=== PATIENT | male | born 1945 | race Caucasian/White ===

== ENCOUNTER 2016-03-03 09:55 | Inpatient (IN) | payer OTHER ==
[~2016-03-03] VITALS: Ht 162.6 cm; Wt 76.4 kg
[~2016-03-03 09:55] MED LIST: AMOX1TAB43 PO; ASPI81TA21 PO; BISA10SU3 PR; CLC100X PO; DONE10TA12 PO; GLIP5TAB11 PO; METF1000 PO; PANT1TAB48 PO; POLY335040 PO; PRAZ1CAP28 PO; RAME8TAB18 PO; SENN-63 PO; TRAZ50TA35 PO; VENL75CA PO
[2016-03-03] MEDS ORDERED: ASPIRIN 324 MG CHEW PO STA (10:02)
[2016-03-03] MEDS ORDERED: ONDANSETRON INJ 2 MG/ML 2 ML VIAL IV STA (10:02)
[2016-03-03] MEDS ORDERED: PANTOprazole INJ 40 MG in SYRINGE 0 ML IV ONE (10:15)
[2016-03-03] MEDS ORDERED: MoRPHine SULFATE 4 MG/ML 1 ML CARP\\VIAL IV PRN (10:15)
--- NOTE | 2016-03-03 10:19 | EMERGENCY ROOM VISIT NOTE ---
History Report prepared by Javon: Sweetie Hoffman Under the Supervision of: Dr. Natan Richmond D.O. First contact with patient: 09:57 Chief Complaint: CHEST PAIN Stated Complaint: CHEST PAINS W/NAUSEA History of Present Illness The patient is a 70 year old male who presents to the Emergency Room with complaints of persistent chest pain over the past 3 days. Currently, his pain is radiating to his neck as well as his back, and he rates his discomfort as a 5 /10, which worsens when laying flat. Since the time of onset, the patient has also been feeling nauseous, but he denies having abdominal pain and he has not yet vomited. He also states that he has been feeling short of breath, but he is unsure if this worsens with exertion as he has not attempted to do so. Patient denies recent fevers, chills, headache, cough, diarrhea, urinary symptoms or increased swelling to his extremities. Patient states that he has experienced similar symptoms in the past and he had a stress test done several years ago. He has a history of diabetes and hypertension. He denies use of tobacco or alcohol. Source of History: patient Onset: over the past 3 days Position: chest Symptom Intensity: 5/10 Timing: other (persistent) Modifying Factors (Worsening): other (laying flat) Associated Symptoms: + SOB, + nausea, + neck pain, No abdominal pain, No chills, No diarrhea, No fevers, No urinary symptoms, No vomiting Review of Systems See HPI for pertinent positives & negatives. A total of 10 systems reviewed and were otherwise negative. Past Medical & Surgical Medical Problems: (1) Chest pain (2) Cholecystectomy (3) Colostomy (4) Diabetes mellitus Social History Marital Status: Occupation Status: retired Current/Historical Medications Scheduled Aspirin Enteric Coated (Ecotrin Or Generic), 81 MG PO DAILY Bisacodyl (Dulcolax), 1 SUPP RI DAILY PRN Docusate Sodium (Colace), 200 MG PO BID Donepezil Hydrochloride (Aricept), 10 MG PO HS Glipizide (Glucotrol), 5 MG PO DAILY Metformin Hcl (Glucophage), 1,000 MG PO BID Pantoprazole (Protonix), 40 MG PO DAILY Polyethylene (Miralax Powder Packet), 17 GM PO PRN Prazosin Hcl (Prazosin), 1 MG PO BID Ramelteon (Rozerem), 8 MG PO HS PRN Sennosides (Senokot), 1 TAB PO BID Trazodone Hcl (Trazodone), 50 MG PO HS Venlafaxine Hcl (Effexor Xr), 75 MG PO BID Allergies Coded Allergies: No Known Allergies (Verified , 03/03/16) Physical Exam Vital Signs Date Time Temp Pulse Resp B/P Pulse Ox O2 Delivery O2 Flow Rate FiO2 03/03/16 14:22 85 18 137/94 95 Room Air 03/03/16 13:26 90 18 137/88 95 Room Air 03/03/16 13:15 84 03/03/16 12:50 95 Room Air 03/03/16 12:07 79 18 144/85 95 Room Air 03/03/16 11:11 82 18 150/93 95 Room Air 03/03/16 10:03 79 03/03/16 09:59 37.0 83 24 162/98 94 Room Air Physical Exam GENERAL: Patient is awake, alert, and somewhat anxious and uncomfortable appearing. EYES: The conjunctivae are clear. The pupils are round and reactive. EARS, NOSE, MOUTH AND THROAT: The nose is without any evidence of any deformity. Mucous membranes are moist tongue is midline NECK: The neck is nontender and supple. RESPIRATORY: Normal respiratory effort is noted there is no evidence of wheezing rhonchi or rales CARDIOVASCULAR: Regular rate and rhythm noted there no murmurs rubs or gallops normal S1 normal S2 GASTROINTESTINAL: The abdomen is soft. Bowel sounds are present in all quadrants. Abdomen is nontender MUSCULOSKELETAL/EXTREMITIES: There is no evidence of gross deformity full range of motion is noted in the hips and shoulders SKIN: There is no obvious evidence of any rash. There are no petechiae, pallor or cyanosis noted. NEUROLOGIC: Patient is awake alert and oriented x3. Medical Decision & Procedures ER Provider Diagnostic Interpretation: X-ray results as stated below per interpretation by me and the radiologist. KUB HISTORY: Nausea. Generalized abdominal pain. COMPARISON: Chest and abdominal series 03/03/2008. FINDINGS: The bowel gas pattern is unremarkable. There are no dilated loops of small bowel to suggest an obstruction. No renal calculi. No ureteral calculi. No pneumoperitoneum or pneumatosis. Prior cholecystectomy. There is suture material within the right deep pelvis. The lung bases appear clear. IMPRESSION: Unremarkable bowel gas pattern. No evidence for bowel obstruction. Electronically signed by: Jem Underwood M.D. 03/03/2016 10:46 AM CHEST ONE VIEW PORTABLE CLINICAL HISTORY: Chest pain and nausea. COMPARISON STUDY: Chest radiograph October 20, 2012 FINDINGS: Lung volumes are normal. No consolidation is identified and there is no evidence of pulmonary edema. Cardiomediastinal silhouette is stable. An anterior cervical spine fusion is partially imaged. No pneumothorax or pleural effusion is identified. IMPRESSION: No acute cardiopulmonary findings. Electronically signed by: Kevyn Headley M.D. 03/03/2016 10:35 AM Laboratory Results 03/03/16 10:04 Red Blood Count 5.51, Mean Corpuscular Volume 86.4, Mean Corpuscular Hemoglobin 31.8, Mean Corpuscular Hemoglobin Concent 36.8, Mean Platelet Volume 10.5, Neutrophils (%) (Auto) 65.2, Lymphocytes (%) (Auto) 25.3, Monocytes (%) (Auto) 5.9, Eosinophils (%) (Auto) 2.3, Basophils (%) (Auto) 0.4, Neutrophils # (Auto) 5.13, Lymphocytes # (Auto) 1.99, Monocytes # (Auto) 0.46, Eosinophils # (Auto) 0.18, Basophils # (Auto) 0.03 03/03/16 10:04 Test 03/03/16 10:04 White Blood Count 7.86 K/uL (4.8-10.8) Red Blood Count 5.51 M/uL (4.7-6.1) Hemoglobin 17.5 g/dL (14.0-18.0) Hematocrit 47.6 % (42-52) Mean Corpuscular Volume 86.4 fL (80-100) Mean Corpuscular Hemoglobin 31.8 pg (25-34) Mean Corpuscular Hemoglobin Concent 36.8 g/dl (32-36) Platelet Count 193 K/uL (130-400) Mean Platelet Volume 10.5 fL (7.4-10.4) Neutrophils (%) (Auto) 65.2 % Lymphocytes (%) (Auto) 25.3 % Monocytes (%) (Auto) 5.9 % Eosinophils (%) (Auto) 2.3 % Basophils (%) (Auto) 0.4 % Neutrophils # (Auto) 5.13 K/uL (1.4-6.5) Lymphocytes # (Auto) 1.99 K/uL (1.2-3.4) Monocytes # (Auto) 0.46 K/uL (0.11-0.59) Eosinophils # (Auto) 0.18 K/uL (0-0.5) Basophils # (Auto) 0.03 K/uL (0-0.2) RDW Standard Deviation 40.2 fL (36.4-46.3) RDW Coefficient of Variation 12.6 % (11.5-14.5) Immature Granulocyte % (Auto) 0.9 % Immature Granulocyte # (Auto) 0.07 K/uL (0.00-0.02) Prothrombin Time 11.1 SECONDS (9.0-12.0) Prothromb Time International Ratio 1.0 (0.9-1.1) Activated Partial Thromboplast Time 25.9 SECONDS (21.0-31.0) Partial Thromboplastin Ratio 1.0 Anion Gap 9.0 mmol/L (3-11) Est Creatinine Clear Calc Drug Dose 59.9 ml/min Estimated GFR () 79.5 Estimated GFR (Non- 68.6 BUN/Creatinine Ratio 14.9 (10-20) Calcium Level 8.7 mg/dl (8.5-10.1) Magnesium Level 2.0 mg/dl (1.8-2.4) Total Bilirubin 0.8 mg/dl (0.2-1) Direct Bilirubin 0.2 mg/dl (0-0.2) Aspartate Amino Transf (AST/SGOT) 25 U/L (15-37) Alanine Aminotransferase (ALT/SGPT) 33 U/L (12-78) Alkaline Phosphatase 74 U/L (45-117) Total Creatine Kinase 90 U/L (39-308) Creatine Kinase MB 1.2 ng/ml (0.5-3.6) Creatine Kinase MB Ratio 1.3 (0-3.0) Troponin I < 0.015 ng/ml (0-0.045) Total Protein 7.3 gm/dl (6.4-8.2) Albumin 4.1 gm/dl (3.4-5.0) Lipase 287 U/L (73-393) Laboratory results per my review. Medications Administered Medications (Trade) Dose Ordered Sig/Woo Route Start Time Stop Time Status Last Admin Dose Admin Morphine Sulfate (MoRPHine SULFATE INJ) 4 mg Q15M PRN IV 03/03/16 10:15 03/17/16 10:14 03/03/16 10:23 4 MG Ondansetron HCl 4 mg 4 mg NOW STAT IV 03/03/16 10:02 03/03/16 10:03 DC 03/03/16 10:22 4 MG Pantoprazole Sodium/Syringe (Protonix Inj/ Syringe) 10 ml @ 5 mls/min NOW ONCE IV 03/03/16 10:15 03/03/16 10:16 DC 03/03/16 10:22 5 MLS/MIN Aspirin (Aspirin Chew) 324 mg NOW STAT PO 03/03/16 10:02 03/03/16 10:03 DC 03/03/16 10:22 324 MG ECG Indication: chest pain Rate (beats per minute): 84 Rhythm: normal sinus Findings: no ectopy, other (Diffuse T wave flattening.) ED Course 0958: The patient was evaluated in room A11. A complete history and physical examination were performed. 1002: Aspirin 324 mg PO and Zofran 4 mg IV were ordered. 1015: Pantoprazole Sodium 40 mg/Syringe 10 ml @ 5 mls/min IV and Morphine Sulfate 4 mg IV were ordered. 1220: Upon reevaluation, the patient was doing well and appeared to be resting more comfortably. I updated him on the results of his radiology reports and lab tests. The hospitalist will be contacted. 1236: After discussion with Dr. Schilling, the patient will continue to be evaluated by the [facility] hospitalist for further management. The patient verbalized his understanding and agreement with this treatment plan. Medical Decision Differential diagnosis: Etiologies such as cardiac ischemia, aortic dissection, pulmonary embolism, pneumonia, pneumothorax, musculoskeletal, infections, pericarditis, myocarditis , esophageal rupture, gastrointestinal, as well as others were entertained. Nursing notes reviewed. The patient is a 70-year-old male who presented to the emergency department for an evaluation of chest pain. The patient describes anterior chest pain. The patient's EKG did not show any acute ischemic changes. His initial laboratory studies did not reveal an elevation in the troponin. I discussed the patient's laboratory and radiographic studies with him. I also discussed the limitations of the emergency department workup for chest pain with him. Given the patient's complaints and past medical history I discussed this case with the on-call [facility] hospitalist group. They have agreed to evaluate the patient in the emergency apartment for further management and disposition. Consults Time Called: 1220 Consulting Physician: Dr. Schilling - DA Returned Call: 1235 Discussed the patient's case. He will continue to be evaluated by the [facility] hospitalist for further management. Impression Primary Impression: Precordial chest pain Scribe Attestation The scribe's documentation has been prepared under my direction and personally reviewed by me in its entirety. I confirm that the note above accurately reflects all work, treatment, procedures, and medical decision making performed by me. Departure Information Dispostion Being Evaluated By Hospitalist (DA) Referrals No Doctor, Assigned (PCP)
[2016-03-03 10:28] LABS: BASO % 0.4 %; BASO ABS # 0.03 K/uL (0-0.2); COMPLETE YES; EOS % 2.3 %; HEMATOCRIT 47.6 % (42-52); IG% 0.9 %; LYMPH % 25.3 %; LYMPH ABS # 1.99 K/uL (1.2-3.4); MEAN CELL VOLUME 86.4 fL (80-100); MEAN CORPUSCULAR HEMOGLOBIN 31.8 pg (25-34); MEAN CORPUSCULAR HGB CONC 36.8 g/dl (32-36); MEAN PLATELET VOLUME 10.5 fL (7.4-10.4); MONO % 5.9 %; NEUT % 65.2 %; PLATELET COUNT 193 K/uL (130-400); RED BLOOD COUNT 5.51 M/uL (4.7-6.1); WHITE BLOOD COUNT 7.86 K/uL (4.8-10.8)
[2016-03-03 10:36] LABS: PROTHROMBIN TIME (PATIENT) 11.1 SECONDS (9.0-12.0)
--- NOTE | 2016-03-03 10:37 | DIAGNOSTIC IMAGING REPORT ---
CHEST ONE VIEW PORTABLE CLINICAL HISTORY: Chest pain and nausea. COMPARISON STUDY: Chest radiograph October 20, 2012 FINDINGS: Lung volumes are normal. No consolidation is identified and there is no evidence of pulmonary edema. Cardiomediastinal silhouette is stable. An anterior cervical spine fusion is partially imaged. No pneumothorax or pleural effusion is identified. IMPRESSION: No acute cardiopulmonary findings. Electronically signed by: Kevyn Headley M.D. 03/03/2016 10:35 AM
--- NOTE | 2016-03-03 10:48 | DIAGNOSTIC IMAGING REPORT ---
KUB HISTORY: Nausea. Generalized abdominal pain. COMPARISON: Chest and abdominal series 03/03/2008. FINDINGS: The bowel gas pattern is unremarkable. There are no dilated loops of small bowel to suggest an obstruction. No renal calculi. No ureteral calculi. No pneumoperitoneum or pneumatosis. Prior cholecystectomy. There is suture material within the right deep pelvis. The lung bases appear clear. IMPRESSION: Unremarkable bowel gas pattern. No evidence for bowel obstruction. Electronically signed by: Jem Underwood M.D. 03/03/2016 10:46 AM
[2016-03-03 10:49] LABS: BLOOD UREA NITROGEN 16 mg/dl (7-18); BUN/CREATININE RATIO 14.9 (10-20); CALCIUM 8.7 mg/dl (8.5-10.1); CARBON DIOXIDE 25 mmol/L (21-32); CHLORIDE 105 mmol/L (98-107); GLUCOSE 207 mg/dl (70-99); POTASSIUM 3.6 mmol/L (3.5-5.1); SODIUM 139 mmol/L (136-145)
[2016-03-03 10:55] LABS: ALKALINE PHOSPHATASE 74 U/L (45-117); ALT/SGPT 33 U/L (12-78); AST/SGOT 25 U/L (15-37); CKMB/CK RATIO 1.3 (0-3.0)
[2016-03-03 12:50] VITALS: BP 93/87; PULSE 76; TEMP 36.8; O2SAT 95; BMI 28.8
[2016-03-03] MEDS ORDERED: ACETAMINOPHEN 325 MG TAB PO PRN (13:15)
[2016-03-03] MEDS ORDERED: INFLUENZA VIRUS QUAD VACCINE 0.5 ML SYR IM. ONE ×2 (13:15→13:45)
[2016-03-03] MEDS ORDERED: PNEUMOCOCCAL POLYSACCHARIDES 25 MCG/0.5 ML VIAL/SYR IM. ONE (13:15)
[2016-03-03] MEDS ORDERED: MAGNESIUM HYDROXIDE SUSP 30 ML UDC PO PRN (13:15)
[2016-03-03] MEDS ORDERED: PNEUMOCOCCAL ADMINISTRATION CHARGE ONE (13:15)
[2016-03-03] MEDS ORDERED: ALUMINUM/MAGNESIUM/SIMETH (MAALOX MAX) 30 ML UDC PO PRN (13:15)
[2016-03-03] MEDS ORDERED: POLYETHYLENE (MIRALAX) 17 GM PACK PO PRN (13:15)
[2016-03-03] MEDS ORDERED: NITROGLYCERIN 0.4 MG SL PER TAB CHARGE SL PRN (13:15)
[2016-03-03] MEDS ORDERED: HydrALAZINE HCL 20 MG/ML VIAL IV. PRN (13:15)
[2016-03-03] MEDS ORDERED: INFLUENZA ADMINISTRATION CHARGE ONE (13:45)
--- NOTE | 2016-03-03 14:14 | History and Physical ---
History & Physical Date & Time of Service: Mar 03, 2016 at 13:26 Chief Complaint: Chest Pains W/Nausea Primary Care Physician: No Doctor, Assigned History of Present Illness Source: patient, family Patient is a pleasant 70 y/o male, with PMHx of DM, GERD, depression, insomnia, BPH, and mild cognitive impairment, who presented to the ED with complaints of chest pain, nausea and vomiting x4 days. On Tuesday (02/28), he started to experience nausea and vomiting. He also admits to diarrhea and decreased appetite. Symptoms have resolved with mild nausea and depressed appetite currently. His entire family has been sick with the "GI bug." Patient also admits to chest pressure located in the the center of his chest. Patient came to the ED today because of the chest discomfort. Discomfort has been ongoing for 4 days. Discomfort radiates to left shoulder and jaw. The pain is constant. He denies any alleviating or aggravating factors. He denies any SOB or dyspnea on exertion. He denies any easily fatiguing with activity. His denies any cardiac history; arrhythmias, CAD, or heart catheterizations. He did have a stress test years ago, which was unremarkable. He does have a history of DM. He denies any history of HTN or hyperlipidemia. He denies any alcohol or smoking use. He denies any TIA, CVA, DVT, or PE. Patient denies any fever, chills, sweats, lightheadedness, dizziness, vision changes, palpitations, edema, SOB, wheezing, cough, abdominal pain, urinary symptoms, melena, numbness/tingling, weakness, muscle/joint pain, anxiety/depression, active bleeding, or new skin discoloration/changes. Past Medical/Surgical History Medical history: 1. DM 2. GERD 3. Depression 4. Insomnia/night terrors 5. BPH 6. Mild cognitive impairment Surgical history 1. Cholecystectomy 2. Bowel obstruction s/p colectomy- reversed Family History Dad and Brother- DM Social History Smoking Status: Never Smoker Marital Status: Occupational Status: retired Immunizations History of Influenza Vaccine: Yes History of Tetanus Vaccine?: Unknown History of Pneumococcal: Yes History of Hepatitis B Vaccine: Unknown Multi-Drug Resistant Organisms History of MDRO: No Allergies Coded Allergies: No Known Allergies (Verified , 03/03/16) Home Medications Scheduled Aspirin Enteric Coated (Ecotrin Or Generic), 81 MG PO DAILY Bisacodyl (Dulcolax), 1 SUPP [place] DAILY PRN Docusate Sodium (Colace), 200 MG PO BID Donepezil Hydrochloride (Aricept), 10 MG PO HS Glipizide (Glucotrol), 5 MG PO DAILY Metformin Hcl (Glucophage), 1,000 MG PO BID Pantoprazole (Protonix), 40 MG PO DAILY Polyethylene (Miralax Powder Packet), 17 GM PO PRN Prazosin Hcl (Prazosin), 1 MG PO BID Ramelteon (Rozerem), 8 MG PO HS PRN Sennosides (Senokot), 1 TAB PO BID Trazodone Hcl (Trazodone), 50 MG PO HS Venlafaxine Hcl (Effexor Xr), 75 MG PO BID Physical Exam Vital Signs Date Time Temp Pulse Resp B/P Pulse Ox O2 Delivery O2 Flow Rate FiO2 03/03/16 13:15 84 03/03/16 12:50 95 Room Air 03/03/16 12:07 79 18 144/85 95 Room Air 03/03/16 11:11 82 18 150/93 95 Room Air 03/03/16 10:03 79 03/03/16 09:59 37.0 83 24 162/98 94 Room Air General Appearance: no apparent distress Head: normocephalic, atraumatic Eyes: normal inspection, PERRL ENT: hearing grossly normal Neck: supple Respiratory/Chest: lungs clear, normal breath sounds, no respiratory distress, no accessory muscle use Cardiovascular: regular rate, rhythm, no edema, normal peripheral pulses Abdomen/GI: normal bowel sounds, non tender, soft Back: normal inspection Extremities/Musculoskelatal: no calf tenderness, no pedal edema Neurologic/Psych: alert, normal mood/affect, oriented x 3 Skin: normal color, warm/dry, no rash Diagnostics Laboratory Results Results Past 24 Hours Test 03/03/16 10:04 Range/Units White Blood Count 7.86 4.8-10.8 K/uL Red Blood Count 5.51 4.7-6.1 M/uL Hemoglobin 17.5 14.0-18.0 g/dL Hematocrit 47.6 42-52 % Mean Corpuscular Volume 86.4 80-100 fL Mean Corpuscular Hemoglobin 31.8 25-34 pg Mean Corpuscular Hemoglobin Concent 36.8 32-36 g/dl Platelet Count 193 130-400 K/uL Mean Platelet Volume 10.5 7.4-10.4 fL Neutrophils (%) (Auto) 65.2 % Lymphocytes (%) (Auto) 25.3 % Monocytes (%) (Auto) 5.9 % Eosinophils (%) (Auto) 2.3 % Basophils (%) (Auto) 0.4 % Neutrophils # (Auto) 5.13 1.4-6.5 K/uL Lymphocytes # (Auto) 1.99 1.2-3.4 K/uL Monocytes # (Auto) 0.46 0.11-0.59 K/uL Eosinophils # (Auto) 0.18 0-0.5 K/uL Basophils # (Auto) 0.03 0-0.2 K/uL RDW Standard Deviation 40.2 36.4-46.3 fL RDW Coefficient of Variation 12.6 11.5-14.5 % Immature Granulocyte % (Auto) 0.9 % Immature Granulocyte # (Auto) 0.07 0.00-0.02 K/uL Prothrombin Time 11.1 9.0-12.0 SECONDS Prothromb Time International Ratio 1.0 0.9-1.1 Activated Partial Thromboplast Time 25.9 21.0-31.0 SECONDS Partial Thromboplastin Ratio 1.0 Sodium Level 139 136-145 mmol/L Potassium Level 3.6 3.5-5.1 mmol/L Chloride Level 105 98-107 mmol/L Carbon Dioxide Level 25 21-32 mmol/L Anion Gap 9.0 3-11 mmol/L Blood Urea Nitrogen 16 7-18 mg/dl Creatinine 1.10 0.60-1.40 mg/dl Est Creatinine Clear Calc Drug Dose 59.9 ml/min Estimated GFR () 79.5 Estimated GFR (Non- 68.6 BUN/Creatinine Ratio 14.9 10-20 Random Glucose 207 70-99 mg/dl Calcium Level 8.7 8.5-10.1 mg/dl Magnesium Level 2.0 1.8-2.4 mg/dl Total Bilirubin 0.8 0.2-1 mg/dl Direct Bilirubin 0.2 0-0.2 mg/dl Aspartate Amino Transf (AST/SGOT) 25 15-37 U/L Alanine Aminotransferase (ALT/SGPT) 33 12-78 U/L Alkaline Phosphatase 74 45-117 U/L Total Creatine Kinase 90 39-308 U/L Creatine Kinase MB 1.2 0.5-3.6 ng/ml Creatine Kinase MB Ratio 1.3 0-3.0 Troponin I < 0.015 0-0.045 ng/ml Total Protein 7.3 6.4-8.2 gm/dl Albumin 4.1 3.4-5.0 gm/dl Lipase 287 73-393 U/L Diagnostic Radiology KUB HISTORY: Nausea. Generalized abdominal pain. COMPARISON: Chest and abdominal series 03/03/2008. FINDINGS: The bowel gas pattern is unremarkable. There are no dilated loops of small bowel to suggest an obstruction. No renal calculi. No ureteral calculi. No pneumoperitoneum or pneumatosis. Prior cholecystectomy. There is suture material within the right deep pelvis. The lung bases appear clear. IMPRESSION: Unremarkable bowel gas pattern. No evidence for bowel obstruction. Electronically signed by: Jem Underwood M.D. 03/03/2016 10:46 AM The status of this report is Signed. Draft = Not yet reviewed or approved by Radiologist. Signed = Reviewed and approved by Radiologist. CHEST ONE VIEW PORTABLE CLINICAL HISTORY: Chest pain and nausea. COMPARISON STUDY: Chest radiograph October 20, 2012 FINDINGS: Lung volumes are normal. No consolidation is identified and there is no evidence of pulmonary edema. Cardiomediastinal silhouette is stable. An anterior cervical spine fusion is partially imaged. No pneumothorax or pleural effusion is identified. IMPRESSION: No acute cardiopulmonary findings. Electronically signed by: Kevyn Headley M.D. 03/03/2016 10:35 AM The status of this report is Signed. Draft = Not yet reviewed or approved by Radiologist. Signed = Reviewed and approved by Radiologist. EKG BAKER REJI ID:[id number] 03-MAR-2016 09:58:25 [facility] Normal sinus rhythm Nonspecific T wave abnormality Abnormal ECG When compared with ECG of 20-OCT-2012 06:37, No significant change was found 25mm/s 10mm/mV 150Hz 8.0 SP2 12SL 241 HD KIRK: 12 Referred by: Referred Self Unconfirmed Vent. rate 84 BPM TX interval 162 ms QRS duration 82 ms QT/QTc 376/444 ms P-R-T axes 49 23 34 1945 (70 yr) Male Room:A11 Loc:15 Mortarman:JONNATHAN MCLEAN Test ind: Impression Assessment and Plan 70 y/o male, with PMHx of DM, GERD, depression, insomnia, BPH, and mild cognitive impairment, who presented to the ED with complaints of chest pain, nausea and vomiting x4 days. Chest pain r/o: -Admit tele observation -Trend cardiac enzymes -Stress echo tomorrow AM if cardiac enzymes remain negative -Check ha1c and lipid panel -Hydralazine PRN for SBP >170 or DBP >100 -Follow PRP and CBC -Check rapid flu Mild cognitive impairment: -Continue Aricept 10 mg PO HS Insomnia: -Continue Rozerem 8 mg PO HS PRN -Continue Trazodone 50 mg PO HS DM: -Continue Metformin 1,000 mg PO BID and Glipizide 5 mg PO daily -BSG AC & HS -Sliding insulin scale -Check ha1c Anxiety: -Continue Effexor 75 mg PO BID BPH: -Continue Prazosin 1 mg PO BID GERD: -Hold daily Protonix PO -IV Protonix BID -Consult GI, appreciate recommendations GI Prophylaxis: -Maalox PRN -IV Zofran PRN -Colace and/or Milk of Mag PRN DVT prophylaxis: -Heparin 5000 units SQ q12 hrs -CANDIDA and SCDs Code Status: -LEVEL I, FULL- no prolonged measures Level of Care Telemetry Advanced Directives Existing Advance Directive: No Existing Living Will: No Existing Power of End Polisher: No Resuscitation Status FULL RESUSCITATION VTE Prophylaxis Risk Level: Low Given or contraindicated: Unfractionated heparin SQ, T.E.D. Stockings, SCD's Reviewed: Pt Seen/Exam by FELICIANO Mukherjee Notes, Labs, RAD, EKG History Agree with above PA H&P/ROS. Pt has been having chest pain substernally with radiation to the left neck and left arm constantly for 4 days now, at a 5/10 in severity, pressure-like. He said it started after he started vomiting. He has had N/V x 4 days and diarrhea for 1 day. No abd pain, nonbloody emesis and stool. He had some brief SOB yesterday morning that resolved on its own. He has had 2 other sick contacts in his family with similar symptoms. Currently his chest pain is a 2/10 in severity, same nature, constant, but feeling better. No more vomiting today but did eat regular food earlier and now feels nauseated again. ECG without signs of ischemia, troponin neg x 2 so far. General Appearance: WD/WN, no apparent distress Eye Exam: bilateral eye normal inspection Ears, Nose, Throat: hearing grossly normal, pharynx normal Neck: normal inspection, trachea midline Respiratory: chest non-tender, lungs clear, normal breath sounds, no respiratory distress, no accessory muscle use Cardiovascular: normal peripheral pulses, regular rate, rhythm, no edema, no gallop, no JVD, no murmur Gastrointestinal: normal bowel sounds, non tender, soft, no organomegaly, no pulsatile mass (and no bruits), other (scar in left lower abd from previous colostomy) Extremities: non-tender, normal inspection, no pedal edema, no calf tenderness Neurologic/Psychiatric: no motor/sensory deficits, alert, normal mood/affect, oriented x 3 Skin Characteristics: normal color, warm/dry Lymphatic: no adenopathy Assessment/Plan AGree with plan as above in PA's note: Likely chest pain related to GI causes from persistent vomiting and gastroenteritis as chest pain has been constant for 4 days and with negative cardiac markers and normal ECG. Switch back to clears now for return of nausea, IVFs, and continue serial troponin and r/o ACS given risk factor of age, gender, DMII. Appreciate GI eval- -> plan to EGD if cardiac w/u negative an dpain persists. Continue PPI and can switch to po bid when tolerating po again. Recommend po bid x 2 weeks as per GI Stress ECHO in AM, repeat ECG in AM
[2016-03-03] MEDS ORDERED: GLUCAGON FOR INJ 1 MG VIAL SQ PRN (14:30)
[2016-03-03] MEDS ORDERED: GLUCOSE 10 TABS/TUBE PO PRN (14:30)
[2016-03-03] MEDS ORDERED: GLUCOSE 40% GEL 15 GM TUBE PO PRN (14:30)
[2016-03-03] MEDS ORDERED: DEXTROSE 50% 50 ML SYR IV PRN (14:30)
[2016-03-03] MEDS ORDERED: IV FLUIDS COMPLETED PRN (15:30)
[2016-03-03 15:55] LABS: URINE APPEARANCE CLOUDY (CLEAR); URINE COLOR DK YELLOW; URINE EPITHELIAL CELL AUTO >30 /lpf (0-5); URINE NITRITE POS (NEG); URINE PH 5.5 (4.5-7.5); URINE SPECIFIC GRAVITY 1.041 (1.000-1.030); UROBILINOGEN POS (NEG)
[2016-03-03 16:00] LABS: MANUAL MICROSCOPIC REQUIRED? NO; REVIEW REQ? YES; URINE BILIRUBIN NEG (NEG)
[2016-03-03] MEDS: RAMELTEON: ORDER AWAITING ACTION SCH ×2 (16:00→23:55)
[2016-03-03 16:08] LABS: URINE MUCUS PRESENT (NONE PRSENT); URINE PATH CASTS 0-3 GRANULAR CASTS /lpf (0)
--- NOTE | 2016-03-03 16:24 | Gastrointestinal Consultation ---
Gastrointestinal Consultation Date of Consultation: Mar 03, 2016 Consulting Physician: Dr. Stewart Reason for Consultation: N/V/D History of Present Illness Patient is a 70 year old male with past medical history significant for reflux, DM, depression, insomnia and BPH who is being admitted for chest pain, pain was constant, described as extreme pressure. He reports that he pain did radiate up his neck and into the jaw. A thorough cardiac work-up is pending. GI was consulted for evaluation of N/V/D. He reports that on Tuesday night he started feeling very nauseated with decrease in appetite. He reports numerous episodes of GI upset consisting of vomiting and diarrhea. He reports that the emesis is yellowish in color and without bloody/coffee ground appearance, this is relieved today. He reports ongoing diarrhea, slightly relieved today. He reports his stools were frequent and urgent, without bloody/black appearance. He reports one episode of chills. He reports a sick contact, his son, who has been at home with similar symptoms for two days. He reports an episode of regurgitation when bending over in the ED today. He states he was feeling nausea and when he bent over he tasted regurgitation in the back of this throat. Denies SOB. KUB 03/03/16: "The bowel gas pattern is unremarkable. There are no dilated loops of small bowel to suggest an obstruction. No renal calculi. No ureteral calculi. No pneumoperitoneum or pneumatosis. Prior cholecystectomy. There is suture material within the right deep pelvis. The lung bases appear clear." No record of previous EGD/Colon Past Medical/Surgical History Medical Problems: (1) Precordial chest pain Status: Acute Past Surgical History: Cholecystectomy Social History Smoking Status: Never Smoker Marital Status: Occupation Status: retired Allergies Coded Allergies: No Known Allergies (Verified , 03/03/16) Current Medications Home Meds and Scripts Medications Dose Route/Sig Max Daily Dose Days Date Category Effexor Xr (Venlafaxine Hcl) 75 Mg Cap 75 Mg PO BID 10/17/12 Reported Glucophage (Metformin Hcl) 1,000 Mg Tab 1,000 Mg PO BID 02/17/12 Reported Miralax Powder Packet (Polyethylene) 17 Gm Pack 17 Gm PO PRN 02/17/12 Reported Rozerem (Ramelteon) 8 Mg Tab 8 Mg PO HS PRN 02/17/12 Reported Trazodone (Trazodone HCl) 50 Mg Tab 50 Mg PO HS 02/17/12 Reported Senokot (Sennosides) 8.6 Mg Tab 1 Tab PO BID 02/17/12 Reported Protonix (Pantoprazole) 40 Mg Tab 40 Mg PO DAILY 02/17/12 Reported Glucotrol (Glipizide) 5 Mg Tab 5 Mg PO DAILY 02/17/12 Reported Aricept (Donepezil Hydrochloride) 10 Mg Tab 10 Mg PO HS 02/17/12 Reported Colace (Docusate Sodium) 100 Mg Cap 200 Mg PO BID 02/17/12 Reported Dulcolax (Bisacodyl) 10 Mg Sup 1 Supp TN DAILY PRN 02/17/12 Reported Prazosin (Prazosin Hcl) 1 Mg Cap 1 Mg PO BID 01/07/12 Reported Ecotrin Or Generic (Aspirin) 81 Mg Tab 81 Mg PO DAILY 01/07/12 Reported Review of Systems Constitutional: + chills, No fever Respiratory: No cough, No shortness of breath Cardiac: + chest pain Abdomen: + diarrhea, + nausea, + vomiting, No GI bleeding, No constipation, No pain Physical Exam Date Time Temp Pulse Resp B/P Pulse Ox O2 Delivery O2 Flow Rate FiO2 03/03/16 14:22 85 18 137/94 95 Room Air 03/03/16 13:26 90 18 137/88 95 Room Air 03/03/16 13:15 84 03/03/16 12:50 95 Room Air 03/03/16 12:07 79 18 144/85 95 Room Air 03/03/16 11:11 82 18 150/93 95 Room Air 03/03/16 10:03 79 03/03/16 09:59 37.0 83 24 162/98 94 Room Air General Appearance: no apparent distress Eyes: PERRL ENT: hearing grossly normal Neck: supple, trachea midline Respiratory/Chest: lungs clear, normal breath sounds, no respiratory distress, no accessory muscle use Cardiovascular: regular rate, rhythm, no edema, no gallop, no JVD, no murmur Abdomen: normal bowel sounds, non tender, soft, no organomegaly, no pulsatile mass Neurologic/Psych: alert, normal mood/affect, oriented x 3 Skin: normal color Laboratory Results Last 24 Hours Test 03/03/16 00:00 1/4/17 10:04 03/03/16 15:31 Urine Color DK YELLOW Urine Appearance CLOUDY Urine pH 5.5 Urine Specific [place] 1.041 Urine Protein TRACE Urine Glucose (UA) TRACE Urine Ketones 1+ Urine Occult Blood NEG Urine Nitrite POS Urine Bilirubin NEG Urine Urobilinogen POS Urine Leukocyte Esterase NEG White Blood Count 7.86 K/uL Red Blood Count 5.51 M/uL Hemoglobin 17.5 g/dL Hematocrit 47.6 % Mean Corpuscular Volume 86.4 fL Mean Corpuscular Hemoglobin 31.8 pg Mean Corpuscular Hemoglobin Concent 36.8 g/dl Platelet Count 193 K/uL Mean Platelet Volume 10.5 fL Neutrophils (%) (Auto) 65.2 % Lymphocytes (%) (Auto) 25.3 % Monocytes (%) (Auto) 5.9 % Eosinophils (%) (Auto) 2.3 % Basophils (%) (Auto) 0.4 % Neutrophils # (Auto) 5.13 K/uL Lymphocytes # (Auto) 1.99 K/uL Monocytes # (Auto) 0.46 K/uL Eosinophils # (Auto) 0.18 K/uL Basophils # (Auto) 0.03 K/uL RDW Standard Deviation 40.2 fL RDW Coefficient of Variation 12.6 % Immature Granulocyte % (Auto) 0.9 % Immature Granulocyte # (Auto) 0.07 K/uL Prothrombin Time 11.1 SECONDS Prothromb Time International Ratio 1.0 Activated Partial Thromboplast Time 25.9 SECONDS Partial Thromboplastin Ratio 1.0 Sodium Level 139 mmol/L Potassium Level 3.6 mmol/L Chloride Level 105 mmol/L Carbon Dioxide Level 25 mmol/L Anion Gap 9.0 mmol/L Blood Urea Nitrogen 16 mg/dl Creatinine 1.10 mg/dl Est Creatinine Clear Calc Drug Dose 59.9 ml/min Estimated GFR () 79.5 Estimated GFR (Non- 68.6 BUN/Creatinine Ratio 14.9 Random Glucose 207 mg/dl Calcium Level 8.7 mg/dl Magnesium Level 2.0 mg/dl Total Bilirubin 0.8 mg/dl Direct Bilirubin 0.2 mg/dl Aspartate Amino Transf (AST/SGOT) 25 U/L Alanine Aminotransferase (ALT/SGPT) 33 U/L Alkaline Phosphatase 74 U/L Total Creatine Kinase 90 U/L Creatine Kinase MB 1.2 ng/ml Creatine Kinase MB Ratio 1.3 Troponin I < 0.015 ng/ml Total Protein 7.3 gm/dl Albumin 4.1 gm/dl Lipase 287 U/L Hepatitis C Antibody Screen NEG Impression Patient is a 70 year old male with chest pain, chills, nausea, vomiting, diarrhea. He has had a normal EKG, chest xray and KUB. He is without an elevated white count, hemodynamically stable with a normal lipase. Differentials include cardiac chest pain, PUD, viral gastroenteritis, Reflux etc Plan Diet as tolerated oral PPI BID Zofran PRN nausea supportive measures Attg addendum: I interviewed and examined pt, reviewed chart and labs. Pt describes h/o symptoms typical of gastroenteritis, and reports several ill contacts. He also reports chest pain, and was admitted for ACS rule out. His labs and exam are unremarkable. A/p: He likely has gastroenteritis, which presumably will be self limited. There is no benefit to IV over oral PPI - would increase dose to twice daily for 2 weeks, and then resume his normal outpt maintenance dose. Cont other supportive measures - diet and anti-emetics as tolerated. Stool studies likely of low yield. Consider holding aricept, which may aggravate diarrhea, until his symptoms are resolved. Would consider upper endoscopy only if cards w/u is negative and his symptoms are persistent. Will sign off. He can f/u with his PCP when discharged. Please call us with questions, or if his symptoms do not resolve as expected.
[2016-03-03 17:14] LABS: INFLUENZA A PCR Neg for Influ A (NEG); INFLUENZA B PCR Neg for Influ B (NEG)
[2016-03-03] MEDS: METFORMIN HCL 500 MG TAB PO SCH (17:18)
[2016-03-03] MEDS: INSULIN ASPART 100 UNITS/ML 3 ML PEN SC SCH ×2 (17:20→19:54)
[2016-03-03 19:08] VITALS: O2SAT 97
[2016-03-03] MEDS ORDERED: CEFTRIAXONE SOD INJ 1 GM in DEXTROSE 5% ADD-VANTAGE 50ML 50 ML IV SCH (20:00)
[2016-03-03 20:01] VITALS: PULSE 83
[2016-03-03] MEDS: ONDANSETRON INJ 2 MG/ML 2 ML VIAL IV PRN (20:33)
[2016-03-03] MEDS: TRAZODONE HCL 50 MG TAB PO SCH (20:42)
[2016-03-03] MEDS: VENLAFAXINE HCL XR 75 MG CAPXR PO SCH (20:42)
[2016-03-03] MEDS: PRAZOSIN HCL 1 MG CAP PO SCH (20:42)
[2016-03-03] MEDS: HEPARIN SOD 5000 UNIT/0.5 ML CARP SQ SCH (20:47)
[2016-03-03] MEDS: PANTOprazole INJ 40 MG in SYRINGE 0 ML IV SCH (20:48)
[2016-03-03] MEDS ORDERED: DONEPEZIL HCL 10 MG TAB PO SCH (21:00)
[2016-03-03] MEDS: NSS + 20MEQ KCL 1000ML 1,000 ML IV SCH (21:21)
[2016-03-03 23:45] VITALS: BP 113/74; PULSE 75; TEMP 36.7; O2SAT 94
[2016-03-04] MEDS: NSS + 20MEQ KCL 1000ML 1,000 ML IV SCH ×2 (03:30→12:24)
[2016-03-04 04:00] VITALS: BP 99/66; PULSE 81; TEMP 36.7; O2SAT 93
[2016-03-04 06:16] LABS: HEMATOCRIT 44.8 % (42-52); MEAN CORPUSCULAR HEMOGLOBIN 31.6 pg (25-34); MEAN CORPUSCULAR HGB CONC 35.9 g/dl (32-36); MEAN PLATELET VOLUME 10.5 fL (7.4-10.4); PLATELET COUNT 175 K/uL (130-400); RED BLOOD COUNT 5.09 M/uL (4.7-6.1); WHITE BLOOD COUNT 6.37 K/uL (4.8-10.8)
[2016-03-04 06:50] LABS: BUN/CREATININE RATIO 22.7 (10-20); CALCIUM 7.6 mg/dl (8.5-10.1); CREATININE 0.93 mg/dl (0.60-1.40); POTASSIUM 3.7 mmol/L (3.5-5.1)
[2016-03-04] MEDS: INSULIN ASPART 100 UNITS/ML 3 ML PEN SC SCH ×4 (07:00→21:00)
[2016-03-04 07:04] LABS: ESTIMATED AVERAGE GLUCOSE 160 mg/dl; HA1C FLAG Normal (Normal)
[2016-03-04] MEDS: RAMELTEON: ORDER AWAITING ACTION SCH ×2 (07:21→16:00)
[2016-03-04] MEDS: PANTOprazole INJ 40 MG in SYRINGE 0 ML IV SCH ×2 (08:07→21:38)
[2016-03-04] MEDS: ASPIRIN 81 MG ECTAB PO SCH (08:07)
[2016-03-04] MEDS: PRAZOSIN HCL 1 MG CAP PO SCH ×2 (08:08→21:39)
[2016-03-04] MEDS: VENLAFAXINE HCL XR 75 MG CAPXR PO SCH ×2 (08:08→21:40)
[2016-03-04] MEDS: HEPARIN SOD 5000 UNIT/0.5 ML CARP SQ SCH ×2 (08:13→21:45)
[2016-03-04 08:26] VITALS: BP 127/83; PULSE 73; TEMP 36.7; O2SAT 95
[2016-03-04 11:53] VITALS: BP 131/69; PULSE 74; TEMP 36.6; O2SAT 97
[2016-03-04 12:19] VITALS: Ht 162.6 cm; Wt 76.4 kg
[2016-03-04] MEDS: METFORMIN HCL 500 MG TAB PO SCH ×2 (12:25→16:49)
--- NOTE | 2016-03-04 14:42 | EXERCISE STRESS ECHO ---
*NOTICE TO RECEIVING [employer] This information is strictly Confidential and protected under [place] law. [place] law prohibits you from making any further disclosure of this information unless further disclosure is expressly permitted by the written consent of the person to whom it pertains or is authorized by law. A general authorization for the release of medical or other information is not sufficient for this purpose. Hospital accepts no responsibility if the information is made available to any other person, INCLUDING THE PATIENT. Interpretation Summary * Name: REJI BAKER Study Date: 03/04/2016 09:13 AM BP: 113/68 mmHg * Patient Location: C.2E\S\E201\S\1 HR: 81 * : 1945 (M/d/yyyy) Gender: Male Height: 64 in * Age: 70 yrs Ethnicity: [place] Weight: 167 lb * Ordering Physician: Janeth Cho * Referring Physician: Self, Referred * Performed By: Mariola Walker RCS * * Reason For Study: CHEST PAIN * BSA: 1.8 m2 * The stress echocardiogram is negative for inducible ischemia. * The stress ECG response was normal * -- Conclusions -- * Resting wall motion: Normal. Stress wall motion: Appropriate increase in Left ventricular systolic function and decrease in cavity size. No stress induced segmental wall motion abnormalities. * Ejection Fraction = 60-65%. * Left ventricular systolic function is normal. * Grade I diastolic dysfunction, (abnormal relaxation pattern). * The right ventricle is mildly dilated. * There is borderline right ventricular hypertrophy. * There is trace tricuspid regurgitation. * Right ventricular systolic pressure is elevated at 30-40mmHg. Procedure Details * ECHOEX, CPT #[id number] * ECHO COLOR FLOW, CPT #[id number] * ECHO DOPPLER, CPT #[id number] Left Ventricle * The left ventricle is normal in size. * There is normal left ventricular wall thickness. * Ejection Fraction = 60-65%. * Left ventricular systolic function is normal. * Resting wall motion: Normal. Stress wall motion: Appropriate increase in Left ventricular systolic function and decrease in cavity size. No stress induced segmental wall motion abnormalities. Right Ventricle * The right ventricle is mildly dilated. * There is borderline right ventricular hypertrophy. * The right ventricular systolic function is normal. Atria * The left atrial size is normal. * The right atrium is mildly dilated. * The interatrial septum is intact with no evidence for an atrial septal defect. Mitral Valve * The mitral valve is normal in structure and function. * There is no mitral regurgitation noted. Tricuspid Valve * The tricuspid valve is normal in structure and function. * There is trace tricuspid regurgitation. * Right ventricular systolic pressure is elevated at 30-40mmHg. Aortic Valve * The aortic valve is trileaflet. * The aortic valve is normal in structure and function. * No aortic regurgitation is present. Pulmonic Valve * The pulmonary valve is inadequately visualized, but the Doppler data is adequate for interpretation. * There is no pulmonic valvular regurgitation. Great Vessels * Ascending aorta of normal dimension * No obvious dissection could be visualized. * The pulmonary artery is not well visualized, but is probably normal size. Pericardium * There is no pericardial effusion. Stress Parameters * Normal baseline electrocardiogram. * No arrhythmia were noted with stress. * There was no new ST segment depression. * Rest heart rate was '81' BPM. * Rest blood pressure was '113/68' * Maximum heart rate achieved was 126 bpm. * Maximum heart rate was 82 % of maximum age-predicted heart rate. * Maximum blood pressure was '129/67' * Total exercise time was '3:48' * Maximum exercise MET level achieved was '5.5' METS * Maximum treadmill speed was '2.5' miles per hour. * Maximum treadmill elevation was '12'% grade. * Exercise was terminated due to 'Chest Pressure' * Normal blood pressure response to exercise. Right Ventricle * The right ventricular wall motion is normal. Left Ventricular Diastolic Function * Grade I diastolic dysfunction, (abnormal relaxation pattern). MMode 2D Measurements and Calculations IVSd 0.98 cm IVSs 1.3 cm LVIDd 4.4 cm LVIDs 2.9 cm LVPWd 0.96 cm LVPWs 1.3 cm IVS/LVPW 1.0 FS 34.9 % EDV(Teich) 90.0 ml ESV(Teich) 32.1 ml EF(Teich) 64.4 % EDV(cubed) 88.0 ml ESV(cubed) 24.3 ml EF(cubed) 72.5 % % IVS thick 33.4 % % LVPW thick 33.3 % LV mass(C)d 144.8 grams LV mass(C)dI 79.9 grams/m\S\2 LV mass(C)s 117.9 grams LV mass(C)sI 65.1 grams/m\S\2 CO(Teich) 4.2 l/min CI(Teich) 2.3 l/min/m\S\2 SV(Teich) 57.9 ml SI(Teich) 32.0 ml/m\S\2 CO(cubed) 4.7 l/min CI(cubed) 2.6 l/min/m\S\2 SV(cubed) 63.8 ml SI(cubed) 35.2 ml/m\S\2 Ao root diam 4.0 cm Ao root area 12.5 cm\S\2 ACS 1.9 cm LA dimension 3.3 cm LA/Ao 0.82 LVAd ap4 24.2 cm\S\2 LVLd ap4 7.4 cm EDV(MOD-sp4) 65.0 ml LVAs ap4 13.3 cm\S\2 LVLs ap4 6.3 cm ESV(MOD-sp4) 24.0 ml EF(MOD-sp4) 63.1 % LVAd ap2 24.4 cm\S\2 LVLd ap2 7.9 cm EDV(MOD-sp2) 63.0 ml LVAs ap2 11.6 cm\S\2 LVLs ap2 5.8 cm ESV(MOD-sp2) 20.0 ml EF(MOD-sp2) 68.3 % CO(MOD-sp4) 3.0 l/min CI(MOD-sp4) 1.7 l/min/m\S\2 SV(MOD-sp4) 41.0 ml SI(MOD-sp4) 22.6 ml/m\S\2 CO(MOD-sp2) 3.1 l/min CI(MOD-sp2) 1.7 l/min/m\S\2 SV(MOD-sp2) 43.0 ml SI(MOD-sp2) 23.7 ml/m\S\2 Doppler Measurements and Calculations MV A max murphy 79.0 cm/sec MV P1/2t max murphy 78.1 cm/sec MV P1/2t 70.5 msec MVA(P1/2t) 3.1 cm\S\2 MV dec slope 324.7 cm/sec\S\2 MV dec time 0.19 sec Ao V2 max 97.2 cm/sec Ao max PG 3.8 mmHg Ao max PG (full) 1.5 mmHg LV V1 max PG 2.2 mmHg LV V1 max 74.7 cm/sec PA V2 max 85.6 cm/sec PA max PG 2.9 mmHg TR max murphy 246.3 cm/sec
[2016-03-04 15:07] VITALS: BP 129/99; PULSE 83; TEMP 36.7; O2SAT 96
--- NOTE | 2016-03-04 15:37 | Hospitalist Progress Note ---
Hospitalist Progress Note Date of Service Mar 04, 2016. (Janeth Cho ., EDDIE) Subjective Pt evaluation today including: conversation w/ patient, physical exam, chart review, lab review, review of studies, review of inpatient medication list Voiding: no voiding problems, no incontinence Patient states he is feeling no better. Chest pressure is still persisting. He admits to nausea. He was able to keep some broth down today. Patient denies any fever, chills, sweats, lightheadedness, dizziness, vision changes, palpitations , edema, SOB, wheezing, cough, abdominal pain, vomiting, diarrhea, urinary symptoms, melena, numbness/tingling, weakness, muscle/joint pain, anxiety/ depression, active bleeding, or new skin discoloration/changes. (Janeth Cho ., MICHAELC) Medications Current Inpatient Medications Medications (Trade) Dose Ordered Sig/Woo Route Start Time Stop Time Status Last Admin Dose Admin Heparin Sodium (Porcine) (Heparin Sq 5000 Unit/0.5ml) 5,000 unit Q12 SQ 03/03/16 21:00 04/02/16 20:59 03/04/16 08:13 5,000 UNIT Acetaminophen (Tylenol Tab) 650 mg Q4H PRN PO 03/03/16 13:15 04/02/16 13:14 Al Hydrox/Mg Hydrox/Simethicone (Maalox Max Susp) 15 ml Q4H PRN PO 03/03/16 13:15 04/02/16 13:14 Magnesium Hydroxide (Milk Of Magnesia Susp) 30 ml Q12H PRN PO 03/03/16 13:15 04/02/16 13:14 Ondansetron HCl (Zofran Inj) 4 mg Q6H PRN IV 03/03/16 13:15 04/02/16 13:14 03/03/16 20:33 4 MG Nitroglycerin (Nitrostat Tab) 0.4 mg UD PRN SL 03/03/16 13:15 04/02/16 13:14 Polyethylene (Miralax Powder Packet) 17 gm DAILY PRN PO 03/03/16 13:15 04/02/16 13:14 Aspirin (Ecotrin Tab) 81 mg DAILY PO 03/04/16 09:00 04/03/16 08:59 03/04/16 08:07 81 MG Glipizide (Glucotrol Tab) 5 mg QDB PO 03/04/16 07:30 04/03/16 07:59 03/04/16 12:25 5 MG Metformin HCl (Glucophage Tab) 1,000 mg BIDM PO 03/03/16 18:00 04/02/16 17:59 03/04/16 12:25 1,000 MG Trazodone HCl (Desyrel Tab) 50 mg HS PO 03/03/16 21:00 04/02/16 20:59 03/03/16 20:42 50 MG Venlafaxine HCl (effeXOR EXTENDED REL CAP) 75 mg BID PO 03/03/16 21:00 04/02/16 20:59 03/04/16 08:08 75 MG Prazosin HCl (Prazosin) 1 mg BID PO 03/03/16 21:00 04/02/16 20:59 03/04/16 08:08 1 MG Miscellaneous Information (Order Awaiting Action) 1 ea QS N/A 03/03/16 16:00 04/02/16 15:59 Insulin Aspart (novoLOG ASPART) SLIDING SCALE G... ACHS SC 03/03/16 16:00 04/02/16 15:59 03/03/16 17:20 1 UNITS Hydralazine HCl 10 mg 10 mg Q6 PRN IV. 03/03/16 13:15 04/02/16 13:14 Pantoprazole Sodium/Syringe (Protonix Inj/ Syringe) 10 ml @ 5 mls/min DAILY@09,21 IV 03/03/16 21:00 04/02/16 20:59 03/04/16 08:07 5 MLS/MIN Glucose (Glucose 40% Gel) 15-30 GRAMS 15 GRAMS... UD PRN PO 03/03/16 14:30 04/02/16 14:29 Glucose (Glucose Chew Tab) 4-8 Tablets 4 Tabl... UD PRN PO 03/03/16 14:30 04/02/16 14:29 Dextrose (Dextrose 50% 50ML Syringe) 25-50ML OF 50% DW IV FOR... UD PRN IV 03/03/16 14:30 04/02/16 14:29 Glucagon (Glucagon Inj) 1 mg UD PRN SQ 03/03/16 14:30 04/02/16 14:29 Miscellaneous 1 ea 1 ea PRN PRN N/A 03/03/16 15:30 03/03/17 15:29 Ceftriaxone Sodium 1 gm/ Dextrose 50 ml @ 100 mls/hr DAILY@1999 IV 03/03/16 20:00 03/08/16 19:59 03/03/16 20:33 100 MLS/HR Potassium Chloride/Sodium Chloride (Nss + 20meq KCl 1000ml) 1,000 ml @ 75 mls/hr [id number] IV 03/03/16 21:00 04/02/16 20:59 03/04/16 12:24 75 MLS/HR (Janeth Cho, DALILA-C) Objective Vital Signs Date Time Temp Pulse Resp B/P Pulse Ox O2 Delivery O2 Flow Rate FiO2 03/04/16 15:07 36.7 83 18 129/99 96 Room Air 03/04/16 12:00 Room Air 03/04/16 11:53 36.6 74 18 131/69 97 03/04/16 08:26 36.7 73 18 127/83 95 03/04/16 08:00 Room Air 03/04/16 04:05 Room Air 03/04/16 04:00 36.7 81 16 99/66 93 Room Air 03/04/16 00:02 Room Air 03/03/16 23:45 36.7 75 18 113/74 94 Room Air 03/03/16 20:01 83 03/03/16 20:01 Room Air 03/03/16 19:08 70 16 138/88 97 (Janeth Cho, DALILA-C) Physical Exam General Appearance: WD/WN, no apparent distress Eyes: normal inspection, PERRL ENT: hearing grossly normal Neck: supple Respiratory/Chest: lungs clear, no respiratory distress, no accessory muscle use Cardiovascular: regular rate, rhythm, no gallop Abdomen: normal bowel sounds, non tender, soft Extremities: no pedal edema, no calf tenderness Neurologic/Psychiatric: alert, normal mood/affect, oriented x 3 Skin: normal color, warm/dry, no rash (Janeth Cho, DALILA-C) Laboratory Results Last 24 Hours Test 03/03/16 17:13 03/03/16 17:55 03/03/16 19:52 03/04/16 02:00 Bedside Glucose 195 mg/dl 122 mg/dl Creatine Kinase MB 1.1 ng/ml 1.1 ng/ml Creatine Kinase MB Ratio Troponin I < 0.015 ng/ml < 0.015 ng/ml Test 03/04/16 05:17 White Blood Count 6.37 K/uL Red Blood Count 5.09 M/uL Hemoglobin 16.1 g/dL Hematocrit 44.8 % Mean Corpuscular Volume 88.0 fL Mean Corpuscular Hemoglobin 31.6 pg Mean Corpuscular Hemoglobin Concent 35.9 g/dl RDW Standard Deviation 40.9 fL RDW Coefficient of Variation 12.7 % Platelet Count 175 K/uL Mean Platelet Volume 10.5 fL Sodium Level 142 mmol/L Potassium Level 3.7 mmol/L Chloride Level 108 mmol/L Carbon Dioxide Level 25 mmol/L Anion Gap 9.0 mmol/L Blood Urea Nitrogen 21 mg/dl Creatinine 0.93 mg/dl Est Creatinine Clear Calc Drug Dose 70.3 ml/min Estimated GFR () 97.4 Estimated GFR (Non- 84.1 BUN/Creatinine Ratio 22.7 Random Glucose 141 mg/dl Estimated Average Glucose 160 mg/dl Hemoglobin A1c 7.2 % Calcium Level 7.6 mg/dl Triglycerides Level 464 mg/dl Cholesterol Level 138 mg/dl HDL Cholesterol 23 mg/dl LDL Cholesterol, Calculated mg/dl VLDL Cholesterol, Calculated mg/dl Cholesterol/HDL Ratio 6.0 (Janeth Cho ., PA-C) Diagnostic Results Interpretation Summary * Name: REJI BAKER Study Date: 03/04/2016 09:13 AM BP: 113/68 mmHg * Patient Location: [facility] [place]\S\01\S\1 HR: 81 * : 1945 (M/d/yyyy) Gender: Male Height: 64 in * Age: 70 yrs Ethnicity: CA Weight: 167 lb * Ordering Physician: Janeth Cho * Referring Physician: Self, Referred * Performed By: Mariola Walker RCS * * Reason For Study: CHEST PAIN * BSA: 1.8 m2 * The stress echocardiogram is negative for inducible ischemia. * The stress ECG response was normal * -- Conclusions -- * Resting wall motion: Normal. Stress wall motion: Appropriate increase in Left ventricular systolic function and decrease in cavity size. No stress induced segmental wall motion abnormalities. * Ejection Fraction = 60-65%. * Left ventricular systolic function is normal. * Grade I diastolic dysfunction, (abnormal relaxation pattern). * The right ventricle is mildly dilated. * There is borderline right ventricular hypertrophy. * There is trace tricuspid regurgitation. * Right ventricular systolic pressure is elevated at 30-40mmHg. Procedure Details * ECHOEX, CPT #[id number] * ECHO COLOR FLOW, CPT #[id number] * ECHO DOPPLER, CPT #[id number] Left Ventricle * The left ventricle is normal in size. * There is normal left ventricular wall thickness. * Ejection Fraction = 60-65%. * Left ventricular systolic function is normal. * Resting wall motion: Normal. Stress wall motion: Appropriate increase in Left ventricular systolic function and decrease in cavity size. No stress induced segmental wall motion abnormalities. Right Ventricle * The right ventricle is mildly dilated. * There is borderline right ventricular hypertrophy. * The right ventricular systolic function is normal. Atria * The left atrial size is normal. * The right atrium is mildly dilated. * The interatrial septum is intact with no evidence for an atrial septal defect. Mitral Valve * The mitral valve is normal in structure and function. * There is no mitral regurgitation noted. Tricuspid Valve * The tricuspid valve is normal in structure and function. * There is trace tricuspid regurgitation. * Right ventricular systolic pressure is elevated at 30-40mmHg. Aortic Valve * The aortic valve is trileaflet. * The aortic valve is normal in structure and function. * No aortic regurgitation is present. Pulmonic Valve * The pulmonary valve is inadequately visualized, but the Doppler data is adequate for interpretation. * There is no pulmonic valvular regurgitation. Great Vessels * Ascending aorta of normal dimension * No obvious dissection could be visualized. * The pulmonary artery is not well visualized, but is probably normal size. Pericardium * There is no pericardial effusion. Stress Parameters * Normal baseline electrocardiogram. * No arrhythmia were noted with stress. * There was no new ST segment depression. * Rest heart rate was '81' BPM. * Rest blood pressure was '113/68' * Maximum heart rate achieved was 126 bpm. * Maximum heart rate was 82 % of maximum age-predicted heart rate. * Maximum blood pressure was '129/67' * Total exercise time was '3:48' * Maximum exercise MET level achieved was '5.5' METS * Maximum treadmill speed was '2.5' miles per hour. * Maximum treadmill elevation was '12'% grade. * Exercise was terminated due to 'Chest Pressure' * Normal blood pressure response to exercise. Right Ventricle * The right ventricular wall motion is normal. Left Ventricular Diastolic Function * Grade I diastolic dysfunction, (abnormal relaxation pattern). MMode 2D Measurements and Calculations IVSd 0.98 cm IVSs 1.3 cm LVIDd 4.4 cm LVIDs 2.9 cm LVPWd 0.96 cm LVPWs 1.3 cm IVS/LVPW 1.0 FS 34.9 % EDV(Teich) 90.0 ml ESV(Teich) 32.1 ml EF(Teich) 64.4 % EDV(cubed) 88.0 ml ESV(cubed) 24.3 ml EF(cubed) 72.5 % % IVS thick 33.4 % % LVPW thick 33.3 % LV mass(C)d 144.8 grams LV mass(C)dI 79.9 grams/m\S\2 LV mass(C)s 117.9 grams LV mass(C)sI 65.1 grams/m\S\2 CO(Teich) 4.2 l/min CI(Teich) 2.3 l/min/m\S\2 SV(Teich) 57.9 ml SI(Teich) 32.0 ml/m\S\2 CO(cubed) 4.7 l/min CI(cubed) 2.6 l/min/m\S\2 SV(cubed) 63.8 ml SI(cubed) 35.2 ml/m\S\2 Ao root diam 4.0 cm Ao root area 12.5 cm\S\2 ACS 1.9 cm LA dimension 3.3 cm LA/Ao 0.82 LVAd ap4 24.2 cm\S\2 LVLd ap4 7.4 cm EDV(MOD-sp4) 65.0 ml LVAs ap4 13.3 cm\S\2 LVLs ap4 6.3 cm ESV(MOD-sp4) 24.0 ml EF(MOD-sp4) 63.1 % LVAd ap2 24.4 cm\S\2 LVLd ap2 7.9 cm EDV(MOD-sp2) 63.0 ml LVAs ap2 11.6 cm\S\2 LVLs ap2 5.8 cm ESV(MOD-sp2) 20.0 ml EF(MOD-sp2) 68.3 % CO(MOD-sp4) 3.0 l/min CI(MOD-sp4) 1.7 l/min/m\S\2 SV(MOD-sp4) 41.0 ml SI(MOD-sp4) 22.6 ml/m\S\2 CO(MOD-sp2) 3.1 l/min CI(MOD-sp2) 1.7 l/min/m\S\2 SV(MOD-sp2) 43.0 ml SI(MOD-sp2) 23.7 ml/m\S\2 Doppler Measurements and Calculations MV A max murphy 79.0 cm/sec MV P1/2t max murphy 78.1 cm/sec MV P1/2t 70.5 msec MVA(P1/2t) 3.1 cm\S\2 MV dec slope 324.7 cm/sec\S\2 MV dec time 0.19 sec Ao V2 max 97.2 cm/sec Ao max PG 3.8 mmHg Ao max PG (full) 1.5 mmHg LV V1 max PG 2.2 mmHg LV V1 max 74.7 cm/sec PA V2 max 85.6 cm/sec PA max PG 2.9 mmHg TR max murphy 246.3 cm/sec (Janeth Cho, PA-C) Assessment and Plan 70 y/o male, with PMHx of DM, GERD, depression, insomnia, BPH, and mild cognitive impairment, who presented to the ED with complaints of chest pain, nausea and vomiting x4 days. Chest pain r/o: -Admit tele observation -Trend cardiac enzymes -Stress echocardiogram -Check ha1c and lipid panel -Hydralazine PRN for SBP >170 or DBP >100 -Follow PRP and CBC -Rapid flu negative Mild cognitive impairment: -Continue Aricept 10 mg PO HS Insomnia: -Continue Rozerem 8 mg PO HS PRN -Continue Trazodone 50 mg PO HS DM: -Continue Metformin 1,000 mg PO BID and Glipizide 5 mg PO daily -BSG AC & HS -Sliding insulin scale -Check ha1c Anxiety: -Continue Effexor 75 mg PO BID BPH: -Continue Prazosin 1 mg PO BID GERD: -Hold daily Protonix PO due to poor oral intake -IV Protonix BID -Consult GI, appreciate recommendations --Negative cardiac workup. Reconsult for persisting symptoms. ??EGD GI Prophylaxis: -Maalox PRN -IV Zofran PRN -Colace and/or Milk of Mag PRN DVT prophylaxis: -Heparin 5000 units SQ q12 hrs -CANDIDA and SCDs Code Status: -LEVEL I, FULL- no prolonged measures Dispo: -Reconsult GI, ?EGD -Discharge to home once medically stable. ?tomorrow (Janeth Cho, DALILA-C) Reviewed: Pt Seen/Exam by Me, HO Notes, Labs, RAD, EKG (Maggie Howard MD) History Agree with above PA HPI/ROS. Pt returned from stress ECHO which showed no wall motion abnormalities to suggest ischemia. He continues to have the same, constant 2-3/10 substernal CP which radiates to the left shoulder but no longer down the left arm. His nause seems to only be with movement and Dr. Stewart was able to ellicit a positive [place]-Hallpike while I was observing in the room. (Maggie Howard MD) All Other Systems: Reviewed and Negative (Maggie Howard MD) General Appearance: WD/WN, no apparent distress Eye Exam: bilateral eye normal inspection Ears, Nose, Throat: hearing grossly normal Respiratory: lungs clear, normal breath sounds, no respiratory distress, no accessory muscle use Cardiovascular: regular rate, rhythm, no edema, no gallop, no murmur Gastrointestinal: normal bowel sounds, soft, no organomegaly, no pulsatile mass , tenderness (mild, in LLQ without guarding or rebound) Extremities: non-tender, normal inspection, no pedal edema, no calf tenderness Neurologic/Psychiatric: alert, normal mood/affect, other (+[place]-Hallpike) Skin Characteristics: normal color, warm/dry (Maggie Howard MD) Assessment/Plan Agree with plan as above in PA's note with the following exceptions/additions: Likely chest pain related to GI causes from persistent vomiting and gastroenteritis as chest pain has been constant for 5 days now and with negative cardiac markers and normal ECG, normal Stress ECHO. Nausea is somewhat in part related to BPPV. Still nauseated and very minimal po intake, persistent CP although very slightly improved in that no longer radiating the whole way down his left arm. Continue PPI and can switch to po bid when tolerating po again. I have asked GI to come back around to see if needs EGD. (Maggie Howard MD)
--- NOTE | 2016-03-04 16:52 | Progress Note ---
Progress Note Asked to see pt due to complaint of persistent nausea. Pt reports mild nausea that markedly worsens with movement. He also describes symptoms that may suggest vertigo - he reports sensation of movement or "feeling off balance" while lying in bed. He reports poor appetite. On exam, CN exam is grossly normal. Turning his head rapidly causes nausea. Lying him down quickly and tuning his head also provokes nausea. I cannot elicit nystagmus at rest or with movement. Will proceed with EGD tomorrow to r/o acid peptic disease. Please consider vertigo as a potential cause for pt's symptoms.
[2016-03-04 19:21] VITALS: BP 148/91; PULSE 87; TEMP 36.7; O2SAT 98
[2016-03-04] MEDS: ONDANSETRON INJ 2 MG/ML 2 ML VIAL IV PRN (21:35)
[2016-03-04] MEDS: TRAZODONE HCL 50 MG TAB PO SCH (21:39)
[2016-03-04 22:50] VITALS: BP 117/69; PULSE 82; TEMP 36.6; O2SAT 98
[2016-03-05] VITALS (7 sets, daily range): BP systolic 123–155; BP diastolic 76–91; PULSE 73–95; TEMP 36.4–37; O2SAT 95–96
[2016-03-05 06:13] LABS: HEMATOCRIT 43.3 % (42-52); MEAN CELL VOLUME 88.2 fL (80-100); MEAN CORPUSCULAR HEMOGLOBIN 31.2 pg (25-34); MEAN CORPUSCULAR HGB CONC 35.3 g/dl (32-36); MEAN PLATELET VOLUME 10.5 fL (7.4-10.4); PLATELET COUNT 167 K/uL (130-400); RED BLOOD COUNT 4.91 M/uL (4.7-6.1); WHITE BLOOD COUNT 5.73 K/uL (4.8-10.8)
[2016-03-05 06:45] LABS: BUN/CREATININE RATIO 18.8 (10-20); CALCIUM 7.8 mg/dl (8.5-10.1); CREATININE 0.92 mg/dl (0.60-1.40); POTASSIUM 3.6 mmol/L (3.5-5.1)
[2016-03-05] MEDS: INSULIN ASPART 100 UNITS/ML 3 ML PEN SC SCH ×4 (07:00→20:46)
[2016-03-05] MEDS: RAMELTEON: ORDER AWAITING ACTION SCH ×2 (07:28→16:42)
[2016-03-05] MEDS: METFORMIN HCL 500 MG TAB PO SCH ×2 (07:30→16:42)
[2016-03-05] MEDS: VENLAFAXINE HCL XR 75 MG CAPXR PO SCH ×2 (08:33→20:48)
[2016-03-05] MEDS: PANTOprazole INJ 40 MG in SYRINGE 0 ML IV SCH (08:33)
[2016-03-05] MEDS: ASPIRIN 81 MG ECTAB PO SCH (08:34)
[2016-03-05] MEDS: PRAZOSIN HCL 1 MG CAP PO SCH ×2 (08:34→20:48)
[2016-03-05] MEDS ORDERED: SODIUM CHLORIDE 0.9% 500ML 500 ML IV ONE ×2 (10:49→11:30)
--- NOTE | 2016-03-05 11:36 | GI REPORT ---
Procedure Date: 03/05/2016 10:49 AM Procedure: Upper GI endoscopy Indications: Nausea Medicines: See the Anesthesia note for documentation of the administered medications Complications: No immediate complications. Estimated Blood Loss: Estimated blood loss: none. Procedure: Pre-Anesthesia Assessment: - ASA Grade Assessment: III - A patient with severe systemic disease. After obtaining informed consent, the endoscope was passed under direct vision. Throughout the procedure, the patient's blood pressure, pulse, and oxygen saturations were monitored continuously. The Scope was introduced through the mouth, and advanced to the second part of duodenum. The scope was introduced through the mouth, and advanced to the second part of duodenum. The upper GI endoscopy was accomplished without difficulty. The patient tolerated the procedure well. Findings: The examined esophagus was normal. There was patchy erythema in the fundus of the stomach. A few shallow erosions in the cardia were noted, presumably related to vomiting. There was mild antral erythema. The duodenum was normal. The papilla was normal and draining bile. Impression: Mild patchy erythema in the antrum and fundus. Otherwise normal exam. No ulcer. Recommendation: - Discharge patient to floor. Please consider ultrasound to rule out biliary disease as cause of nausea. - When interviewed, pt again reports that he has a sensation of movement when at rest, and nausea only with movement. His symptoms suggest vertigo; if ultrasound normal, please consider neuro w/u. - Will sign off. Consult with questions. Floyd Stewart M.D. Floyd Stewart MD 03/05/2016 11:35:30 AM This report has been signed electronically. Note Initiated On: 03/05/2016 10:49 AM
--- NOTE | 2016-03-05 12:18 | Anesthesiology Progress Note ---
Anesthesia Post Op Note Date & Time Mar 05, 2016 at 12:18 Vital Signs Pain Intensity: 0.0 Vital Signs Past 12 Hours Date Time Temp Pulse Resp B/P Pulse Ox O2 Delivery O2 Flow Rate FiO2 03/05/16 11:39 76 20 152/78 96 Room Air 03/05/16 11:24 76 20 135/78 96 Room Air 03/05/16 10:53 36.7 78 20 157/80 96 Room Air 03/05/16 10:21 79 144/85 90 137/88 95 137/87 03/05/16 08:17 36.8 81 16 131/81 95 Room Air 03/05/16 08:00 Room Air 03/05/16 03:34 36.4 76 18 123/76 95 03/05/16 03:30 Room Air Notes Mental Status: alert / awake / arousable, participated in evaluation Pt Amnestic to Procedure: Yes Nausea / Vomiting: adequately controlled Pain: adequately controlled Airway Patency, RR, SpO2: stable & adequate BP & HR: stable & adequate Hydration State: stable & adequate Anesthetic Complications: no major complications apparent
[2016-03-05] MEDS: HEPARIN SOD 5000 UNIT/0.5 ML CARP SQ SCH ×2 (12:26→20:50)
--- NOTE | 2016-03-05 14:18 | Hospitalist Progress Note ---
Hospitalist Progress Note Date of Service Mar 05, 2016. (Janeth Cho ., EDDIE) Subjective Pt evaluation today including: conversation w/ patient, physical exam, chart review, lab review, review of studies, review of inpatient medication list Voiding: no voiding problems, no incontinence Patient states he still feels nauseous. Chest discomfort is still present. He admits to dizziness with changing positions/quick movements. He has been NPO for the EGD today. Patient denies any fever, chills, sweats, lightheadedness, vision changes, CP, palpitations, edema, SOB, wheezing, cough, abdominal pain, vomiting, diarrhea, urinary symptoms, melena, numbness/tingling, weakness, muscle/joint pain, anxiety/depression, active bleeding, or new skin discoloration/changes. (Janeth Cho ., MICHAELC) Medications Current Inpatient Medications Medications (Trade) Dose Ordered Sig/Woo Route Start Time Stop Time Status Last Admin Dose Admin Heparin Sodium (Porcine) (Heparin Sq 5000 Unit/0.5ml) 5,000 unit Q12 SQ 03/03/16 21:00 04/02/16 20:59 03/05/16 12:26 5,000 UNIT Acetaminophen (Tylenol Tab) 650 mg Q4H PRN PO 03/03/16 13:15 04/02/16 13:14 Al Hydrox/Mg Hydrox/Simethicone (Maalox Max Susp) 15 ml Q4H PRN PO 03/03/16 13:15 04/02/16 13:14 Magnesium Hydroxide (Milk Of Magnesia Susp) 30 ml Q12H PRN PO 03/03/16 13:15 04/02/16 13:14 Ondansetron HCl (Zofran Inj) 4 mg Q6H PRN IV 03/03/16 13:15 04/02/16 13:14 03/04/16 21:35 4 MG Nitroglycerin (Nitrostat Tab) 0.4 mg UD PRN SL 03/03/16 13:15 04/02/16 13:14 Polyethylene (Miralax Powder Packet) 17 gm DAILY PRN PO 03/03/16 13:15 04/02/16 13:14 Aspirin (Ecotrin Tab) 81 mg DAILY PO 03/04/16 09:00 04/03/16 08:59 03/05/16 08:34 81 MG Metformin HCl (Glucophage Tab) 1,000 mg BIDM PO 03/03/16 18:00 04/02/16 17:59 03/04/16 16:49 1,000 MG Trazodone HCl (Desyrel Tab) 50 mg HS PO 03/03/16 21:00 04/02/16 20:59 03/04/16 21:39 50 MG Venlafaxine HCl (effeXOR EXTENDED REL CAP) 75 mg BID PO 03/03/16 21:00 04/02/16 20:59 03/05/16 08:33 75 MG Prazosin HCl (Prazosin) 1 mg BID PO 03/03/16 21:00 04/02/16 20:59 03/05/16 08:34 1 MG Miscellaneous Information (Order Awaiting Action) 1 ea QS N/A 03/03/16 16:00 04/02/16 15:59 Insulin Aspart (novoLOG ASPART) SLIDING SCALE G... ACHS SC 03/03/16 16:00 04/02/16 15:59 03/03/16 17:20 1 UNITS Hydralazine HCl 10 mg 10 mg Q6 PRN IV. 03/03/16 13:15 04/02/16 13:14 Pantoprazole Sodium/Syringe (Protonix Inj/ Syringe) 10 ml @ 5 mls/min DAILY@09,21 IV 03/03/16 21:00 04/02/16 20:59 03/05/16 08:33 5 MLS/MIN Glucose (Glucose 40% Gel) 15-30 GRAMS 15 GRAMS... UD PRN PO 03/03/16 14:30 04/02/16 14:29 Glucose (Glucose Chew Tab) 4-8 Tablets 4 Tabl... UD PRN PO 03/03/16 14:30 04/02/16 14:29 Dextrose (Dextrose 50% 50ML Syringe) 25-50ML OF 50% DW IV FOR... UD PRN IV 03/03/16 14:30 04/02/16 14:29 Glucagon (Glucagon Inj) 1 mg UD PRN SQ 03/03/16 14:30 04/02/16 14:29 Miscellaneous 1 ea 1 ea PRN PRN N/A 03/03/16 15:30 03/03/17 15:29 Potassium Chloride/Sodium Chloride 1,000 ml @ 75 mls/hr [id number] IV 03/03/16 21:00 04/02/16 20:59 03/04/16 03:30 75 MLS/HR Sodium Chloride (Nss 500ml) 500 ml @ 15 mls/hr Q24H ONCE IV 03/05/16 11:30 03/06/16 11:29 (Janeth Cho PA-C) Objective Vital Signs Date Time Temp Pulse Resp B/P Pulse Ox O2 Delivery O2 Flow Rate FiO2 03/05/16 12:00 36.8 78 17 134/84 96 Room Air 03/05/16 12:00 Room Air 03/05/16 11:39 76 20 152/78 96 Room Air 03/05/16 11:24 76 20 135/78 96 Room Air 03/05/16 10:53 36.7 78 20 157/80 96 Room Air 03/05/16 10:21 79 144/85 90 137/88 95 137/87 03/05/16 08:17 36.8 81 16 131/81 95 Room Air 03/05/16 08:00 Room Air 03/05/16 03:34 36.4 76 18 123/76 95 03/05/16 03:30 Room Air 03/04/16 23:30 Room Air 03/04/16 22:50 36.6 82 18 117/69 98 Room Air 03/04/16 19:30 Room Air 03/04/16 19:21 36.7 87 18 148/91 98 Room Air 03/04/16 16:00 Room Air 03/04/16 15:07 36.7 83 18 129/99 96 Room Air (Janeth Cho PA-C) Physical Exam General Appearance: no apparent distress Eyes: normal inspection, PERRL ENT: hearing grossly normal Neck: supple Respiratory/Chest: lungs clear, normal breath sounds, no respiratory distress, no accessory muscle use Cardiovascular: regular rate, rhythm, no edema Abdomen: normal bowel sounds, non tender, soft Extremities: no pedal edema, no calf tenderness Neurologic/Psychiatric: alert, normal mood/affect, oriented x 3 Skin: normal color, warm/dry, no rash (Janeth Cho PA-C) Laboratory Results Last 24 Hours Test 03/04/16 16:25 03/04/16 20:46 03/05/16 05:00 03/05/16 06:56 Bedside Glucose 82 mg/dl 103 mg/dl 135 mg/dl White Blood Count 5.73 K/uL Red Blood Count 4.91 M/uL Hemoglobin 15.3 g/dL Hematocrit 43.3 % Mean Corpuscular Volume 88.2 fL Mean Corpuscular Hemoglobin 31.2 pg Mean Corpuscular Hemoglobin Concent 35.3 g/dl RDW Standard Deviation 40.5 fL RDW Coefficient of Variation 12.7 % Platelet Count 167 K/uL Mean Platelet Volume 10.5 fL Sodium Level 142 mmol/L Potassium Level 3.6 mmol/L Chloride Level 108 mmol/L Carbon Dioxide Level 26 mmol/L Anion Gap 8.0 mmol/L Blood Urea Nitrogen 17 mg/dl Creatinine 0.92 mg/dl Est Creatinine Clear Calc Drug Dose 71.1 ml/min Estimated GFR () 98.7 Estimated GFR (Non- 85.2 BUN/Creatinine Ratio 18.8 Random Glucose 117 mg/dl Calcium Level 7.8 mg/dl Test 03/05/16 12:19 Bedside Glucose 121 mg/dl (Janeth Cho, PASrinathC) Assessment and Plan 70 y/o male, with PMHx of DM, GERD, depression, insomnia, BPH, and mild cognitive impairment, who presented to the ED with complaints of chest pain, nausea and vomiting x4 days. Chest pain r/o: -Admit tele -Trend cardiac enzymes -Stress echocardiogram negative for any ischemia, EF= 60-65%, grade 1 diastolic dysfunction -Check ha1c and lipid panel -Hydralazine PRN for SBP >170 or DBP >100 -Follow PRP and CBC -Rapid flu negative Mild cognitive impairment: -Hold Aricept 10 mg PO HS due to diarrhea Insomnia: -Continue Rozerem 8 mg PO HS PRN -Continue Trazodone 50 mg PO HS DM: -Continue Metformin 1,000 mg PO BID and Glipizide 5 mg PO daily -BSG AC & HS -Sliding insulin scale -Check ha1c Anxiety: -Continue Effexor 75 mg PO BID BPH: -Continue Prazosin 1 mg PO BID GERD: -Hold daily Protonix PO due to poor oral intake -IV Protonix BID -Consult GI, appreciate recommendations --Negative cardiac workup. Reconsulted for persisting symptoms on 03/04 --EGD unremarkable. Recommend biliary U/S. ??Vertigo ?Vertigo: -GI questioning whether symptoms could be due to vertigo. -MRI of brain -Patient complained of dizziness when changing positions rapidly. Check orthostatic BPs. GI Prophylaxis: -Maalox PRN -IV Zofran PRN -Colace and/or Milk of Mag PRN DVT prophylaxis: -Heparin 5000 units SQ q12 hrs -CANDIDA and SCDs Code Status: -LEVEL I, FULL- no prolonged measures Dispo: -Discharge to home once medically stable (Janeth Cho, PA-C) Reviewed: Pt Seen/Exam by Me, FELICIANO Notes, Labs, RAD, EKG (Maggie Howard MD) History Agree with above PA HPI/ROS: Pt has had fairly normal EGD, normal Abd US, normal brain MRI IACs, and still nauseated especially with sitting upright or any movement. He does admit to dizziness or a "woozy" feeling with movement. Still with residual 2/1- chest pressure in lower sternal/epigastric region. No back pain, no SOB, no headache. (Maggie Howard MD) Constitutional: denies: fever EENTM: acknowledges: ear pain (left ear) Respiratory: negative: short of breath Cardiovascular: reports chest pain Gastrointestinal/Abdominal: positive: nausea, negative: abdominal pain, diarrhea, vomiting All Other Systems: Reviewed and Negative (Maggie Howard MD) General Appearance: WD/WN, no apparent distress Eye Exam: bilateral eye EOMI, bilateral eye PERRL, bilateral eye normal inspection, bilateral eye other (no nystagmus) Ears, Nose, Throat: hearing grossly normal, TMs normal (except left TM only partially visualized due to moderate cerumen impaction), pharynx normal Neck: non-tender, trachea midline Respiratory: lungs clear, normal breath sounds, no respiratory distress, no accessory muscle use Cardiovascular: regular rate, rhythm, no edema, no gallop, no murmur Gastrointestinal: normal bowel sounds, non tender, soft, no organomegaly Extremities: non-tender, normal inspection, no pedal edema, no calf tenderness Neurologic/Psychiatric: jd edwards II-XII nml as tested, alert, normal mood/affect, oriented x 3 Skin Characteristics: normal color, warm/dry (Maggie Howard MD) Assessment/Plan Agree with plan as above in PA's note with the following exceptions/additions: Likely chest pain related to GI causes from persistent vomiting and gastroenteritis as chest pain has been constant for 5 days now and with negative cardiac markers and normal ECG, normal Stress ECHO. EGD only with very mild irritation from vomiting. Nausea is likely related to BPPV. Still nauseated and very minimal po intake. MRI brain and IACs is normal which is reassuring. -WIll have PT come by and perform Michael's and anti-vertigo measures. Trial of meclizine. Continue PPI and decrease to once daily now -possible d/c to home tomorrow if feeling better (Maggie Howard MD)
[2016-03-05] MEDS ORDERED: ONDA4TAB65 PO (14:34)
[2016-03-05] MEDS ORDERED: PANT1TAB48 PO (14:34)
[2016-03-05] MEDS ORDERED: MECL1TAB40 PO (14:34)
--- NOTE | 2016-03-05 14:41 | DIAGNOSTIC IMAGING REPORT ---
MRI OF THE BRAIN AND IACS WITHOUT AND WITH IV CONTRAST CLINICAL HISTORY: dizziness COMPARISON STUDY: Head CT dated 01/07/2012, MRI the brain dated 02/17/2007 TECHNIQUE: MRI of the brain was performed from the vertex to the skull base utilizing various T1 and T2 weighted sequences. Following the IV administration of 8 mL of Gadavist contrast, additional enhanced images were obtained. FINDINGS: Sagittal T1, axial diffusion, proton density and T2 weighted axial, coronal FLAIR, and pre and post axial T1-weighted images were acquired. These were supplemented with post gadolinium coronal T1 weighted images. No intra or extra-axial mass lesions are visualized. Axial diffusion-weighted images reveal no evidence of acute or subacute infarction. There is no evidence of ventricular dilatation. Proton density T2-weighted and FLAIR images reveal no significant parenchymal signal abnormalities. There are no abnormal flow voids. There is no evidence of pathologic enhancement. There are no cerebellopontine angle masses. The 7th and 8th nerve complexes appear normal bilaterally. IMPRESSION: Normal MRI of the brain for age. Electronically signed by: Garrison Madrid M.D. 03/05/2016 2:39 PM Dictated Date/Time: 03/05/2016 2:36 PM
--- NOTE | 2016-03-05 14:59 | Discharge Instructions ---
Discharge Instructions Admission Reason for Admission: Chest Pain (Janeth Cho PA-C) Discharge Discharge Diagnosis / Problem: Nausea (Janeth Cho PA-C) Discharge Diagnosis / Problem: Vertigo, intractable nausea/vomiting (Maggie Howard MD) Discharge Goals Goal(s): Decrease discomfort, Learn about illness, Diagnostic testing, Therapeutic intervention, Prevent Disease Progression (Janeth Cho PA-C) Activity Recommendations Activity Limitations: resume your previous activity . (Janeth Cho PA-C) Activity Limitations: as noted below Exercise/Sports Limitations: gradually increase as tolerated You should use your cane at all times with walking. The Physical Therapist recommended that you continue with outpatient PT and you were given a prescription for this. You can set this up at a Physical Therapy location of your choice or as allowed by your insurance plan. Perhaps the [place] has a PT program you could attend. You should NOT DRIVE until all of your vertigo symptoms completely resolve. (Maggie Howard MD) Instructions / Follow-Up Instructions / Follow-Up Nausea: -You may take Zofran 4 mg by mouth every four hours as needed for nausea GERD: -INCREASED Protonix 40 mg by mouth TWICE per day Dizziness: -You may take Meclizine 12.5 mg by every 8 hours as needed for dizziness. -Avoid changing positions rapidly. -Drink plenty of fluids to keep well hydrated. Drink enough fluids to keep your urine light yellow colored. You may resume all other regular home medications as prescribed to you. Please follow-up with your PCP within 5-7 days. Please follow-up/keep all of your subspecialty appointments. (Janeth Cho PA-C) Instructions / Follow-Up You should follow up with a ENT specialist within 1-[address] Godinez of [facility] was recommended but you can see whomever you wish. THE MECLIZINE DOSE IS ACTUALLY MECLIZINE 25MG (1 TAB) EVERY 8 HOURS NEEDED FOR VERTIGO (NOT 12.5MG STATED ABOVE). (Maggie Howard MD) Current Hospital Diet Patient's current hospital diet: Full Liquid Diet (Janeth Cho PA-C) Discharge Diet Recommended Diet: Regular Diet (Janeth Cho PA-C) Procedures Procedures Performed: 1. EGD 2. Stress echocardiogram 3. Biliary ultrasound 4. Brain MRI 5. Chest x-ray 6. Abdominal x-ray (Janeth Cho PA-C) Pending Studies Studies pending at discharge: no (Janeth Cho PA-C) Laboratory Results Last 24 Hours Test 03/04/16 16:25 03/04/16 20:46 03/05/16 05:00 03/05/16 06:56 Bedside Glucose 82 mg/dl 103 mg/dl 135 mg/dl White Blood Count 5.73 K/uL Red Blood Count 4.91 M/uL Hemoglobin 15.3 g/dL Hematocrit 43.3 % Mean Corpuscular Volume 88.2 fL Mean Corpuscular Hemoglobin 31.2 pg Mean Corpuscular Hemoglobin Concent 35.3 g/dl RDW Standard Deviation 40.5 fL RDW Coefficient of Variation 12.7 % Platelet Count 167 K/uL Mean Platelet Volume 10.5 fL Sodium Level 142 mmol/L Potassium Level 3.6 mmol/L Chloride Level 108 mmol/L Carbon Dioxide Level 26 mmol/L Anion Gap 8.0 mmol/L Blood Urea Nitrogen 17 mg/dl Creatinine 0.92 mg/dl Est Creatinine Clear Calc Drug Dose 71.1 ml/min Estimated GFR () 98.7 Estimated GFR (Non- 85.2 BUN/Creatinine Ratio 18.8 Random Glucose 117 mg/dl Calcium Level 7.8 mg/dl Test 03/05/16 12:19 Bedside Glucose 121 mg/dl Hemoglobin A1c Test 03/04/16 05:17 Range/Units Estimated Average Glucose 160 mg/dl Hemoglobin A1c 7.2 H 4.5-5.6 % Lipid Panel Test 03/04/16 05:17 Range/Units Triglycerides Level 464 H 0-150 mg/dl Cholesterol Level 138 0-200 mg/dl HDL Cholesterol 23 mg/dl Cholesterol/HDL Ratio 6.0 LDL Cholesterol, Calculated mg/dl (Janeth Cho PA-C) Medical Emergencies . Who to Call and When: Medical Emergencies: If at any time you feel your situation is an emergency, please call 911 immediately. . (Janeth Cho PA-C) Non-Emergent Contact Non-Emergency issues call your: Primary Care Provider Call Non-Emergent contact if: you have a fever, your pain is unusual for you, your pain is concerning you, you have any medication questions . (Janeth Cho ., DALILA-C) . "Provider Documentation" section prepared by Janeth Cho. (Janeth Cho, PASrinathC) VTE Core Measure Inpt VTE Proph given/why not?: Unfractionated heparin SQ, T.E.D. Stockings, SCD 's (Janeth Cho ., PA-C)
--- NOTE | 2016-03-05 15:00 | Discharge Summary ---
Discharge Summary Admission Date: Mar 05, 2016 at 11:16 Discharge Date: Mar 05, 2016 Discharge Disposition: Home Principal Diagnosis: Nausea Problems/Secondary Diagnoses: 1. Chest discomfort 2. Vomiting 3. Diarrhea 4. Dizziness 5. GERD Immunizations: Have You Had Influenza Vaccine: Yes History of Tetanus Vaccine?: Unknown History of Pneumococcal: Yes History of Hepatitis B Vaccine: Unknown Procedures: KUB HISTORY: Nausea. Generalized abdominal pain. COMPARISON: Chest and abdominal series 03/03/2008. FINDINGS: The bowel gas pattern is unremarkable. There are no dilated loops of small bowel to suggest an obstruction. No renal calculi. No ureteral calculi. No pneumoperitoneum or pneumatosis. Prior cholecystectomy. There is suture material within the right deep pelvis. The lung bases appear clear. IMPRESSION: Unremarkable bowel gas pattern. No evidence for bowel obstruction. Electronically signed by: Jem Underwood M.D. 03/03/2016 10:46 AM The status of this report is Signed. Draft = Not yet reviewed or approved by Radiologist. Signed = Reviewed and approved by Radiologist CHEST ONE VIEW PORTABLE CLINICAL HISTORY: Chest pain and nausea. COMPARISON STUDY: Chest radiograph October 20, 2012 FINDINGS: Lung volumes are normal. No consolidation is identified and there is no evidence of pulmonary edema. Cardiomediastinal silhouette is stable. An anterior cervical spine fusion is partially imaged. No pneumothorax or pleural effusion is identified. IMPRESSION: No acute cardiopulmonary findings. Electronically signed by: Kevyn Headley M.D. 03/03/2016 10:35 AM The status of this report is Signed. Draft = Not yet reviewed or approved by Radiologist. STRESS ECHOCARDIOGRAM Interpretation Summary * Name: REJI BAKER Study Date: 03/04/2016 09:13 AM BP: 113/68 mmHg * Patient Location: 2E\S\E201\S\1 HR: 81 * : 1945 (M/d/yyyy) Gender: Male Height: 64 in * Age: 70 yrs Ethnicity: CA Weight: 167 lb * Ordering Physician: Janeth Cho * Referring Physician: Self, Referred * Performed By: Mariola Walker RCS * * Reason For Study: CHEST PAIN * BSA: 1.8 m2 * The stress echocardiogram is negative for inducible ischemia. * The stress ECG response was normal * -- Conclusions -- * Resting wall motion: Normal. Stress wall motion: Appropriate increase in Left ventricular systolic function and decrease in cavity size. No stress induced segmental wall motion abnormalities. * Ejection Fraction = 60-65%. * Left ventricular systolic function is normal. * Grade I diastolic dysfunction, (abnormal relaxation pattern). * The right ventricle is mildly dilated. * There is borderline right ventricular hypertrophy. * There is trace tricuspid regurgitation. * Right ventricular systolic pressure is elevated at 30-40mmHg. Procedure Details * ECHOEX, CPT #[id number] * ECHO COLOR FLOW, CPT #[id number] * ECHO DOPPLER, CPT #[id number] Left Ventricle * The left ventricle is normal in size. * There is normal left ventricular wall thickness. * Ejection Fraction = 60-65%. * Left ventricular systolic function is normal. * Resting wall motion: Normal. Stress wall motion: Appropriate increase in Left ventricular systolic function and decrease in cavity size. No stress induced segmental wall motion abnormalities. Right Ventricle * The right ventricle is mildly dilated. * There is borderline right ventricular hypertrophy. * The right ventricular systolic function is normal. Atria * The left atrial size is normal. * The right atrium is mildly dilated. * The interatrial septum is intact with no evidence for an atrial septal defect. Mitral Valve * The mitral valve is normal in structure and function. * There is no mitral regurgitation noted. Tricuspid Valve * The tricuspid valve is normal in structure and function. * There is trace tricuspid regurgitation. * Right ventricular systolic pressure is elevated at 30-40mmHg. Aortic Valve * The aortic valve is trileaflet. * The aortic valve is normal in structure and function. * No aortic regurgitation is present. Pulmonic Valve * The pulmonary valve is inadequately visualized, but the Doppler data is adequate for interpretation. * There is no pulmonic valvular regurgitation. Great Vessels * Ascending aorta of normal dimension * No obvious dissection could be visualized. * The pulmonary artery is not well visualized, but is probably normal size. Pericardium * There is no pericardial effusion. Stress Parameters * Normal baseline electrocardiogram. * No arrhythmia were noted with stress. * There was no new ST segment depression. * Rest heart rate was '81' BPM. * Rest blood pressure was '113/68' * Maximum heart rate achieved was 126 bpm. * Maximum heart rate was 82 % of maximum age-predicted heart rate. * Maximum blood pressure was '129/67' * Total exercise time was '3:48' * Maximum exercise MET level achieved was '5.5' METS * Maximum treadmill speed was '2.5' miles per hour. * Maximum treadmill elevation was '12'% grade. * Exercise was terminated due to 'Chest Pressure' * Normal blood pressure response to exercise. Right Ventricle * The right ventricular wall motion is normal. Left Ventricular Diastolic Function * Grade I diastolic dysfunction, (abnormal relaxation pattern). MMode 2D Measurements and Calculations IVSd 0.98 cm IVSs 1.3 cm LVIDd 4.4 cm LVIDs 2.9 cm LVPWd 0.96 cm LVPWs 1.3 cm IVS/LVPW 1.0 FS 34.9 % EDV(Teich) 90.0 ml ESV(Teich) 32.1 ml EF(Teich) 64.4 % EDV(cubed) 88.0 ml ESV(cubed) 24.3 ml EF(cubed) 72.5 % % IVS thick 33.4 % % LVPW thick 33.3 % LV mass(C)d 144.8 grams LV mass(C)dI 79.9 grams/m\S\2 LV mass(C)s 117.9 grams LV mass(C)sI 65.1 grams/m\S\2 CO(Teich) 4.2 l/min CI(Teich) 2.3 l/min/m\S\2 SV(Teich) 57.9 ml SI(Teich) 32.0 ml/m\S\2 CO(cubed) 4.7 l/min CI(cubed) 2.6 l/min/m\S\2 SV(cubed) 63.8 ml SI(cubed) 35.2 ml/m\S\2 Ao root diam 4.0 cm Ao root area 12.5 cm\S\2 ACS 1.9 cm LA dimension 3.3 cm LA/Ao 0.82 LVAd ap4 24.2 cm\S\2 LVLd ap4 7.4 cm EDV(MOD-sp4) 65.0 ml LVAs ap4 13.3 cm\S\2 LVLs ap4 6.3 cm ESV(MOD-sp4) 24.0 ml EF(MOD-sp4) 63.1 % LVAd ap2 24.4 cm\S\2 LVLd ap2 7.9 cm EDV(MOD-sp2) 63.0 ml LVAs ap2 11.6 cm\S\2 LVLs ap2 5.8 cm ESV(MOD-sp2) 20.0 ml EF(MOD-sp2) 68.3 % CO(MOD-sp4) 3.0 l/min CI(MOD-sp4) 1.7 l/min/m\S\2 SV(MOD-sp4) 41.0 ml SI(MOD-sp4) 22.6 ml/m\S\2 CO(MOD-sp2) 3.1 l/min CI(MOD-sp2) 1.7 l/min/m\S\2 SV(MOD-sp2) 43.0 ml SI(MOD-sp2) 23.7 ml/m\S\2 Doppler Measurements and Calculations MV A max murphy 79.0 cm/sec MV P1/2t max murphy 78.1 cm/sec MV P1/2t 70.5 msec MVA(P1/2t) 3.1 cm\S\2 MV dec slope 324.7 cm/sec\S\2 MV dec time 0.19 sec Ao V2 max 97.2 cm/sec Ao max PG 3.8 mmHg Ao max PG (full) 1.5 mmHg LV V1 max PG 2.2 mmHg LV V1 max 74.7 cm/sec PA V2 max 85.6 cm/sec PA max PG 2.9 mmHg TR max murphy 246.3 cm/sec Created: Initialized: 03/04/16; 1442 <Electronically signed by Celio Arroyo M.D.> Signed: 03/04/162010 Celio Arroyo M.D. The status of this report is Signed. Draft = Not yet reviewed or approved by Director Digital Sales. Signed = Reviewed and approved by Director Digital Sales. Signed = Reviewed and approved by Radiologist EGD- mild patchy erythema of antrum and fundus. Otherwise unremarkable BRAIN MRI BILIARY ULTRASOUND Consultations: GI- Dr. Stewart (Janeth Cho, PA-C) Discharge Date: Mar 06, 2016 (Maggie Howard MD) Medication Reconciliation New Medications: Meclizine HCl (Meclizine HCl) 12.5 Mg Tab 1 TAB PO TID for 30 Days, #90 TAB 3 Refills Ondansetron Hcl (Zofran) 4 Mg Tab 4 MG PO Q4 for 30 Days, #180 TAB Changed Medications: Pantoprazole (Protonix) 40 Mg Tab 40 MG PO BID for 30 Days, #60 TAB (Changed from: DAILY) Continued Medications: Aspirin Enteric Coated (Ecotrin Or Generic) 81 Mg Tab 81 MG PO DAILY, TAB Bisacodyl (Dulcolax) 10 Mg Sup 1 SUPP NV DAILY PRN, SUP Docusate Sodium (Colace) 100 Mg Cap 200 MG PO BID, CAP Donepezil Hydrochloride (Aricept) 10 Mg Tab 10 MG PO HS, TAB Glipizide (Glucotrol) 5 Mg Tab 5 MG PO DAILY, TAB Metformin Hcl (Glucophage) 1,000 Mg Tab 1000 MG PO BID, TAB Polyethylene (Miralax Powder Packet) 17 Gm Pack 17 GM PO PRN, PACK Prazosin Hcl (Prazosin) 1 Mg Cap 1 MG PO BID, CAP Ramelteon (Rozerem) 8 Mg Tab 8 MG PO HS PRN, TAB Sennosides (Senokot) 8.6 Mg Tab 1 TAB PO BID, TAB Trazodone Hcl (Trazodone) 50 Mg Tab 50 MG PO HS, TAB Venlafaxine Hcl (Effexor Xr) 75 Mg Cap 75 MG PO BID Discharge Exam Review of Systems: Constitutional: No chills, No fatigue, No fever, No sweats, No weakness Respiratory: No cough, No hemoptysis, No shortness of breath Cardiovascular: + problem reported (Chest pressure unchanged and constant since 02/28), No edema, No palpitations Abdomen: + nausea, No constipation, No diarrhea, No pain, No vomiting Musculoskeletal: No calf pain, No joint pain, No muscle pain, No swelling Genitourinary - Male: No dysuria, No hematuria Neurologic: + problem reported (dizziness ), No numbness/tingling, No weakness Psychiatric: No anxiety, No depression symptoms Hematologic / Lymphatic: No abnormal bleeding/bruising Integumentary: No itch, No new/changing skin lesions, No rash Physical Exam: General Appearance: no apparent distress Eyes: normal inspection, PERRL ENT: hearing grossly normal Neck: supple Respiratory/Chest: lungs clear, normal breath sounds Cardiovascular: regular rate, rhythm, no edema Abdomen / GI: normal bowel sounds, non tender, soft Extremities: no calf tenderness, no pedal edema Neurologic/Psychiatric: alert, normal mood/affect, oriented x 3 Skin: normal color, warm/dry, no rash (Janeth Cho ., PA-C) Hospital Course 70 y/o male, with PMHx of DM, GERD, depression, insomnia, BPH, and mild cognitive impairment, who presented to the ED with complaints of chest pain, nausea and vomiting x4 days. Chest pain r/o: -Admit tele -Trend cardiac enzymes -Stress echocardiogram negative for any ischemia, EF= 60-65%, grade 1 diastolic dysfunction -Check ha1c and lipid panel -Hydralazine PRN for SBP >170 or DBP >100 -Follow PRP and CBC -Rapid flu negative Mild cognitive impairment: -Hold Aricept 10 mg PO HS due to diarrhea Insomnia: -Continue Rozerem 8 mg PO HS PRN -Continue Trazodone 50 mg PO HS DM: -Continue Metformin 1,000 mg PO BID and Glipizide 5 mg PO daily -BSG AC & HS -Sliding insulin scale -Check ha1c Anxiety: -Continue Effexor 75 mg PO BID BPH: -Continue Prazosin 1 mg PO BID GERD: -Hold daily Protonix PO due to poor oral intake -IV Protonix BID -Consult GI, appreciate recommendations --Negative cardiac workup. Reconsulted for persisting symptoms on 03/04 --EGD unremarkable. Recommend biliary U/S. --??Vertigo ?Vertigo: -GI questioning whether symptoms could be due to vertigo. -MRI of brain -Patient complained of dizziness when changing positions rapidly. Check orthostatic BPs. GI Prophylaxis: -Maalox PRN -IV Zofran PRN -Colace and/or Milk of Mag PRN DVT prophylaxis: -Heparin 5000 units SQ q12 hrs -CANDIDA and SCDs Code Status: -LEVEL I, FULL- no prolonged measures Dispo: -Discharge to home Total Time Spent: Greater than 30 minutes This includes examination of the patient, discharge planning, medication reconciliation, and communication with other providers. (Janeth Cho ., PA-C) Discharge Instructions Please refer to the electronic Patient Visit Report (Discharge Instructions) for additional information. (Janeth Cho ., EDDIE) Follow-Up Please follow-up with your PCP within 5-7 days. Please follow-up/keep all of your subspecialty appointments. (Janeth Cho, EDDIE) Reviewed: Pt Seen/Exam by , FELICIANO Notes, Labs, RAD (Maggie Howard MD) History Agree with above PA Discharge summary/ROS. Clarification Date of discharge and DOS 03/06/16 Pt doing significantly better on day of discharge after having Michael maneuvers with PT yesterday and taking 2 doses of meclizine. He now states his chest pressure is completely resolved, his nausea and dizziness are completely resolved. He is eating full meals and has no problems at all. Reviewed all testing and all normal. (Maggie Howard MD) Constitutional: denies: fever EENTM: acknowledges: ear pain (mild, left ear) Respiratory: negative: short of breath Cardiovascular: denies chest pain Gastrointestinal/Abdominal: positive: constipation (but just started eating again the last 24 hrs after 4 days of vomiting), negative: abdominal pain, diarrhea Genitourinary: positive no symptoms reported Musculoskeletal: positive: no symptoms reported Skin: positive: no symptoms reported Neurological/Psych: positive: other (does have some chronic balance issues after a head and neck injury previously) Hematologic/Lymphatic: positive: no symptoms reported Immunocompromise: positive: no symptoms reported All Other Systems: Reviewed and Negative (Maggie Howard MD) General Appearance: WD/WN, no apparent distress Eye Exam: bilateral eye EOMI, bilateral eye PERRL, bilateral eye normal inspection Ears, Nose, Throat: normal ENT inspection (except cannot visualize left TM completely due to cerumen), hearing grossly normal, pharynx normal Neck: supple, normal inspection, trachea midline Respiratory: lungs clear, normal breath sounds, no respiratory distress, no accessory muscle use Cardiovascular: normal peripheral pulses, regular rate, rhythm, no edema, no gallop, no murmur, other (no chest tenderness) Gastrointestinal: normal bowel sounds, non tender, soft, no organomegaly, no pulsatile mass Extremities: non-tender, normal inspection, no pedal edema, no calf tenderness 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 EGD only with very mild irritation from vomiting. Chest pain/pressure now completely resolved after starting meclizine and getting Michael maneuvers for vertigo, vertigo and nausea compeltely resolved. Nausea is likely related to BPPV although PT could not ellicit nystagmus with D- H testing however it did reproduce vertigo and nausea at the time of testing. Now completely resolved N/V and dizziness with meclizine and Michael's. MRI brain and IACs is normal which is reassuring. -COntinue outpatient PT and meclizine prn at home Continue PPI and decrease to once daily now D/c to home with close PCP f/u and see ENT if vertigo returns or persists (Maggie Howard MD)
--- NOTE | 2016-03-05 15:05 | DIAGNOSTIC IMAGING REPORT ---
ABDOMINAL ULTRASOUND, RIGHT UPPER QUADRANT HISTORY: persisting nausea/chest discomfort . COMPARISON: Abdomen and pelvis CT 01/07/2012. Abdominal ultrasound 10/20/2012. FINDINGS: Pancreas: Not well visualized due to the overlying bowel gas. The pancreatic duct at the body of the pancreas appears to be normal in caliber. Liver: The liver slightly echogenic consistent with fatty change. There is also a septated 3.1 cm cyst within the left hepatic lobe. This remains unchanged. Gallbladder: The gallbladder is surgically absent. CBD: 8 mm. This is within the range of normal limits given the patient's postcholecystectomy state. Right kidney: No hydronephrosis. A 2.5 cm cyst within the upper pole. This is increased in size. IMPRESSION: 1. Prior cholecystectomy. 2. Hepatic steatosis. 3. No change in the 3.1 cm septated cyst within the left hepatic lobe. 4. Increase in size in the 2.5 cm right renal cyst. Electronically signed by: Jem Underwood M.D. 03/05/2016 3:03 PM Dictated Date/Time: 03/05/2016 3:00 PM
[2016-03-05] MEDS ORDERED: MECLIZINE HCL 25 MG TAB PO PRN (16:00)
[2016-03-05] MEDS ORDERED: MECLIZINE HCL 25 MG TAB PO ONE (16:00)
[2016-03-05] MEDS ORDERED: PROCHLORPERAZINE INJ 10 MG in SYRINGE 8 ML IV PRN (16:00)
[2016-03-05] MEDS: NSS + 20MEQ KCL 1000ML 1,000 ML IV SCH (16:41)
[2016-03-05] MEDS: TRAZODONE HCL 50 MG TAB PO SCH (20:49)
[2016-03-06 04:00] VITALS: BP 105/67; PULSE 77; TEMP 36.7; O2SAT 94
[2016-03-06 05:55] LABS: HEMATOCRIT 42.3 % (42-52); MEAN CELL VOLUME 86.2 fL (80-100); MEAN CORPUSCULAR HEMOGLOBIN 30.8 pg (25-34); MEAN CORPUSCULAR HGB CONC 35.7 g/dl (32-36); MEAN PLATELET VOLUME 10.4 fL (7.4-10.4); PLATELET COUNT 173 K/uL (130-400); RED BLOOD COUNT 4.91 M/uL (4.7-6.1); WHITE BLOOD COUNT 6.01 K/uL (4.8-10.8)
[2016-03-06 06:31] LABS: BUN/CREATININE RATIO 19.1 (10-20); CALCIUM 8.3 mg/dl (8.5-10.1); CREATININE 0.82 mg/dl (0.60-1.40); POTASSIUM 3.7 mmol/L (3.5-5.1)
[2016-03-06] MEDS: INSULIN ASPART 100 UNITS/ML 3 ML PEN SC SCH (07:00)
[2016-03-06] MEDS: RAMELTEON: ORDER AWAITING ACTION SCH (07:15)
[2016-03-06] MEDS ORDERED: NURSING VERBAL MED ORDER ONE (07:15)
[2016-03-06] MEDS: PRAZOSIN HCL 1 MG CAP PO SCH (07:44)
[2016-03-06] MEDS: METFORMIN HCL 500 MG TAB PO SCH (07:44)
[2016-03-06] MEDS: VENLAFAXINE HCL XR 75 MG CAPXR PO SCH (07:45)
[2016-03-06] MEDS: ASPIRIN 81 MG ECTAB PO SCH (07:45)
[2016-03-06] MEDS: HEPARIN SOD 5000 UNIT/0.5 ML CARP SQ SCH (07:46)
[2016-03-06 08:37] VITALS: BP 132/73; PULSE 81; TEMP 36.9; O2SAT 94
[2016-03-06] MEDS ORDERED: PANTOprazole INJ 40 MG in SYRINGE 0 ML IV SCH (09:00)
[2016-03-06] MEDS ORDERED: ANT25 PO (09:39)
[2016-03-06] MEDS ORDERED: PANT40TA PO (10:00)
[2016-03-06 11:01] VITALS: BP 132/73; PULSE 81; TEMP 36.9; O2SAT 94
== END 2016-03-06 12:11 | disposition home or self-care (01) | DRG 392 ==
LOC: ENRESERVTM → CANRESERV → ENRESERVDT → C.EDB 09:56 → C.EDINP 13:49 → C.2E 19:10 → OBSVTOIN 03-05 11:16
PROVIDERS: ADMIT Family Medicine; ATTEND Family Medicine
PROC: 0DJ08ZZ Inspection of Upper Intestinal Tract, Via Natural or Artificial Opening Endoscopic (ICD-10-PCS; principal; 2016-03-05 10:37)
DX: K52.9 Noninfective gastroenteritis and colitis, unspecified (principal); R07.89 Other chest pain; H81.10 Benign paroxysmal vertigo, unspecified ear; K21.9 Gastro-esophageal reflux disease without esophagitis; G31.84 Mild cognitive impairment of uncertain or unknown etiology; G47.00 Insomnia, unspecified; E11.9 Type 2 diabetes mellitus without complications; F41.9 Anxiety disorder, unspecified; F32.9 Major depressive disorder, single episode, unspecified; N40.0 Benign prostatic hyperplasia without lower urinary tract symptoms; Z79.82 Long term (current) use of aspirin; Z79.84 Long term (current) use of oral hypoglycemic drugs; Z79.899 Other long term (current) drug therapy; Z83.3 Family history of diabetes mellitus

== ENCOUNTER 2021-11-11 19:31 | Inpatient (IN) ==
[2021-11-11 21:06] LABS: INR 1.1 (0.9-1.1); Partial Thromboplastin Time 27.8 Seconds (21.0-31.0); Prothrombin Time 11.3 Seconds (9.0-12.0)
[2021-11-11 21:12] LABS: Alanine Aminotransferase 24 U/L (7-52); Albumin Globulin Ratio 1.9 (0.9-2); Albumin Level 4.1 gm/dl (3.4-5.0); Alkaline Phosphatase 48 U/L (34-104); Anion Gap 9 (3-11); Aspartate Aminotransferase 32 U/L (13-39); Bilirubin,Total 0.5 mg/dl (0.2-1.0); Blood Urea Nitrogen 18 mg/dl (6-23); Calcium 8.4 mg/dl (8.5-10.1); Carbon Dioxide 23 mmol/L (21-32); Chloride 106 mmol/L (98-107); Est GFR (African American) 97.2 ml/min; Est GFR (Non-African American) 83.8 ml/min; Globulin 2.2 gm/dl (2.5-4.0); Glucose 103 mg/dl (70-99(Fasting)); Potassium 3.9 mmol/L (3.5-5.1); Sodium 138 mmol/L (136-145); Total Protein 6.3 gm/dl (6.0-8.3)
[2021-11-11 21:13] LABS: Basophils # (auto) 0.02 K/uL (0-0.2); Basophils % (auto) 0.3 %; Eosinophils % (auto) 1.7 %; Hematocrit (blood only) 42.2 % (40.1-51.0); Hemoglobin 14.6 g/dl (14.0-18.0); Immature Granulocytes # (auto) 0.12 K/uL (0.00-0.02); Immature Granulocytes % (auto) 2.1 %; Lymphocytes % (auto) 15.7 %; Mean Corpuscular Hemoglobin 30.6 pg (25.0-34.0); Mean Corpuscular Hgb Conc 34.6 g/dL (32.0-36.0); Mean Corpuscular Volume 88.5 fL (80.0-100.0); Mean Platelet Volume 10.8 fL (9.4-12.4); Monocytes # (auto) 0.82 K/uL (0.24-0.82); Monocytes % (auto) 14.3 %; Neutrophils # (auto) 3.77 K/uL (1.4-6.5); Neutrophils % (auto) 65.9 %; Platelet Count 150 K/uL (130-400); RDW Coefficient of Variation 13.2 % (11.5-14.5); RDW Standard Deviation 42.5 fL (36.4-46.3); Red Blood Count 4.77 M/uL (4.63-6.08); White Blood Count 5.73 K/ul (4.8-10.8)
--- NOTE | 2021-11-11 23:02 | Emergency Department Note ---
Impression & Plan COVID-19, Syncope ADMIT ED Provider Note HPI: The patient is a 76-year-old gentleman with history of coronary artery disease, status post recent stent to the LAD about 1 month ago according to his son at the bedside, presents the emergency department with a chief complaint of a syncopal event. Patient has a history of dementia and he is a poor historian. He reported that at some point this evening he fell when he was on his porch. Patient states he does not know how this happened. Patient was able to get up on his own accord and walk back into the house and sat down in a chair. His [id number] later arrived at the house and noted that he had a bruise to the right side of his face. Patient then told her that he fell and he was brought to the ED for further assessment. Patient has had some issues walking since his fall according to his son at the bedside. On my initial assessment the patient is hemodynamically stable, he is in no acute distress, he does not have any focal deficits, he is saturating well on room air. ROS: -Neuro: Possible syncopal event *10 point review systems was conducted and is otherwise negative unless stated above *Outpatient medications and allergy history reviewed PE: General: Frail-appearing, alert HEENT: Normocephalic, small contusion to the right side of the face without any open wounds or lacerations Eyes: Extraocular eye movement is intact, no scleral erythema Pulmonary: Clear to auscultation bilaterally, no wheezing Cardio: Regular rate and rhythm GI: Abdomen is soft, nontender : No suprapubic tenderness MSK: No evidence of trauma or malformation of the extremities, no edema Skin: No evidence of rash Neuro: Alert, no focal deficits 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 Mild nonspecific white matter changes. No comparisons. Radiologist: Giovanna Green MD CT C SPINE: No evidence of acute cervical spine pathology. Status post anterior discectomy and cervical fusion of C3, C4 and C5 with compression plate and screws in place. There is solid interbody fusion without evidence of surgical hardware complication. Moderate disc degeneration at C5-6. Incomplete fusion posteriorly of C1. Comparison made to prior CT scan of the cervical spine from January 07, 2012. Radiologist: Giovanna Green MD CT L SPINE: No evidence of acute lumbar spine pathology. Moderate disc degeneration at L1-2, L3-4, L4-5 and L5-S1. Ankylosis of the sacroiliac joints. Postsurgical changes of the sigmoid colon with surgical staple in place. No comparisons. Radiologist: Giovanna Green MD CT PELVIS: No evidence of acute pelvic pathology. Ankylosis of the sacroiliac joints. Moderate disc degeneration L3-4, L4-5 and L5-S1. Small bilateral fat-containing inguinal hernias. Postsurgical changes of the sigmoid colon with surgical staple line in place. The appendix is normal. Radiologist: Giovanna Green MD Study ready at 00:05 and initial results transmitted at 00:14 Medical Decision Making: CT imaging is negative for any evidence of acute intracranial bleeding, no evidence of fracture within the pelvis or L-spine. No cervical spine fracture. Patient's lab work appears to be without any critical findings, patient is very frail appearing on my assessment and complains of some difficulty with steadiness on his feet, he is unable to walk here in the ED. COVID-19 testing was obtained and is positive. On my reassessment patient's son states that the patient has been having some decline at home, he does have to stay at home for long stretches of the day by himself which is what happened today when he apparently had some type of syncopal event or possibly a mechanical fall. Patient has dementia and is unable to really give me the details of what happened. Regardless, he is unable to walk here, he is COVID-positive, son is concerned that he may need placement for nursing care. Given this, hospitalist service was consulted for admission. Patient was admitted in stable condition for further care. Diagnosis: 1. Ambulatory dysfunction 2. Unwitnessed syncopal event/fall 3. COVID-19 infection 4. Baseline dementia Disposition: Admission Bright Shapre DO Emergency Medicine Past Med/Surg History Surgical History S/P cholecystectomy (02/17/12) Social History Smoking Status: Never smoker Hx Alcohol Use: No Hx Substance Use: No Preferred Language: Turkish Beliefs That Will Affect Care: None Current Living Situation: Alone Feels Safe at Home: Yes Assistive Devices: Cane and Walker Allergies Allergies Allergy/AdvReac Type Severity Reaction Status Date / Time No Known Allergies Allergy Verified 11/12/21 01:52 Home Meds Home Medications Medication Instructions Recorded Confirmed cholecalciferol (vitamin D3) 25 25 mcg PO DAILY 10/01/19 11/12/21 mcg (1,000 unit) capsule docusate sodium 100 mg capsule 100 mg PO BID 10/01/19 11/12/21 donepezil 10 mg tablet 10 mg PO HS 10/01/19 11/12/21 finasteride 5 mg tablet 5 mg PO DAILY 10/01/19 11/12/21 glipizide 5 mg tablet 5 mg PO BID 10/01/19 11/12/21 metformin 1,000 mg tablet 1,000 mg PO BID 10/01/19 11/12/21 mirtazapine 30 mg tablet 30 mg PO HS 10/01/19 11/12/21 pantoprazole 40 mg tablet,delayed 40 mg PO DAILYBB 10/01/19 11/12/21 release polyethylene glycol 3350 8.5 gram 8.5 gm PO DAILY PRN Constipation 10/01/19 11/12/21 oral powder packet prazosin 2 mg capsule 2 mg PO HS 10/01/19 11/12/21 venlafaxine 75 mg capsule,extended 225 mg PO DAILY 10/01/19 11/12/21 release 24 hr acetaminophen 500 mg tablet 500 mg PO TID PRN Pain 11/12/21 11/12/21 alogliptin 12.5 mg tablet 12.5 mg PO QAM 11/12/21 11/12/21 aspirin 81 mg tablet,delayed 81 mg PO QAM 11/12/21 11/12/21 release atorvastatin 80 mg tablet 80 mg PO QAM 11/12/21 11/12/21 empagliflozin 25 mg tablet 25 mg PO QAM 11/12/21 11/12/21 folic acid 1 mg tablet 2 mg PO DAILY 11/12/21 11/12/21 food supplemt, lactose-reduced 1 ea PO BID 11/12/21 11/12/21 (Nutritional Shake oral liquid) gabapentin 100 mg capsule 200 mg PO BID 11/12/21 11/12/21 isosorbide mononitrate 60 mg 60 mg PO QAM 11/12/21 11/12/21 tablet,extended release 24 hr metoprolol succinate 25 mg 25 mg PO DAILY 11/12/21 11/12/21 tablet,extended release 24 hr multivitamin with minerals 1 tab PO DAILY 11/12/21 11/12/21 ticagrelor 90 mg tablet (Brilinta) 90 mg PO AMHS 11/12/21 11/12/21 Previous Rx's Medication Instructions Recorded memantine 10 mg tablet (Namenda) 10 mg PO BID #180 tabs 05/29/21 Results & Data (ED) Vital Signs Vital Signs - 24 hr 11/11/21 19:33 11/11/21 21:55 11/11/21 23:18 Temperature 36.4 C L Temperature Source Temporal Artery Scan Pulse Rate 84 Pulse Rate [Finger] 80 72 Pulse Rate from SpO2 Sensor Respiratory Rate 20 12 16 Respiratory Effort / Characteristics Non-Labored Spontaneous Non-Labored Spontaneous Respiratory Depth Normal Normal Respiratory Pattern Regular Blood Pressure 117/74 Blood Pressure [Right Arm] 133/82 136/86 Blood Pressure Mean 88 Blood Pressure Mean [Right Arm] 99 102 Blood Pressure Position [Right Arm] Lying Pulse Oximetry 98 96 95 Oxygen Delivery Method Room Air Room Air Sepsis Recent Fever Within 48 Hours No Sepsis New/Unexplained Change in Mental Status No Sepsis Action Taken by Nursing No Action Required 11/11/21 23:58 11/12/21 01:00 11/12/21 02:00 Temperature Temperature Source Pulse Rate Pulse Rate [Finger] 77 Pulse Rate from SpO2 Sensor 85 71 Respiratory Rate 18 Respiratory Effort / Characteristics Non-Labored Spontaneous Respiratory Depth Respiratory Pattern Blood Pressure 152/87 H 127/78 Blood Pressure [Right Arm] 135/74 Blood Pressure Mean 108 94 Blood Pressure Mean [Right Arm] 94 Blood Pressure Position [Right Arm] Pulse Oximetry 95 96 97 Oxygen Delivery Method Room Air Room Air Room Air Sepsis Recent Fever Within 48 Hours Sepsis New/Unexplained Change in Mental Status Sepsis Action Taken by Nursing Laboratory Data Result diagrams: 11/11/21 20:39 11/11/21 20:39 Lab Results 11/11/21 11/11/21 11/11/21 Range/Units 20:39 20:39 20:39 WBC 5.73 (4.8-10.8) K/ul RBC 4.77 (4.63-6.08) M/uL Hgb 14.6 (14.0-18.0) g/dl Hct 42.2 (40.1-51.0) % MCV 88.5 (80.0-100.0) fL MCH 30.6 (25.0-34.0) pg MCHC 34.6 (32.0-36.0) g/dL RDW Std Deviation 42.5 (36.4-46.3) fL RDW Coeff of Elpidio 13.2 (11.5-14.5) % Plt Count 150 (130-400) K/uL MPV 10.8 (9.4-12.4) fL Immature Gran % (Auto) 2.1 % Neut % (Auto) 65.9 % Lymph % (Auto) 15.7 % Borden % (Auto) 14.3 % Eos % (Auto) 1.7 % Baso % (Auto) 0.3 % Neut # (Auto) 3.77 (1.4-6.5) K/uL Lymph # (Auto) 0.90 L (1.2-3.4) K/uL Borden # (Auto) 0.82 (0.24-0.82) K/uL Eos # (Auto) 0.10 (0-0.50) K/uL Baso # (Auto) 0.02 (0-0.2) K/uL Immature Gran # (Auto) 0.12 H (0.00-0.02) K/uL PT 11.3 (9.0-12.0) Seconds INR 1.1 (0.9-1.1) APTT 27.8 (21.0-31.0) Seconds PTT Ratio 1.0 Sodium 138 (136-145) mmol/L Potassium 3.9 (3.5-5.1) mmol/L Chloride 106 (98-107) mmol/L Carbon Dioxide 23 (21-32) mmol/L Anion Gap 9 (3-11) BUN 18 (6-23) mg/dl Creatinine 0.90 (0.6-1.4) mg/dl Est Cr Clr Drug Dosing Not Reportable Est GFR ( Amer) 97.2 ml/min Est GFR (Non-Af Amer) 83.8 ml/min BUN/Creatinine Ratio 20.0 (10-20) Glucose 103 H (70-99(Fasting)) mg/dl Calcium 8.4 L (8.5-10.1) mg/dl Total Bilirubin 0.5 (0.2-1.0) mg/dl AST 32 (13-39) U/L ALT 24 (7-52) U/L Alkaline Phosphatase 48 (34-104) U/L Troponin I High Sens (0-20) pg/ml Total Protein 6.3 (6.0-8.3) gm/dl Albumin 4.1 (3.4-5.0) gm/dl Globulin 2.2 L (2.5-4.0) gm/dl Albumin/Globulin Ratio 1.9 (0.9-2) SARS-CoV-2, RNA, NAAT (NEGATIVE) 11/11/21 11/12/21 11/12/21 Range/Units 20:39 00:18 01:27 WBC (4.8-10.8) K/ul RBC (4.63-6.08) M/uL Hgb (14.0-18.0) g/dl Hct (40.1-51.0) % MCV (80.0-100.0) fL MCH (25.0-34.0) pg MCHC (32.0-36.0) g/dL RDW Std Deviation (36.4-46.3) fL RDW Coeff of Elpidio (11.5-14.5) % Plt Count (130-400) K/uL MPV (9.4-12.4) fL Immature Gran % (Auto) % Neut % (Auto) % Lymph % (Auto) % Borden % (Auto) % Eos % (Auto) % Baso % (Auto) % Neut # (Auto) (1.4-6.5) K/uL Lymph # (Auto) (1.2-3.4) K/uL Borden # (Auto) (0.24-0.82) K/uL Eos # (Auto) (0-0.50) K/uL Baso # (Auto) (0-0.2) K/uL Immature Gran # (Auto) (0.00-0.02) K/uL PT (9.0-12.0) Seconds INR (0.9-1.1) APTT (21.0-31.0) Seconds PTT Ratio Sodium (136-145) mmol/L Potassium (3.5-5.1) mmol/L Chloride (98-107) mmol/L Carbon Dioxide (21-32) mmol/L Anion Gap (3-11) BUN (6-23) mg/dl Creatinine (0.6-1.4) mg/dl Est Cr Clr Drug Dosing Est GFR ( Amer) ml/min Est GFR (Non-Af Amer) ml/min BUN/Creatinine Ratio (10-20) Glucose (70-99(Fasting)) mg/dl Calcium (8.5-10.1) mg/dl Total Bilirubin (0.2-1.0) mg/dl AST (13-39) U/L ALT (7-52) U/L Alkaline Phosphatase (34-104) U/L Troponin I High Sens 9.8 6.2 (0-20) pg/ml Total Protein (6.0-8.3) gm/dl Albumin (3.4-5.0) gm/dl Globulin (2.5-4.0) gm/dl Albumin/Globulin Ratio (0.9-2) SARS-CoV-2, RNA, NAAT POSITIVE A* (NEGATIVE) Administered Medications Discontinued Medications Sodium Chloride (Nss 1000ml) 500 mls @ 999 mls/hr IV .Q31M ONE Stop: 11/11/21 23:39 Last Infusion: 11/11/21 23:50 Dose: 0 mls/hr Documented By: Admin: 11/11/21 23:16 Dose: 999 mls/hr Documented By: RISHI Discharge Plan Visit Data Chief Complaint: Fall Stated Complaint: FELL EARLIER ED Provider: Bright Sharpe Discharge Problem: COVID-19, Syncope Patient Disposition: Admitted As Inpatient Discharge Instructions Interventions: ED Discharge Assessment Last Done: 11/12/21 03:37 Forms Stand Alone Forms: [facility] [employer] Prescriptions Prescriptions: No Action memantine [Namenda] 10 mg tablet 10 mg PO BID Qty: 180 3RF docusate sodium 100 mg capsule 100 mg PO BID donepezil 10 mg tablet 10 mg PO HS cholecalciferol (vitamin D3) 25 mcg (1,000 unit) capsule 25 mcg PO DAILY finasteride 5 mg tablet 5 mg PO DAILY glipizide 5 mg tablet 5 mg PO BID metformin 1,000 mg tablet 1,000 mg PO BID mirtazapine 30 mg tablet 30 mg PO HS pantoprazole 40 mg tablet,delayed release (DR/EC) 40 mg PO DAILYBB prazosin 2 mg capsule 2 mg PO HS venlafaxine 75 mg capsule,extended release 24hr 225 mg PO DAILY polyethylene glycol 3350 8.5 gram powder in packet 8.5 gm PO DAILY PRN (Reason: Constipation) acetaminophen 500 mg Tablet 500 mg PO TID PRN (Reason: Pain) atorvastatin 80 mg tablet 80 mg PO QAM aspirin [Aspirin Low-Strength] 81 mg Tablet,Delayed Release (Dr/Ec) 81 mg PO QAM isosorbide mononitrate 60 mg Tablet Extended Release 24 Hr 60 mg PO QAM folic acid 1 mg Tablet 2 mg PO DAILY gabapentin 100 mg Capsule 200 mg PO BID metoprolol succinate 25 mg Tablet Extended Release 24 Hr 25 mg PO DAILY multivitamin with minerals Tablet 1 tab PO DAILY Brilinta 90 mg tablet 90 mg PO AMHS alogliptin 12.5 mg Tablet 12.5 mg PO QAM empagliflozin 25 mg Tablet 25 mg PO QAM Nutritional Shake Liquid 1 ea PO BID Referrals Referrals: Natalie Mirza PA-C [Primary Care Provider] -
[2021-11-11] MEDS ORDERED: SODIUM CHLORIDE 0.9% 1000ML 500 ML IV ONE (23:09)
--- NOTE | 2021-11-12 03:04 | History & Physical Report ---
Date of Service November 12, 2021 Assessment & Plan (1) Syncope: Plan: Syncopal episode- The patient will be admitted to telemetry for serial cardiac enzymes, serial EKG's, cardiac rhythm monitoring and a 2-D echocardiogram with Dopplers. This was an unwitnessed event at home CT head, cervical spine, lumbar spine and pelvis without acute findings Potential etiologies include not limited to: COVID-19 infection, parkinsonism, diabetes mellitus blood sugar related issues, neuropathy, other (2) COVID-19: Plan: His son reports that the patient was being somewhat weakened appearing over the past few days. Placed on dexamethasone 6 mg IV as a single dose, and follow response No direct pulmonary issues, with good pulse ox (3) CAD (coronary artery disease), [place] coronary artery: Plan: CAD/hypertension- The patient will be admitted to telemetry for serial cardiac enzymes, serial EKG's, cardiac rhythm monitoring and a 2-D echocardiogram with Dopplers. Continue aspirin, isosorbide mononitrate, metoprolol succinate and Brilinta (4) Dementia: Plan: Dementia/depression/parkinsonism- Continue donepezil, memantine, mirtazapine, venlafaxine and prazosin. 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 The patient's HPI and ROS are somewhat limited due to underlying dementia Primary Care Provider: Natalie Mirza PA-C The patient is a 76-year-old male with a past medical history including dementia, recurrent falls while walking, gait abnormality, parkinsonism, chronic reflux esophagitis, depression, diabetes mellitus, hypertension, insomnia, chest pain and vertigo. Patient reportedly had a LAD stent placed about 1 month ago, as reported by his son at bedside, but this point the patient denies any chest pain or shortness of breath or pulmonary or cardiac symptoms. Allergies Allergy/AdvReac Type Severity Reaction Status Date / Time No Known Allergies Allergy Verified 11/12/21 01:52 Home Medications Medication Instructions Recorded Confirmed Type cholecalciferol (vitamin D3) 25 25 mcg PO DAILY 10/01/19 11/12/21 History mcg (1,000 unit) capsule docusate sodium 100 mg capsule 100 mg PO BID 10/01/19 11/12/21 History donepezil 10 mg tablet 10 mg PO HS 10/01/19 11/12/21 History finasteride 5 mg tablet 5 mg PO DAILY 10/01/19 11/12/21 History glipizide 5 mg tablet 5 mg PO BID 10/01/19 11/12/21 History metformin 1,000 mg tablet 1,000 mg PO BID 10/01/19 11/12/21 History mirtazapine 30 mg tablet 30 mg PO HS 10/01/19 11/12/21 History pantoprazole 40 mg tablet,delayed 40 mg PO DAILYBB 10/01/19 11/12/21 History release polyethylene glycol 3350 8.5 gram 8.5 gm PO DAILY PRN Constipation 10/01/19 11/12/21 History oral powder packet prazosin 2 mg capsule 2 mg PO HS 10/01/19 11/12/21 History venlafaxine 75 mg capsule,extended 225 mg PO DAILY 10/01/19 11/12/21 History release 24 hr memantine 10 mg tablet (Namenda) 10 mg PO BID #180 tabs 05/29/21 11/12/21 Rx acetaminophen 500 mg tablet 500 mg PO TID PRN Pain 11/12/21 11/12/21 History alogliptin 12.5 mg tablet 12.5 mg PO QAM 11/12/21 11/12/21 History aspirin 81 mg tablet,delayed 81 mg PO QAM 11/12/21 11/12/21 History release atorvastatin 80 mg tablet 80 mg PO QAM 11/12/21 11/12/21 History empagliflozin 25 mg tablet 25 mg PO QAM 11/12/21 11/12/21 History folic acid 1 mg tablet 2 mg PO DAILY 11/12/21 11/12/21 History food supplemt, lactose-reduced 1 ea PO BID 11/12/21 11/12/21 History (Nutritional Shake oral liquid) gabapentin 100 mg capsule 200 mg PO BID 11/12/21 11/12/21 History isosorbide mononitrate 60 mg 60 mg PO QAM 11/12/21 11/12/21 History tablet,extended release 24 hr metoprolol succinate 25 mg 25 mg PO DAILY 11/12/21 11/12/21 History tablet,extended release 24 hr multivitamin with minerals 1 tab PO DAILY 11/12/21 11/12/21 History ticagrelor 90 mg tablet (Brilinta) 90 mg PO AMHS 11/12/21 11/12/21 History Past Med/Surg History Medical History (Updated 11/12/21 @ 05:02 by Cal Frank MD) CAD (coronary artery disease), [place] coronary artery Degenerative disc disease Surgical History S/P cholecystectomy (02/17/12) Social History Smoking Status: Never smoker Hx Alcohol Use: No Hx Substance Use: No Preferred Language: Kyrgyz Beliefs That Will Affect Care: None Current Living Situation: Alone Feels Safe at Home: Yes Assistive Devices: Cane and Walker Review of Systems Review of Systems: The patient denies chest pain, palpitations, shortness of breath, dyspnea on exertion, cough, lower extremity swelling, sore throat, fevers, chills, sweats, nausea, vomiting, diarrhea , constipation, abdominal pain, pelvic pain, blood in urine or stool, dysuria, urinary frequency or urgency, lightheadedness, dizziness, headache, rash, abnormal bruising or bleeding, focal weakness, numbness or tingling in arms or legs, generalized arthralgias or myalgias, back or neck pain, or night sweats. The review of systems is somewhat limited from the patient directly, but his son is present, also reports that the patient has been feeling generally weak over the past few days to week or so Physical Exam Physical Exam: The patient is awake, slow to answer due to underlying dementia, light facial bruise on right side of face, otherwise lying in bed and in no acute distress. HEENT--PERRL, EOMI, mucous membranes and oropharynx dry. Neck--supple. No JVD. No bruits. Thyroid normal, trachea midline, no adenopathy. Heart--normal S1 and S2. No murmurs, rubs or gallops. Lungs--clear bilaterally, no respiratory distress, no accessory muscle use. Abdomen--normal bowel sounds and soft. Nontender. Nondistended, no hernias or masses, no organomegaly. Extremities--no cyanosis or clubbing. No edema. Dermatologic--normal skin turgor, normal color, no abnormal lymph nodes, no rash. Neurologic--cranial nerves II through XII grossly intact. Rheumatologic--normal range of motion. Psychiatric--normal affect. Results & Data Results & Data ([facility]) Vital Signs (Past 12 Hours) Vital Signs Temp Pulse Pulse Resp BP BP Pulse Ox 11/12/21 02:00 127/78 97 11/12/21 01:00 152/87 H 96 11/11/21 23:58 77 18 135/74 95 11/11/21 23:18 72 16 136/86 95 11/11/21 21:55 80 12 133/82 96 11/11/21 19:33 36.4 C L 84 20 117/74 98 O2 Del Method 11/12/21 02:00 Room Air 11/12/21 01:00 Room Air 11/11/21 23:58 Room Air 11/11/21 23:18 Room Air 11/11/21 21:55 Room Air 11/11/21 19:33 Laboratory Results Laboratory Results WBC 5.73 K/ul (4.8-10.8) 11/11/21 20:39 RBC 4.77 M/uL (4.63-6.08) 11/11/21 20:39 Hgb 14.6 g/dl (14.0-18.0) 11/11/21 20:39 Hct 42.2 % (40.1-51.0) 11/11/21 20:39 MCV 88.5 fL (80.0-100.0) 11/11/21 20:39 MCH 30.6 pg (25.0-34.0) 11/11/21 20: MCHC 34.6 g/dL (32.0-36.0) 11/11/21 20: RDW Std Deviation 42.5 fL (36.4-46.3) 11/11/21 20: RDW Coeff of Elpidio 13.2 % (11.5-14.5) 11/11/21 20: Plt Count 150 K/uL (130-400) 11/11/21 20: MPV 10.8 fL (9.4-12.4) 11/11/21 20:39 Immature Gran % (Auto) 2.1 % 11/11/21 20: Neut % (Auto) 65.9 % 11/11/21 20: Lymph % (Auto) 15.7 % 11/11/21 20:39 [place] % (Auto) 14.3 % 11/11/21 20:39 Eos % (Auto) 1.7 % 11/11/21 20: Baso % (Auto) 0.3 % 11/11/21 20:39 Neut # (Auto) 3.77 K/uL (1.4-6.5) 11/11/21 20:39 Lymph # (Auto) 0.90 K/uL (1.2-3.4) L 11/11/21 20:39 [place] # (Auto) 0.82 K/uL (0.24-0.82) 11/11/21 20:39 Eos # (Auto) 0.10 K/uL (0-0.50) 11/11/21 20: Baso # (Auto) 0.02 K/uL (0-0.2) 11/11/21 20: Immature Gran # (Auto) 0.12 K/uL (0.00-0.02) H 11/11/21 20: PT 11.3 Seconds (9.0-12.0) 11/11/21 20: INR 1.1 (0.9-1.1) 11/11/21 20:39 APTT 27.8 Seconds (21.0-31.0) 11/11/21 20:39 PTT Ratio 1.0 11/11/21 20: Sodium 138 mmol/L (136-145) 11/11/21 20:39 Potassium 3.9 mmol/L (3.5-5.1) 11/11/21 20:39 Chloride 106 mmol/L (98-107) 11/11/21 20:39 Carbon Dioxide 23 mmol/L (21-32) 11/11/21 20:39 Anion Gap 9 (3-11) 11/11/21 20:39 BUN 18 mg/dl (6-23) 11/11/21 20:39 Creatinine 0.90 mg/dl (0.6-1.4) 11/11/21 20:39 Est Cr Clr Drug Dosing Not Reportable 11/11/21 20:39 Est GFR ( Amer) 97.2 ml/min 11/11/21 20:39 Est GFR (Non-Af Amer) 83.8 ml/min 11/11/21 20:39 BUN/Creatinine Ratio 20.0 (10-20) 11/11/21 20:39 Glucose 103 mg/dl (70-99(Fasting)) H 11/11/21 20:39 Calcium 8.4 mg/dl (8.5-10.1) L 11/11/21 20:39 Total Bilirubin 0.5 mg/dl (0.2-1.0) 11/11/21 20:39 AST 32 U/L (13-39) 11/11/21 20:39 ALT 24 U/L (7-52) 11/11/21 20:39 Alkaline Phosphatase 48 U/L (34-104) 11/11/21 20:39 Troponin I High Sens 6.2 pg/ml (0-20) 11/12/21 00:18 Total Protein 6.3 gm/dl (6.0-8.3) 11/11/21 20:39 Albumin 4.1 gm/dl (3.4-5.0) 11/11/21 20:39 Globulin 2.2 gm/dl (2.5-4.0) L 11/11/21 20:39 Albumin/Globulin Ratio 1.9 (0.9-2) 11/11/21 20:39 SARS-CoV-2, RNA, NAAT POSITIVE (NEGATIVE) A* 11/12/21 01:27 Diagnostic Findings [facility] Patient: REJI BAKER (Male) : 49 B Status: ER Date: 11/11/21 22:19 Room #: History: fall Slices: 59 Priors: Tech: Isaias Cornejo @ [phone] Exams: CT HEAD Contrast: Accession Numbers: [id number] Referring Physician: CHASE TEMP Preliminary Findings Only See Final Report For Complete Findings CT HEAD: No evidence of acute intracranial pathology. Mild nonspecific white matter changes. No comparisons. Radiologist: Giovanna Green MD Study ready at 22:29 and initial results transmitted at 22:34 *This report constitutes a preliminary interpretation only. Non-acute findings felt to be unrelated to the clinical presentation may not be discussed in this report. The study will be interpreted and a final report will be generated by the local Radiologist the following shift. To reach the [facility] radiology department call [phone]. If a discrepancy is found between the preliminary and final interpretations of this study, please notify us via our Client Portal at [email or web address], under QA Exams. You can also fax this report with a description of the discrepancy, or include the final report, to our daytime fax number [phone]. If faxing, please indicate the severity of discrepancy using one of the following categories: [ ] 1 - Agree/Informational [ ] 2 - Unlikely to Affect Management [ ] 3 - Possible Eventual Change of Management [ ] 4 - Probable Immediate Change of Management For all other patient related information, please fax us at [phone]. [id number] [facility] Patient: REJI BAKER (Male) : 49 Status: ER Date: 11/11/21 22:19 Room #: History: fall Slices: 777 Priors: Tech: Isaias Cornejo @ [phone] Exams: CT C SPINE Contrast: Accession Numbers: [id number] Referring Physician: CHASE CASTILLO Preliminary Findings Only See Final Report For Complete Findings CT C SPINE: No evidence of acute cervical spine pathology. Status post anterior discectomy and cervical fusion of C3, C4 and C5 with compression plate and screws in place. There is solid interbody fusion without evidence of surgical hardware complication. Moderate disc degeneration at C5-6. Incomplete fusion posteriorly of C1. Comparison made to prior CT scan of the cervical spine from January 07, 2012. Radiologist: Giovanna Green MD Study ready at 22:28 and initial results transmitted at 22:39 *This report constitutes a preliminary interpretation only. Non-acute findings felt to be unrelated to the clinical presentation may not be discussed in this report. The study will be interpreted and a final report will be generated by the local Radiologist the following shift. To reach the [facility] radiology department call [phone]. If a discrepancy is found between the preliminary and final interpretations of this study, please notify us via our Client Portal at [email or web address], under QA Exams. You can also fax this report with a description of the discrepancy, or include the final report, to our daytime fax number [phone]. If faxing, please indicate the severity of discrepancy using one of the following categories: [ ] 1 - Agree/Informational [ ] 2 - Unlikely to Affect Management [ ] 3 - Possible Eventual Change of Management [ ] 4 - Probable Immediate Change of Management For all other patient related information, please fax us at [phone]. [id number] [facility] Patient: REJI BAKER (Male) : 49 Status: Date: 11/11/21 23:44 Room #: History: FALL Slices: 986 Priors: Tech: Bharathi Blackwood @ [phone] Exams: CT L SPINE Contrast: Accession Numbers: [id number] Referring Physician: REFERRED SELF Preliminary Findings Only See Final Report For Complete Findings CT L SPINE: No evidence of acute lumbar spine pathology. Moderate disc degeneration at L1- 2, L3-4, L4-5 and L5-S1. Ankylosis of the sacroiliac joints. Postsurgical changes of the sigmoid colon with surgical staple in place. No comparisons. Radiologist: Giovanna Green MD Study ready at 23:55 and initial results transmitted at 00:01 *This report constitutes a preliminary interpretation only. Non-acute findings felt to be unrelated to the clinical presentation may not be discussed in this report. The study will be interpreted and a final report will be generated by the local Radiologist the following shift. To reach the [facility] radiology department call [phone]. If a discrepancy is found between the preliminary and final interpretations of this study, please notify us via our Client Portal at [email or web address], under QA Exams. You can also fax this report with a description of the discrepancy, or include the final report, to our daytime fax number [phone]. If faxing, please indicate the severity of discrepancy using one of the following categories: [ ] 1 - Agree/Informational [ ] 2 - Unlikely to Affect Management [ ] 3 - Possible Eventual Change of Management [ ] 4 - Probable Immediate Change of Management For all other patient related information, please fax us at [phone]. [id number] [facility] Patient: REJI BAKER (Male) : 49 Status: ER Date: 11/11/21 23:49 Room #: History: FALL Slices: 1053 Priors: Tech: Bharathi Blackwood @ [phone] Exams: CT PELVIS Contrast: Accession Numbers: [id number] Referring Physician: REFERRED SELF Preliminary Findings Only See Final Report For Complete Findings CT PELVIS: No evidence of acute pelvic pathology. Ankylosis of the sacroiliac joints. Moderate disc degeneration L3-4, L4-5 and L5-S1. Small bilateral fat-containing inguinal hernias. Postsurgical changes of the sigmoid colon with surgical staple line in place. The appendix is normal. Radiologist: Giovanna Green MD Study ready at 00:05 and initial results transmitted at 00:14 *This report constitutes a preliminary interpretation only. Non-acute findings felt to be unrelated to the clinical presentation may not be discussed in this report. The study will be interpreted and a final report will be generated by the local Radiologist the following shift. To reach the [facility] radiology department call [phone]. If a discrepancy is found between the preliminary and final interpretations of this study, please notify us via our Client Portal at [email or web address], under QA Exams. You can also fax this report with a description of the discrepancy, or include the final report, to our daytime fax number [phone]. If faxing, please indicate the severity of discrepancy using one of the following categories: [ ] 1 - Agree/Informational [ ] 2 - Unlikely to Affect Management [ ] 3 - Possible Eventual Change of Management [ ] 4 - Probable Immediate Change of Management For all other patient related information, please fax us at [phone]. [id number] Code Status & VTE Plan Code Status Full code VTE Prophylaxis Plan VTE Prophylaxis will be ordered: Yes PG Care Time/CCT Total # of Minutes Spent Total Time Spent with Patient: Total time spent is greater than 50% in coordination of care (as documented) at patient's floor/unit and/or counseling patient: Coding Level of Care Code 87140 Initial Inpt Care Lvl 3 Diagnoses Syncope R55 COVID-19 U07.1 CAD (coronary artery disease), [place] coronary artery I25.10 Dementia F03.90 Gait abnormality R26.9 Parkinsonism G20 Chronic reflux esophagitis K21.0 Depression F32.9 Diabetes mellitus E11.9 Hypertension I10 Insomnia G47.00 Degenerative disc disease
[2021-11-12] MEDS ORDERED: GLUCOSE 40% GEL 15 GM TUBE PO PRN (04:50)
[2021-11-12] MEDS ORDERED: CARBOHYDRATES FOR HYPOGLYCEMIA PO PRN (04:50)
[2021-11-12] MEDS ORDERED: GLUCOSE 10 TAB/TUBE PO PRN (04:50)
[2021-11-12] MEDS ORDERED: GLUCAGON FOR INJ 1 MG VIAL SQ PRN (04:50)
[2021-11-12] MEDS ORDERED: ACETAMINOPHEN 325 MG TAB PO PRN (04:50)
[2021-11-12] MEDS ORDERED: dexAMETHasone 6 MG in SYRINGE 0 ML IV ONE (04:50)
[2021-11-12] MEDS ORDERED: ONDANSETRON INJ 2 MG/ML 2 ML VIAL IV PRN (04:50)
[2021-11-12] MEDS ORDERED: DEXTROSE 50% 50 ML SYRINGE IV PRN (04:50)
[2021-11-12] MEDS ORDERED: POLYETHYLENE (MIRALAX) 17 GM PACK PO PRN (05:10)
[2021-11-12] MEDS ORDERED: NSS + 20MEQ KCL 20 MEQ/1,000 ML BAG IV SCH (05:30)
[2021-11-12] MEDS: PANTOprazole 40 MG TAB PO SCH (06:03)
--- NOTE | 2021-11-12 07:02 | CT Scan Report ---
CT cervical spine wo con CT DOSE: 902.69 mGy.cm CLINICAL HISTORY: 76 years-old Male with fall. Acute neck, status post fall COMPARISON: Head CT of same day, CT cervical spine 01/07/2012 TECHNIQUE: Multiple axial CT images of the cervical spine were obtained without contrast. A dose low ering technique was utilized adhering to the principles of ALARA. FINDINGS: Anterior plate and screw fusion with discectomy at C3-C5. There is greater than 75% bony fusion of th [place] vertebral bodies with minimal less than 50% bony fusion of the left-sided facets at these levels. Moderate to severe C1-C2 degeneration. Moderate C5-C6 intervertebral disc space narrowing with small posterior disc osteophyte complex. No acute cervical spine fracture or subluxation. Developmental in complete bony fusion involves the posterior arch of C1. Lung apices are clear without pneumothorax. No prevertebral edema. IMPRESSION: No acute cervical spine fracture or subluxation. ACT 112: Negative or not required by law. The above report was generated using voice recognition software. It may contain grammatical, syntax o r spelling errors. Electronically signed by: Joshua Merritt M.D. 11/12/2021 6:59 AM
[2021-11-12 07:17] LABS: Appearance Urine Clear (Clear); Bacteria Urine Automated Negative (Negative); Bilirubin Urine Negative (Negative); Blood Urine Negative (Negative); Cast Urine Automated 0 /lpf (0-5); Color Urine Yellow; Glucose Urine UA 3+ (Negative); Ketones Urine 3+ (Negative); Leukocyte Esterase Urine Negative (Negative); Nitrite Urine Negative (Negative); Protein Urine Trace (Negative); RBC Urine Automated 0-4 /hpf (0-4); Specific Gravity Urine 1.037 (1.000-1.030); Urobilinogen Urine Negative (Negative); pH Urine 5.5 (4.5-7.5)
--- NOTE | 2021-11-12 07:56 | CT Scan Report ---
CT lumbar spine wo con HISTORY: 76 years-old Male fall acute low back pain status post fall COMPARISON: CT pelvis of same day, MRI lumbar spine 06/08/2013, CT abdomen and pelvis 09/03/2021. TECHNIQUE: Multiple axial CT images of the lumbar spine were obtained without the use of IV contrast. A dose lowering technique was used consistent with the principals of BRYAN. FINDINGS: There is mild lumbar levoscoliosis. Moderate multilevel intervertebral disc space narrowing, and face t arthrosis with mostly mild spondylitic spurring. No acute fracture, subluxation, endplate erosion o r suspicious bone lesion. Evaluation of the central canal and neuroforamina is better assessed by MRI . The imaged ribs also appear intact. No high-grade central canal stenosis. Bilateral neural foramina l narrowing is at least moderate on the left at L4-L5 and bilaterally at L5-S1. Postoperative changes of the imaged bowel. 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 Distended urinary bladder. No paravertebral edema. IMPRESSION: No acute fracture or subluxation. ACT 112: Negative or not required by law. The above report was generated using voice recognition software. It may contain grammatical, syntax o r spelling errors. Electronically signed by: Joshua Merritt M.D. 11/12/2021 7:55 AM
[2021-11-12] MEDS: INSULIN ASPART PER UNIT SC SCH ×4 (07:58→19:45)
[2021-11-12] MEDS: ATORVASTATIN 40 MG TAB PO SCH (07:59)
[2021-11-12] MEDS: ASPIRIN 81 MG ECTAB PO SCH (07:59)
[2021-11-12] MEDS: DOCUSATE SODIUM 100 MG CAP PO SCH ×2 (08:00→19:55)
[2021-11-12] MEDS: FINASTERIDE 5 MG TAB PO SCH (08:00)
[2021-11-12] MEDS: FOLIC ACID 1 MG TAB PO SCH (08:00)
[2021-11-12] MEDS: CHOLECALCIFEROL 1,000 UNITS 25 MCG TAB PO SCH (08:00)
[2021-11-12] MEDS: MEMANTINE HCL 10 MG TAB PO SCH ×2 (08:01→19:56)
[2021-11-12] MEDS: METOPROLOL SUCC 25MG EXT REL TAB PO SCH (08:01)
[2021-11-12] MEDS: GABAPENTIN 100 MG CAP PO SCH ×2 (08:01→19:56)
[2021-11-12] MEDS: ISOSORBIDE MONO EXTENDED REL 60 MG TABCR PO SCH (08:01)
--- NOTE | 2021-11-12 08:01 | CT Scan Report ---
CT pelvis wo con HISTORY: 76 years-old Male fall acute pelvic pain status post fall COMPARISON: CT lumbar spine same day, CT abdomen pelvis 09/03/2021 TECHNIQUE: Multiple axial CT images of the bony pelvis were obtained without the use of IV contrast. A dose lowering technique was used consistent with the principals of BRYAN. FINDINGS: Postoperative changes of the large bowel redemonstrated. Mild to moderate colonic fecal retention. Pr ostamegaly with evidence of chronic bladder outlet obstruction. Diastases recti. No free pelvic fluid . Normal appendix. Unremarkable soft tissues and musculature of the pelvis. Moderate degenerative changes of the imaged lower lumbar spine. No acute fracture, subluxation or yon tructive bone lesion. 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 Ankylosis of the SI joint s. No avascular necrosis. IMPRESSION: No acute fracture. ACT 112: Negative or not required by law. The above report was generated using voice recognition software. It may contain grammatical, syntax o r spelling errors. Electronically signed by: Joshua Merritt M.D. 11/12/2021 8:00 AM
[2021-11-12] MEDS: CEROVITE ADV FORMULA TAB PO SCH (08:02)
[2021-11-12] MEDS: VENLAFAXINE HCL XR 75 MG CAPXR PO SCH (08:02)
[2021-11-12] MEDS: TICAGRELOR 90 MG TAB PO SCH ×2 (08:02→19:56)
[2021-11-12] MEDS ORDERED: dexAMETHasone 4 MG in SYRINGE 0 ML IV SCH (09:00)
[2021-11-12 09:07] LABS: Hematocrit (blood only) 43.2 % (40.1-51.0); Hemoglobin 14.7 g/dl (14.0-18.0); Mean Corpuscular Hemoglobin 30.2 pg (25.0-34.0); Mean Corpuscular Volume 88.9 fL (80.0-100.0); Mean Platelet Volume 10.8 fL (9.4-12.4); Platelet Count 128 K/uL (130-400); RDW Coefficient of Variation 13.3 % (11.5-14.5); RDW Standard Deviation 43.3 fL (36.4-46.3); Red Blood Count 4.86 M/uL (4.63-6.08); White Blood Count 5.22 K/ul (4.8-10.8)
--- NOTE | 2021-11-12 09:09 | XRay Report ---
XR chest 1V portable CLINICAL HISTORY: COVID-19, syncope COMPARISON STUDY: Chest radiograph March 03, 2016. FINDINGS: Lung volumes are normal. Lungs are clear. There is no pneumothorax or pleural effusion. Car diac size is normal. Mediastinal contours are normal. There is no evidence for pulmonary edema. Posto perative findings within the cervical spine are incidentally noted. IMPRESSION: No acute cardiopulmonary findings. ACT 112: Negative or not required by law. Electronically signed by: Kevyn Headley M.D. 11/12/2021 9:07 AM
[2021-11-12 09:23] LABS: BUN Creatinine Ratio 26.4 (10-20); Calcium 8.2 mg/dl (8.5-10.1); Creatinine Clr Calc Pharmacy 72.4 ml/min; Est GFR (African American) 106.5 ml/min; Est GFR (Non-African American) 91.9 ml/min; Magnesium 1.5 mg/dl (1.7-2.4); Potassium 3.9 mmol/L (3.5-5.1)
--- NOTE | 2021-11-12 09:26 | CT Scan Report ---
CT OF THE HEAD WITHOUT CONTRAST CLINICAL HISTORY: fall COMPARISON STUDY: Head CT January 07, 2012. MRI of the brain October 05, 2019. TECHNIQUE: Helical axial images of the head were obtained without IV contrast. Automated exposure con trol was utilized for the study. A dose lowering technique was utilized adhering to the principles o f ALARA. FINDINGS: No acute intracranial hemorrhage, midline shift or mass effect is present. White matter hyp odensity suggests small vessel disease. The ventricular system is unremarkable. The basal cisterns ar e patent. No extra-axial collections are present. There are no findings to suggest acute dural sinus thrombosis or acute territorial infarct. No significant calvarial abnormalities are present. Visualiz ed portions of the sinuses and mastoid air cells are clear. IMPRESSION: 1. No acute intracranial findings. 2. No acute calvarial fracture. ACT 112: Negative or not required by law. Electronically signed by: Kevyn Headley M.D. 11/12/2021 9:24 AM
[2021-11-12 09:27] LABS: Troponin I High Sensitivity 7.2 pg/ml (0-20)
[2021-11-12 10:12] LABS: Basophils # (auto) 0.02 K/uL (0-0.2); Basophils % (auto) 0.4 %; Eosinophils # (auto) 0.01 K/uL (0-0.50); Eosinophils % (auto) 0.2 %; Immature Granulocytes # (auto) 0.12 K/uL (0.00-0.02); Immature Granulocytes % (auto) 2.3 %; Lymphocytes # (auto) 0.46 K/uL (1.2-3.4); Lymphocytes % (auto) 8.8 %; Monocytes # (auto) 0.24 K/uL (0.24-0.82); Monocytes % (auto) 4.6 %; Neutrophils # (auto) 4.37 K/uL (1.4-6.5); Neutrophils % (auto) 83.7 %
[2021-11-12] MEDS: MAGNESIUM SULFATE / D5W 1 GM/100 ML BAG IV SCH ×3 (10:32→14:01)
--- NOTE | 2021-11-12 11:02 | Hospitalist Progress Note ---
Date of Service November 12, 2021 Assessment & Plan (1) Syncope: Plan: Syncopal episode- The patient will be admitted to telemetry for serial cardiac enzymes, serial EKG's, cardiac rhythm monitoring and a 2-D echocardiogram with Dopplers. This was an unwitnessed event at home CT head, cervical spine, lumbar spine and pelvis without acute findings Potential etiologies include not limited to: COVID-19 infection, parkinsonism, diabetes mellitus blood sugar related issues, neuropathy, other (2) COVID-19: Plan: His son reports that the patient was being somewhat weakened appearing over the past few days. Placed on dexamethasone 6 mg IV as a single dose, and follow response No direct pulmonary issues, with good pulse ox (3) CAD (coronary artery disease), [place] coronary artery: Plan: CAD/hypertension- The patient will be admitted to telemetry for serial cardiac enzymes, serial EKG's, cardiac rhythm monitoring and a 2-D echocardiogram with Dopplers. Continue aspirin, isosorbide mononitrate, metoprolol succinate and Brilinta (4) Dementia: Plan: Dementia/depression/parkinsonism- Continue donepezil, memantine, mirtazapine, venlafaxine and prazosin. 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- As noted on CT scans of cervical spine and lumbar spine Admission and Anticipated Discharge Date Admission Date: November 12, 2021 Results & Data Results & Data ([facility]) Vital Signs (Past 12 Hours) Vital Signs Temp Pulse Pulse Resp BP BP Pulse Ox 11/12/21 10:24 93 11/12/21 08:00 11/12/21 07:55 37 C 76 18 122/65 93 11/12/21 05:40 73 11/12/21 04:57 37.0 C 77 15 129/72 92 11/12/21 04:50 37.0 C 77 15 129/72 92 11/12/21 04:50 11/12/21 02:00 127/78 97 11/12/21 01:00 152/87 H 96 11/11/21 23:58 77 18 135/74 95 11/11/21 23:18 72 16 136/86 95 Pulse Ox O2 Del Method O2 Del Method 11/12/21 10:24 11/12/21 08:00 Room Air 11/12/21 07:55 Room Air 11/12/21 05:40 11/12/21 04:57 Room Air 11/12/21 04:50 Room Air 11/12/21 04:50 92 Room Air 11/12/21 02:00 Room Air 11/12/21 01:00 Room Air 11/11/21 23:58 Room Air 11/11/21 23:18 Room Air PG Care Time/CCT Total # of Minutes Spent Total Time Spent with Patient: Total time spent is greater than 50% in coordination of care (as documented) at patient's floor/unit and/or counseling patient: Coding Diagnoses Syncope R55 COVID-19 U07.1 CAD (coronary artery disease), [place] coronary artery I25.10 Dementia F03.90 Gait abnormality R26.9 Parkinsonism G20 Chronic reflux esophagitis K21.0 Depression F32.9 Diabetes mellitus E11.9 Hypertension I10 Insomnia G47.00 Degenerative disc disease
[2021-11-12] MEDS ORDERED: PHARMACY GLYCEMIC MGMT CONSULT PRN (16:31)
[2021-11-12] MEDS ORDERED: LANTUS PER UNIT CHARGE SQ ONE (17:15)
--- NOTE | 2021-11-12 17:21 | Pharmacy Report ---
Pharmacy Glycemic Short Note 2 - Date of Service November 12, 2021 - Glycemic Short BSG Results (Last 24 hours): 11/11/21 11/12/21 11/12/21 20:39 07:52 08:35 Glucose 103 H 127 H POC Glucose 71 11/12/21 11/12/21 11/12/21 11:39 16:37 16:38 Glucose POC Glucose 249 H 384 H* 364 H* OUTPATIENT ANTIDIABETIC REGIMEN: * Alogliptin 12.5 mg PO AM * Jardiance 25 mg PO AM * Glipizide 5 mg PO BID * Metformin 1000 mg PO BIDM * HbA1c pending ASSESSMENT: * 76 yo M admitted last evening secondary to syncope and found to be COVID-19 positive. Pharmacy has been consulted to assist with inpatient glycemic management. Patient is a type 2 diabetic at home managed on oral meds only. Received 10 mg total of IV dexamethasone this morning. Dexamethasone has since been discontinued. Ordered a T2DM diet. * Fasting BSG was 71 mg/dL this AM prior to steroids. Since steroid administration, BSGs have trended up: 249-384 mg/dL. * Will tighten previous Novolog parameters significantly to provide better prandial coverage. Tightening goal range as well. Since steroids have been discontinued, will order a one time dose of basal insulin at 0.4 unit/kg. Will add one over night check this evening. PLAN FOR INPATIENT GLYCEMIC CONTROL: * Hold outpatient oral diabetes medications * Basal insulin * Lantus 25 units SC x 1 * Bolus insulin * NovoLog per scale ACHS or Q6hrs while NPO * Goal Range: Low 110 mg/dL - High 140 mg/dL * Correction Factor: 15 mg/dL/unit * Nutritional / Prandial insulin per carb ratio of 1 unit per 5 grams CHO consumed
[2021-11-12] MEDS: DONEPEZIL HCL 10 MG TAB PO SCH (19:55)
[2021-11-12] MEDS: PRAZOSIN HCL 1 MG CAP PO SCH (19:56)
[2021-11-12] MEDS: MIRTAZAPINE TAB 15 MG TAB PO SCH (19:56)
--- NOTE | 2021-11-12 21:32 | Electrocardiogram Report ---
Test Reason : Blood Pressure : / mmHG Vent. Rate : 072 BPM Atrial Rate : 072 BPM P-R Int : 156 ms QRS Dur : 076 ms QT Int : 400 ms P-R-T Axes : 032 004 038 degrees QTc Int : 438 ms Normal sinus rhythm Low voltage QRS Borderline ECG When compared with ECG of 05-MAR-2016 08:50, No significant change was found Confirmed by Kayode Du ([id number]) on 11/12/2021 9:32:15 PM Referred By: REFERRED SELF Confirmed By:Kayode Du
[2021-11-13] MEDS ORDERED: INSULIN ASPART PER UNIT SC ONE (02:00)
[2021-11-13 03:20] LABS: Creatine Kinase 61 U/L (30-223); Glucose 61 mg/dl (70-99(Fasting))
[2021-11-13] MEDS: PANTOprazole 40 MG TAB PO SCH (07:11)
[2021-11-13] MEDS: CHOLECALCIFEROL 1,000 UNITS 25 MCG TAB PO SCH (07:48)
[2021-11-13] MEDS: ASPIRIN 81 MG ECTAB PO SCH (07:48)
[2021-11-13] MEDS: ISOSORBIDE MONO EXTENDED REL 60 MG TABCR PO SCH (07:49)
[2021-11-13] MEDS: CEROVITE ADV FORMULA TAB PO SCH (07:49)
[2021-11-13] MEDS: VENLAFAXINE HCL XR 75 MG CAPXR PO SCH (07:49)
[2021-11-13] MEDS: ATORVASTATIN 40 MG TAB PO SCH (07:49)
[2021-11-13] MEDS: FOLIC ACID 1 MG TAB PO SCH (07:49)
[2021-11-13] MEDS: METOPROLOL SUCC 25MG EXT REL TAB PO SCH (07:49)
[2021-11-13] MEDS: GABAPENTIN 100 MG CAP PO SCH ×2 (07:50→20:11)
[2021-11-13] MEDS: DOCUSATE SODIUM 100 MG CAP PO SCH ×2 (07:50→20:08)
[2021-11-13] MEDS: TICAGRELOR 90 MG TAB PO SCH ×2 (07:50→20:11)
[2021-11-13] MEDS: MEMANTINE HCL 10 MG TAB PO SCH ×2 (07:50→20:10)
[2021-11-13] MEDS: FINASTERIDE 5 MG TAB PO SCH (07:50)
[2021-11-13 07:51] LABS: Estimated Average Glucose 174 mg/dl; Hemoglobin A1C 7.7 % (4.5-5.6)
[2021-11-13] MEDS: INSULIN ASPART PER UNIT SC SCH ×4 (08:02→20:02)
[2021-11-13] MEDS ORDERED: dexAMETHasone 6 MG in SYRINGE 0 ML IV SCH (09:00)
--- NOTE | 2021-11-13 10:13 | Communication Note ---
Date of Service: November 12, 2021 Patient was seen and examined the same day of admission therefore I will not be billing for this encounter. Patient reports improvement since admission with no further dizziness. PT recommending short term rehab recommendation. No significant hypoxia to warrant further dexamethasone and this is making his diabetes difficult to control. Pharmacy consult for glycemic control placed. Mg level taken and IV replacement given. Will also get CK level in AM given he is taking a statin.
--- NOTE | 2021-11-13 14:28 | Pharmacy Report ---
Pharmacy Glycemic Short Note 2 - Date of Service November 13, 2021 - Glycemic Short BSG Results (Last 24 hours): 11/12/21 11/12/21 11/12/21 16:37 16:38 19:44 Glucose POC Glucose 384 H* 364 H* 102 H 11/13/21 11/13/21 11/13/21 02:12 02:15 02:41 Glucose POC Glucose 328 H* 567 H* 79 11/13/21 11/13/21 11/13/21 02:43 03:47 07:41 Glucose 61 L POC Glucose 121 H 229 H 11/13/21 11:53 Glucose POC Glucose 165 H OUTPATIENT ANTIDIABETIC REGIMEN: * Alogliptin 12.5 mg PO AM * Jardiance 25 mg PO AM * Glipizide 5 mg PO BID * Metformin 1000 mg PO BIDM * HbA1c 7.7% ASSESSMENT: 11/13: * BSGs [id number]/dL. Fasting BSG 229mg/dL. Received 25 units of basal insulin and 30 units bolus insulin yesterday. * Tolerating diet. Steroids discontinued. * Given patient is maintained on PO meds only as an outpatient and steroids have been discontinued, will resume today with Novolog ACHS / alone. Will trend BSGs to determine further basal insulin needs. 11/12 * 76 yo M admitted last evening secondary to syncope and found to be COVID-19 positive. Pharmacy has been consulted to assist with inpatient glycemic management. Patient is a type 2 diabetic at home managed on oral meds only. Received 10 mg total of IV dexamethasone this morning. Dexamethasone has since been discontinued. Ordered a T2DM diet. * Fasting BSG was 71 mg/dL this AM prior to steroids. Since steroid administration, BSGs have trended up: 249-384 mg/dL. * Will tighten previous Novolog parameters significantly to provide better prandial coverage. Tightening goal range as well. Since steroids have been discontinued, will order a one time dose of basal insulin at 0.4 unit/kg. Will add one over night check this evening. PLAN FOR INPATIENT GLYCEMIC CONTROL: * Hold outpatient oral diabetes medications * Basal insulin * - * Bolus insulin * NovoLog per scale ACHS or Q6hrs while NPO * Goal Range: Low 110 mg/dL - High 140 mg/dL * Correction Factor: 25 mg/dL/unit * Nutritional / Prandial insulin per carb ratio of 1 unit per 8 grams CHO consumed
--- NOTE | 2021-11-13 19:00 | Hospitalist Progress Note ---
Date of Service November 13, 2021 Assessment & Plan (1) Syncope: Plan: Syncopal episode- no further episodes as inpatient. Serial troponins negative. Telemetry - SR TTE - pending This was an unwitnessed event at home CT head, cervical spine, lumbar spine and pelvis without acute findings Not orthostatic - BP actually increased on standing ?due to diuresis with Jardiance - ketonuria and glucosuria on UA ?hypoglycemia with glipizide and reduced oral intake Will aim to restart diabetes medications once glucose better controlled. (2) COVID-19: Plan: No significant symptoms or hypoxia to warrant steroid management. (3) CAD (coronary artery disease), [place] coronary artery: Plan: Continue aspirin, isosorbide mononitrate, metoprolol succinate and Brilinta (4) Dementia: Plan: Continue donepezil and memantine (5) Gait abnormality: Plan: PT recommending acute inpatient rehab - pt willing to go for this. (6) Parkinsonism: Plan: On no specific medication for this (7) Chronic reflux esophagitis: Plan: Continue pantoprazole 40mg PO daily (8) Depression: Plan: Continue venlafaxine, mirtazapine and prazosin (9) Diabetes mellitus: Plan: HbA1C 7.7 Pharmacy consulted for glycemic control but suspect hyperglycemia mostly steroid driven. Will aim to restart on his usual medication prior to discharge to make sure he can tolerate them without presyncope as above. 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 He denies any dizziness when standing. PT recommending rehabilitation which the patient is receptive to. Tried calling his son Ugo over the phone but no answer on number provided. Hyperglycemia appears much better today. He reports his appetite is doing better. No shortness of breath and no oxygen requirement. Review of Systems Review of Systems: All systems reviewed & are unremarkable except as noted in Subjective Physical Exam Constitutional: WD/WN, vitals as above Eyes: + anicteric sclerae; normal pupil size Respiratory: normal respiratory effort, lungs clear to auscultation Cardiovascular: RRR, no murmur, no edema Gastrointestinal (Abdomen): normal bowel sounds, soft, nontender, no hepatosplenomegaly Neurologic: moves all extremities and awake; no focal motor deficits and not confused Psychiatric: A+Ox3, euthymic affect Results & Data Results & Data ([facility]) Vital Signs (Past 12 Hours) Vital Signs Temp Pulse Pulse Resp BP BP Pulse Ox 11/13/21 18:56 36.6 C 86 20 125/82 97 11/13/21 16:51 36.4 C L 76 17 115/67 96 11/13/21 16:00 83 11/13/21 11:50 36.9 C 87 17 104/62 97 11/13/21 08:00 83 11/13/21 08:00 O2 Del Method 11/13/21 18:56 Room Air 11/13/21 16:51 Room Air 11/13/21 16:00 11/13/21 11:50 Room Air 11/13/21 08:00 11/13/21 08:00 Room Air PG Care Time/CCT Total # of Minutes Spent Total Time Spent with Patient: Total time spent is greater than 50% in coordination of care (as documented) at patient's floor/unit and/or counseling patient: Coding Level of Care Code 43868 Subseq Hosp Care Lvl 2 Diagnoses Syncope R55 COVID-19 U07.1 CAD (coronary artery disease), [place] coronary artery I25.10 Dementia F03.90 Gait abnormality R26.9 Parkinsonism G20 Chronic reflux esophagitis K21.0 Depression F32.9 Diabetes mellitus E11.9 Hypertension I10 Insomnia G47.00 Degenerative disc disease
[2021-11-13] MEDS: MIRTAZAPINE TAB 15 MG TAB PO SCH (20:09)
[2021-11-13] MEDS: PRAZOSIN HCL 1 MG CAP PO SCH (20:10)
[2021-11-13] MEDS: DONEPEZIL HCL 10 MG TAB PO SCH (20:11)
[2021-11-14] MEDS: INSULIN ASPART PER UNIT SC SCH ×6 (00:14→19:55)
[2021-11-14] MEDS: PANTOprazole 40 MG TAB PO SCH (05:43)
[2021-11-14 07:16] LABS: Basophils # (auto) 0.01 K/uL (0-0.2); Basophils % (auto) 0.2 %; Eosinophils # (auto) 0.04 K/uL (0-0.50); Eosinophils % (auto) 0.9 %; Immature Granulocytes # (auto) 0.06 K/uL (0.00-0.02); Immature Granulocytes % (auto) 1.4 %; Lymphocytes # (auto) 0.85 K/uL (1.2-3.4); Lymphocytes % (auto) 19.6 %; Monocytes # (auto) 0.36 K/uL (0.24-0.82); Monocytes % (auto) 8.3 %; Neutrophils # (auto) 3.02 K/uL (1.4-6.5); Neutrophils % (auto) 69.6 %; Platelet Estimate Decreased (Normal)
[2021-11-14 07:17] LABS: Hematocrit (blood only) 41.8 % (40.1-51.0); Hemoglobin 14.6 g/dl (14.0-18.0); Mean Corpuscular Hemoglobin 30.4 pg (25.0-34.0); Mean Corpuscular Hgb Conc 34.9 g/dL (32.0-36.0); Mean Corpuscular Volume 87.1 fL (80.0-100.0); Mean Platelet Volume 10.9 fL (9.4-12.4); Platelet Count 125 K/uL (130-400); RDW Coefficient of Variation 13.5 % (11.5-14.5); RDW Standard Deviation 42.8 fL (36.4-46.3); White Blood Count 4.34 K/ul (4.8-10.8)
[2021-11-14 07:37] LABS: BUN Creatinine Ratio 29.2 (10-20); Creatinine Clr Calc Pharmacy 58.6 ml/min; Est GFR (African American) 97.6 ml/min; Est GFR (Non-African American) 84.2 ml/min; Potassium 3.9 mmol/L (3.5-5.1)
[2021-11-14] MEDS: CEROVITE ADV FORMULA TAB PO SCH (07:37)
[2021-11-14] MEDS: TICAGRELOR 90 MG TAB PO SCH ×2 (07:37→19:56)
[2021-11-14] MEDS: VENLAFAXINE HCL XR 75 MG CAPXR PO SCH (07:37)
[2021-11-14] MEDS: GABAPENTIN 100 MG CAP PO SCH ×2 (07:38→19:56)
[2021-11-14] MEDS: ISOSORBIDE MONO EXTENDED REL 60 MG TABCR PO SCH (07:38)
[2021-11-14] MEDS: MEMANTINE HCL 10 MG TAB PO SCH ×2 (07:38→19:56)
[2021-11-14] MEDS: FINASTERIDE 5 MG TAB PO SCH (07:38)
[2021-11-14] MEDS: FOLIC ACID 1 MG TAB PO SCH (07:38)
[2021-11-14] MEDS: METOPROLOL SUCC 25MG EXT REL TAB PO SCH (07:38)
[2021-11-14] MEDS: DOCUSATE SODIUM 100 MG CAP PO SCH ×2 (07:39→19:55)
[2021-11-14] MEDS: ASPIRIN 81 MG ECTAB PO SCH (07:39)
[2021-11-14] MEDS: CHOLECALCIFEROL 1,000 UNITS 25 MCG TAB PO SCH (07:39)
[2021-11-14] MEDS: ATORVASTATIN 40 MG TAB PO SCH (07:39)
[2021-11-14 08:10] LABS: Albumin Globulin Ratio 1.8 (0.9-2); Albumin Level 3.7 gm/dl (3.4-5.0); Bilirubin,Total 0.4 mg/dl (0.2-1.0); Globulin 2.1 gm/dl (2.5-4.0); Magnesium 1.7 mg/dl (1.7-2.4); Phosphorus 2.8 mg/dl (2.5-4.9); Total Protein 5.8 gm/dl (6.0-8.3)
[2021-11-14] MEDS: ENOXAPARIN INJ 40 MG/0.4 ML SYR SQ SCH (10:35)
[2021-11-14] MEDS: MAGNESIUM OXIDE 400 MG TAB PO SCH (12:47)
--- NOTE | 2021-11-14 13:41 | XCELERA ---
[id number]
--- NOTE | 2021-11-14 18:58 | Hospitalist Progress Note ---
Date of Service November 14, 2021 Assessment & Plan (1) Syncope: Plan: Syncopal episode- no further episodes as inpatient. Serial troponins negative. Telemetry - SR TTE - LVEF 60-65%, no wall motion abnormalities or valvular pathology This was an unwitnessed event at home CT head, cervical spine, lumbar spine and pelvis without acute findings Not orthostatic - BP actually increased on standing ?due to diuresis with Jardiance - ketonuria and glucosuria on UA ?hypoglycemia with glipizide and reduced oral intake Will aim to restart diabetes medications once glucose better controlled. Medically stable for discharge pending rehab placement (2) COVID-19: Plan: No significant symptoms or hypoxia to warrant steroid management. (3) CAD (coronary artery disease), [place] coronary artery: Plan: Continue aspirin, isosorbide mononitrate, metoprolol succinate and Brilinta (4) Dementia: Plan: Continue donepezil and memantine (5) Gait abnormality: Plan: PT recommending acute inpatient rehab - pt willing to go for this. (6) Parkinsonism: Plan: On no specific medication for this (7) Chronic reflux esophagitis: Plan: Continue pantoprazole 40mg PO daily (8) Depression: Plan: Continue venlafaxine, mirtazapine and prazosin (9) Diabetes mellitus: Plan: HbA1C 7.7 Pharmacy consulted for glycemic control but suspect hyperglycemia mostly steroid driven. Will aim to restart on his usual medication prior to discharge to make sure he can tolerate them without presyncope as above. 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 He denies any dizziness. Discussed with case management and application for [facility] started. Review of Systems Review of Systems: All systems reviewed & are unremarkable except as noted in Subjective Physical Exam Constitutional: WD/WN, vitals as above Eyes: + anicteric sclerae; normal pupil size Respiratory: normal respiratory effort, lungs clear to auscultation Cardiovascular: RRR, no murmur, no edema Gastrointestinal (Abdomen): normal bowel sounds, soft, nontender, no hepatosplenomegaly Neurologic: moves all extremities and awake; no focal motor deficits and not confused Psychiatric: A+Ox3, euthymic affect Results & Data Results & Data ([facility]) Vital Signs (Past 12 Hours) Vital Signs Temp Pulse Resp BP Pulse Ox Pulse Ox O2 Del Method 11/14/21 16:49 37.0 C 82 17 104/71 93 Room Air 11/14/21 12:17 36.4 C L 86 17 94/65 L 94 Room Air 11/14/21 08:00 96 11/14/21 07:00 36.8 C 98 H 18 128/69 95 O2 Del Method 11/14/21 16:49 11/14/21 12:17 11/14/21 08:00 Room Air 11/14/21 07:00 PG Care Time/CCT Total # of Minutes Spent Total Time Spent with Patient: Total time spent is greater than 50% in coordination of care (as documented) at patient's floor/unit and/or counseling patient: Coding Level of Care Code 64102 Subseq Hosp Care Lvl 1 Diagnoses Syncope R55 COVID-19 U07.1 CAD (coronary artery disease), [place] coronary artery I25.10 Dementia F03.90 Gait abnormality R26.9 Parkinsonism G20 Chronic reflux esophagitis K21.0 Depression F32.9 Diabetes mellitus E11.9 Hypertension I10 Insomnia G47.00 Degenerative disc disease
[2021-11-14] MEDS: MIRTAZAPINE TAB 15 MG TAB PO SCH (19:56)
[2021-11-14] MEDS: PRAZOSIN HCL 1 MG CAP PO SCH (19:56)
[2021-11-14] MEDS: DONEPEZIL HCL 10 MG TAB PO SCH (19:56)
[2021-11-14] MEDS ORDERED: ALUMINUM/MAGNESIUM SUSP 30 ML UDC PO PRN (22:01)
[2021-11-15] MEDS: PANTOprazole 40 MG TAB PO SCH (06:18)
[2021-11-15] MEDS: DOCUSATE SODIUM 100 MG CAP PO SCH ×2 (07:10→20:23)
[2021-11-15] MEDS: MAGNESIUM OXIDE 400 MG TAB PO SCH (07:11)
[2021-11-15] MEDS: ATORVASTATIN 40 MG TAB PO SCH (07:11)
[2021-11-15] MEDS: MEMANTINE HCL 10 MG TAB PO SCH ×2 (07:11→20:22)
[2021-11-15] MEDS: FINASTERIDE 5 MG TAB PO SCH (07:11)
[2021-11-15] MEDS: ENOXAPARIN INJ 40 MG/0.4 ML SYR SQ SCH (07:12)
[2021-11-15] MEDS: FOLIC ACID 1 MG TAB PO SCH (07:12)
[2021-11-15] MEDS: ASPIRIN 81 MG ECTAB PO SCH (07:12)
[2021-11-15] MEDS: ISOSORBIDE MONO EXTENDED REL 60 MG TABCR PO SCH (07:12)
[2021-11-15] MEDS: METOPROLOL SUCC 25MG EXT REL TAB PO SCH (07:12)
[2021-11-15] MEDS: VENLAFAXINE HCL XR 75 MG CAPXR PO SCH (07:12)
[2021-11-15] MEDS: CHOLECALCIFEROL 1,000 UNITS 25 MCG TAB PO SCH (07:12)
[2021-11-15] MEDS: GABAPENTIN 100 MG CAP PO SCH ×2 (07:12→20:22)
[2021-11-15] MEDS: TICAGRELOR 90 MG TAB PO SCH ×2 (07:13→20:23)
[2021-11-15] MEDS: CEROVITE ADV FORMULA TAB PO SCH (07:14)
[2021-11-15] MEDS: INSULIN ASPART PER UNIT SC SCH ×4 (09:17→20:24)
--- NOTE | 2021-11-15 19:13 | Hospitalist Progress Note ---
Date of Service November 15, 2021 Assessment & Plan (1) Syncope: Plan: Syncopal episode- no further episodes as inpatient. Serial troponins negative. Telemetry - SR TTE - LVEF 60-65%, no wall motion abnormalities or valvular pathology This was an unwitnessed event at home CT head, cervical spine, lumbar spine and pelvis without acute findings Not orthostatic - BP actually increased on standing ?due to diuresis with Jardiance - ketonuria and glucosuria on UA ?hypoglycemia with glipizide and reduced oral intake Will aim to restart diabetes medications once glucose better controlled. Medically stable for discharge pending rehab placement (2) COVID-19: Plan: No significant symptoms or hypoxia to warrant steroid management. (3) CAD (coronary artery disease), [place] coronary artery: Plan: Continue aspirin, isosorbide mononitrate, metoprolol succinate and Brilinta (4) Dementia: Plan: Continue donepezil and memantine (5) Gait abnormality: Plan: PT recommending acute inpatient rehab - pt willing to go for this. (6) Parkinsonism: Plan: On no specific medication for this (7) Chronic reflux esophagitis: Plan: Continue pantoprazole 40mg PO daily (8) Depression: Plan: Continue venlafaxine, mirtazapine and prazosin (9) Diabetes mellitus: Plan: HbA1C 7.7 Pharmacy consulted for glycemic control but suspect hyperglycemia mostly steroid driven. Will aim to restart on his usual medication prior to discharge to make sure he can tolerate them without presyncope as above. 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 Also [facility] - will discuss with case management tomorrow. Review of Systems Review of Systems: All systems reviewed & are unremarkable except as noted in Subjective Physical Exam Constitutional: WD/WN, vitals as above Eyes: + anicteric sclerae; normal pupil size Respiratory: normal respiratory effort, lungs clear to auscultation Cardiovascular: RRR, no murmur, no edema Gastrointestinal (Abdomen): normal bowel sounds, soft, nontender, no hepatosplenomegaly Neurologic: moves all extremities and awake; no focal motor deficits and not confused Psychiatric: A+Ox3, euthymic affect Results & Data Results & Data ([facility]) Vital Signs (Past 12 Hours) Vital Signs Temp Pulse Pulse Resp BP BP Pulse Ox 11/15/21 16:26 69 120/71 11/15/21 14:34 36.9 C 69 18 99/63 L 97 O2 Del Method 11/15/21 16:26 11/15/21 14:34 Room Air PG Care Time/CCT Total # of Minutes Spent Total Time Spent with Patient: Total time spent is greater than 50% in coordination of care (as documented) at patient's floor/unit and/or counseling patient: Coding Level of Care Code 44826 Subseq Hosp Care Lvl 1 Diagnoses Syncope R55 COVID-19 U07.1 CAD (coronary artery disease), [place] coronary artery I25.10 Dementia F03.90 Gait abnormality R26.9 Parkinsonism G20 Chronic reflux esophagitis K21.0 Depression F32.9 Diabetes mellitus E11.9 Hypertension I10 Insomnia G47.00 Degenerative disc disease
[2021-11-15] MEDS: MIRTAZAPINE TAB 15 MG TAB PO SCH (20:22)
[2021-11-15] MEDS: DONEPEZIL HCL 10 MG TAB PO SCH (20:33)
[2021-11-15] MEDS: PRAZOSIN HCL 1 MG CAP PO SCH (20:33)
[2021-11-16] MEDS: PANTOprazole 40 MG TAB PO SCH (05:36)
[2021-11-16] MEDS: ASPIRIN 81 MG ECTAB PO SCH (08:11)
[2021-11-16] MEDS: MAGNESIUM OXIDE 400 MG TAB PO SCH (08:11)
[2021-11-16] MEDS: VENLAFAXINE HCL XR 75 MG CAPXR PO SCH (08:11)
[2021-11-16] MEDS: GABAPENTIN 100 MG CAP PO SCH ×2 (08:11→20:40)
[2021-11-16] MEDS: FINASTERIDE 5 MG TAB PO SCH (08:12)
[2021-11-16] MEDS: CHOLECALCIFEROL 1,000 UNITS 25 MCG TAB PO SCH (08:12)
[2021-11-16] MEDS: FOLIC ACID 1 MG TAB PO SCH (08:12)
[2021-11-16] MEDS: ATORVASTATIN 40 MG TAB PO SCH (08:12)
[2021-11-16] MEDS: CEROVITE ADV FORMULA TAB PO SCH (08:12)
[2021-11-16] MEDS: METOPROLOL SUCC 25MG EXT REL TAB PO SCH (08:12)
[2021-11-16] MEDS: ENOXAPARIN INJ 40 MG/0.4 ML SYR SQ SCH (08:13)
[2021-11-16] MEDS: ISOSORBIDE MONO EXTENDED REL 60 MG TABCR PO SCH (08:13)
[2021-11-16] MEDS: DOCUSATE SODIUM 100 MG CAP PO SCH ×2 (08:14→20:40)
[2021-11-16] MEDS: MEMANTINE HCL 10 MG TAB PO SCH ×2 (08:15→20:40)
[2021-11-16] MEDS: TICAGRELOR 90 MG TAB PO SCH ×2 (08:15→20:40)
[2021-11-16] MEDS: INSULIN ASPART PER UNIT SC SCH ×4 (09:02→22:06)
--- NOTE | 2021-11-16 19:07 | Hospitalist Progress Note ---
Date of Service November 16, 2021 Assessment & Plan (1) Syncope: Plan: Syncopal episode- no further episodes as inpatient. Serial troponins negative. Telemetry - SR TTE - LVEF 60-65%, no wall motion abnormalities or valvular pathology This was an unwitnessed event at home CT head, cervical spine, lumbar spine and pelvis without acute findings Not orthostatic - BP actually increased on standing ?due to diuresis with Jardiance - ketonuria and glucosuria on UA ?hypoglycemia with glipizide and reduced oral intake Will aim to restart diabetes medications once glucose better controlled - discussed with his son John who will bring these in tomorrow. Medically stable for discharge pending rehab placement (2) COVID-19: Plan: No significant symptoms or hypoxia to warrant steroid management. (3) CAD (coronary artery disease), [place] coronary artery: Plan: Continue aspirin, isosorbide mononitrate, metoprolol succinate and Brilinta (4) Dementia: Plan: Continue donepezil and memantine (5) Gait abnormality: Plan: PT recommending acute inpatient rehab - pt willing to go for this. (6) Parkinsonism: Plan: On no specific medication for this (7) Chronic reflux esophagitis: Plan: Continue pantoprazole 40mg PO daily (8) Depression: Plan: Continue venlafaxine, mirtazapine and prazosin (9) Diabetes mellitus: Plan: HbA1C 7.7 Pharmacy consulted for glycemic control but suspect hyperglycemia mostly steroid driven. Will aim to restart on his usual medication prior to discharge to make sure he can tolerate them without presyncope as above. 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 Pending insurance authorization to rehabilitation, needs OT assessment. No shortness of breath or cough. Eating and drinking well. Reports regular bowel movements. No dizziness. Updated his son John over the phone. Review of Systems Review of Systems: All systems reviewed & are unremarkable except as noted in Subjective Physical Exam Constitutional: WD/WN, vitals as above Eyes: + anicteric sclerae; normal pupil size Respiratory: normal respiratory effort, lungs clear to auscultation Cardiovascular: RRR, no murmur, no edema Gastrointestinal (Abdomen): normal bowel sounds, soft, nontender, no hepatosplenomegaly Neurologic: moves all extremities and awake; no focal motor deficits and not confused Psychiatric: A+Ox3, euthymic affect Results & Data Results & Data ([facility]) Vital Signs (Past 12 Hours) Vital Signs Temp Pulse Resp BP BP Pulse Ox O2 Del Method 11/16/21 15:05 36.9 C 68 18 122/70 99 Room Air 11/16/21 08:20 36.6 C 77 16 109/70 98 Room Air 11/16/21 11:30 98 PG Care Time/CCT Total # of Minutes Spent Total Time Spent with Patient: Total time spent is greater than 50% in coordination of care (as documented) at patient's floor/unit and/or counseling patient: Coding Level of Care Code 77729 Subseq Hosp Care Lvl 1 Diagnoses Syncope R55 COVID-19 U07.1 CAD (coronary artery disease), [place] coronary artery I25.10 Dementia F03.90 Gait abnormality R26.9 Parkinsonism G20 Chronic reflux esophagitis K21.0 Depression F32.9 Diabetes mellitus E11.9 Hypertension I10 Insomnia G47.00 Degenerative disc disease
[2021-11-16] MEDS: MIRTAZAPINE TAB 15 MG TAB PO SCH (20:40)
[2021-11-16] MEDS: DONEPEZIL HCL 10 MG TAB PO SCH (20:40)
[2021-11-16] MEDS: PRAZOSIN HCL 1 MG CAP PO SCH (20:40)
[2021-11-17] MEDS: PANTOprazole 40 MG TAB PO SCH (05:28)
[2021-11-17] MEDS: ASPIRIN 81 MG ECTAB PO SCH (07:46)
[2021-11-17] MEDS: DOCUSATE SODIUM 100 MG CAP PO SCH ×2 (07:46→19:24)
[2021-11-17] MEDS: CEROVITE ADV FORMULA TAB PO SCH (07:47)
[2021-11-17] MEDS: FOLIC ACID 1 MG TAB PO SCH (07:47)
[2021-11-17] MEDS: CHOLECALCIFEROL 1,000 UNITS 25 MCG TAB PO SCH (07:47)
[2021-11-17] MEDS: GABAPENTIN 100 MG CAP PO SCH ×2 (07:47→19:23)
[2021-11-17] MEDS: TICAGRELOR 90 MG TAB PO SCH ×2 (07:47→19:23)
[2021-11-17] MEDS: MAGNESIUM OXIDE 400 MG TAB PO SCH (07:47)
[2021-11-17] MEDS: FINASTERIDE 5 MG TAB PO SCH (07:47)
[2021-11-17] MEDS: MEMANTINE HCL 10 MG TAB PO SCH ×2 (07:47→19:23)
[2021-11-17] MEDS: ATORVASTATIN 40 MG TAB PO SCH (07:48)
[2021-11-17] MEDS: ENOXAPARIN INJ 40 MG/0.4 ML SYR SQ SCH (07:49)
[2021-11-17] MEDS: ISOSORBIDE MONO EXTENDED REL 60 MG TABCR PO SCH (07:51)
[2021-11-17] MEDS: METOPROLOL SUCC 25MG EXT REL TAB PO SCH (07:52)
[2021-11-17] MEDS: VENLAFAXINE HCL XR 75 MG CAPXR PO SCH (07:52)
[2021-11-17] MEDS: INSULIN ASPART PER UNIT SC SCH ×4 (09:08→21:10)
[2021-11-17] MEDS: MIRTAZAPINE TAB 15 MG TAB PO SCH (19:23)
[2021-11-17] MEDS: PRAZOSIN HCL 1 MG CAP PO SCH (19:23)
[2021-11-17] MEDS: DONEPEZIL HCL 10 MG TAB PO SCH (19:24)
--- NOTE | 2021-11-17 20:35 | Hospitalist Progress Note ---
Date of Service November 17, 2021 Assessment & Plan (1) Syncope: Plan: Syncopal episode- no further episodes as inpatient. Serial troponins negative. Telemetry - SR TTE - LVEF 60-65%, no wall motion abnormalities or valvular pathology This was an unwitnessed event at home CT head, cervical spine, lumbar spine and pelvis without acute findings Not orthostatic - BP actually increased on standing ?due to diuresis with Jardiance - ketonuria and glucosuria on UA ?hypoglycemia with glipizide and reduced oral intake Will aim to restart diabetes medications once glucose better controlled - awaiting for son to bring these in Medically stable for discharge pending rehab placement (2) COVID-19: Plan: No significant symptoms or hypoxia to warrant steroid management. (3) CAD (coronary artery disease), [place] coronary artery: Plan: Continue aspirin, isosorbide mononitrate, metoprolol succinate and Brilinta (4) Dementia: Plan: Continue donepezil and memantine (5) Gait abnormality: Plan: PT recommending acute inpatient rehab - pt willing to go for this. (6) Parkinsonism: Plan: On no specific medication for this (7) Chronic reflux esophagitis: Plan: Continue pantoprazole 40mg PO daily (8) Depression: Plan: Continue venlafaxine, mirtazapine and prazosin (9) Diabetes mellitus: Plan: HbA1C 7.7 Pharmacy consulted for glycemic control but suspect hyperglycemia mostly steroid driven. Will aim to restart on his usual medication prior to discharge to make sure he can tolerate them without presyncope as above. 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 No dizziness. Review of Systems Review of Systems: All systems reviewed & are unremarkable except as noted in Subjective Physical Exam Constitutional: WD/WN, vitals as above Eyes: + anicteric sclerae; normal pupil size Respiratory: normal respiratory effort, lungs clear to auscultation Cardiovascular: RRR, no murmur, no edema Gastrointestinal (Abdomen): normal bowel sounds, soft, nontender, no hepatosplenomegaly Neurologic: moves all extremities and awake; no focal motor deficits and not confused Psychiatric: A+Ox3, euthymic affect Results & Data Results & Data ([facility]) Vital Signs (Past 12 Hours) Vital Signs Temp Pulse Pulse Resp BP BP Pulse Ox 11/17/21 19:16 36.6 C 74 18 132/87 98 11/17/21 14:42 36.5 C 69 18 118/75 98 O2 Del Method 11/17/21 19:16 Room Air 11/17/21 14:42 Room Air PG Care Time/CCT Total # of Minutes Spent Total Time Spent with Patient: Total time spent is greater than 50% in coordination of care (as documented) at patient's floor/unit and/or counseling patient: Coding Level of Care Code 84382 Subseq Hosp Care Lvl 1 Diagnoses Syncope R55 COVID-19 U07.1 CAD (coronary artery disease), [place] coronary artery I25.10 Dementia F03.90 Gait abnormality R26.9 Parkinsonism G20 Chronic reflux esophagitis K21.0 Depression F32.9 Diabetes mellitus E11.9 Hypertension I10 Insomnia G47.00 Degenerative disc disease
[2021-11-18] MEDS: PANTOprazole 40 MG TAB PO SCH (05:56)
[2021-11-18] MEDS: INSULIN ASPART PER UNIT SC SCH ×4 (08:45→21:27)
[2021-11-18] MEDS: EMPAGLIFLOZIN 25 MG TABLET PO SCH (08:46)
[2021-11-18] MEDS: ALOGLIPTIN 12.5 MG PO SCH (08:46)
[2021-11-18] MEDS: CEROVITE ADV FORMULA TAB PO SCH (08:47)
[2021-11-18] MEDS: METOPROLOL SUCC 25MG EXT REL TAB PO SCH (08:47)
[2021-11-18] MEDS: ATORVASTATIN 40 MG TAB PO SCH (08:47)
[2021-11-18] MEDS: FOLIC ACID 1 MG TAB PO SCH (08:48)
[2021-11-18] MEDS: MAGNESIUM OXIDE 400 MG TAB PO SCH (08:48)
[2021-11-18] MEDS: FINASTERIDE 5 MG TAB PO SCH (08:48)
[2021-11-18] MEDS: VENLAFAXINE HCL XR 75 MG CAPXR PO SCH (08:49)
[2021-11-18] MEDS: TICAGRELOR 90 MG TAB PO SCH ×2 (08:50→21:34)
[2021-11-18] MEDS: GABAPENTIN 100 MG CAP PO SCH ×2 (08:50→21:33)
[2021-11-18] MEDS: MEMANTINE HCL 10 MG TAB PO SCH ×2 (08:50→21:33)
[2021-11-18] MEDS: DOCUSATE SODIUM 100 MG CAP PO SCH ×2 (08:51→21:33)
[2021-11-18] MEDS: ASPIRIN 81 MG ECTAB PO SCH (08:51)
[2021-11-18] MEDS: ENOXAPARIN INJ 40 MG/0.4 ML SYR SQ SCH (08:52)
[2021-11-18] MEDS: CHOLECALCIFEROL 1,000 UNITS 25 MCG TAB PO SCH (08:52)
[2021-11-18] MEDS: ISOSORBIDE MONO EXTENDED REL 60 MG TABCR PO SCH (08:52)
--- NOTE | 2021-11-18 16:46 | Hospitalist Progress Note ---
Date of Service November 18, 2021 Assessment & Plan (1) Syncope: Plan: Syncopal episode- no further episodes as inpatient. Serial troponins negative. Telemetry - SR TTE - LVEF 60-65%, no wall motion abnormalities or valvular pathology This was an unwitnessed event at home CT head, cervical spine, lumbar spine and pelvis without acute findings Not orthostatic - BP actually increased on standing ?due to diuresis with Jardiance - ketonuria and glucosuria on UA ?hypoglycemia with glipizide and reduced oral intake COVID-19 may have also contributed would not restart glipizide on discharge Medically stable for discharge pending rehab placement (2) COVID-19: Plan: No significant symptoms or hypoxia to warrant steroid management. (3) CAD (coronary artery disease), [place] coronary artery: Plan: Continue aspirin, isosorbide mononitrate, metoprolol succinate and Brilinta (4) Dementia: Plan: Continue donepezil and memantine (5) Gait abnormality: Plan: PT recommending acute inpatient rehab - pt willing to go for this. (6) Parkinsonism: Plan: On no specific medication for this (7) Chronic reflux esophagitis: Plan: Continue pantoprazole 40mg PO daily (8) Depression: Plan: Continue venlafaxine, mirtazapine and prazosin (9) Diabetes mellitus: Plan: HbA1C 7.7 Pharmacy consulted for glycemic control but suspect hyperglycemia mostly steroid driven. Will aim to restart on his usual medication prior to discharge to make sure he can tolerate them without presyncope as above. 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 Denies lightheadedness or dizziness, no CP or OSB, no f/c, no n/v. No BM recently he thinks but can' remember. Review of Systems Review of Systems: All systems reviewed & are unremarkable except as noted in HPI & below Physical Exam Constitutional: WD/WN, vitals as above ENMT: external ear and nose normal, oropharynx normal Neck: trachea midline, no thyromegaly Respiratory: normal respiratory effort, lungs clear to auscultation Cardiovascular: RRR, no murmur, no edema Chest (Breasts): Chest: normal inspection of chest Gastrointestinal (Abdomen): normal bowel sounds, soft, nontender, no hepatosplenomegaly Musculoskeletal: Extremities: extremities normal to inspection; no cyanosis and no clubbing Skin: no rashes, warm and dry Neurologic: moves all extremities and awake; no focal motor deficits Psychiatric: Orientation: alert, oriented to person, oriented to place and cooperative Lymphatic: no lymphedema Results & Data Results & Data ([facility]) Vital Signs (Past 12 Hours) Vital Signs Temp Pulse Resp BP Pulse Ox O2 Del Method O2 Del Method 11/18/21 09:30 Room Air 11/18/21 08:00 Room Air 11/18/21 08:10 36.9 C 70 18 113/69 96 Room Air Laboratory Results 11/18/21 11/18/21 11/17/21 Range/Units 12:45 08:12 21:01 POC Glucose 244 H 165 H 193 H (70-99) mg/dl 11/17/21 Range/Units 17:33 POC Glucose 135 H (70-99) mg/dl PG Care Time/CCT Total # of Minutes Spent Total Time Spent with Patient: Total time spent is greater than 50% in coordination of care (as documented) at patient's floor/unit and/or counseling patient: Coding Level of Care Code 27066 Subseq Hosp Care Lvl 1 Diagnoses Syncope R55 COVID-19 U07.1 CAD (coronary artery disease), [place] coronary artery I25.10 Dementia F03.90 Gait abnormality R26.9 Parkinsonism G20 Chronic reflux esophagitis K21.0 Depression F32.9 Diabetes mellitus E11.9 Hypertension I10 Insomnia G47.00 Degenerative disc disease
[2021-11-18] MEDS: DONEPEZIL HCL 10 MG TAB PO SCH (21:33)
[2021-11-18] MEDS: PRAZOSIN HCL 1 MG CAP PO SCH (21:34)
[2021-11-18] MEDS: MIRTAZAPINE TAB 15 MG TAB PO SCH (21:34)
[2021-11-19] MEDS: PANTOprazole 40 MG TAB PO SCH (05:49)
[2021-11-19] MEDS: ASPIRIN 81 MG ECTAB PO SCH (08:38)
[2021-11-19] MEDS: CHOLECALCIFEROL 1,000 UNITS 25 MCG TAB PO SCH (08:40)
[2021-11-19] MEDS: ATORVASTATIN 40 MG TAB PO SCH (08:40)
[2021-11-19] MEDS: DOCUSATE SODIUM 100 MG CAP PO SCH (08:41)
[2021-11-19] MEDS: EMPAGLIFLOZIN 25 MG TABLET PO SCH (08:43)
[2021-11-19] MEDS: FINASTERIDE 5 MG TAB PO SCH (08:43)
[2021-11-19] MEDS: ISOSORBIDE MONO EXTENDED REL 60 MG TABCR PO SCH (08:44)
[2021-11-19] MEDS: MAGNESIUM OXIDE 400 MG TAB PO SCH (08:44)
[2021-11-19] MEDS: MEMANTINE HCL 10 MG TAB PO SCH (08:45)
[2021-11-19] MEDS: METOPROLOL SUCC 25MG EXT REL TAB PO SCH (08:45)
[2021-11-19] MEDS: VENLAFAXINE HCL XR 75 MG CAPXR PO SCH (08:45)
[2021-11-19] MEDS: CEROVITE ADV FORMULA TAB PO SCH (08:46)
[2021-11-19] MEDS: FOLIC ACID 1 MG TAB PO SCH (08:46)
[2021-11-19] MEDS: ENOXAPARIN INJ 40 MG/0.4 ML SYR SQ SCH (08:47)
[2021-11-19] MEDS: GABAPENTIN 100 MG CAP PO SCH (08:47)
[2021-11-19] MEDS: TICAGRELOR 90 MG TAB PO SCH (08:48)
[2021-11-19] MEDS: ALOGLIPTIN 12.5 MG PO SCH (08:49)
[2021-11-19] MEDS: INSULIN ASPART PER UNIT SC SCH ×2 (10:28→12:20)
--- NOTE | 2021-11-19 12:52 | Discharge Summary ---
Date of Service November 19, 2021 Admission HPI Per Admitting Provider The patient is a 76-year-old male with a past medical history including dementia, recurrent falls while walking, gait abnormality, parkinsonism, chronic reflux esophagitis, depression, diabetes mellitus, hypertension, insomnia, chest pain and vertigo. Patient reportedly had a LAD stent placed about 1 month ago, as reported by his son at bedside, but this point the patient denies any chest pain or shortness of breath or pulmonary or cardiac symptoms. Principal Diagnosis Syncope, COVID-19 Discharge Exam Constitutional WD/WN, vitals as above ENMT external ear and nose normal, oropharynx normal Neck trachea midline, no thyromegaly Respiratory normal respiratory effort, lungs clear to auscultation Cardiovascular RRR, no murmur, no edema Chest (Breasts) Chest: normal inspection of chest Gastrointestinal (Abdomen) normal bowel sounds, soft, nontender, no hepatosplenomegaly Musculoskeletal Extremities: extremities normal to inspection; no cyanosis and no clubbing Skin no rashes, warm and dry Neurologic moves all extremities and awake; no focal motor deficits Psychiatric Orientation: alert, oriented to person, oriented to place and cooperative Lymphatic no lymphedema Discharge Data Allergies Allergy/AdvReac Type Severity Reaction Status Date / Time No Known Allergies Allergy Verified 11/12/21 01:52 Consultations 11/12/21 01:41 ED Decision to Admit Stat Ordered Studies 11/11/21 21:59 CT head/brain wo con Urgent CT neck [CT cervical spine wo con] Urgent 11/11/21 23:11 CT lumbar spine wo con Urgent CT pelvis wo con Urgent Hospital Course (1) Syncope: Syncopal episode- no further episodes as inpatient. Serial troponins negative. Telemetry - SR TTE - LVEF 60-65%, no wall motion abnormalities or valvular pathology This was an unwitnessed event at home CT head, cervical spine, lumbar spine and pelvis without acute findings Not orthostatic - BP actually increased on standing ?due to diuresis with Jardiance - ketonuria and glucosuria on UA ?hypoglycemia with glipizide and reduced oral intake COVID-19 may have also contributed to generalized weakness or orthostasis would not restart glipizide on discharge Medically stable for discharge -was denied SNF stay so will return home with home health and family support-is doing better (2) COVID-19: No significant symptoms or hypoxia to warrant steroid management. (3) CAD (coronary artery disease), [place] coronary artery: Continue aspirin, isosorbide mononitrate, metoprolol succinate and Brilinta (4) Dementia: Continue donepezil and memantine (5) Gait abnormality: improving (6) Parkinsonism: On no specific medication for this (7) Chronic reflux esophagitis: Continue pantoprazole 40mg PO daily (8) Depression: Continue venlafaxine, mirtazapine and prazosin (9) Diabetes mellitus: HbA1C 7.7-well controlled for age and comorbidities due to possibility of hypoglycemia contributing to weakness--> STOP glpizide and continue other home meds (10) Hypertension: Continue metoprolol succinate 25mg PO daily and ISMN Not orthostatic even now on Jardiance (11) Insomnia: Continue mirtazapine and Prazosin (12) Degenerative disc disease: 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 The encounter with the patient was in whole, or in part, for the following medical condition, which is the primary reason for home health care (list medical condition): syncope- covid positive on 11/12 I certify that, based on my findings, the following services are medically nec [place] home health services: My clinical findings support the need for the above services because: OT Assess ADL Status and Restore Function w ADLs PT Assessment for Endurance / Balance / Strength PT Eval for Safety and Mobility PT Eval for Safety, Gait Training, Assistive Devices PT Gait and Balance Training, Strengthening and Safety Skilled Nsg Assessment Further, I certify that my clinical findings support that this patient is homebound (i.e. absences from home require considerable and taxing effort and are for medical reasons or restorationism services or infrequently or of short duration when for other reasons) because: Supportive Aid - Walker Transportation Assistance/Unable to Leave Home Unassisted Certification for Home Health Services: Based on the above findings, I certify that this patient is confined to the home and needs intermittent [facility] care, physical therapy and/or speech therapy or continues to need occupational therapy. The patient is under my care, and I have initiated the establishment of the plan of care. This patient will be followed by a physician who will periodically review the plan of care. Total Time Total Time Spent Total Time Spent (In Minutes): 35 min Discharge Plan Discharge Items Patient Disposition: Home - Home Health Services Reason For Visit: SYNCOPE Discharge Diagnosis: Syncope, COVID-19 Activity: As commented below Lifting: Gradually increase as tolerated Bathing: No limitations Exercise/Sports: Gradually increase as tolerated Exercise Comment: with home PT/OT Non-emergency contact: Primary Care Provider Call non-emergency contact if: you have any medication questions and your symptoms worsen Follow-up/Referrals: Natalie Mirza PA-C [Primary Care Provider] - (Follow up within 1-2 weeks) Diet: Carb Consistent or DM2 and Heart Healthy Addtl Attending Provider Instructions: You were admitted after passing out. This was most likely due to you having COVID-19 and possibly due to low blood sugars. You had a workup of your heart and this was all normal. Please STOP the glipizide when you go home as this can make your blood sugars too low. You are doing much better and are stable to return home with home health with your family. Pending Studies at Discharge: No Stand-Alone Forms: My [facility], Smoking Cessation Medications and DC Order Prescriptions: Continued memantine [Namenda] 10 mg tablet 10 mg PO BID Qty: 180 3RF docusate sodium 100 mg capsule 100 mg PO BID donepezil 10 mg tablet 10 mg PO HS cholecalciferol (vitamin D3) 25 mcg (1,000 unit) capsule 25 mcg PO DAILY finasteride 5 mg tablet 5 mg PO DAILY metformin 1,000 mg tablet 1,000 mg PO BID mirtazapine 30 mg tablet 30 mg PO HS pantoprazole 40 mg tablet,delayed release (DR/EC) 40 mg PO DAILYBB prazosin 2 mg capsule 2 mg PO HS venlafaxine 75 mg capsule,extended release 24hr 225 mg PO DAILY polyethylene glycol 3350 8.5 gram powder in packet 8.5 gm PO DAILY PRN (Reason: Constipation) acetaminophen 500 mg Tablet 500 mg PO TID PRN (Reason: Pain) atorvastatin 80 mg tablet 80 mg PO QAM aspirin [Aspirin Low-Strength] 81 mg Tablet,Delayed Release (Dr/Ec) 81 mg PO QAM isosorbide mononitrate 60 mg Tablet Extended Release 24 Hr 60 mg PO QAM folic acid 1 mg Tablet 2 mg PO DAILY gabapentin 100 mg Capsule 200 mg PO BID metoprolol succinate 25 mg Tablet Extended Release 24 Hr 25 mg PO DAILY multivitamin with minerals Tablet 1 tab PO DAILY Brilinta 90 mg tablet 90 mg PO [facility] alogliptin 12.5 mg Tablet 12.5 mg PO QAM empagliflozin 25 mg Tablet 25 mg PO QAM Nutritional Shake Liquid 1 ea PO BID Discontinued glipizide 5 mg tablet 5 mg PO BID Discharge Orders: Discharge Order (Routine); Ordered 11/19/21 Ordered By: Maggie Howard Admission Data Admit Date/Time: 11/12/21 03:03 Attending Provider: Maggie Howard Admit Provider: Cal Frank Primary Care Provider: Natalie Mirza Other Providers: [facility] ; Cal Frank ; [facility] ; [facility] Coding Level of Care Code D/C DAY MANAGEMENT >30 MINS Diagnoses Syncope R55 COVID-19 U07.1 CAD (coronary artery disease), [place] coronary artery I25.10 Dementia F03.90 Gait abnormality R26.9 Parkinsonism G20 Chronic reflux esophagitis K21.0 Depression F32.9 Diabetes mellitus E11.9 Hypertension I10 Insomnia G47.00 Degenerative disc disease
== END 2021-11-19 15:31 | disposition home health service (06) | DRG 179 ==
LOC: ED 19:31 → 2E 11-12 03:03 → SUATTDRO 11-12 03:03 → 2E 11-12 03:37 → 3N 11-15 01:00

== ENCOUNTER 2022-03-06 23:42 | Observation (INO) ==
[2022-03-07] MEDS ORDERED: NITROGLYCERIN SL 0.4 MG/TAB TAB SL PRN ×2 (00:05→06:23)
[2022-03-07] MEDS ORDERED: ASPIRIN CHEW 324 MG PO STA (00:05)
--- NOTE | 2022-03-07 00:12 | Emergency Department Note ---
Impression & Plan Left-sided chest pain Admit to the [facility] ED Provider Note NAME: REJI BAKER AGE: 76 SEX: M ARRIVES VIA: Walk-In INFORMANT: Patient his children ED PROVIDER(S): Ramona Suarez DO CHIEF COMPLAINT: Chest pain shortness of breath PLAN: Disposition: Admit to the [facility] Condition: Fair MEDICAL DECISION MAKING: This is a 76-year-old male patient with history of heart disease who presents emergency department chest pain, shortness of breath, nausea and diaphoresis. Patient has a normal-appearing EKG and negative troponin. However, the patient has significant risk factors for heart disease. Patient's heart score is 6 The patient had a normal-appearing chest x-ray. He did have an elevated lipase and went for a CT scan of the abdomen/pelvis to rule out acute pancreatitis as there was some discomfort on examination in the epigastrium. CT was negative for acute pancreatitis. I did spend some time reviewing multiple records in the [facility] system it seems the patient has missed multiple appointments through his [facility] providers. I remain quite concerned about the patient's presentation of left-sided chest pain, shortness of breath, diaphoresis and nausea. After review of the information above another included data, I feel the patient will require admission to the hospital for further evaluation by cardiology. [facility] for [facility] management. Triage Nursing notes reviewed and agree with them. Additional history obtained from the patient's family was at the bedside Prior medical records reviewed were reviewed including external records from [facility] Vital Signs: reviewed and unremarkable Differential diagnosis: STEMI, NSTEMI, angina, GERD, pancreatitis ER treatment provided: Oral aspirin Sublingual nitroglycerin x2 Cardiac monitoring Twelve-lead EKG Diagnostics interpreted by me: ECG: Normal sinus rhythm at a rate of [address] segment elevation or signs of ischemia. There is no ectopy. Cardiac Monitoring: Normal sinus rhythm at a rate of 72 Laboratory studies: See below Imaging studies: As per my interpretation Portable chest x-ray: No acute pulmonary infiltrates or consolidations. CT scan of the abdomen/pelvis: See radiology report HPI: 76/M arrives for evaluation of chest discomfort and shortness of breath. Patient does have a history of heart disease. He describes helping his son cut wood earlier today when he developed left-sided chest discomfort and shortness of breath. He had to sit down to take a break in order to get that discomfort to go away. He has since had nausea and diaphoresis. He has developed some left arm numbness and tingling. 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 HOME MEDICATIONS:See list ALLERGIES:None VITALS:See Below PHYSICAL EXAMINATION: HEENT: Head - normocephalic and atraumatic. Pupils are equal, round, and reactive to light. Extraocular eye muscles are intact, and sclera are anic teric. Nose - moist nasal mucosa without discharge. Mouth - moist buccal mucosa. Oropharynx is nonerythematous and there is no tonsillar exudate or edema noted. Neck: Supple; no JVD, or cervical lymphadenopathy Heart: Regular rate and rhythm. There is a normal S1 and S2 with no murmurs, clicks, or gallops appreciated. Lungs: Clear to auscultation bilaterally with no wheezes, rales, or rhonchi. Abdomen: Soft, completely nontender, nondistended, with good bowel sounds. There are no palpable pulsatile masses or hepatosplenomegaly. There is no guarding, rigidity, or rebound noted. Extremities: No evidence of cyanosis, clubbing, or edema. There are easily palpable peripheral pulses. Skin: warm and dry with good turgor and no rashes. ED COURSE: Times/Reassessments: 2355: Patient was evaluated in room C4. A complete history and physical was performed. A twelve-lead EKG was obtained as described above. An order was placed for continuous cardiac monitoring. The patient was in a normal sinus rhythm at a rate of 72. Patient was given a dose of oral aspirin. He was rating his pain as an 8/10 and was given a dose of sublingual nitro. A portable chest x-ray was performed. On reevaluation, the patient's pain came down to a 4/10. He was given a second dose of sublingual nitro. I reviewed the results of the labs and x-ray with the patient and his family. He will go for CT scan of the abdomen/pelvis to rule out acute pancreatitis. [facility] and [facility] will [facility] for f urther management. Ramona Suarez DO Past Med/Surg History Medical History Abdominal pain CAD (coronary artery disease), [place] coronary artery LAD stent (~09/2021) AWAITING DETAILS WHO PATIENT'S NUTRITION MANAGER IS/WHEN LAST SEEN COVID-19 11/12/21 ([facility]; Lynne ID Now) Degenerative disc disease Dementia Depression Diabetes mellitus Gait abnormality Hypertension Parkinsonism Syncope 10/2021 s/p unremarkable [facility] admission workup (felt possibly related to medication reaction/hypoglycemia or Covid 19 contributing) AWAITING DETAILS IF FURTHER EPISODES SINCE ADMISSION Vertigo Surgical History S/P cholecystectomy Social History Smoking Status: Never smoker Second Hand Exposure: No; Hx Alcohol Use: No Hx Substance Use: No Preferred Language: Malay Communication Ability: Effective Tow Feeder Required: No Beliefs That Will Affect Care: None marital status: / Current Living Situation: Family Current Living Situation Comment: lives with son Other Information That Helps Us Care for You: No Feels Safe at Home: Yes Safety Concerns: Feels Safe At This Time Assistive Devices: Cane Allergies Allergies Allergy/AdvReac Type Severity Reaction Status Date / Time No Known Allergies Allergy Verified 03/07/22 01:01 Home Meds Home Medications Medication Instructions Recorded Confirmed cholecalciferol (vitamin D3) 25 25 mcg PO DAILY 10/01/19 03/07/22 mcg (1,000 unit) capsule docusate sodium 100 mg capsule 100 mg PO BID 10/01/19 03/07/22 donepezil 10 mg tablet 10 mg PO HS 10/01/19 03/07/22 finasteride 5 mg tablet 5 mg PO DAILY 10/01/19 03/07/22 metformin 1,000 mg tablet 1,000 mg PO BID 10/01/19 03/07/22 mirtazapine 30 mg tablet 30 mg PO HS 10/01/19 03/07/22 pantoprazole 40 mg tablet,delayed 40 mg PO DAILYBB 10/01/19 03/07/22 release polyethylene glycol 3350 8.5 gram 8.5 gm PO DAILY PRN Constipation 10/01/19 03/07/22 oral powder packet prazosin 2 mg capsule 2 mg PO HS 10/01/19 03/07/22 venlafaxine 75 mg capsule,extended 225 mg PO DAILY 10/01/19 03/07/22 release 24 hr acetaminophen 500 mg tablet 1,000 mg PO TID PRN Pain 11/12/21 03/07/22 alogliptin 12.5 mg tablet 12.5 mg PO QAM 11/12/21 03/07/22 aspirin 81 mg tablet,delayed 81 mg PO QAM 11/12/21 03/07/22 release atorvastatin 80 mg tablet 80 mg PO QAM 11/12/21 03/07/22 empagliflozin 25 mg tablet 25 mg PO [facility] 11/12/21 03/07/22 folic acid 1 mg tablet 2 mg PO DAILY 11/12/21 03/07/22 food supplemt, lactose-reduced 1 ea PO BID 11/12/21 03/07/22 (Nutritional Shake oral liquid) gabapentin 100 mg capsule 200 mg PO BID 11/12/21 03/07/22 isosorbide mononitrate 60 mg 60 mg PO QA 11/12/21 03/07/22 tablet,extended release 24 hr metoprolol succinate 25 mg 25 mg PO DAILY 11/12/21 03/07/22 tablet,extended release 24 hr multivitamin with minerals 1 tab PO DAILY 11/12/21 03/07/22 ticagrelor 90 mg tablet (Brilinta) 90 mg PO [facility] 11/12/21 03/07/22 Previous Rx's Medication Instructions Recorded memantine 10 mg tablet (Namenda) 10 mg PO BID #180 tabs 05/29/21 Results & Data (ED) Vital Signs Vital Signs - 24 hr 03/06/22 23:47 03/06/22 23:55 03/07/22 00:01 Temperature 36.4 C L Temperature Source Temporal Artery Scan Pulse Rate 84 Pulse Rate [Apical] 79 Pulse Rate from SpO2 Sensor Respiratory Rate 18 28 H Respiratory Effort / Characteristics Non-Labored Spontaneous Short of Breath SOB on Exertion Accessory Muscle Use Short of Breath SOB on Exertion Respiratory Depth Normal Respiratory Pattern Regular Blood Pressure 114/68 Blood Pressure Mean 83 Blood Pressure Position Sitting Pulse Oximetry 98 95 Oxygen Delivery Method Room Air Room Air Room Air Sepsis Recent Fever Within 48 Hours No Sepsis New/Unexplained Change in Mental Status N/A Sepsis Action Taken by Nursing No Action Required 03/07/22 00:14 03/07/22 01:00 03/07/22 02:00 Temperature Temperature Source Pulse Rate 75 77 Pulse Rate [Apical] Pulse Rate from SpO2 Sensor 74 76 Respiratory Rate 20 18 Respiratory Effort / Characteristics Respiratory Depth Respiratory Pattern Blood Pressure 121/67 126/70 Blood Pressure Mean 85 88 Blood Pressure Position Pulse Oximetry 96 97 98 Oxygen Delivery Method Room Air Room Air Room Air Sepsis Recent Fever Within 48 Hours Sepsis New/Unexplained Change in Mental Status Sepsis Action Taken by Nursing 03/07/22 03:00 03/07/22 04:00 Temperature Temperature Source Pulse Rate 74 70 Pulse Rate [Apical] Pulse Rate from SpO2 Sensor Respiratory Rate 18 23 Respiratory Effort / Characteristics Respiratory Depth Respiratory Pattern Blood Pressure 127/72 120/72 Blood Pressure Mean 90 88 Blood Pressure Position Pulse Oximetry 98 96 Oxygen Delivery Method Room Air Room Air Sepsis Recent Fever Within 48 Hours Sepsis New/Unexplained Change in Mental Status Sepsis Action Taken by Nursing Laboratory Data 03/08/22 05:32 03/08/22 05:32 Lab Results 03/07/22 03/07/22 03/07/22 Range/Units 00:05 00:05 01:58 WBC 7.51 (4.8-10.8) K/ul RBC 4.63 (4.63-6.08) M/uL Hgb 14.6 (14.0-18.0) g/dl Hct 41.9 (40.1-51.0) % MCV 90.5 (80.0-100.0) fL MCH 31.5 (25.0-34.0) pg MCHC 34.8 (32.0-36.0) g/dL RDW Std Deviation 42.0 (36.4-46.3) fL RDW Coeff of Elpidio 12.9 (11.5-14.5) % Plt Count 183 (130-400) K/uL MPV 11.0 (9.4-12.4) fL Immature Gran % (Auto) 1.3 % Neut % (Auto) 59.0 % Lymph % (Auto) 22.8 % [place] % (Auto) 6.5 % Eos % (Auto) 9.7 % Baso % (Auto) 0.7 % Neut # (Auto) 4.43 (1.4-6.5) K/uL Lymph # (Auto) 1.71 (1.2-3.4) K/uL [place] # (Auto) 0.49 (0.24-0.82) K/uL Eos # (Auto) 0.73 H (0-0.50) K/uL Baso # (Auto) 0.05 (0-0.2) K/uL Immature Gran # (Auto) 0.10 H (0.00-0.02) K/uL Sodium 140 (136-145) mmol/L Potassium 3.6 (3.5-5.1) mmol/L Chloride 106 (98-107) mmol/L Carbon Dioxide 26 (21-32) mmol/L Anion Gap 8 (3-11) BUN 16 (6-23) mg/dl Creatinine 0.94 (0.6-1.4) mg/dl Est Cr Clr Drug Dosing 55.5 ml/min Est GFR ( Amer) 92.2 ml/min Est GFR (Non-Af Amer) 79.6 ml/min BUN/Creatinine Ratio 17.0 (10-20) Glucose 96 (70-99(Fasting)) mg/dl Calcium 8.6 (8.5-10.1) mg/dl Total Bilirubin 0.4 (0.2-1.0) mg/dl AST 14 (13-39) U/L ALT 16 (7-52) U/L Alkaline Phosphatase 65 (34-104) U/L Troponin I High Sens 3.2 (0-20) pg/ml Total Protein 6.6 (6.0-8.3) gm/dl Albumin 4.1 (3.4-5.0) gm/dl Globulin 2.5 (2.5-4.0) gm/dl Albumin/Globulin Ratio 1.6 (0.9-2) Lipase 541 H (11-82) U/L SARS-CoV-2, RNA, NAAT NEGATIVE (NEGATIVE) Administered Medications Aspirin (Aspirin 81 Mg Ectab) 81 mg PO [facility] Stop: 04/06/22 08:59 Last Admin: 03/07/22 09:27 Dose: 81 mg Documented By: ABBI Atorvastatin Calcium (Atorvastatin 40 Mg Tab) 80 mg PO [facility] Stop: 04/06/22 08:59 Last Admin: 03/07/22 09:27 Dose: 80 mg Documented By: ABBI Docusate Sodium (Docusate Sodium 100 Mg Cap) 100 mg PO BID [facility] Stop: 04/06/22 08:59 Last Admin: 03/07/22 20:23 Dose: 100 mg Documented By: Admin: 03/07/22 09:26 Dose: 100 mg Documented By: ABBI Donepezil HCl (Donepezil Hcl 10 Mg Tab) 10 mg PO HS [facility] Stop: 04/06/22 20:59 Last Admin: 03/07/22 20:17 Dose: 10 mg Documented By: MIKAL Finasteride (Finasteride 5 Mg Tab) 5 mg PO DAILY [facility] Stop: 04/06/22 08:59 Last Admin: 03/07/22 09:28 Dose: 5 mg Documented By: ABBI Folic Acid (Folic Acid 1 Mg Tab) 2 mg PO DAILY [facility] Stop: 04/06/22 08:59 Last Admin: 03/07/22 09:30 Dose: 2 mg Documented By: ABBI Gabapentin (Gabapentin 100 Mg Cap) 200 mg PO BID [facility] Stop: 04/06/22 08:59 Last Admin: 03/07/22 20:18 Dose: 200 mg Documented By: Admin: 03/07/22 09:29 Dose: 200 mg Documented By: ABBI Sodium Chloride (Nss 1000ml) 1,000 mls @ 75 mls/hr IV .[id number] [facility]IC[facility] Stop: 04/06/22 06:22 Last Admin: 03/08/22 04:02 Dose: 75 mls/hr Documented By: Infusion: 03/08/22 00:19 Dose: 0 mls/hr Documented By: Admin: 03/07/22 15:39 Dose: 125 mls/hr Documented By: MARIA ELENA Infusion: 03/07/22 15:23 Dose: 125 mls/hr Documented By: MARIA ELENA Admin: 03/07/22 07:23 Dose: 125 mls/hr Documented By: ABBI Famotidine 20 mg/ Syringe 5 mls @ 2.5 mls/min IV Q12H [facility] Stop: 04/06/22 05:59 Last Admin: 03/08/22 06:10 Dose: 2.5 mls/min Documented By: Admin: 03/07/22 18:46 Dose: 2.5 mls/min Documented By: Admin: 03/07/22 07:13 Dose: 2.5 mls/min Documented By: ABBI Insulin Aspart (Insulin Aspart Per Unit) 0 units SC Q6 [facility] Stop: 04/06/22 06:22 Last Admin: 03/08/22 06:10 Dose: Not Given Documented By: Admin: 03/08/22 00:03 Dose: Not Given Documented By: Admin: 03/07/22 18:28 Dose: Not Given Documented By: Admin: 03/07/22 13:25 Dose: Not Given Documented By: MARIA ELENA Admin: 03/07/22 07:48 Dose: Not Given Documented By: ABBI Isosorbide Mononitrate (Isosorbide [place] Extended Rel 60 Mg Tabcr) 60 mg PO QAM [facility] Stop: 04/06/22 08:59 Last Admin: 03/07/22 09:30 Dose: 60 mg Documented By: ABBI Memantine (Memantine Hcl 10 Mg Tab) 10 mg PO BID [facility] Stop: 04/06/22 08:59 Last Admin: 03/07/22 20:17 Dose: 10 mg Documented By: Admin: 03/07/22 09:30 Dose: 10 mg Documented By: ABBI Metoprolol Succinate (Metoprolol Succ 25mg Ext Rel Tab) 25 mg PO DAILY [facility] Stop: 04/06/22 08:59 Last Admin: 03/07/22 09:28 Dose: 25 mg Documented By: ABBI Mirtazapine (Mirtazapine Tab 15 Mg Tab) 30 mg PO [facility] Stop: 04/06/22 20:59 Last Admin: 03/07/22 20:17 Dose: 30 mg Documented By: MIKAL Multivitamins/Minerals (Cerovite Adv Formula Tab) 1 tab PO DAILY [facility] Stop: 04/06/22 08:59 Last Admin: 03/07/22 09:28 Dose: 1 tab Documented By: ABBI Pantoprazole Sodium (Pantoprazole 40 Mg Tab) 40 mg PO DAILYBB [facility] Stop: 04/06/22 06:29 Last Admin: 03/08/22 06:06 Dose: 40 mg Documented By: Admin: 03/07/22 07:15 Dose: 40 mg Documented By: ABBI Prazosin HCl (Prazosin Hcl 1 Mg Cap) 2 mg PO [facility] Stop: 04/06/22 20:59 Last Admin: 03/07/22 20:17 Dose: 2 mg Documented By: MIKAL Ticagrelor (Ticagrelor 90 Mg Tab) 90 mg PO BID [facility] Stop: 04/06/22 08:59 Last Admin: 03/07/22 20:23 Dose: 90 mg Documented By: Admin: 03/07/22 09:31 Dose: 90 mg Documented By: ABBI Venlafaxine HCl (Venlafaxine Hcl Xr 75 Mg Capxr) 225 mg PO DAILY [facility] Stop: 04/06/22 08:59 Last Admin: 03/07/22 09:31 Dose: 225 mg Documented By: ABBI Vitamin D (Cholecalciferol 1,000 Units 25 Mcg Tab) 1,000 units PO DAILY [facility] Stop: 04/06/22 08:59 Last Admin: 03/07/22 09:28 Dose: 1,000 units Documented By: ABBI Discontinued Medications Aspirin (Aspirin Chew 324 Mg) 324 mg PO NOW STA Stop: 03/07/22 00:06 Last Admin: 03/07/22 00:10 Dose: 324 mg Documented By: RISHI Magnesium Sulfate/Dextrose (Magnesium Sulfate / D5w) 1 gm in 100 mls @ 50 mls/hr IV Q2H [facility] Stop: 03/07/22 15:14 Last Infusion: 03/07/22 15:40 Dose: 0 mls/hr Documented By: MARIA ELENA Admin: 03/07/22 13:34 Dose: 50 mls/hr Documented By: MARIA ELENA Infusion: 03/07/22 13:34 Dose: 50 mls/hr Documented By: MARIA ELENA Admin: 03/07/22 11:34 Dose: 50 mls/hr Documented By: MARIA ELENA Infusion: 03/07/22 11:34 Dose: 50 mls/hr Documented By: MARIA ELENA Admin: 03/07/22 09:34 Dose: 50 mls/hr Documented By: ABBI Ioversol (Optiray 350 100ml) 83 ml IV ONCE ONE Stop: 03/07/22 02:19 Last Admin: 03/07/22 02:12 Dose: 83 ml Documented By: ASHLEY Nitroglycerin (Nitroglycerin Sl 0.4 Mg/Tab Tab) 0.4 mg SL UD PRN PRN Reason: Chest Pain Stop: 04/06/22 00:04 Last Admin: 03/07/22 01:02 Dose: 0.4 mg Documented By: RISHI Nitroglycerin (Nitroglycerin Sl 0.4 Mg/Tab Tab) 0.4 mg SL NOW STA Stop: 03/07/22 01:03 Last Admin: 03/07/22 01:05 Dose: Not Given Documented By: RISHI Discharge Plan Visit Data Chief Complaint: Chest Pain Stated Complaint: CHEST PAIN,HARD TO BREATHE ED Provider: Ramona Suarez Discharge Problem: Left-sided chest pain Patient Disposition: Admitted As Inpatient Discharge Instructions Interventions: ED Discharge Assessment Last Done: 03/07/22 09:58
[2022-03-07 00:25] LABS: Basophils # (auto) 0.05 K/uL (0-0.2); Basophils % (auto) 0.7 %; Eosinophils # (auto) 0.73 K/uL (0-0.50); Eosinophils % (auto) 9.7 %; Hematocrit (blood only) 41.9 % (40.1-51.0); Hemoglobin 14.6 g/dl (14.0-18.0); Immature Granulocytes % (auto) 1.3 %; Lymphocytes # (auto) 1.71 K/uL (1.2-3.4); Lymphocytes % (auto) 22.8 %; Mean Corpuscular Hemoglobin 31.5 pg (25.0-34.0); Mean Corpuscular Hgb Conc 34.8 g/dL (32.0-36.0); Mean Corpuscular Volume 90.5 fL (80.0-100.0); Monocytes # (auto) 0.49 K/uL (0.24-0.82); Monocytes % (auto) 6.5 %; Neutrophils # (auto) 4.43 K/uL (1.4-6.5); Platelet Count 183 K/uL (130-400); RDW Coefficient of Variation 12.9 % (11.5-14.5); Red Blood Count 4.63 M/uL (4.63-6.08); White Blood Count 7.51 K/ul (4.8-10.8)
[2022-03-07 00:54] LABS: Troponin I High Sensitivity 3.2 pg/ml (0-20)
[2022-03-07] MEDS ORDERED: NITROGLYCERIN SL 0.4 MG/TAB TAB SL STA (01:02)
[2022-03-07 01:17] LABS: Albumin Globulin Ratio 1.6 (0.9-2); Albumin Level 4.1 gm/dl (3.4-5.0); Bilirubin,Total 0.4 mg/dl (0.2-1.0); Calcium 8.6 mg/dl (8.5-10.1); Creatinine Clr Calc Pharmacy 55.5 ml/min; Est GFR (African American) 92.2 ml/min; Est GFR (Non-African American) 79.6 ml/min; Globulin 2.5 gm/dl (2.5-4.0); Potassium 3.6 mmol/L (3.5-5.1); Total Protein 6.6 gm/dl (6.0-8.3)
[2022-03-07] MEDS ORDERED: OPTIRAY 350 100ml IV ONE (02:18)
[2022-03-07] MEDS ORDERED: GLUCOSE 40% GEL 15 GM TUBE PO PRN (06:23)
[2022-03-07] MEDS ORDERED: GLUCAGON FOR INJ 1 MG VIAL SQ PRN (06:23)
[2022-03-07] MEDS ORDERED: GLUCOSE 10 TAB/TUBE PO PRN (06:23)
[2022-03-07] MEDS ORDERED: DEXTROSE 50% 50 ML SYRINGE IV PRN (06:23)
[2022-03-07] MEDS ORDERED: ACETAMINOPHEN 325 MG TAB PO PRN (06:23)
[2022-03-07] MEDS ORDERED: CARBOHYDRATES FOR HYPOGLYCEMIA PO PRN (06:23)
[2022-03-07] MEDS ORDERED: POLYETHYLENE (MIRALAX) 17 GM PACK PO PRN (06:35)
[2022-03-07 07:10] LABS: Basophils # (auto) 0.06 K/uL (0-0.2); Basophils % (auto) 0.8 %; Eosinophils # (auto) 0.64 K/uL (0-0.50); Eosinophils % (auto) 8.2 %; Hemoglobin 13.9 g/dl (14.0-18.0); Immature Granulocytes # (auto) 0.07 K/uL (0.00-0.02); Immature Granulocytes % (auto) 0.9 %; Lymphocytes # (auto) 2.34 K/uL (1.2-3.4); Lymphocytes % (auto) 30.1 %; Mean Corpuscular Hemoglobin 30.3 pg (25.0-34.0); Mean Corpuscular Hgb Conc 33.9 g/dL (32.0-36.0); Mean Corpuscular Volume 89.5 fL (80.0-100.0); Mean Platelet Volume 10.9 fL (9.4-12.4); Monocytes % (auto) 6.4 %; Neutrophils # (auto) 4.17 K/uL (1.4-6.5); Neutrophils % (auto) 53.6 %; Platelet Count 180 K/uL (130-400); RDW Coefficient of Variation 12.8 % (11.5-14.5); RDW Standard Deviation 41.6 fL (36.4-46.3); Red Blood Count 4.58 M/uL (4.63-6.08); White Blood Count 7.78 K/ul (4.8-10.8)
[2022-03-07] MEDS: FAMOTIDINE 20 MG in SYRINGE 3 ML IV SCH ×2 (07:13→18:46)
[2022-03-07] MEDS: PANTOprazole 40 MG TAB PO SCH (07:15)
[2022-03-07] MEDS: SODIUM CHLORIDE 0.9% 1000ML 1,000 ML IV SCH ×2 (07:23→15:39)
[2022-03-07 07:37] LABS: Troponin I High Sensitivity 3.5 pg/ml (0-20)
[2022-03-07 07:43] LABS: BUN Creatinine Ratio 19.3 (10-20); Calcium 8.2 mg/dl (8.5-10.1); Creatinine Clr Calc Pharmacy 59.3 ml/min; Est GFR (African American) 98.1 ml/min; Est GFR (Non-African American) 84.6 ml/min; Potassium 4.2 mmol/L (3.5-5.1)
[2022-03-07] MEDS: INSULIN ASPART PER UNIT SC SCH ×3 (07:48→18:28)
--- NOTE | 2022-03-07 07:53 | CT Scan Report ---
ABDOMEN AND PELVIS CT WITH IV CONTRAST CT DOSE: 358.18 mGy.cm HISTORY: Acute chest and epigastric abdominal pain with nausea and shortness of breath eval for panc reatitis TECHNIQUE: Multiaxial CT images of the abdomen and pelvis were performed following the IV administrat ion of 83 cc of Optiray, A dose lowering technique was utilized adhering to the principles of ALARA. COMPARISON STUDY: Chest radiograph of same day, CT pelvis 11/11/2021, CT abdomen and pelvis from [facility] 09/03/2021 FINDINGS: Left anterior descending stent. Clear lung bases. No pneumatosis or pneumoperitoneum. The s pleen is mildly enlarged measuring 13.8 cm. Unremarkable pancreas without CT evidence of acute pancre atitis. The adrenal glands are within normal limits. Cholecystectomy. There are a few hepatic cysts m easuring up to 3.4 cm. Indeterminate 1.2 cm ill-defined hypodense lesion of the inferior right hepati c lobe appears stable on image 161 series 3. 2.1 cm cyst of the superior pole right kidney. There is a mild cortical scarring noted within the evon ateral kidneys. There are 2 punctate nonobstructing calculi present within the left kidney. No ureter al calculi or hydronephrosis. Urinary bladder wall thickening with mucous or debris near, perivesicul ar stranding and several diverticula. Prostamegaly. No abdominal aortic aneurysm or lymphadenopathy. 1.2 cm fusiform dilation of the bilateral proximal external iliac arteries with approximately 60% lum inal narrowing on the right and 50% stenosis on the left. High-grade stenosis at the origin of the cai perior mesenteric artery with area of high-grade stenosis within the splenic artery, image 116 series 3. Fusiform dilation of the celiac artery measuring up to 1.5 cm. Postoperative changes of partial sigmoid colon resection with colocolonic anastomosis. Moderate colon ic fecal retention. No bowel obstruction or bowel wall thickening. No CT evidence of acute appendicit is. Postoperative changes of the anterior abdominal wall. Degenerative changes of the spine, pelvis a nd hips. IMPRESSION: 1. No bowel obstruction or bowel wall thickening. 2. 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 3. Prostamegaly with evidence of chronic bladder outlet obstruction. Correlate with urinalysis to exc lude cystitis. 4. No CT evidence of acute pancreatitis. 5. Punctate left nephrolithiasis. 6. Additional findings as above. ACT 112: Negative or not required by law. The above report was generated using voice recognition software. It may contain grammatical, syntax o r spelling errors. Electronically signed by: Joshua Merritt M.D. 03/07/2022 7:51 AM
[2022-03-07 08:13] LABS: Magnesium 1.6 mg/dl (1.7-2.4)
--- NOTE | 2022-03-07 08:28 | XRay Report ---
XR chest 1V portable HISTORY: 76 years-old Male Chest pain, nonspecific acute chest pain COMPARISON: Chest radiograph 11/12/2021 TECHNIQUE: AP view of the chest FINDINGS: Cardiomediastinal and hilar silhouettes are within normal limits. No pneumothorax, pleural effusion, airspace consolidation or overt pulmonary edema. Degenerative changes of the shoulders and spine. Cer vical spinal fusion hardware. IMPRESSION: No acute process. ACT 112: Negative or not required by law. The above report was generated using voice recognition software. It may contain grammatical, syntax o r spelling errors. Electronically signed by: Joshua Merritt M.D. 03/07/2022 8:26 AM
--- NOTE | 2022-03-07 08:48 | History and Physical Report ---
DATE OF ADMISSION: 03/07/2022 CHIEF COMPLAINT: Chest pain. HISTORY OF PRESENT ILLNESS: This is a 76-year-old male with past medical history significant for dementia, history of falls, parkinsonism, GERD, depression, diabetes, hypertension, insomnia, and vertigo. The patient had CAD, status post LAD stenting, which seems to be in September of 2021 at [facility], follows with [facility], who lives with his son presents with chest pain. The patient states around 4 p.m. he was helping his son carrying the wound when he noticed left-sided chest pain radiating to left arm and left leg. It was 7 to 8 in severity, sharp pain, and heavy feeling. At that time, he had some shortness of breath and some dizzy. He came to the ER. In the ER, after taking 2 nitro, the pain got resolved. He is also having on and off abdominal pain going on for the last 2 weeks, 5/10 in severity. No nausea. No diarrhea or constipation. No blood in stool or black stool. Normal bladder movements. No swelling in the legs. Currently, no chest pain, no shortness of breath, no headache, no blurred visions, no earache, no runny nose, no sore throat, and no cough. His appetite is okay. No difficulty swallowing. Currently, resting comfortably and hemodynamically stable. ALLERGIES: NO KNOWN DRUG ALLERGIES. PAST MEDICAL HISTORY: As mentioned above. PAST SURGICAL HISTORY: Status post cardiac catheterization and stent placement, status post cholecystectomy, EGD, cervical spine fusion surgery, and partial colectomy with anastomosis. MEDICATIONS: The patient is on Tylenol 1000 mg p.o. t.i.d. p.r.n., alogliptin 12.5 mg p.o. a.m., aspirin 81 mg p.o. a.m., atorvastatin 80 mg p.o. a.m., Brilinta 90 mg p.o. b.i.d., vitamin D 25 mcg p.o. daily, Colace 100 mg p.o. b.i.d., donepezil 10 mg p.o. at bedtime, Jardiance 25 mg p.o. a.m., finasteride 5 mg p.o. daily, folic acid 2 mg p.o. daily, gabapentin 200 mg p.o. b.i.d., isosorbide mononitrate 60 mg p.o. a.m., memantine 10 mg p.o. b.i.d., metformin 1000 mg p.o. b.i.d., metoprolol succinate 25 mg p.o. daily, mirtazapine 30 mg p.o. at bedtime, multivitamins 1 tablet p.o. daily, nutritional shake 1 can p.o. b.i.d., Protonix 40 mg p.o. daily, MiraLax 8.5 g mg p.o. daily p.r.n., prazosin 2 mg p.o. at bedtime, and venlafaxine extended release 225 mg p.o. daily. FAMILY HISTORY: Significant for father has arthritis, diabetes, and eye problems; mother has eye problems, and brother has diabetes. SOCIAL HISTORY: and lives with her son and [id number]. No smoking. Alcohol occasional. No drug use. REVIEW OF SYSTEMS: As per HPI. Rest of the review of systems is negative. PHYSICAL EXAMINATION: GENERAL: The patient is of moderate build, not in acute distress. VITAL SIGNS: Temperature 36.4, pulse 77, respiratory rate 18, blood pressure 126/70, and oxygen 98% on room air. HEENT: Pupils equal, round, and reactive to light. Oral mucosa moist. NECK: No JVD. No neck masses. CARDIOVASCULAR: S1 and S2 heard. Regular rate and rhythm. No murmur. No gallop. RESPIRATORY SYSTEM: Normal AP diameter. No accessory muscle use. No wheezing. No crackles. ABDOMEN: Soft. Bowel sounds present. Mild abdominal discomfort in the epigastric and periumbilical region. No guarding, no rigidity, and no distention. CENTRAL NERVOUS SYSTEM: Alert and oriented. Speech is clear. No facial droop. Obeys simple commands. Moves extremities. EXTREMITIES: No edema. No erythema. LABORATORY DATA: WBC 7.5, hemoglobin 14.6, hematocrit 41.9, and platelets 183. Sodium 140, potassium 3.6, chloride 106, bicarb 26, BUN 16, creatinine 0.9, serum glucose 96, and calcium 8.6. Total bilirubin 0.4, AST 14, ALT 6, and alkaline phosphatase 65. Troponin I high sensitivity 3.2. Lipase 541. SARS-CoV-2 rapid test negative. IMAGING DATA: Chest x-ray: No acute findings. CT abdomen and pelvis results are pending. EKG: Normal sinus rhythm at a rate of 76, no significant change was found. ASSESSMENT AND PLAN: This is a 76-year-old male, who presents with chest pain. 1. Chest pain with history of coronary artery disease, status post LAD stenting in September of 2021 at [place]. This chest pain relieved with nitro. Initial workup is negative. We will follow serial cardiac enzymes and repeat EKG and echocardiogram. We will keep him n.p.o. Monitor in the tele floor. Consult cardiology in a.m. for further recommendations. 2. History of coronary artery disease, status post stent. Continue his home medication of aspirin, Brilinta, metoprolol succinate, and atorvastatin. 3. History of diabetes, hold his home p.o. medications of Jardiance, alogliptin, and metformin. We will place him on insulin sliding scale, monitor the blood sugars, and follow HbA1c level. 4. History of hypertension, continue metoprolol succinate, isosorbide mononitrate, and prazosin. We will monitor the blood pressure. 5. History of benign prostatic hypertrophy, on finasteride and prazosin. Monitor urinary retention. 6. History of dementia, continue memantine and donepezil. Monitor for any delirium. 7. History of depression, continue venlafaxine and mirtazapine. 8. Abdominal pain. Lipase is slightly elevated at 541. Awaiting CT abdomen results for rule out any pancreatitis. We will follow repeat lipase levels. We will place him on IV fluid, normal saline 125 mL per hour for now. If there is no pancreatitis, we will stop the fluids. We will place him on IV Pepcid. 9. Deep venous thrombosis prophylaxis, sequential compression devices for now. DISPOSITION: Observation in tele floor. PT and OT prior to discharge. Social service to help with discharge planning. Level 1 full code as per my discussion with the patient. Job ID: [id number] [facility]
[2022-03-07] MEDS: DOCUSATE SODIUM 100 MG CAP PO SCH ×2 (09:26→20:23)
[2022-03-07] MEDS: ATORVASTATIN 40 MG TAB PO SCH (09:27)
[2022-03-07] MEDS: ASPIRIN 81 MG ECTAB PO SCH (09:27)
[2022-03-07] MEDS: FINASTERIDE 5 MG TAB PO SCH (09:28)
[2022-03-07] MEDS: CEROVITE ADV FORMULA TAB PO SCH (09:28)
[2022-03-07] MEDS: METOPROLOL SUCC 25MG EXT REL TAB PO SCH (09:28)
[2022-03-07] MEDS: CHOLECALCIFEROL 1,000 UNITS 25 MCG TAB PO SCH (09:28)
[2022-03-07] MEDS: GABAPENTIN 100 MG CAP PO SCH ×2 (09:29→20:18)
[2022-03-07] MEDS: FOLIC ACID 1 MG TAB PO SCH (09:30)
[2022-03-07] MEDS: MEMANTINE HCL 10 MG TAB PO SCH ×2 (09:30→20:17)
[2022-03-07] MEDS: ISOSORBIDE MONO EXTENDED REL 60 MG TABCR PO SCH (09:30)
[2022-03-07] MEDS: VENLAFAXINE HCL XR 75 MG CAPXR PO SCH (09:31)
[2022-03-07] MEDS: TICAGRELOR 90 MG TAB PO SCH ×2 (09:31→20:23)
--- NOTE | 2022-03-07 09:32 | Gastrointestinal Consultation ---
Date of Consultation March 07, 2022 Assessment & Plan (1) Abdominal pain: Pleasant gentleman with abdominal pain of a vague nature. Certainly, before we work up this abdominal pain his cardiac issues need to be cleared up. 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 His pain could just be related to constipation and he is scheduled for colonoscopy with Katerine as an outpatient. I would consider consultation with vascular surgery for his SMA stenosis. History of Present Illness Reason for Consultation: abdominal pain Attending Physician: Immanuel Crain MD History of Present Illness 76 year old man admitted with chest pain relieved with nitro and a history of CADz. He has been having abdominal pain for "the past month". He is very vague with regards to description of his pain. He is scheduled to have a colonoscopy with Katerine on 03/15 as well as an ultrasound. He says it just hurts in the middle of his abdomen. He says "it don't get better" with foods. He thinks it may improve with bowel movements. He has had a colon resection and he says he has had a colostomy in the past for what sounds like diverticulitis with obstruction. His last colonoscopy was about two years ago he says. CT abdomen in ER shows moderate fecal load in colon but significant narrowing at the take off of the SMA. Allergies Allergy/AdvReac Type Severity Reaction Status Date / Time No Known Allergies Allergy Verified 03/07/22 01:01 Home Medications Medication Instructions Recorded Confirmed Type cholecalciferol (vitamin D3) 25 25 mcg PO DAILY 10/01/19 03/07/22 History mcg (1,000 unit) capsule docusate sodium 100 mg capsule 100 mg PO BID 10/01/19 03/07/22 History donepezil 10 mg tablet 10 mg PO HS 10/01/19 03/07/22 History finasteride 5 mg tablet 5 mg PO DAILY 10/01/19 03/07/22 History metformin 1,000 mg tablet 1,000 mg PO BID 10/01/19 03/07/22 History mirtazapine 30 mg tablet 30 mg PO HS 10/01/19 03/07/22 History pantoprazole 40 mg tablet,delayed 40 mg PO DAILYBB 10/01/19 03/07/22 History release polyethylene glycol 3350 8.5 gram 8.5 gm PO DAILY PRN Constipation 10/01/19 03/07/22 History oral powder packet prazosin 2 mg capsule 2 mg PO HS 10/01/19 03/07/22 History venlafaxine 75 mg capsule,extended 225 mg PO DAILY 10/01/19 03/07/22 History release 24 hr memantine 10 mg tablet (Namenda) 10 mg PO BID #180 tabs 05/29/21 03/07/22 Rx acetaminophen 500 mg tablet 1,000 mg PO TID PRN Pain 11/12/21 03/07/22 History alogliptin 12.5 mg tablet 12.5 mg PO QAM 11/12/21 03/07/22 History aspirin 81 mg tablet,delayed 81 mg PO QAM 11/12/21 03/07/22 History release atorvastatin 80 mg tablet 80 mg PO QAM 11/12/21 03/07/22 History empagliflozin 25 mg tablet 25 mg PO QAM 11/12/21 03/07/22 History folic acid 1 mg tablet 2 mg PO DAILY 11/12/21 03/07/22 History food supplemt, lactose-reduced 1 ea PO BID 11/12/21 03/07/22 History (Nutritional Shake oral liquid) gabapentin 100 mg capsule 200 mg PO BID 11/12/21 03/07/22 History isosorbide mononitrate 60 mg 60 mg PO QAM 11/12/21 03/07/22 History tablet,extended release 24 hr metoprolol succinate 25 mg 25 mg PO DAILY 11/12/21 03/07/22 History tablet,extended release 24 hr multivitamin with minerals 1 tab PO DAILY 11/12/21 03/07/22 History ticagrelor 90 mg tablet (Brilinta) 90 mg PO AMHS 11/12/21 03/07/22 History Patient History Medical History (Updated 03/07/22 @ 09:30 by Clifford Gaffney Jr, MD) Abdominal pain CAD (coronary artery disease), curyung coronary artery LAD stent (~09/2021) AWAITING DETAILS WHO PATIENT'S CORRESPONDENCE COORDINATOR IS/WHEN LAST SEEN COVID-19 11/12/21 ([facility]; Lynne ID Now) Degenerative disc disease Dementia Depression Diabetes mellitus Gait abnormality Hypertension Parkinsonism Syncope 10/2021 s/p unremarkable [facility] admission workup (felt possibly related to medication reaction/hypoglycemia or Covid 19 contributing) AWAITING DETAILS IF FURTHER EPISODES SINCE ADMISSION Vertigo Surgical History S/P cholecystectomy Social History Smoking Status: Never smoker Second Hand Exposure: No; Hx Alcohol Use: No Hx Substance Use: No Preferred Language: Mohawk Communication Ability: Effective Jewel Bearing Facer Required: No Beliefs That Will Affect Care: None marital status: / Current Living Situation: Family Current Living Situation Comment: lives with son Other Information That Helps Us Care for You: No Feels Safe at Home: Yes Safety Concerns: Feels Safe At This Time Assistive Devices: Cane Review of Systems Review of Systems: All systems reviewed & are unremarkable except as noted in HPI & below Physical Exam Constitutional: WD/WN, vitals as above no acute distress Eyes: PERRL, conjunctivae normal, anicteric sclerae ENMT: external ear and nose normal, oropharynx normal Neck: trachea midline, no thyromegaly Respiratory: normal respiratory effort, lungs clear to auscultation Cardiovascular: RRR, no murmur, no edema Gastrointestinal (Abdomen): normal bowel sounds, soft, nontender, no hepatosplenomegaly Musculoskeletal: Extremities: no cyanosis and no clubbing Skin: no rashes, warm and dry Neurologic: PERRL, EOMI, accommodation nl, no face palsy, no dysarthria Psychiatric: Orientation: alert and oriented x 3 Results & Data ([facility]) Vital Signs (Past 12 Hours) Vital Signs Temp Pulse Pulse Resp BP BP Pulse Ox 03/07/22 09:00 71 21 154/80 H 99 03/07/22 08:00 65 12 130/79 99 03/07/22 07:11 03/07/22 07:00 66 14 128/74 99 03/07/22 06:47 65 19 110/73 97 03/07/22 06:04 74 20 110/73 97 03/07/22 06:00 69 20 124/71 97 03/07/22 05:00 74 12 97/67 L 97 03/07/22 04:00 70 23 120/72 96 03/07/22 03:00 74 18 127/72 98 03/07/22 02:00 77 18 126/70 98 01/08/23 01:00 75 20 121/67 97 03/07/22 00:14 96 03/07/22 00:01 79 28 H 95 03/06/22 23:55 03/06/22 23:47 36.4 C L 84 18 114/68 98 O2 Del Method O2 Del Method 03/07/22 09:00 Room Air 03/07/22 08:00 Room Air 03/07/22 07:11 Room Air 03/07/22 07:00 Room Air 03/07/22 06:47 Room Air 03/07/22 06:04 Room Air 03/07/22 06:00 Room Air 03/07/22 05:00 Room Air 03/07/22 04:00 Room Air 03/07/22 03:00 Room Air 03/07/22 02:00 Room Air 03/07/22 01:00 Room Air 03/07/22 00:14 Room Air 03/07/22 00:01 Room Air 03/06/22 23:55 Room Air 03/06/22 23:47 Room Air Laboratory Results 03/07/22 03/07/22 03/07/22 Range/Units 07:18 06:44 06:44 WBC (4.8-10.8) K/ul RBC (4.63-6.08) M/uL Hgb (14.0-18.0) g/dl Hct (40.1-51.0) % MCV (80.0-100.0) fL MCH (25.0-34.0) pg MCHC (32.0-36.0) g/dL RDW Std Deviation (36.4-46.3) fL RDW Coeff of Elpidio (11.5-14.5) % Plt Count (130-400) K/uL MPV (9.4-12.4) fL Immature Gran % (Auto) % Neut % (Auto) % Lymph % (Auto) % Newton % (Auto) % Eos % (Auto) % Baso % (Auto) % Neut # (Auto) (1.4-6.5) K/uL Lymph # (Auto) (1.2-3.4) K/uL Newton # (Auto) (0.24-0.82) K/uL Eos # (Auto) (0-0.50) K/uL Baso # (Auto) (0-0.2) K/uL Immature Gran # (Auto) (0.00-0.02) K/uL Sodium 140 (136-145) mmol/L Potassium 4.2 (3.5-5.1) mmol/L Chloride 107 (98-107) mmol/L Carbon Dioxide 25 (21-32) mmol/L Anion Gap 8 (3-11) BUN 17 (6-23) mg/dl Creatinine 0.88 (0.6-1.4) mg/dl Est Cr Clr Drug Dosing 59.3 ml/min Est GFR ( Amer) 98.1 ml/min Est GFR (Non-Af Amer) 84.6 ml/min BUN/Creatinine Ratio 19.3 (10-20) Glucose 91 (70-99(Fasting)) mg/dl POC Glucose 74 (70-99) mg/dl Estimat Average Glucose Pending Hemoglobin A1c Pending Calcium 8.2 L (8.5-10.1) mg/dl Magnesium 1.6 L (1.7-2.4) mg/dl Total Bilirubin (0.2-1.0) mg/dl AST (13-39) U/L ALT (7-52) U/L Alkaline Phosphatase (34-104) U/L Troponin I High Sens 3.5 (0-20) pg/ml Total Protein (6.0-8.3) gm/dl Albumin (3.4-5.0) gm/dl Globulin (2.5-4.0) gm/dl Albumin/Globulin Ratio (0.9-2) Lipase 957 H (11-82) U/L SARS-CoV-2, RNA, NAAT (NEGATIVE) 03/07/22 03/07/22 03/07/22 Range/Units 06:44 01:58 00:05 WBC 7.78 (4.8-10.8) K/ul RBC 4.58 L (4.63-6.08) M/uL Hgb 13.9 L (14.0-18.0) g/dl Hct 41.0 (40.1-51.0) % MCV 89.5 (80.0-100.0) fL MCH 30.3 (25.0-34.0) pg MCHC 33.9 (32.0-36.0) g/dL RDW Std Deviation 41.6 (36.4-46.3) fL RDW Coeff of Elpidio 12.8 (11.5-14.5) % Plt Count 180 (130-400) K/uL MPV 10.9 (9.4-12.4) fL Immature Gran % (Auto) 0.9 % Neut % (Auto) 53.6 % Lymph % (Auto) 30.1 % Newton % (Auto) 6.4 % Eos % (Auto) 8.2 % Baso % (Auto) 0.8 % Neut # (Auto) 4.17 (1.4-6.5) K/uL Lymph # (Auto) 2.34 (1.2-3.4) K/uL Newton # (Auto) 0.50 (0.24-0.82) K/uL Eos # (Auto) 0.64 H (0-0.50) K/uL Baso # (Auto) 0.06 (0-0.2) K/uL Immature Gran # (Auto) 0.07 H (0.00-0.02) K/uL Sodium 140 (136-145) mmol/L Potassium 3.6 (3.5-5.1) mmol/L Chloride 106 (98-107) mmol/L Carbon Dioxide 26 (21-32) mmol/L Anion Gap 8 (3-11) BUN 16 (6-23) mg/dl Creatinine 0.94 (0.6-1.4) mg/dl Est Cr Clr Drug Dosing 55.5 ml/min Est GFR ( Amer) 92.2 ml/min Est GFR (Non-Af Amer) 79.6 ml/min BUN/Creatinine Ratio 17.0 (10-20) Glucose 96 (70-99(Fasting)) mg/dl POC Glucose (70-99) mg/dl Estimat Average Glucose Hemoglobin A1c Calcium 8.6 (8.5-10.1) mg/dl Magnesium (1.7-2.4) mg/dl Total Bilirubin 0.4 (0.2-1.0) mg/dl AST 14 (13-39) U/L ALT 16 (7-52) U/L Alkaline Phosphatase 65 (34-104) U/L Troponin I High Sens 3.2 (0-20) pg/ml Total Protein 6.6 (6.0-8.3) gm/dl Albumin 4.1 (3.4-5.0) gm/dl Globulin 2.5 (2.5-4.0) gm/dl Albumin/Globulin Ratio 1.6 (0.9-2) Lipase 541 H (11-82) U/L SARS-CoV-2, RNA, NAAT NEGATIVE (NEGATIVE) 03/07/22 Range/Units 00:05 WBC 7.51 (4.8-10.8) K/ul RBC 4.63 (4.63-6.08) M/uL Hgb 14.6 (14.0-18.0) g/dl Hct 41.9 (40.1-51.0) % MCV 90.5 (80.0-100.0) fL MCH 31.5 (25.0-34.0) pg MCHC 34.8 (32.0-36.0) g/dL RDW Std Deviation 42.0 (36.4-46.3) fL RDW Coeff of Elpidio 12.9 (11.5-14.5) % Plt Count 183 (130-400) K/uL MPV 11.0 (9.4-12.4) fL Immature Gran % (Auto) 1.3 % Neut % (Auto) 59.0 % Lymph % (Auto) 22.8 % Newton % (Auto) 6.5 % Eos % (Auto) 9.7 % Baso % (Auto) 0.7 % Neut # (Auto) 4.43 (1.4-6.5) K/uL Lymph # (Auto) 1.71 (1.2-3.4) K/uL Newton # (Auto) 0.49 (0.24-0.82) K/uL Eos # (Auto) 0.73 H (0-0.50) K/uL Baso # (Auto) 0.05 (0-0.2) K/uL Immature Gran # (Auto) 0.10 H (0.00-0.02) K/uL Sodium (136-145) mmol/L Potassium (3.5-5.1) mmol/L Chloride (98-107) mmol/L Carbon Dioxide (21-32) mmol/L Anion Gap (3-11) BUN (6-23) mg/dl Creatinine (0.6-1.4) mg/dl Est Cr Clr Drug Dosing ml/min Est GFR ( Amer) ml/min Est GFR (Non-Af Amer) ml/min BUN/Creatinine Ratio (10-20) Glucose (70-99(Fasting)) mg/dl POC Glucose (70-99) mg/dl Estimat Average Glucose Hemoglobin A1c Calcium (8.5-10.1) mg/dl Magnesium (1.7-2.4) mg/dl Total Bilirubin (0.2-1.0) mg/dl AST (13-39) U/L ALT (7-52) U/L Alkaline Phosphatase (34-104) U/L Troponin I High Sens (0-20) pg/ml Total Protein (6.0-8.3) gm/dl Albumin (3.4-5.0) gm/dl Globulin (2.5-4.0) gm/dl Albumin/Globulin Ratio (0.9-2) Lipase (11-82) U/L SARS-CoV-2, RNA, NAAT (NEGATIVE) Diagnostic Findings Chest X-Ray 03/07/22 00:05 XR chest 1V portable HISTORY: 76 years-old Male Chest pain, nonspecific acute chest pain COMPARISON: Chest radiograph 11/12/2021 TECHNIQUE: AP view of the chest FINDINGS: Cardiomediastinal and hilar silhouettes are within normal limits. No pneumothorax, pleural effusion, airspace consolidation or overt pulmonary edema. Degenerative changes of the shoulders and spine. Cervical spinal fusion hardware. IMPRESSION: No acute process. ACT 112: Negative or not required by law. The above report was generated using voice recognition software. It may contain grammatical, syntax or spelling errors. Electronically signed by: Joshua Merritt M.D. 03/07/2022 8:26 AM Abdomen/Pelvis CT 03/07/22 01:[address] WITH IV CONTRAST CT DOSE: 358.18 mGy.cm HISTORY: Acute chest and epigastric abdominal pain with nausea and shortness of breath eval for pancreatitis TECHNIQUE: Multiaxial CT images of the abdomen and pelvis were performed following the IV administration of 83 cc of Optiray, A dose lowering technique was utilized adhering to the principles of ALARA. COMPARISON STUDY: Chest radiograph of same day, CT pelvis 11/11/2021, CT abdomen and pelvis from outside facility 09/03/2021 FINDINGS: Left anterior descending stent. Clear lung bases. No pneumatosis or pneumoperitoneum. The spleen is mildly enlarged measuring 13.8 cm. Unremarkable pancreas without CT evidence of acute pancreatitis. The adrenal glands are within normal limits. Cholecystectomy. There are a few hepatic cysts measuring up to 3.4 cm. Indeterminate 1.2 cm ill-defined hypodense lesion of the inferior right hepatic lobe appears stable on image 161 series 3. 2.1 cm cyst of the superior pole right kidney. There is a mild cortical scarring noted within the bilateral kidneys. There are 2 punctate nonobstructing calculi present within the left kidney. No ureteral calculi or hydronephrosis. Urinary bladder wall thickening with mucous or debris near, perivesicular stranding and several diverticula. Prostamegaly. No abdominal aortic aneurysm or lymphadenopathy. 1.2 cm fusiform dilation of the bilateral proximal external iliac arteries with approximately 60% luminal narrowing on the right and 50% stenosis on the left. High-grade stenosis at the origin of the superior mesenteric artery with area of high-grade stenosis within the splenic artery, image 116 series 3. Fusiform dilation of the celiac artery measuring up to 1.5 cm. Postoperative changes of partial sigmoid colon resection with colocolonic anastomosis. Moderate colonic fecal retention. No bowel obstruction or bowel wall thickening. No CT evidence of acute appendicitis. Postoperative changes of the anterior abdominal wall. Degenerative changes of the spine, pelvis and hips. IMPRESSION: 1. No bowel obstruction or bowel wall thickening. 2. 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 3. Prostamegaly with evidence of chronic bladder outlet obstruction. Correlate with urinalysis to exclude cystitis. 4. No CT evidence of acute pancreatitis. 5. Punctate left nephrolithiasis. 6. Additional findings as above. ACT 112: Negative or not required by law. The above report was generated using voice recognition software. It may contain grammatical, syntax or spelling errors. Electronically signed by: Joshua Merritt M.D. 03/07/2022 7:51 AM
[2022-03-07] MEDS: MAGNESIUM SULFATE / D5W 1 GM/100 ML BAG IV SCH ×3 (09:34→13:34)
--- NOTE | 2022-03-07 11:49 | Cardiology Consultation ---
Date of Consultation March 07, 2022 Assessment & Plan (1) Chest pain: (2) CAD (coronary artery disease), [place] coronary artery: Plan No objective findings of ischemia with unremarkable EKG, normal wall motion on echocardiogram and negative high-sensitivity troponin x3 I believe the most prudent course of action at this point would be to have the patient follow-up with his primary senior sales executive as an outpatient given that this episode does not represent acute coronary syndrome. The patient states he actually has an appoint with his senior sales executive tomorrow and I would recommend he follow-up with them as scheduled Okay to DC to home from cardiac standpoint History of Present Illness Reason for Consultation: chest pain Requesting Physician: STEVE Attending Physician: Immanuel Crain MD History of Present Illness It was my pleasure to see Mr. Honeycutt in cardiac consultation today. He is a very pleasant yet somewhat demented 76-year-old gentleman who presented to [facility] on 03/06/2022 with complaints of chest pain. He states he was in his normal state of health yesterday until he was helping his son carry some wood when he suddenly developed severe chest pain. He states that the pain was different from his previous anginal equivalents. Upon arrival to the emergency department initial troponin was negative and EKG was unremarkable. He was admitted to telemetry overnight without further chest discomfort. 2D echocardiogram was performed which showed no wall motion abnormalities. Unknown to our practice, follows with senior sales executive in [place], no records available PMHX from chart reviewe: including HTN, dyslipidemia, DM type II, obesity with known peripheral vascular disease. cardiac cath in July with PCI of LAD with RONDA placement at [facility] d/t unstable angina. Is on DAPT with aspirin and brillinta. Arterial Thrombus of uncertain chronicity Imaging on 09/03/21 showed partial nonocclusive thrombus in the celiac artery, SMA, splenic artery and bilateral external iliac arteries dementia frequent falls Allergies Allergy/AdvReac Type Severity Reaction Status Date / Time No Known Allergies Allergy Verified 03/07/22 01:01 Home Medications Medication Instructions Recorded Confirmed Type cholecalciferol (vitamin D3) 25 25 mcg PO DAILY 10/01/19 03/07/22 History mcg (1,000 unit) capsule docusate sodium 100 mg capsule 100 mg PO BID 10/01/19 03/07/22 History donepezil 10 mg tablet 10 mg PO HS 10/01/19 03/07/22 History finasteride 5 mg tablet 5 mg PO DAILY 10/01/19 03/07/22 History metformin 1,000 mg tablet 1,000 mg PO BID 10/01/19 03/07/22 History mirtazapine 30 mg tablet 30 mg PO HS 10/01/19 03/07/22 History pantoprazole 40 mg tablet,delayed 40 mg PO DAILYBB 10/01/19 03/07/22 History release polyethylene glycol 3350 8.5 gram 8.5 gm PO DAILY PRN Constipation 10/01/19 03/07/22 History oral powder packet prazosin 2 mg capsule 2 mg PO HS 10/01/19 03/07/22 History venlafaxine 75 mg capsule,extended 225 mg PO DAILY 10/01/19 03/07/22 History release 24 hr memantine 10 mg tablet (Namenda) 10 mg PO BID #180 tabs 05/29/21 03/07/22 Rx acetaminophen 500 mg tablet 1,000 mg PO TID PRN Pain 11/12/21 03/07/22 History alogliptin 12.5 mg tablet 12.5 mg PO QAM 11/12/21 03/07/22 History aspirin 81 mg tablet,delayed 81 mg PO QAM 11/12/21 03/07/22 History release atorvastatin 80 mg tablet 80 mg PO QAM 11/12/21 03/07/22 History empagliflozin 25 mg tablet 25 mg PO QAM 11/12/21 03/07/22 History folic acid 1 mg tablet 2 mg PO DAILY 11/12/21 03/07/22 History food supplemt, lactose-reduced 1 ea PO BID 11/12/21 03/07/22 History (Nutritional Shake oral liquid) gabapentin 100 mg capsule 200 mg PO BID 11/12/21 03/07/22 History isosorbide mononitrate 60 mg 60 mg PO QAM 11/12/21 03/07/22 History tablet,extended release 24 hr metoprolol succinate 25 mg 25 mg PO DAILY 11/12/21 03/07/22 History tablet,extended release 24 hr multivitamin with minerals 1 tab PO DAILY 11/12/21 03/07/22 History ticagrelor 90 mg tablet (Brilinta) 90 mg PO AMHS 11/12/21 03/07/22 History Patient History Medical History Abdominal pain CAD (coronary artery disease), [place] coronary artery LAD stent (~09/2021) AWAITING DETAILS WHO PATIENT'S CREDIT MANAGER IS/WHEN LAST SEEN COVID-19 11/12/21 ([facility]; Lynne ID Now) Degenerative disc disease Dementia Depression Diabetes mellitus Gait abnormality Hypertension Parkinsonism Syncope 10/2021 s/p unremarkable [facility] admission workup (felt possibly related to medication reaction/hypoglycemia or Covid 19 contributing) AWAITING DETAILS IF FURTHER EPISODES SINCE ADMISSION Vertigo Surgical History S/P cholecystectomy Social History Smoking Status: Never smoker Second Hand Exposure: No; Hx Alcohol Use: No Hx Substance Use: No Preferred Language: Mauritian Communication Ability: Effective 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 No acute distress. HEENT: Normocephalic, atraumatic. Pupils equal, round and reactive to light and accommodation. Extraocular muscles are intact. Anicteric sclera. Moist mucous membranes. Neck: No JVD. No bruit. Cardiovascular: Regular. Positive S-4. Normal S-1 and S-2. No S-3. 3/6 mid to late systolic ejection murmur, greatest at the right sternal border, second intercostal space with radiation to the bilateral carotids. No rubs. Pulmonary: Clear to auscultation bilaterally. No rales, rhonchi, or wheezing. Abdomen: Bowel sounds x 4, soft. No rebound, guarding or tenderness. No organomegaly. Extremities: No clubbing, cyanosis or edema. +2 pedal pulses bilaterally. Skin: Warm and dry. Results & Data ([facility]) Vital Signs (Past 12 Hours) Vital Signs Temp Pulse Pulse Resp BP BP Pulse Ox 03/07/22 11:02 36.4 C L 65 18 111/63 98 03/07/22 09:58 66 135/81 97 03/07/22 09:00 71 21 154/80 H 99 03/07/22 08:00 65 12 130/79 99 03/07/22 07:11 03/07/22 07:00 66 14 128/74 99 03/07/22 06:47 65 19 110/73 97 03/07/22 06:04 74 20 110/73 97 03/07/22 06:00 69 20 124/71 97 03/07/22 05:00 74 12 97/67 L 97 03/07/22 04:00 70 23 120/72 96 03/07/22 03:00 74 18 127/72 98 03/07/22 02:00 77 18 126/70 98 03/07/22 01:00 75 20 121/67 97 03/07/22 00:14 96 03/07/22 00:01 79 28 H 95 03/06/22 23:55 03/06/22 23:47 36.4 C L 84 18 114/68 98 O2 Del Method O2 Del Method 03/07/22 11:02 Room Air 03/07/22 09:58 Room Air 03/07/22 09:00 Room Air 03/07/22 08:00 Room Air 03/07/22 07:11 Room Air 03/07/22 07:00 Room Air 03/07/22 06:47 Room Air 03/07/22 06:04 Room Air 03/07/22 06:00 Room Air 03/07/22 05:00 Room Air 03/07/22 04:00 Room Air 03/07/22 03:00 Room Air 03/07/22 02:00 Room Air 03/07/22 01:00 Room Air 03/07/22 00:14 Room Air 03/07/22 00:01 Room Air 03/06/22 23:55 Room Air 03/06/22 23:47 Room Air
--- NOTE | 2022-03-07 13:10 | Hospitalist Progress Note ---
Date of Service March 07, 2022 Assessment & Plan (1) Abdominal pain: Plan 76-year-old gentleman with PMH of dementia, falls, parkinsonism, GERD, depression, diabetes, HTN, insomnia and vertigo presented to the ED 03/07 with complaint of left-sided chest pain radiating to left arm and left leg associated with some shortness of breath and dizziness and which was relieved by taking 2 nitro in the ED. He is being managed for the following: Chest pain, rule out ACS Patient comes in with left-sided chest pain x 1 day duration, relieved with nitro in ED. History of CAD, status post LAD stenting in September 2021, currently on DAPT with aspirin and Brilinta Admitting EKG NSR, no significant changes from prior. Admitting CXR with no acute process. Troponin x3 are negative. Admitting echo with normal LV chamber size and systolic function with EF of 55 to 60%, mild concentric LVH, grade 1 diastolic dysfunction. Patient under telemetry monitoring, denies further chest pain. Cardiology on board, await recommendation. 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 Of note patient is a scheduled for colonoscopy as an outpatient. 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 No CT evidence of acute pancreatitis. Prostamegaly with evidence of chronic bladder outlet obstruction/correlate with urinalysis to exclude cystitis. On admitting day, patient noted to have hematuria per RN. Differential could be possible pancreatitis versus mesenteric angina versus cystitis among others. GI consulted, appreciate recommendation. Will consult vascular surgery. Send urine analysis, follow. NPO for now. Patient reports somewhat improvement in his belly pain, denies nausea and vomiting. Other chronic medical conditions: CAD status post stent, diabetes, HTN, BPH, dementia, depression --- resume home meds as able DVT prophylaxis: SCDs Full code Disposition: PT/OT, CM to assist with DC planning. Admission and Anticipated Discharge Date Admission Date: March 07, 2022 Subjective Patient seen and examined at bedside as a follow-up of chest pain, abdominal pain. Patient was lying in bed, on room air, NAD, reports no new acute event overnight, reports improvement in his chest pain, reports improvement in his belly pain, denies any nausea or vomiting, denies any headache/dizziness/sore throat/cough/other review of symptoms. Moving bowels okay. Patient is n.p.o. Physical Exam Physical Exam: GENERAL: Alert and oriented x3. NAD, on RA. Appears ill/weak. HEENT: No pallor, no icterus. Pupils equal, round and reactive to light. Oral mucosa moist. NECK: No JVD, no neck masses. HEART: S1 and S2 heard. Regular rate and rhythm. No murmur, no gallop. RESPIRATORY SYSTEM: Normal AP diameter. No accessory muscle use. No wheezing, no crackles. ABDOMEN: Soft, bowel sounds present, mild epigastric discomfort (subjective, no grimacing noted), no distention. CENTRAL NERVOUS SYSTEM: No facial droop. Speech is clear. Obeys simple commands. Moves extremities. EXTREMITIES: No edema, no erythema seen. Results & Data Results & Data ([facility]) Vital Signs (Past 12 Hours) Vital Signs Temp Pulse Pulse Resp BP BP Pulse Ox 03/07/22 11:02 36.4 C L 65 18 111/63 98 03/07/22 09:58 66 135/81 97 03/07/22 09:00 71 21 154/80 H 99 03/07/22 08:00 65 12 130/79 99 03/07/22 07:11 03/07/22 07:00 66 14 128/74 99 03/07/22 06:47 65 19 110/73 97 03/07/22 06:04 74 20 110/73 97 03/07/22 06:00 69 20 124/71 97 03/07/22 05:00 74 12 97/67 L 97 03/07/22 04:00 70 23 120/72 96 03/07/22 03:00 74 18 127/72 98 03/07/22 02:00 77 18 126/70 98 03/07/22 01:00 75 20 121/67 97 O2 Del Method O2 Del Method 03/07/22 11:02 Room Air 03/07/22 09:58 Room Air 03/07/22 09:00 Room Air 03/07/22 08:00 Room Air 03/07/22 07:11 Room Air 03/07/22 07:00 Room Air 03/07/22 06:47 Room Air 03/07/22 06:04 Room Air 03/07/22 06:00 Room Air 03/07/22 05:00 Room Air 03/07/22 04:00 Room Air 03/07/22 03:00 Room Air 03/07/22 02:00 Room Air 03/07/22 01:00 Room Air
[2022-03-07 13:27] LABS: Appearance Urine Cloudy (Clear); Bacteria Urine Automated Negative (Negative); Bilirubin Urine Negative (Negative); Blood Urine 3+ (Negative); Color Urine Red; Glucose Urine UA 3+ (Negative); Ketones Urine Trace (Negative); Leukocyte Esterase Urine 2+ (Negative); Nitrite Urine Negative (Negative); RBC Urine Automated >30 /hpf (0-4); Specific Gravity Urine 1.025 (1.000-1.030); Urobilinogen Urine Negative (Negative); WBC Urine Automated >30 /hpf (0-5)
[2022-03-07 13:33] LABS: Protein Urine 1+ (Negative)
[2022-03-07 13:43] LABS: Cast Urine Automated 0 /lpf (0-5)
--- NOTE | 2022-03-07 15:02 | Ultrasound Report ---
ABDOMINAL ULTRASOUND, RIGHT UPPER QUADRANT HISTORY: Epigastric abd pain/increased lipase. COMPARISON: Abdomen and pelvis CT 03/07/2022. FINDINGS: Pancreas: The pancreatic head and tail are obscured by overlying bowel gas. The remaining portions of the pancreas are within normal limits. Liver: A few scattered cysts with the largest within the left hepatic lobe measuring 2.9 cm. This con tains multiple septations. Gallbladder: The gallbladder is surgically absent. CBD: 4 mm. Right kidney: No hydronephrosis. There are 2 cysts measuring up to 1.6 cm. IMPRESSION: 1. Prior cholecystectomy. 2. Hepatic and right renal cysts again noted. ACT 112: Negative or not required by law. Electronically signed by: Jem Underwood M.D. 03/07/2022 3:00 PM
[2022-03-07] MEDS ORDERED: DONEPEZIL HCL 10 MG TAB PO SCH (21:00)
[2022-03-07] MEDS ORDERED: MIRTAZAPINE TAB 15 MG TAB PO SCH (21:00)
[2022-03-07] MEDS ORDERED: PRAZOSIN HCL 1 MG CAP PO SCH (21:00)
--- NOTE | 2022-03-07 22:25 | Electrocardiogram Report ---
Test Reason : Blood Pressure : / mmHG Vent. Rate : 076 BPM Atrial Rate : 076 BPM P-R Int : 164 ms QRS Dur : 076 ms QT Int : 396 ms P-R-T Axes : 050 024 047 degrees QTc Int : 445 ms Normal sinus rhythm Low voltage QRS Cannot rule out Septal infarct When compared with ECG of 11-NOV-2021 23:14, No significant change was found Confirmed by Kayode Du ([id number]) on 03/07/2022 10:25:18 PM Referred By: REFERRED SELF Confirmed By:Kayode Du
[2022-03-08] MEDS: INSULIN ASPART PER UNIT SC SCH ×2 (00:03→06:10)
[2022-03-08] MEDS: SODIUM CHLORIDE 0.9% 1000ML 1,000 ML IV SCH (04:02)
[2022-03-08] MEDS: PANTOprazole 40 MG TAB PO SCH (06:06)
[2022-03-08] MEDS: FAMOTIDINE 20 MG in SYRINGE 3 ML IV SCH (06:10)
[2022-03-08 06:13] LABS: Hematocrit (blood only) 40.1 % (40.1-51.0); Hemoglobin 13.5 g/dl (14.0-18.0); Mean Corpuscular Hemoglobin 30.9 pg (25.0-34.0); Mean Corpuscular Hgb Conc 33.7 g/dL (32.0-36.0); Mean Corpuscular Volume 91.8 fL (80.0-100.0); Mean Platelet Volume 10.8 fL (9.4-12.4); Platelet Count 173 K/uL (130-400); RDW Coefficient of Variation 12.8 % (11.5-14.5); RDW Standard Deviation 42.2 fL (36.4-46.3); Red Blood Count 4.37 M/uL (4.63-6.08)
[2022-03-08 06:43] LABS: BUN Creatinine Ratio 21.5 (10-20); Calcium 7.7 mg/dl (8.5-10.1); Est GFR (African American) 102.5 ml/min; Est GFR (Non-African American) 88.5 ml/min; Magnesium 2.1 mg/dl (1.7-2.4); Phosphorus 2.8 mg/dl (2.5-4.9); Potassium 4.2 mmol/L (3.5-5.1)
[2022-03-08 06:47] LABS: Estimated Average Glucose 157 mg/dl; Hemoglobin A1C 7.1 % (4.5-5.6)
[2022-03-08] MEDS ORDERED: cefTRIAXone SODIUM 2,000 MG in DEXTROSE 5% 50 ML IV SCH (09:00)
[2022-03-08] MEDS ORDERED: HEPARIN SOD 5,000 UNIT/0.5 ML VIAL SQ SCH (09:00)
--- NOTE | 2022-03-08 09:05 | Consultation ---
Date of Consultation March 08, 2022 Assessment & Plan (1) Superior mesenteric artery stenosis: Patient with SMA stenosis on CT scan. His symptoms are not classical for mesenteric ischemia. He has a large celiac artery and a patent ARABELLA. His intestines are well collateralized from these two arteries. No intervention is needed at this time. We will see him in the office in 6 months with a mesenteric ultrasound. Would continue his ASA and statin. He will call us sooner if his symptoms worsen. Thank you very much for letting us participate in the care of this patient. History of Present Illness Reason for Consultation: SMA stenosis Attending Physician: Immanuel Crain MD History of Present Illness This is a 76yo male known to us who was admitted with vague abdominal pain. He claims is has been present for the last two weeks. He describes it as constant. He claims it may get worse after eating any size meal. There is no difference in the pain with large or small meals. He only eats one meal a day not due to the pain. He claims to not be hungry and has no appetite. He does not eat large meals due to no appetite. He denies n or v. He has lost about 4 kg over the last year. Allergies Allergy/AdvReac Type Severity Reaction Status Date / Time No Known Allergies Allergy Verified 03/07/22 01:01 Home Medications Medication Instructions Recorded Confirmed Type cholecalciferol (vitamin D3) 25 25 mcg PO DAILY 10/01/19 03/07/22 History mcg (1,000 unit) capsule docusate sodium 100 mg capsule 100 mg PO BID 10/01/19 03/07/22 History donepezil 10 mg tablet 10 mg PO HS 10/01/19 03/07/22 History finasteride 5 mg tablet 5 mg PO DAILY 10/01/19 03/07/22 History metformin 1,000 mg tablet 1,000 mg PO BID 10/01/19 03/07/22 History mirtazapine 30 mg tablet 30 mg PO HS 10/01/19 03/07/22 History pantoprazole 40 mg tablet,delayed 40 mg PO DAILYBB 10/01/19 03/07/22 History release polyethylene glycol 3350 8.5 gram 8.5 gm PO DAILY PRN Constipation 10/01/1910/20 History oral powder packet prazosin 2 mg capsule 2 mg PO HS 10/01/19 03/07/22 History venlafaxine 75 mg capsule,extended 225 mg PO DAILY 10/01/19 03/07/22 History release 24 hr memantine 10 mg tablet (Namenda) 10 mg PO BID #180 tabs 05/29/21 03/07/22 Rx acetaminophen 500 mg tablet 1,000 mg PO TID PRN Pain 11/12/21 03/07/22 History alogliptin 12.5 mg tablet 12.5 mg PO QAM 11/12/21 03/07/22 History aspirin 81 mg tablet,delayed 81 mg PO QAM 11/12/21 03/07/22 History release atorvastatin 80 mg tablet 80 mg PO QAM 11/12/21 03/07/22 History empagliflozin 25 mg tablet 25 mg PO QAM 11/12/21 03/07/22 History folic acid 1 mg tablet 2 mg PO DAILY 11/12/21 03/07/22 History food supplemt, lactose-reduced 1 ea PO BID 11/12/21 03/07/22 History (Nutritional Shake oral liquid) gabapentin 100 mg capsule 200 mg PO BID 11/12/21 03/07/22 History isosorbide mononitrate 60 mg 60 mg PO QAM 11/12/21 03/07/22 History tablet,extended release 24 hr metoprolol succinate 25 mg 25 mg PO DAILY 11/12/21 03/07/22 History tablet,extended release 24 hr multivitamin with minerals 1 tab PO DAILY 11/12/21 03/07/22 History ticagrelor 90 mg tablet (Brilinta) 90 mg PO AMHS 11/12/21 03/07/22 History Patient History Medical History Abdominal pain CAD (coronary artery disease), [place] coronary artery LAD stent (~09/2021) AWAITING DETAILS WHO PATIENT'S CORPORATE TRAINER IS/WHEN LAST SEEN COVID-19 11/12/21 ([facility]; Lynne ID Now) Degenerative disc disease Dementia Depression Diabetes mellitus Gait abnormality Hypertension Parkinsonism Syncope 10/2021 s/p unremarkable [facility] admission workup (felt possibly related to medication reaction/hypoglycemia or Covid 19 contributing) AWAITING DETAILS IF FURTHER EPISODES SINCE ADMISSION Vertigo Surgical History S/P cholecystectomy Social History Smoking Status: Never smoker Second Hand Exposure: No; Hx Alcohol Use: No Hx Substance Use: No Preferred Language: Turkish Communication Ability: 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 Beliefs That Will Affect Care: None marital status: / Current Living Situation: Family Current Living Situation Comment: lives with son Other Information That Helps Us Care for You: No Feels Safe at Home: Yes Safety Concerns: Feels Safe At This Time Assistive Devices: Cane Review of Systems Review of Systems: All systems reviewed & are unremarkable except as noted in HPI & below Physical Exam Constitutional: WD/WN, vitals as above Respiratory: normal respiratory effort; no respiratory distress Cardiovascular: Rate/Rhythm: regular rate and regular rhythm Vessels: femoral pulses present, posterior tibial pulses present, dorsalis pedis pulses present and radial pulses present Gastrointestinal (Abdomen): Inspection/Auscultation: abdomen normal to inspection; abdomen not distended Percussion/Palpation: + abdomen tender (right side, lower greater than upper quadrant) and abdomen soft; no guarding Musculoskeletal: no cyanosis or clubbing, extremities motor strength 5/5 Neurologic: CN's II-XI intact bilaterally and moves all extremities Psychiatric: Orientation: alert and oriented x 3 Results & Data ([facility]) Vital Signs (Past 12 Hours) Vital Signs Temp Pulse Pulse Pulse Resp BP Pulse Ox 03/08/22 07:22 36.8 C 68 18 122/70 95 03/08/22 03:58 36.5 C 69 16 119/66 96 03/08/22 01:11 86 03/07/22 23:14 87 102/57 L 03/07/22 23:10 36.8 C 83 16 97/62 L 95 O2 Del Method 03/08/22 07:22 Room Air 03/08/22 03:58 Room Air 03/08/22 01:11 03/07/22 23:14 03/07/22 23:10 Room Air
[2022-03-08] MEDS: ASPIRIN 81 MG ECTAB PO SCH (09:20)
[2022-03-08] MEDS: ATORVASTATIN 40 MG TAB PO SCH (09:20)
[2022-03-08] MEDS: FINASTERIDE 5 MG TAB PO SCH (09:20)
[2022-03-08] MEDS: MEMANTINE HCL 10 MG TAB PO SCH (09:20)
[2022-03-08] MEDS: CHOLECALCIFEROL 1,000 UNITS 25 MCG TAB PO SCH (09:20)
[2022-03-08] MEDS: FOLIC ACID 1 MG TAB PO SCH (09:20)
[2022-03-08] MEDS: VENLAFAXINE HCL XR 75 MG CAPXR PO SCH (09:20)
[2022-03-08] MEDS: CEROVITE ADV FORMULA TAB PO SCH (09:20)
[2022-03-08] MEDS: GABAPENTIN 100 MG CAP PO SCH (09:20)
[2022-03-08] MEDS: ISOSORBIDE MONO EXTENDED REL 60 MG TABCR PO SCH (09:20)
[2022-03-08] MEDS: METOPROLOL SUCC 25MG EXT REL TAB PO SCH (09:20)
--- NOTE | 2022-03-08 10:03 | Gastroenterology Progress Note ---
Date of Service March 08, 2022 Assessment & Plan (1) Superior mesenteric artery stenosis: (2) Left-sided chest pain: (3) Abdominal pain: Plan: Pt is a 76 yo male followed for abd pain symptoms. Lipase elevated w normal LFTs but abd imaging studies w CT and u/s wo evidence of pancreatitis and he is s/p cholecystectomy. Abd exam benign today. - Diet as tolerated - Recommend Vascular Surgery consult for SMA stenosis ? contributing to abd pain symptoms - He was previously ordered OP EGD/EUS/Colonoscopy for weight loss, abd pain and constipation symptoms. Our office made multiple attempts to reach him but failed. Pt admitted he lost his phone. Son Ugo for contact: [phone]. Will request outpt GI f/u upon pt's discharge and to re-eval his risks vs benefits, also awaiting cardiac clearance for him to undergo endoscopies as above - Pls recall GI prn Admission and Anticipated Discharge Date Admission Date: March 07, 2022 Supervising Physician Co-Signing Physician Notes I have personally seen and examined the patient with LARRY Saha. Her note reflects my exam and findings. I agree with her impression and plan. Will arrange out patient EUS. Henry Gramajo M.D. Subjective Pt denies any recurrence of CP symptoms nor any SOB, abd pain, n/v. Feels hungry, wants to eat today Review of Systems Review of Systems: All systems reviewed & are unremarkable except as noted in HPI & below Physical Exam Constitutional: WD/WN, vitals as above well groomed, cooperative and comfortable Eyes: PERRL, conjunctivae normal, anicteric sclerae ENMT: external ear and nose normal, oropharynx normal Respiratory: normal respiratory effort, lungs clear to auscultation Cardiovascular: RRR, no murmur, no edema Gastrointestinal (Abdomen): normal bowel sounds, soft, nontender, no hepatosplenomegaly Skin: no rashes, warm and dry no jaundice Psychiatric: A+Ox3, euthymic affect Lymphatic: no lymphedema Results & Data ([facility]) Vital Signs (Past 12 Hours) Vital Signs Temp Pulse Pulse Pulse Resp BP Pulse Ox 03/08/22 07:22 36.8 C 68 18 122/70 95 03/08/22 03:58 36.5 C 69 16 119/66 96 03/08/22 01:11 86 01/08/23 23:14 87 102/57 L 03/07/22 23:10 36.8 C 83 16 97/62 L 95 O2 Del Method 03/08/22 07:22 Room Air 03/08/22 03:58 Room Air 03/08/22 01:11 03/07/22 23:14 03/07/22 23:10 Room Air
[2022-03-08] MEDS: TICAGRELOR 90 MG TAB PO SCH (10:12)
[2022-03-08] MEDS: DOCUSATE SODIUM 100 MG CAP PO SCH (10:12)
[2022-03-08] MEDS ORDERED: INSULIN ASPART PER UNIT SC SCH (11:30)
--- NOTE | 2022-03-08 14:06 | Electrocardiogram Report ---
Test Reason : Blood Pressure : / mmHG Vent. Rate : 071 BPM Atrial Rate : 071 BPM P-R Int : 160 ms QRS Dur : 074 ms QT Int : 424 ms P-R-T Axes : 046 013 039 degrees QTc Int : 460 ms Normal sinus rhythm Low voltage QRS Borderline ECG When compared with ECG of 06-MAR-2022 23:54, Borderline Criteria for Septal infarct no longer present Confirmed by Celio Arroyo ([id number]) on 03/08/2022 2:06:36 PM Referred By: REFERRED SELF Confirmed By:Celio Arroyo
--- NOTE | 2022-03-08 14:52 | Discharge Summary ---
Date of Service March 08, 2022 Admission HPI Per Admitting Provider DATE OF ADMISSION: 03/07/2022 CHIEF COMPLAINT: Chest pain. HISTORY OF PRESENT ILLNESS: This is a 76-year-old male with past medical history significant for dementia, history of falls, parkinsonism, GERD, depression, diabetes, hypertension, insomnia, and vertigo. The patient had CAD, status post LAD stenting, which seems to be in September of 2021 at [facility], follows with [facility], who lives with his son presents with chest pain. The patient states around 4 p.m. he was helping his son carrying the wound when he noticed left-sided chest pain radiating to left arm and left leg. It was 7 to 8 in severity, sharp pain, and heavy feeling. At that time, he had some shortness of breath and some dizzy. He came to the ER. In the ER, after taking 2 nitro, the pain got resolved. He is also having on and off abdominal pain going on for the last 2 weeks, 5/10 in severity. No nausea. No diarrhea or constipation. No blood in stool or black stool. Normal bladder movements. No swelling in the legs. Currently, no chest pain, no shortness of breath, no headache, no blurred visions, no earache, no runny nose, no sore throat, and no cough. His appetite is okay. No difficulty swallowing. Currently, resting comfortably and hemodynamically stable. ALLERGIES: NO KNOWN DRUG ALLERGIES. PAST MEDICAL HISTORY: As mentioned above. PAST SURGICAL HISTORY: Status post cardiac catheterization and stent placement, status post cholecystectomy, EGD, cervical spine fusion surgery, and partial colectomy with anastomosis. MEDICATIONS: The patient is on Tylenol 1000 mg p.o. t.i.d. p.r.n., alogliptin 12.5 mg p.o. a.m., aspirin 81 mg p.o. a.m., atorvastatin 80 mg p.o. a.m., Brilinta 90 mg p.o. b.i.d., vitamin D 25 mcg p.o. daily, Colace 100 mg p.o. b.i.d., donepezil 10 mg p.o. at bedtime, Jardiance 25 mg p.o. a.m., finasteride 5 mg p.o. daily, folic acid 2 mg p.o. daily, gabapentin 200 mg p.o. b.i.d., isosorbide mononitrate 60 mg p.o. a.m., memantine 10 mg p.o. b.i.d., metformin 1000 mg p.o. b.i.d., metoprolol succinate 25 mg p.o. daily, mirtazapine 30 mg p.o. at bedtime, multivitamins 1 tablet p.o. daily, nutritional shake 1 can p.o. b.i.d., Protonix 40 mg p.o. daily, MiraLax 8.5 g mg p.o. daily p.r.n., prazosin 2 mg p.o. at bedtime, and venlafaxine extended release 225 mg p.o. daily. FAMILY HISTORY: Significant for father has arthritis, diabetes, and eye problems; mother has eye problems, and brother has diabetes. SOCIAL HISTORY: and lives with her son and [id number]. No smoking. Alcohol occasional. No drug use. REVIEW OF SYSTEMS: As per HPI. Rest of the review of systems is negative. Admission Exam Per Admitting Provider GENERAL: The patient is of moderate build, not in acute distress. VITAL SIGNS: Temperature 36.4, pulse 77, respiratory rate 18, blood pressure 126/70, and oxygen 98% on room air. HEENT: Pupils equal, round, and reactive to light. Oral mucosa moist. NECK: No JVD. No neck masses. CARDIOVASCULAR: S1 and S2 heard. Regular rate and rhythm. No murmur. No gallop. RESPIRATORY SYSTEM: Normal AP diameter. No accessory muscle use. No wheezing. No crackles. ABDOMEN: Soft. Bowel sounds present. Mild abdominal discomfort in the epigastric and periumbilical region. No guarding, no rigidity, and no distention. CENTRAL NERVOUS SYSTEM: Alert and oriented. Speech is clear. No facial droop. Obeys simple commands. Moves extremities. EXTREMITIES: No edema. No erythema. Principal Diagnosis Chest pain, rule out ACS Abdominal pain, possible pancreatitis versus intestinal angina Discharge Exam GENERAL: Alert and oriented x3. NAD, on RA. HEENT: No pallor, no icterus. Pupils equal, round and reactive to light. Oral mucosa moist. NECK: No JVD, no neck masses. HEART: S1 and S2 heard. Regular rate and rhythm. No murmur, no gallop. RESPIRATORY SYSTEM: Normal AP diameter. No accessory muscle use. No wheezing, no crackles. ABDOMEN: Soft, bowel sounds present, mild epigastric discomfort (subjective, no grimacing noted), no distention. CENTRAL NERVOUS SYSTEM: No facial droop. Speech is clear. Obeys simple commands. Moves extremities. EXTREMITIES: No edema, no erythema seen. Discharge Data Allergies Allergy/AdvReac Type Severity Reaction Status Date / Time No Known Allergies Allergy Verified 03/07/22 01:01 Consultations 03/07/22 03:05 ED Decision to Admit Stat 03/07/22 08:00 Consult Cardiology Routine 03/07/22 09:10 Consult Gastroenterology Routine 03/07/22 13:06 Consult Vascular Surgery Routine Ordered Studies 03/07/22 01:57 CT Abd and Pelvis [CT abd pelvis IV con only] Urgent 03/07/22 09:09 US gallbladder Routine Hospital Course (1) Abdominal pain: Plan 76-year-old gentleman with PMH of dementia, falls, parkinsonism, GERD, depression, diabetes, HTN, insomnia and vertigo presented to the ED 03/07 with complaint of left-sided chest pain radiating to left arm and left leg associated with some shortness of breath and dizziness and which was relieved by taking 2 nitro in the ED. He was managed for the following: Chest pain, rule out ACS Patient comes in with left-sided chest pain x 1 day duration, relieved with nitro in ED. History of CAD, status post LAD stenting in September 2021, currently on DAPT with aspirin and Brilinta Admitting EKG NSR, no significant changes from prior. Admitting CXR with no acute process. Troponin x3 are negative. Admitting echo with normal LV chamber size and systolic function with EF of 55 to 60%, mild concentric LVH, grade 1 diastolic d ysfunction. Patient under telemetry monitoring, denies further chest pain. Cardio evaled, no further intervention. Pt to f/u w/ his OP cardio upon DC for ongoing care of his CAD. Abdominal pain UTI Patient also complains of abdominal pain on and off in the epigastric and periumbilical region for 2 weeks [employer], denies any radiation. Patient also had associated nausea and vomiting for about a week which got resolved 1 week [employer], no current nausea and vomiting per patient. Of note patient is a scheduled for colonoscopy as an outpatient. 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 No CT evidence of acute pancreatitis. Prostamegaly with evidence of chronic bladder outlet obstruction/correlate with urinalysis to exclude cystitis. On admitting day, patient noted to have hematuria per RN. UA s/o UTI, on atb, will complete atb course on DC. Differential could be possible pancreatitis versus mesenteric angina versus cystitis among others. GI consulted, appreciate recommendation. f/u as OP for GI workup EGD scope/EUS/Colonoscopy. Vascular surgery evaled---f/u in 6 months Pt tolerated advancement of diet well with no belly pain. Other chronic medical conditions: CAD status post stent, diabetes, HTN, BPH, dementia, depression --- resume home meds as able Full code Patient being discharged home with following instruction at the point of discharge: Follow-up with your primary care physician within a week time and likely you will need blood lab CBC/CMP/mag and Phos. Cardiology evaluated you while in hospital, your heart enzymes were negative, recommend to follow-up with your cardiology as an outpatient. For your abdominal pain, there was concern of pancreatitis versus intestinal angina. Continue with soft diet at a small volume at a time upon discharge. You will need to follow-up with vascular surgeon in 6-month, if with worsening abdominal pain with eating then you can call the vascular surgery office for earlier appointment. You will also need to maintain follow-up with your GI doctor for multiple GI work-up as an outpatient. For your urine infection, you have been prescribed antibiotic, complete the course. Follow-up with final urine culture results with your PCP when you follow-up with the PCP office in a week time. Take your medications as prescribed. Home Health Attestation I certify that this patient is under my care and that I, or a physicians medical assistant cardiology working with me, had a face to-face encounter that meets the home health [id number] encounter requirements with this patient. The encounter with the patient was in whole, or in part, for the following medical condition, which is the primary reason for home health care (list medical condition): I certify that, based on my findings, the following services are medically necessary home health services: My clinical findings support the need for the above services because: Further, I certify that my clinical findings support that this patient is homebound (i.e. absences from home require considerable and taxing effort and are for medical reasons or christianity services or infrequently or of short duration when for other reasons) because: Certification for Home Health Services: Based on the above findings, I certify that this patient is confined to the home and needs intermittent [facility] care, physical therapy and/or speech therapy or continues to need occupational therapy. The patient is under my care, and I have initiated the establishment of the plan of care. This patient will be followed by a physician who will periodically review the plan of care. Total Time Total Time Spent Total Time Spent (In Minutes): 50 Discharge Plan Discharge Items Patient Disposition: Home - Self-Care Reason For Visit: CHEST PAIN Discharge Diagnosis: chest pain, rule out ACS Abdominal pain, possible pancreatitis versus intestinal angina Activity: Resume your previous activity Non-emergency contact: Primary Care Provider Call non-emergency contact if: you have any medication questions, your pain is not controlled and your temperature is above 101 Follow-up/Referrals: Natalie Mirza PA-C [Primary Care Provider] - Diet: Carb Consistent or DM2 Diet Texture: Mechanical soft (ground) Addtl Attending Provider Instructions: Follow-up with your primary care physician within a week time and likely you will need blood lab CBC/CMP/mag and Phos. Cardiology evaluated you while in hospital, your heart enzymes were negative, recommend to follow-up with your cardiology as an outpatient. For your abdominal pain, there was concern of pancreatitis versus intestinal angina. Continue with soft diet at a small volume at a time upon discharge. You will need to follow-up with vascular surgeon in 6-month, if with worsening abdominal pain with eating then you can call the vascular surgery office for earlier appointment. You will also need to maintain follow-up with your GI doctor for multiple GI work-up as an outpatient. For your urine infection, you have been prescribed antibiotic, complete the course. Follow-up with final urine culture results with your PCP when you follow-up with the PCP office in a week time. Take your medications as prescribed. Pending Studies at Discharge: Yes (Urine culture final results.) Stand-Alone Forms: My [facility] Novavax AB, Smoking Cessation Medications and DC Order Prescriptions: New cefdinir 300 mg capsule 300 mg PO BID 5 Days Qty: 10 0RF Continued memantine [Namenda] 10 mg tablet 10 mg PO BID Qty: 180 3RF docusate sodium 100 mg capsule 100 mg PO BID donepezil 10 mg tablet 10 mg PO HS cholecalciferol (vitamin D3) 25 mcg (1,000 unit) capsule 25 mcg PO DAILY finasteride 5 mg tablet 5 mg PO DAILY metformin 1,000 mg tablet 1,000 mg PO BID mirtazapine 30 mg tablet 30 mg PO HS pantoprazole 40 mg tablet,delayed release (DR/EC) 40 mg PO DAILYBB prazosin 2 mg capsule 2 mg PO HS venlafaxine 75 mg capsule,extended release 24hr 225 mg PO DAILY polyethylene glycol 3350 8.5 gram powder in packet 8.5 gm PO DAILY PRN (Reason: Constipation) acetaminophen 500 mg Tablet 1,000 mg PO TID PRN (Reason: Pain) atorvastatin 80 mg tablet 80 mg PO QAM aspirin 81 mg Tablet,Delayed Release (Dr/Ec) 81 mg PO QAM isosorbide mononitrate 60 mg Tablet Extended Release 24 Hr 60 mg PO QAM folic acid 1 mg Tablet 2 mg PO DAILY gabapentin 100 mg Capsule 200 mg PO BID metoprolol succinate 25 mg Tablet Extended Release 24 Hr 25 mg PO DAILY multivitamin with minerals Tablet 1 tab PO DAILY Brilinta 90 mg tablet 90 mg PO [facility] alogliptin 12.5 mg Tablet 12.5 mg PO QAM empagliflozin 25 mg Tablet 25 mg PO QAM Nutritional Shake Liquid 1 ea PO BID Discharge Orders: Discharge Order (Routine); Ordered 03/08/22 Ordered By: Immanuel Jones/Other Patient Handouts: Managing Type 2 Diabetes, How to Check Your Blood Sugar Admission Data Admit Date/Time: 03/07/22 04:08 Attending Provider: Immaneul Crain Admit Provider: Ifeanyi Mars Primary Care Provider: Natalie Mirza Other Providers: Ifeanyi Mars ; Brijesh Mcgowan ; Willy Bazzi ; Adrian Brown ; Wilmer Cosme ; Grge Rodriguez ; Bright Garcia ; Joy Corona ; Bella Bowles ; Francine Hood. ; Roman Kurtz ; Clifford Gaffney Jr ; Hunter Crews ; [facility]
== END 2022-03-08 16:35 | disposition home or self-care (01) ==
LOC: EDINP 23:42 → ED 23:42 → 1E 03-07 09:58 → 2S 03-07 17:45

== ENCOUNTER 2024-03-09 19:39 | Inpatient (IN) ==
--- NOTE | 2024-03-09 19:59 | Emergency Department Note ---
History of Present Illness General Chief complaint: Fall Stated complaint: FALLING, NOT SLEEPING, WEAKNESS Time Seen by Provider: 03/09/24 19:58 History of Present Illness This is a 78-year-old male that presents to the emergency department via private vehicle with complaints of "falling, weakness, sleep trouble". Patient here today with [id number]. Reportedly 1 week ago the patient had trouble sleeping. His waking hours seem to be during the night and sleeping more during the day. He has also had 3 falls over the past 2 days. They note small skin tear to the right arm as well as this morning at 3 AM patient was found between the bed and dresser. Patient does live with family. Patient does note left lower quadrant pain at this time. No reported loss of consciousness. Patient does feel overall weak. Patient notes he is scheduled for a cystoscopy on the of this month. Home Medications Medication Instructions Recorded Confirmed Type cholecalciferol (vitamin D3) 25 25 mcg PO DAILY 10/01/19 03/10/24 History mcg (1,000 unit) capsule docusate sodium 100 mg capsule 100 mg PO BID 10/01/19 03/10/24 History finasteride 5 mg tablet 5 mg PO DAILY 10/01/19 03/10/24 History metformin 1,000 mg tablet 1,000 mg PO BID 10/01/19 03/10/24 History mirtazapine 30 mg tablet 30 mg PO HS 10/01/19 03/10/24 History pantoprazole 40 mg tablet,delayed 40 mg PO DAILYBB 10/01/19 03/10/24 History release prazosin 2 mg capsule 2 mg PO HS 10/01/19 03/10/24 History venlafaxine 75 mg capsule,extended 150 mg PO DAILY 10/01/19 03/10/24 History release 24 hr memantine 10 mg tablet (Namenda) 10 mg PO BID #180 tabs 05/29/21 03/10/24 Rx aspirin 81 mg tablet,delayed 81 mg PO QAM 11/12/21 03/10/24 History release atorvastatin 80 mg tablet 80 mg PO QAM 11/12/21 03/10/24 History empagliflozin 25 mg tablet 25 mg PO QAM 11/12/21 03/10/24 History food supplemt, lactose-reduced 1 ea PO BID 09/15/22 01/08/23 History (Nutritional Shake oral liquid) gabapentin 100 mg capsule 200 mg PO BID 11/12/21 03/10/24 History isosorbide mononitrate 60 mg 30 mg PO QAM 11/12/21 03/10/24 History tablet,extended release 24 hr metoprolol succinate 25 mg 25 mg PO DAILY 11/12/21 03/10/24 History tablet,extended release 24 hr clopidogrel 75 mg tablet (Plavix) 75 mg DAILY 03/10/24 03/10/24 History sitagliptin 50 mg tablet 50 mg PO DAILY 03/10/24 03/10/24 History Allergies Allergy/AdvReac Type Severity Reaction Status Date / Time No Known Allergies Allergy Verified 03/07/22 01:01 Past Med/Surg History Problem List (Updated 03/10/24 @ 04:33 by Derick Mark PA-C) Recurrent falls (Acute) Urinary tract infection (Acute) Superior mesenteric artery stenosis Left-sided chest pain (Acute) Abdominal pain (Acute) Encounter for pre-operative examination Degenerative disc disease CAD (coronary artery disease), [place] coronary artery LAD stent (~09/2021) AWAITING DETAILS WHO PATIENT'S RUFFLER IS/WHEN LAST SEEN Recurrent falls while walking Chronic reflux esophagitis (Acute) Insomnia (Acute) Chest pain Medical History Syncope 10/2021 s/p unremarkable [facility] admission workup (felt possibly related to medication reaction/hypoglycemia or Covid 19 contributing) AWAITING DETAILS IF FURTHER EPISODES SINCE ADMISSION COVID-19 11/12/21 ([facility]; [facility] Now) Dementia Gait abnormality Parkinsonism Depression Diabetes mellitus Hypertension Vertigo Surgical History S/P cholecystectomy Social History Smoking Status: Never smoker Second Hand Exposure: No; Do You Dip or Chew Tobacco: No; Tobacco Cessation Education Requested by Patient: No Hx Alcohol Use: No Hx Substance Use: No Preferred Language: Dutch Communication Ability: Effective Manager City Required: No Beliefs That Will Affect Care: None marital status: / Current Living Situation: Family Current Living Situation Comment: lives with son Other Information That Helps Us Care for You: No Feels Safe at Home: Yes Safety Concerns: Feels Safe At This Time Assistive Devices: Cane, Glasses, Walker and Wheelchair Review of Systems A total of 10 systems reviewed and were otherwise negative Physical Exam Vital Signs Vital Signs - 24 hr 03/09/24 19:43 03/09/24 20:04 03/09/24 20:30 Temperature 36.7 C Temperature Source Temporal Artery Scan Pulse Rate 87 Pulse Rate [Apical] 81 Respiratory Rate 17 19 Respiratory Effort / Characteristics Non-Labored Spontaneous Non-Labored Spontaneous Respiratory Depth Normal Normal Respiratory Pattern Regular Regular Blood Pressure 113/72 112/72 Blood Pressure [Right Arm] 127/81 Blood Pressure Mean 85 76 Blood Pressure Mean [Right Arm] 96 Blood Pressure Position Sitting Pulse Oximetry 97 97 Oxygen Delivery Method Room Air Room Air Sepsis Recent Fever Within 48 Hours No Sepsis New/Unexplained Change in Mental Status N/A Sepsis Action Taken by Nursing No Action Required 03/09/24 20:30 03/09/24 20:48 03/09/24 21:42 Temperature Temperature Source Pulse Rate 80 86 Pulse Rate [Apical] Respiratory Rate 27 H Respiratory Effort / Characteristics Respiratory Depth Respiratory Pattern Blood Pressure 132/81 125/81 Blood Pressure [Right Arm] Blood Pressure Mean 95 95 Blood Pressure Mean [Right Arm] Blood Pressure Position Pulse Oximetry 98 Oxygen Delivery Method Sepsis Recent Fever Within 48 Hours Sepsis New/Unexplained Change in Mental Status Sepsis Action Taken by Nursing 03/09/24 22:00 03/09/24 22:03 03/09/24 22:27 Temperature Temperature Source Pulse Rate 87 90 Pulse Rate [Apical] 87 Respiratory Rate 18 24 27 H Respiratory Effort / Characteristics Respiratory Depth Respiratory Pattern Blood Pressure 126/79 131/84 Blood Pressure [Right Arm] 126/79 Blood Pressure Mean 94 99 Blood Pressure Mean [Right Arm] 94 Blood Pressure Position Pulse Oximetry 99 99 98 Oxygen Delivery Method Room Air Sepsis Recent Fever Within 48 Hours Sepsis New/Unexplained Change in Mental Status Sepsis Action Taken by Nursing 03/09/24 22:57 Temperature Temperature Source Pulse Rate 92 H Pulse Rate [Apical] Respiratory Rate 19 Respiratory Effort / Characteristics Respiratory Depth Respiratory Pattern Blood Pressure 141/86 H Blood Pressure [Right Arm] Blood Pressure Mean 104 Blood Pressure Mean [Right Arm] Blood Pressure Position Pulse Oximetry 98 Oxygen Delivery Method Sepsis Recent Fever Within 48 Hours Sepsis New/Unexplained Change in Mental Status Sepsis Action Taken by Nursing VITAL SIGNS - Vital signs and nursing notes were reviewed. Stable and afebrile. GENERAL -78-year-old male appearing his stated age who is in no acute distress. Communicates well with provider and answers questions appropriately. SKIN - Without rashes. No meningeal or petechial rash. Small 1 cm skin tear to the right proximal lateral forearm area near the elbow. No sign of infection. Overlying bandage noted. HEAD - NC/AT. No smith signs or raccoon's eyes. EYES - PERRL with EOMI bilaterally. Sclera anicteric. Palpebral conjunctiva pink and moist with no injection noted. No hyphema. EARS - No deformities of external structures noted on gross examination bilaterally. External auditory canals without discharge or otorrhea. Tympanic membranes pearly shields without retraction or bulging. No fluid or purulent material visualized behind the TM. Handle of malleus, umbo, cone of light, pars tensa/flaccid all easily visualized. NOSE - Midline and without cyanosis. No epistaxis or purulent drainage noted. Septum midline without deviation or septal hematoma noted. MOUTH/OROPHARYNX - Without perioral cyanosis. Buccal mucosa pink and moist and without leukoplakia. Tongue midline with equal elevation of palate bilaterally. No tonsillar hypertrophy, erythema, or exudates noted. Fair dentition noted. NECK -no C-spine tenderness. No nuchal rigidity. LUNGS -clear to auscultation. CARDIAC - RRR ABDOMEN - Abdominal contour normal without pulsations or visible masses. BS normoactive all four quadrants. No tenderness, palpable masses, hepatosplenomegaly, or ascites noted. Indwelling Nation catheter noted. EXTREMITIES - No clubbing or peripheral cyanosis. +5/5 strength noted in UE/LE bilaterally. NEUROLOGIC - Cranial nerves II through XII grossly intact. PSYCH -alert, oriented and pleasant on exam Course Administered Medications Insulin Aspart (Insulin Aspart Per Unit Charge) 0 units SC ACHS [facility] Stop: 04/09/24 02:44 Last Admin: 03/10/24 03:30 Dose: 1 units Documented By: CARMELO Co-signed By: ANNITA Discontinued Medications Sodium Chloride (Nss) 500 mls @ 125 mls/hr IV .Q4H LETICIA Stop: 03/10/24 02:44 Last Infusion: 03/10/24 03:02 Dose: Infused Documented By: Admin: 03/09/24 22:57 Dose: 125 mls/hr Documented By: GONZÁLEZ Daptomycin 350 mg/ Syringe 7 mls @ 3.5 mls/min IV NOW STA; Protocol Stop: 03/09/24 22:56 Last Admin: 03/10/24 00:02 Dose: 3.5 mls/min Documented By: DESHAUN Ioversol (Optiray 320 100ml) 90 ml IV ONCE ONE Stop: 03/09/24 20:39 Last Admin: 03/09/24 20:38 Dose: 90 ml Documented By: GILMAR Medical Decision Making Laboratory Data 03/09/24 19:55 03/09/24 19:55 Lab Results 03/09/24 03/09/24 03/09/24 Range/Units 19:55 20:14 22:14 WBC 8.28 (4.8-10.8) K/ul RBC 5.07 (4.70-6.10) M/uL Hgb 14.3 (14.0-18.0) g/dl Hct 43.7 (42.0-52.0) % MCV 86.2 (80.0-100.0) fL MCH 28.2 (25.0-34.0) pg MCHC 32.7 (32.0-36.0) g/dL RDW Std Deviation 42.8 (36.4-46.3) fL RDW Coeff of Elpidio 13.9 (11.5-14.5) % Plt Count 233 (130-400) K/uL MPV 9.8 (9.4-12.4) fL Immature Gran % (Auto) 3.5 % Neut % (Auto) 74.3 % Lymph % (Auto) 10.7 % [place] % (Auto) 7.9 % Eos % (Auto) 3.0 % Baso % (Auto) 0.6 % Neut # (Auto) 6.15 (1.40-6.50) K/uL Lymph # (Auto) 0.89 L (1.20-3.40) K/uL [place] # (Auto) 0.65 H (0.11-0.59) K/uL Eos # (Auto) 0.25 (0.00-0.50) K/uL Baso # (Auto) 0.05 (0.00-0.20) K/uL Immature Gran # (Auto) 0.29 H (0.01-0.20) K/uL Sodium 134 L (136-145) mmol/L Potassium 4.4 (3.5-5.1) mmol/L Chloride 99 (98-107) mmol/L Carbon Dioxide 28 (21-32) mmol/L Anion Gap 7 (3-11) BUN 20 (6-23) mg/dl Creatinine 1.12 (0.6-1.4) mg/dl Est Cr Clr Drug Dosing 45.2 ml/min eGFR 68.08 BUN/Creatinine Ratio 17.9 (10-20) Glucose 272 H (70-99(Fasting)) mg/dl Lactate 3.1 H* 1.8 (0.4-2.0) mmol/L Calcium 8.9 (8.6-10.3) mg/dl Total Bilirubin 0.7 (0.2-1.0) mg/dl AST 24 (13-39) U/L ALT 16 (7-52) U/L Alkaline Phosphatase 80 (34-104) U/L Total Creatine Kinase 163 (30-223) U/L Troponin I High Sens 3.6 (0-20) pg/ml Total Protein 7.1 (6.0-8.3) gm/dl Albumin 4.1 (3.4-5.0) gm/dl Globulin 3.0 (2.5-4.0) gm/dl Albumin/Globulin Ratio 1.4 (0.9-2) Procalcitonin 0.31 (0-0.5) ng/ml Urine Color Urine Appearance (Clear) Urine pH (4.5-7.5) Ur Specific [place] (1.000-1.030) Urine Protein (Negative) Urine Glucose (UA) (Negative) Urine Ketones (Negative) Urine Blood (Negative) Urine Nitrite (Negative) Urine Bilirubin (Negative) Urine Urobilinogen (Negative) Ur Leukocyte Esterase (Negative) Urine WBC (Auto) (0-5) /hpf Urine RBC (Auto) (0-2) /hpf U Hyaline Cast (Auto) (0-2) /lpf U Epithel Cells (Auto) (0-2) /hpf Urine Bacteria (Auto) (None Seen) Adenovirus (PCR) Not Detected (NotDetected) B. pertussis DNA (PCR) Not Detected (NotDetected) B.parapertussis DNA PCR Not Detected (NotDetected) C. pneumoniae DNA (PCR) Not Detected (NotDetected) Coronavirus OC43 (PCR) Not Detected (NotDetected) Coronavirus HKU1 (PCR) Not Detected (NotDetected) Coronavirus 229E (PCR) Not Detected (NotDetected) SARS-CoV-2 (PCR) Not Detected (NotDetected) Coronavirus NL63 (PCR) Not Detected (NotDetected) Human Metapneumovir PCR Not Detected (NotDetected) Influenza Type A (PCR) Not Detected (NotDetected) Influenza Type B (PCR) Not Detected (NotDetected) M. pneumoniae (PCR) Not Detected (NotDetected) Parainfluenza 1 (PCR) Not Detected (NotDetected) Parainfluenza 2 (PCR) Not Detected (NotDetected) Parainfluenza 3 (PCR) Not Detected (NotDetected) Parainfluenza 4 (PCR) Not Detected (NotDetected) RSV (PCR) Not Detected (NotDetected) Entero/Rhino (PCR) Not Detected (NotDetected) 03/09/24 Range/Units 23:44 WBC (4.8-10.8) K/ul RBC (4.70-6.10) M/uL Hgb (14.0-18.0) g/dl Hct (42.0-52.0) % MCV (80.0-100.0) fL MCH (25.0-34.0) pg MCHC (32.0-36.0) g/dL RDW Std Deviation (36.4-46.3) fL RDW Coeff of Elpidio (11.5-14.5) % Plt Count (130-400) K/uL MPV (9.4-12.4) fL Immature Gran % (Auto) % Neut % (Auto) % Lymph % (Auto) % [place] % (Auto) % Eos % (Auto) % Baso % (Auto) % Neut # (Auto) (1.40-6.50) K/uL Lymph # (Auto) (1.20-3.40) K/uL [place] # (Auto) (0.11-0.59) K/uL Eos # (Auto) (0.00-0.50) K/uL Baso # (Auto) (0.00-0.20) K/uL Immature Gran # (Auto) (0.01-0.20) K/uL Sodium (136-145) mmol/L Potassium (3.5-5.1) mmol/L Chloride (98-107) mmol/L Carbon Dioxide (21-32) mmol/L Anion Gap (3-11) BUN (6-23) mg/dl Creatinine (0.6-1.4) mg/dl Est Cr Clr Drug Dosing ml/min eGFR BUN/Creatinine Ratio (10-20) Glucose (70-99(Fasting)) mg/dl Lactate (0.4-2.0) mmol/L Calcium (8.6-10.3) mg/dl Total Bilirubin (0.2-1.0) mg/dl AST (13-39) U/L ALT (7-52) U/L Alkaline Phosphatase (34-104) U/L Total Creatine Kinase (30-223) U/L Troponin I High Sens (0-20) pg/ml Total Protein (6.0-8.3) gm/dl Albumin (3.4-5.0) gm/dl Globulin (2.5-4.0) gm/dl Albumin/Globulin Ratio (0.9-2) Procalcitonin (0-0.5) ng/ml Urine Color Yellow Urine Appearance Turbid A (Clear) Urine pH 5.5 (4.5-7.5) Ur Specific [place] > 1.045 H (1.000-1.030) Urine Protein 1+ H (Negative) Urine Glucose (UA) 3+ H (Negative) Urine Ketones 2+ H (Negative) Urine Blood 2+ H (Negative) Urine Nitrite Positive A (Negative) Urine Bilirubin Negative (Negative) Urine Urobilinogen Negative (Negative) Ur Leukocyte Esterase 2+ H (Negative) Urine WBC (Auto) >50 H (0-5) /hpf Urine RBC (Auto) 11-20 H (0-2) /hpf U Hyaline Cast (Auto) 3-5 H (0-2) /lpf U Epithel Cells (Auto) 0-2 (0-2) /hpf Urine Bacteria (Auto) 4+ H (None Seen) Adenovirus (PCR) (NotDetected) B. pertussis DNA (PCR) (NotDetected) B.parapertussis DNA PCR (NotDetected) C. pneumoniae DNA (PCR) (NotDetected) Coronavirus OC43 (PCR) (NotDetected) Coronavirus HKU1 (PCR) (NotDetected) Coronavirus 229E (PCR) (NotDetected) SARS-CoV-2 (PCR) (NotDetected) Coronavirus NL63 (PCR) (NotDetected) Human Metapneumovir PCR (NotDetected) Influenza Type A (PCR) (NotDetected) Influenza Type B (PCR) (NotDetected) M. pneumoniae (PCR) (NotDetected) Parainfluenza 1 (PCR) (NotDetected) Parainfluenza 2 (PCR) (NotDetected) Parainfluenza 3 (PCR) (NotDetected) Parainfluenza 4 (PCR) (NotDetected) RSV (PCR) (NotDetected) Entero/Rhino (PCR) (NotDetected) Imaging Data Radiologist's Impression: Chest X-Ray 03/09/24 20:09 Exam(s): XR CXR 1 VIEW EXAM: XR Chest, 1 View CLINICAL HISTORY: Reason for exam: weakness. TECHNIQUE: Frontal view of the chest. COMPARISON: March 07, 2022 FINDINGS: Lungs: Unremarkable. No consolidation. Pleural space: Unremarkable. No pneumothorax. Heart: Unremarkable. No cardiomegaly. Mediastinum: Unremarkable. Normal mediastinal contour. Bones/joints: Mild degenerative changes in the shoulders. No acute fracture. Upper abdomen: Unremarkable as visualized. No pneumoperitoneum under the diaphragm. IMPRESSION: No acute findings in the chest. Electronically signed by: Antwan Lauren MD 03/09/24 22:[address] 03/09/24 20:09 Exam(s): CT HEAD Without Contrast EXAM: CT Head Without Intravenous Contrast CLINICAL HISTORY: Reason for exam: Frequent falls, weakness. TECHNIQUE: Axial computed tomography images of the head/brain without intravenous contrast. CTDI is 38.43 mGy and DLP is 546.36 mGy-cm. Automated exposure control was utilized for the study. A dose lowering technique was utilized adhering to the principles of ALARA. COMPARISON: November 11, 2021 FINDINGS: Brain: Mild periventricular white matter low density consistent with chronic small vessel disease and/or senescent changes, similar to previous per the brain is otherwise unremarkable. No acute large vessel infarct or intracranial hemorrhage is seen. Ventricles: Unremarkable. No ventriculomegaly. Bones/joints: See below. Soft tissues: Small posterior scalp hematoma. No skull fracture. Sinuses: Unremarkable as visualized. No acute sinusitis. Mastoid air cells: Unremarkable as visualized. No mastoid effusion. IMPRESSION: 1. Small posterior scalp hematoma. No skull fracture. 2. Mild periventricular white matter low density consistent with chronic small vessel disease and/or senescent changes, similar to previous per the brain is otherwise unremarkable. No acute large vessel infarct or intracranial hemorrhage is seen. Electronically signed by: Antwan Lauren MD 03/09/24 22:33 PM Abdomen/Pelvis CT 03/09/24 20:10 Exam(s): CT ABDOMEN + PELVIS With Contrast IV Amt: 90ml optiray 320 EXAM: CT Abdomen and Pelvis With Intravenous Contrast CLINICAL HISTORY: Reason for exam: LLQ abd pain. TECHNIQUE: Axial computed tomography images of the abdomen and pelvis with intravenous contrast. CTDI is 19.57 mGy and DLP is 866.82 mGy-cm. Automated exposure control was utilized for the study. A dose lowering technique was utilized adhering to the principles of ALARA. CONTRAST: Patient received 90ml optiray 320 of IV contrast COMPARISON: No relevant prior studies available. FINDINGS: Lung bases: Unremarkable. No mass. No consolidation. Mediastinum: 2.5 cm hiatal hernia. ABDOMEN: Liver: Lobular 2.9 cm simple cyst in the liver. No follow-up is required. Gallbladder and bile ducts: Previous cholecystectomy. No biliary duct dilation is seen. Pancreas: Unremarkable. No mass. No ductal dilation. Spleen: Unremarkable. No splenomegaly. Adrenals: Unremarkable. No mass. Kidneys and ureters: Unremarkable. No solid mass. No hydronephrosis. Stomach and bowel: Unremarkable. No obstruction. No mucosal thickening. PELVIS: Appendix: There is an anastomotic staple line in the mid sigmoid colon. The appendix is normal. Bowel loops are nondilated. No acute inflammatory changes are seen involving the bowel. Bladder: Mild wall thickening involving the urinary bladder posterior wall. Consider cystitis. There is a Nation catheter in the bladder. Reproductive: Unremarkable as visualized. ABDOMEN and PELVIS: Intraperitoneal space: Unremarkable. No free air. No significant fluid collection. Bones/joints: Moderate multilevel degenerative changes throughout the spine. No acute fracture or subluxation. Mild degenerative changes in the hips. No hip or pelvic fracture is identified. Soft tissues: Unremarkable. Vasculature: Unremarkable. No abdominal aortic aneurysm. Lymph nodes: Unremarkable. No enlarged lymph nodes. IMPRESSION: 1. Mild wall thickening involving the urinary bladder posterior wall. Consider cystitis. There is a Nation catheter in the bladder. 2. There is an anastomotic staple line in the mid sigmoid colon. The appendix is normal. Bowel loops are nondilated. No acute inflammatory changes are seen involving the bowel. 3. No acute traumatic findings are identified. Electronically signed by: Antwan Lauren MD 03/09/24 22:[address] 03/09/24 20:14 Exam(s): CT C SPINE EXAM: CT Cervical Spine Without Intravenous Contrast CLINICAL HISTORY: Reason for exam: Frequent falls, trauma. TECHNIQUE: Axial computed tomography images of the cervical spine without intravenous contrast. CTDI is 22.33 mGy and DLP is 444.16 mGy-cm. Automated exposure control was utilized for the study. A dose lowering technique was utilized adhering to the principles of ALARA. COMPARISON: No relevant prior studies available. FINDINGS: Vertebrae: Previous anterior plate and screw fusion of C3-C5 with hardware is intact. No acute fracture. Normal anatomic variant of incomplete fusion of the posterior arch of C1. Soft tissues: Unremarkable. DISCS/SPINAL CANAL/NEURAL FORAMINA: C2-C3: Mild degenerative disc disease. No stenosis. C3-C4: The disc is fused. No stenosis. C4-C5: The disc is fused. No stenosis. C5-C6: Mild degenerative disc disease. No stenosis. C6-C7: Mild degenerative disc disease. No stenosis. C7-T1: Unremarkable. No significant disc disease. No stenosis. IMPRESSION: Mild degenerative disc disease throughout the remainder of the cervical spine. No acute fracture or subluxation is seen. Electronically signed by: Antwan Lauren MD 03/09/24 22:[address] 03/09/24 20:14 Exam(s): CT CHEST With Contrast IV Amt: 90ml optiray 320 EXAM: CT Chest With Intravenous Contrast CLINICAL HISTORY: Reason for exam: Frequent falls, trauma. TECHNIQUE: Axial computed tomography images of the chest with intravenous contrast. CTDI is 19.57 mGy and DLP is 866.82 mGy-cm. Automated exposure control was utilized for the study. A dose lowering technique was utilized adhering to the principles of ALARA. CONTRAST: Patient received 90ml optiray 320 of IV contrast COMPARISON: No relevant prior studies available. FINDINGS: Lungs: Unremarkable. No mass. No consolidation. Pleural space: Unremarkable. No pneumothorax. No significant effusion. Heart: The heart is upper normal in size. There is a stent in the LAD. No pericardial effusion. Bones/joints: Mild multilevel degenerative changes throughout the spine. No acute fracture or destructive bone lesion is seen. No dislocation. Soft tissues: Unremarkable. 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 The remainder the thoracic aorta is nondilated. No dissection. Lymph nodes: Unremarkable. No enlarged lymph nodes. IMPRESSION: No acute traumatic findings are seen involving the thorax. 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 The remainder the thoracic aorta is nondilated. No dissection. Electronically signed by: Antwan Lauren MD 03/09/24 22:40 PM MDM Narrative Patient was seen and evaluated as above in room D01b. Review was performed of triage nursing notes and vital signs. I did review pertinent previous visits and patient history. After obtaining a thorough history and physical examination the above work up was performed. Patient presents to us today for evaluation of generalized weakness with 3 falls over the past 2 days. Small skin tear to the right upper extremity. GCS 15. EKG reveals normal sinus rhythm at a rate of 82 bpm. QTc 432. QRS 66. No ST elevation on this rhythm tracing. IV access was established. Labs were drawn. Chest x-ray performed. Per my interpretation chest x-ray was negative for acute process. Labs reveal no leukocytosis or concerning anemia. Mild hyponatremia 134. Hyperglycemia 272 noted. Lactate initially elevated but returned to normal without intervention. Procalcitonin 0.31. Total CK within normal range. Urinalysis concerning for infection. BioFire panel negative. Patient also has left lower quadrant abdominal pain in the setting of frequent falls will proceed with trauma scans at this time of the head, C-spine, chest, abdomen/pelvis to further assess. It was felt that the benefit outweighed risk. CT head was negative for acute process other than small posterior scalp hematoma. No skull fracture. Chronic findings noted. CT C-spine was negative for acute process. CT chest was negative for acute traumatic findings. 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 CT scan abdomen/pelvis does reveal findings to suggest possible UTI. This does clinically correlate. I do suspect UTI as the cause of the patient's symptoms at this time. Will proceed with replacement of the Nation catheter and IV antibiotics. Per review of previous culture, IV daptomycin will be started. I do believe that further evaluation and management in the inpatient setting is warranted. Case discussed with the hospitalist service. While here the patient was hydrated with normal saline. GCS: 15 In the evaluation and treatment of this patient the following differential diagnoses were entertained: CVA, TIA, pneumonia, acute traumatic injury, UTI, pyelonephritis, among others. Impression & Plan Recurrent falls, Abdominal pain, Urinary tract infection Discharge Plan Visit Data Chief Complaint: Fall Stated Complaint: FALLING, NOT SLEEPING, WEAKNESS ED Provider: Shalini Walton ED Midlevel Provider: Derick Mark Discharge Problem: Recurrent falls, Abdominal pain, Urinary tract infection Patient Disposition: Admitted As Inpatient Condition: Good Discharge Instructions Interventions: ED Discharge Assessment Last Done: 03/10/24 01:44
[2024-03-09 20:10] LABS: Basophils # (auto) 0.05 K/uL (0.00-0.20); Basophils % (auto) 0.6 %; Eosinophils # (auto) 0.25 K/uL (0.00-0.50); Hematocrit (blood only) 43.7 % (42.0-52.0); Hemoglobin 14.3 g/dl (14.0-18.0); Immature Granulocytes # (auto) 0.29 K/uL (0.01-0.20); Immature Granulocytes % (auto) 3.5 %; Lymphocytes # (auto) 0.89 K/uL (1.20-3.40); Lymphocytes % (auto) 10.7 %; Mean Corpuscular Hemoglobin 28.2 pg (25.0-34.0); Mean Corpuscular Hgb Conc 32.7 g/dL (32.0-36.0); Mean Corpuscular Volume 86.2 fL (80.0-100.0); Mean Platelet Volume 9.8 fL (9.4-12.4); Monocytes # (auto) 0.65 K/uL (0.11-0.59); Monocytes % (auto) 7.9 %; Neutrophils # (auto) 6.15 K/uL (1.40-6.50); Neutrophils % (auto) 74.3 %; Platelet Count 233 K/uL (130-400); RDW Coefficient of Variation 13.9 % (11.5-14.5); RDW Standard Deviation 42.8 fL (36.4-46.3); Red Blood Count 5.07 M/uL (4.70-6.10); White Blood Count 8.28 K/ul (4.8-10.8)
[2024-03-09 20:28] LABS: Albumin Globulin Ratio 1.4 (0.9-2); Albumin Level 4.1 gm/dl (3.4-5.0); BUN Creatinine Ratio 17.9 (10-20); Bilirubin,Total 0.7 mg/dl (0.2-1.0); Calcium 8.9 mg/dl (8.6-10.3); Creatinine Clr Calc Pharmacy 45.2 ml/min; Potassium 4.4 mmol/L (3.5-5.1); Total Protein 7.1 gm/dl (6.0-8.3)
[2024-03-09] MEDS: OPTIRAY 320 100ml IV ONE (20:38)
[2024-03-09 21:07] LABS: Troponin I High Sensitivity 3.6 pg/ml (0-20)
[2024-03-09 21:11] LABS: Adenovirus PCR Not Detected (NotDetected); Bordetella parapertussis PCR Not Detected (NotDetected); Bordetella pertussis PCR Not Detected (NotDetected); Chlamydia pneumoniae PCR Not Detected (NotDetected); Coronavirus 229E PCR Not Detected (NotDetected); Coronavirus CoV-2 (COVID19)PCR Not Detected (NotDetected); Coronavirus HKU1 PCR Not Detected (NotDetected); Coronavirus NL63 PCR Not Detected (NotDetected); Coronavirus OC43PCR Not Detected (NotDetected); Human Metapneumovirus PCR Not Detected (NotDetected); Influenza A PCR Not Detected (NotDetected); Influenza B PCR Not Detected (NotDetected); Mycoplasma pneumoniae PCR Not Detected (NotDetected); Parainfluenza Virus 1 PCR Not Detected (NotDetected); Parainfluenza Virus 2 PCR Not Detected (NotDetected); Parainfluenza Virus 3 PCR Not Detected (NotDetected); Parainfluenza Virus 4 PCR Not Detected (NotDetected); Respiratory Syncytial VirusPCR Not Detected (NotDetected); Rhinovirus/Enterovirus PCR Not Detected (NotDetected)
--- NOTE | 2024-03-09 22:34 | CT Scan Report ---
Exam(s): CT HEAD Without Contrast EXAM: CT Head Without Intravenous Contrast CLINICAL HISTORY: Reason for exam: Frequent falls, weakness. TECHNIQUE: Axial computed tomography images of the head/brain without intravenous contrast. CTDI is 38.43 mGy and DLP is 546.36 mGy-cm. Automated exposure control was utilized for the study. A dose lowering technique was utilized adhering to the principles of ALARA. COMPARISON: November 11, 2021 FINDINGS: Brain: Mild periventricular white matter low density consistent with chronic small vessel disease and/or senescent changes, similar to previous per the brain is otherwise unremarkable. No acute large vessel infarct or intracranial hemorrhage is seen. Ventricles: Unremarkable. No ventriculomegaly. Bones/joints: See below. Soft tissues: Small posterior scalp hematoma. No skull fracture. Sinuses: Unremarkable as visualized. No acute sinusitis. Mastoid air cells: Unremarkable as visualized. No mastoid effusion. IMPRESSION: 1. Small posterior scalp hematoma. No skull fracture. 2. Mild periventricular white matter low density consistent with chronic small vessel disease and/or senescent changes, similar to previous per the brain is otherwise unremarkable. No acute large vessel infarct or intracranial hemorrhage is seen. Electronically signed by: Antwan Lauren MD 03/09/24 22:33 PM
--- NOTE | 2024-03-09 22:39 | CT Scan Report ---
Exam(s): CT C SPINE EXAM: CT Cervical Spine Without Intravenous Contrast CLINICAL HISTORY: Reason for exam: Frequent falls, trauma. TECHNIQUE: Axial computed tomography images of the cervical spine without intravenous contrast. CTDI is 22.33 mGy and DLP is 444.16 mGy-cm. Automated exposure control was utilized for the study. A dose lowering technique was utilized adhering to the principles of ALARA. COMPARISON: No relevant prior studies available. FINDINGS: Vertebrae: Previous anterior plate and screw fusion of C3-C5 with hardware is intact. No acute fracture. Normal anatomic variant of incomplete fusion of the posterior arch of C1. Soft tissues: Unremarkable. DISCS/SPINAL CANAL/NEURAL FORAMINA: C2-C3: Mild degenerative disc disease. No stenosis. C3-C4: The disc is fused. No stenosis. C4-C5: The disc is fused. No stenosis. C5-C6: Mild degenerative disc disease. No stenosis. C6-C7: Mild degenerative disc disease. No stenosis. C7-T1: Unremarkable. No significant disc disease. No stenosis. IMPRESSION: Mild degenerative disc disease throughout the remainder of the cervical spine. No acute fracture or subluxation is seen. Electronically signed by: Antwan Lauren MD 03/09/24 22:38 PM
--- NOTE | 2024-03-09 22:41 | CT Scan Report ---
Exam(s): CT CHEST With Contrast IV Amt: 90ml optiray 320 EXAM: CT Chest With Intravenous Contrast CLINICAL HISTORY: Reason for exam: Frequent falls, trauma. TECHNIQUE: Axial computed tomography images of the chest with intravenous contrast. CTDI is 19.57 mGy and DLP is 866.82 mGy-cm. Automated exposure control was utilized for the study. A dose lowering technique was utilized adhering to the principles of ALARA. CONTRAST: Patient received 90ml optiray 320 of IV contrast COMPARISON: No relevant prior studies available. FINDINGS: Lungs: Unremarkable. No mass. No consolidation. Pleural space: Unremarkable. No pneumothorax. No significant effusion. Heart: The heart is upper normal in size. There is a stent in the LAD. No pericardial effusion. Bones/joints: Mild multilevel degenerative changes throughout the spine. No acute fracture or destructive bone lesion is seen. No dislocation. Soft tissues: Unremarkable. 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 The remainder the thoracic aorta is nondilated. No dissection. Lymph nodes: Unremarkable. No enlarged lymph nodes. IMPRESSION: No acute traumatic findings are seen involving the thorax. 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 The remainder the thoracic aorta is nondilated. No dissection. Electronically signed by: Antwan Lauren MD 03/09/24 22:40 PM
--- NOTE | 2024-03-09 22:44 | CT Scan Report ---
Exam(s): CT ABDOMEN + PELVIS With Contrast IV Amt: 90ml optiray 320 EXAM: CT Abdomen and Pelvis With Intravenous Contrast CLINICAL HISTORY: Reason for exam: LLQ abd pain. TECHNIQUE: Axial computed tomography images of the abdomen and pelvis with intravenous contrast. CTDI is 19.57 mGy and DLP is 866.82 mGy-cm. Automated exposure control was utilized for the study. A dose lowering technique was utilized adhering to the principles of ALARA. CONTRAST: Patient received 90ml optiray 320 of IV contrast COMPARISON: No relevant prior studies available. FINDINGS: Lung bases: Unremarkable. No mass. No consolidation. Mediastinum: 2.5 cm hiatal hernia. ABDOMEN: Liver: Lobular 2.9 cm simple cyst in the liver. No follow-up is required. Gallbladder and bile ducts: Previous cholecystectomy. No biliary duct dilation is seen. Pancreas: Unremarkable. No mass. No ductal dilation. Spleen: Unremarkable. No splenomegaly. Adrenals: Unremarkable. No mass. Kidneys and ureters: Unremarkable. No solid mass. No hydronephrosis. Stomach and bowel: Unremarkable. No obstruction. No mucosal thickening. PELVIS: Appendix: There is an anastomotic staple line in the mid sigmoid colon. The appendix is normal. Bowel loops are nondilated. No acute inflammatory changes are seen involving the bowel. Bladder: Mild wall thickening involving the urinary bladder posterior wall. Consider cystitis. There is a Nation catheter in the bladder. Reproductive: Unremarkable as visualized. ABDOMEN and PELVIS: Intraperitoneal space: Unremarkable. No free air. No significant fluid collection. Bones/joints: Moderate multilevel degenerative changes throughout the spine. No acute fracture or subluxation. Mild degenerative changes in the hips. No hip or pelvic fracture is identified. Soft tissues: Unremarkable. Vasculature: Unremarkable. No abdominal aortic aneurysm. Lymph nodes: Unremarkable. No enlarged lymph nodes. IMPRESSION: 1. Mild wall thickening involving the urinary bladder posterior wall. Consider cystitis. There is a Nation catheter in the bladder. 2. There is an anastomotic staple line in the mid sigmoid colon. The appendix is normal. Bowel loops are nondilated. No acute inflammatory changes are seen involving the bowel. 3. No acute traumatic findings are identified. Electronically signed by: Antwan Lauren MD 03/09/24 22:43 PM
--- NOTE | 2024-03-09 22:46 | XRay Report ---
Exam(s): XR CXR 1 VIEW EXAM: XR Chest, 1 View CLINICAL HISTORY: Reason for exam: weakness. TECHNIQUE: Frontal view of the chest. COMPARISON: March 07, 2022 FINDINGS: Lungs: Unremarkable. No consolidation. Pleural space: Unremarkable. No pneumothorax. Heart: Unremarkable. No cardiomegaly. Mediastinum: Unremarkable. Normal mediastinal contour. Bones/joints: Mild degenerative changes in the shoulders. No acute fracture. Upper abdomen: Unremarkable as visualized. No pneumoperitoneum under the diaphragm. IMPRESSION: No acute findings in the chest. Electronically signed by: Antwan Lauren MD 03/09/24 22:45 PM
[2024-03-09] MEDS: SODIUM CHLORIDE 0.9% 500 ML IV SCH (22:57)
--- NOTE | 2024-03-09 23:15 | History & Physical Report ---
Date of Service March 09, 2024 Assessment & Plan (1) Urinary tract infection: (2) Recurrent falls: Plan 78-year-old male PMHx CAD s/p LAD stent camila 2021), DDD, HTN, DM, depression, dementia presenting to ED for recurrent falls. Over the past 2 days prior to arrival, the patient has fallen approximately 3 times. Has hit his head during the falls, but CT head revealing no acute findings other than small scalp hematoma. Pt w/o symptoms prior to falls, no LOC, and no seizure like activities. Has been feeling slightly weak over the past week prior to admission but no additional symptoms of concern to note. #UTI/Recurrent falls Symptoms of insomnia, generalized weakness. Does have a urinary catheter in place which appeared to have abnormal urine upon initial arrival to the ED, which was changed in the ED and UA obtained. No documented history of pseudomonas on prior cultures. Suspect that recurrent falls exacerbated within this past week by presence of UTI. No infectious symptoms, no leukocytosis, procal normal. Did have elevated lactate on admission but resolved on repeat while in ED. Follows with urology for UTI, most recent visit 12/2023, on finasteride. - CBC w/o leukocytosis, no evidence of SYLVIE; UA shows protein, glucose, ketones, blood, nitrite, LE, WBC, RBC, hyaline cast and bacteria. Pending cx - Was found on floor the am of arrival at 0300 by son, unsure how long he was laying there- CK 163, no current pain - CTAP with mild wall thickening involving urinary bladder posterior wall, Nation catheter in bladder. No acute abdominal findings. - Consider changing catheter early in hospital course; deferred at time of admission given mild abdominal pain - Started on daptomycin in ED given prior culture results- continue daptomycin - Zofran 4mg IV q4h prn N/V - PT/OT + fall precautions + bladder scans prn #Hyponatremia, mild Likely secondary to recent poor oral intake; Asymptomatic. - Na 134; corrected 138 - BMP am - NSS 125mL/hr x 1 L; Promote oral hydration #DMT2 H/o DMT2; At home regimen Jardiance, sitagliptin, and metformin - Most recent A1C 2022 @ 7.1% - SSI with target BSG range 110-140mg/dL, CF 40, carb ratio 15 - BSG ACHS; Adjust regimen as needed #CAD/HTN- No current chest pain, WNL EKG and troponin 3.6; S/p LAD stent september of 2021; ASA, Plavix, metoprolol, atorvastatin; Isosorbide mononitrate, prazosin. #Dementia- Memantine; Ancillary therapy to prevent delirium- Increase familiarity of setting + promote good sleep (melatonin) #Depression- Venlafaxine, Mirtazapine #GERD- Pantoprazole Dispo: Admit, med/sx VTE Prophylaxis: SCDs given at risk for falls This document was dictated utilizing [employer]. Please excuse any grammatical errors that may be secondary to use of this software. Admission and Anticipated Discharge Date Admission Date: 03/10/2024 History of Present Illness Chief Complaint: Falls Primary Care Provider: Natalie Mirza PA-C 78-year-old male w/ PMHx CAD s/p LAD stent (2021), DDD, HTN, DM, depression, dementia presenting to ED for recurrent falls. Over the past 2 days prior to arrival, the patient has fallen approximately 3 times. States that when he falls, he collapses to the ground but does not have symptoms prior to these event to include dizziness, chest pain, or SOB. Feels weak prior to the fall but nothing more. No LOC, but has hit his head on multiple occasions with the falls. CT head revealed a hematoma but no acute intracranial findings and cervical spine CT was unremarkable. Patient's DIL is present in room with 2 additional family members. She also states that the patient has not been sleeping well for approximately a week. Patient admits that he is feeling more weak lately and that he has had recent exposure to COVID-19, BioFire negative. Did have 2 episodes of loose stool within the past 24 hours and some nausea without vomiting. Otherwise, no chest pain, SOB, palpitations, abdominal pain, constipation, numbness/tingling, LUTS, headaches, or dizziness. Overall his workup is grossly unremarkable with no leukocytosis, no significant electrolyte abnormalities and normal imaging of the chest, head, and abdomen/pelvis. UA does reveal infection. Significant findings also include that his lactate was initially elevated at 3.1 when he arrived to the ER, but on repeat is 1.8 and this is s/p IVF resuscitation w/ NSS and a dose of daptomycin. Please see Dr. Lauren's attestation for adjustments/additions to treatment plan. Allergies Allergy/AdvReac Type Severity Reaction Status Date / Time No Known Allergies Allergy Verified 03/07/22 01:01 Home Medications Medication Instructions Recorded Confirmed Type cholecalciferol (vitamin D3) 25 25 mcg PO DAILY 10/01/19 03/10/24 History mcg (1,000 unit) capsule docusate sodium 100 mg capsule 100 mg PO BID 10/01/19 03/10/24 History finasteride 5 mg tablet 5 mg PO DAILY 10/01/19 03/10/24 History metformin 1,000 mg tablet 1,000 mg PO BID 10/01/19 03/10/24 History mirtazapine 30 mg tablet 30 mg PO HS 10/01/19 03/10/24 History pantoprazole 40 mg tablet,delayed 40 mg PO DAILYBB 10/01/19 03/10/24 History release prazosin 2 mg capsule 2 mg PO HS 10/01/19 03/10/24 History venlafaxine 75 mg capsule,extended 150 mg PO DAILY 10/01/19 03/10/24 History release 24 hr memantine 10 mg tablet (Namenda) 10 mg PO BID #180 tabs 05/29/21 03/10/24 Rx aspirin 81 mg tablet,delayed 81 mg PO QAM 11/12/21 03/10/24 History release atorvastatin 80 mg tablet 80 mg PO QAM 11/12/21 03/10/24 History empagliflozin 25 mg tablet 25 mg PO QAM 11/12/21 03/10/24 History food supplemt, lactose-reduced 1 ea PO BID 11/12/21 03/07/22 History (Nutritional Shake oral liquid) gabapentin 100 mg capsule 200 mg PO BID 11/12/21 03/10/24 History isosorbide mononitrate 60 mg 30 mg PO QAM 11/12/21 03/10/24 History tablet,extended release 24 hr metoprolol succinate 25 mg 25 mg PO DAILY 11/12/21 03/10/24 History tablet,extended release 24 hr clopidogrel 75 mg tablet (Plavix) 75 mg DAILY 03/10/24 03/10/24 History sitagliptin 50 mg tablet 50 mg PO DAILY 03/10/24 03/10/24 History Past Med/Surg History Problem List (Updated 03/09/24 @ 23:23 by Rosa M Cohn PA-C) Recurrent falls Urinary tract infection Superior mesenteric artery stenosis Left-sided chest pain (Acute) Abdominal pain Encounter for pre-operative examination Degenerative disc disease CAD (coronary artery disease), [place] coronary artery LAD stent (~09/2021) AWAITING DETAILS WHO 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/WHEN LAST SEEN Recurrent falls while walking Chronic reflux esophagitis (Acute) Insomnia (Acute) Chest pain Medical History Syncope 10/2021 s/p unremarkable [facility] admission workup (felt possibly related to medication reaction/hypoglycemia or Covid 19 contributing) AWAITING DETAILS IF FURTHER EPISODES SINCE ADMISSION COVID-19 11/12/21 ([facility]; Lynne ID Now) Dementia Gait abnormality Parkinsonism Depression Diabetes mellitus Hypertension Vertigo Surgical History S/P cholecystectomy Social History Smoking Status: Never smoker Second Hand Exposure: No; Do You Dip or Chew Tobacco: No; Tobacco Cessation Education Requested by Patient: No Hx Alcohol Use: No Hx Substance Use: No Preferred Language: Gibraltarian Communication Ability: Effective Estimator And Drafter Required: No Beliefs That Will Affect Care: None marital status: / Current Living Situation: Family Current Living Situation Comment: lives with son Other Information That Helps Us Care for You: No Feels Safe at Home: Yes Safety Concerns: Feels Safe At This Time Assistive Devices: Cane, Glasses, Walker and Wheelchair Review of Systems Review of Systems: All systems reviewed & are unremarkable except as noted in Subjective Physical Exam Physical Exam: General: No acute distress Skin: Warm and dry, without rashes or lesions Head: Normocephalic, atraumatic Eyes: PERRL, conjunctivae clear, sclera mildly icteric; EOM intact ENT: External ear and ear canal without swelling; nose atraumatic; OK dentition, tongue normal appearance, pharynx normal without tonsillar swelling or exudate Neck: Supple, no LAD; no JVD Cardio: RRR, no M/G/R, S1 and S2 normal Resp: No respiratory distress, Lungs CTA in all lobes bilaterally, no wheezes, rales, or rhonchi Abdomen: Soft, symmetric, very minimal tenderness LLQ w/ deep palpation; multiple surgical scars on abdomen; no distention; No masses or hepatosplenomegaly; Bowel sounds normoactive MSK: No deformities, full ROM throughout; pulses palpable and equal; no edema. Neuro: Awake, alert; Muscle strength 5/5 bilaterally in UE/LE; Sensation intact bilaterally; CN grossly intact Psych: Appropriate mood and affect; good judgement and insight. 3 family members present in room during initial part of the visit. Results & Data Results & Data Vital Signs (Past 12 Hours) Vital Signs Temp Pulse Pulse Resp BP BP Pulse Ox 03/09/24 22:00 87 18 126/79 99 03/09/24 20:48 132/81 03/09/24 20:30 80 03/09/24 20:30 112/72 03/09/24 20:04 81 19 127/81 97 03/09/24 19:43 36.7 C 87 17 113/72 97 O2 Del Method 03/09/24 22:00 Room Air 03/09/24 20:48 03/09/24 20:30 03/09/24 20:30 03/09/24 20:04 Room Air 03/09/24 19:43 Room Air Laboratory Results 03/09/24 20:55 Aerobic Blood Culture - Pending Blood Anaerobic Blood Culture - Pending 03/09/24 20:14 Aerobic Blood Culture - Pending Blood Anaerobic Blood Culture - Pending 03/09/24 03/09/24 03/09/24 22:14 20:14 19:55 WBC 8.28 RBC 5.07 Hgb 14.3 Hct 43.7 MCV 86.2 MCH 28.2 MCHC 32.7 RDW Std Deviation 42.8 RDW Coeff of Elpidio 13.9 Plt Count 233 MPV 9.8 Immature Gran % (Auto) 3.5 Neut % (Auto) 74.3 Lymph % (Auto) 10.7 [place] % (Auto) 7.9 Eos % (Auto) 3.0 Baso % (Auto) 0.6 Neut # (Auto) 6.15 Lymph # (Auto) 0.89 L [place] # (Auto) 0.65 H Eos # (Auto) 0.25 Baso # (Auto) 0.05 Immature Gran # (Auto) 0.29 H Sodium 134 L Potassium 4.4 Chloride 99 Carbon Dioxide 28 Anion Gap 7 BUN 20 Creatinine 1.12 Est Cr Clr Drug Dosing 45.2 eGFR 68.08 BUN/Creatinine Ratio 17.9 Glucose 272 H Lactate 1.8 3.1 H* Calcium 8.9 Total Bilirubin 0.7 AST 24 ALT 16 Alkaline Phosphatase 80 Total Creatine Kinase 163 Troponin I High Sens 3.6 Total Protein 7.1 Albumin 4.1 Globulin 3.0 Albumin/Globulin Ratio 1.4 Procalcitonin 0.31 Adenovirus (PCR) Not Detected B. pertussis DNA (PCR) Not Detected B.parapertussis DNA PCR Not Detected C. pneumoniae DNA (PCR) Not Detected Coronavirus OC43 (PCR) Not Detected Coronavirus HKU1 (PCR) Not Detected Coronavirus 229E (PCR) Not Detected SARS-CoV-2 (PCR) Not Detected Coronavirus NL63 (PCR) Not Detected Human Metapneumovir PCR Not Detected Influenza Type A (PCR) Not Detected Influenza Type B (PCR) Not Detected M. pneumoniae (PCR) Not Detected Parainfluenza 1 (PCR) Not Detected Parainfluenza 2 (PCR) Not Detected Parainfluenza 3 (PCR) Not Detected Parainfluenza 4 (PCR) Not Detected RSV (PCR) Not Detected Entero/Rhino (PCR) Not Detected Diagnostic Findings Chest X-Ray 03/09/24 20:09 Exam(s): XR CXR 1 VIEW EXAM: XR Chest, 1 View CLINICAL HISTORY: Reason for exam: weakness. TECHNIQUE: Frontal view of the chest. COMPARISON: March 07, 2022 FINDINGS: Lungs: Unremarkable. No consolidation. Pleural space: Unremarkable. No pneumothorax. Heart: Unremarkable. No cardiomegaly. Mediastinum: Unremarkable. Normal mediastinal contour. Bones/joints: Mild degenerative changes in the shoulders. No acute fracture. Upper abdomen: Unremarkable as visualized. No pneumoperitoneum under the diaphragm. IMPRESSION: No acute findings in the chest. Electronically signed by: Antwan Lauren MD 03/09/24 22:[address] 03/09/24 20:09 Exam(s): CT HEAD Without Contrast EXAM: CT Head Without Intravenous Contrast CLINICAL HISTORY: Reason for exam: Frequent falls, weakness. TECHNIQUE: Axial computed tomography images of the head/brain without intravenous contrast. CTDI is 38.43 mGy and DLP is 546.36 mGy-cm. Automated exposure control was utilized for the study. A dose lowering technique was utilized adhering to the principles of ALARA. COMPARISON: November 11, 2021 FINDINGS: Brain: Mild periventricular white matter low density consistent with chronic small vessel disease and/or senescent changes, similar to previous per the brain is otherwise unremarkable. No acute large vessel infarct or intracranial hemorrhage is seen. Ventricles: Unremarkable. No ventriculomegaly. Bones/joints: See below. Soft tissues: Small posterior scalp hematoma. No skull fracture. Sinuses: Unremarkable as visualized. No acute sinusitis. Mastoid air cells: Unremarkable as visualized. No mastoid effusion. IMPRESSION: 1. Small posterior scalp hematoma. No skull fracture. 2. Mild periventricular white matter low density consistent with chronic small vessel disease and/or senescent changes, similar to previous per the brain is otherwise unremarkable. No acute large vessel infarct or intracranial hemorrhage is seen. Electronically signed by: Antwan Lauren MD 03/09/24 22:33 PM Abdomen/Pelvis CT 03/09/24 20:10 Exam(s): CT ABDOMEN + PELVIS With Contrast IV Amt: 90ml optiray 320 EXAM: CT Abdomen and Pelvis With Intravenous Contrast CLINICAL HISTORY: Reason for exam: LLQ abd pain. TECHNIQUE: Axial computed tomography images of the abdomen and pelvis with intravenous contrast. CTDI is 19.57 mGy and DLP is 866.82 mGy-cm. Automated exposure control was utilized for the study. A dose lowering technique was utilized adhering to the principles of ALARA. CONTRAST: Patient received 90ml optiray 320 of IV contrast COMPARISON: No relevant prior studies available. FINDINGS: Lung bases: Unremarkable. No mass. No consolidation. Mediastinum: 2.5 cm hiatal hernia. ABDOMEN: Liver: Lobular 2.9 cm simple cyst in the liver. No follow-up is required. Gallbladder and bile ducts: Previous cholecystectomy. No biliary duct dilation is seen. Pancreas: Unremarkable. No mass. No ductal dilation. Spleen: Unremarkable. No splenomegaly. Adrenals: Unremarkable. No mass. Kidneys and ureters: Unremarkable. No solid mass. No hydronephrosis. Stomach and bowel: Unremarkable. No obstruction. No mucosal thickening. PELVIS: Appendix: There is an anastomotic staple line in the mid sigmoid colon. The appendix is normal. Bowel loops are nondilated. No acute inflammatory changes are seen involving the bowel. Bladder: Mild wall thickening involving the urinary bladder posterior wall. Consider cystitis. There is a Nation catheter in the bladder. Reproductive: Unremarkable as visualized. ABDOMEN and PELVIS: Intraperitoneal space: Unremarkable. No free air. No significant fluid collection. Bones/joints: Moderate multilevel degenerative changes throughout the spine. No acute fracture or subluxation. Mild degenerative changes in the hips. No hip or pelvic fracture is identified. Soft tissues: Unremarkable. Vasculature: Unremarkable. No abdominal aortic aneurysm. Lymph nodes: Unremarkable. No enlarged lymph nodes. IMPRESSION: 1. Mild wall thickening involving the urinary bladder posterior wall. Consider cystitis. There is a Nation catheter in the bladder. 2. There is an anastomotic staple line in the mid sigmoid colon. The appendix is normal. Bowel loops are nondilated. No acute inflammatory changes are seen involving the bowel. 3. No acute traumatic findings are identified. Electronically signed by: Antwan Lauren MD 03/09/24 22:[address] 03/09/24 20:14 Exam(s): CT C SPINE EXAM: CT Cervical Spine Without Intravenous Contrast CLINICAL HISTORY: Reason for exam: Frequent falls, trauma. TECHNIQUE: Axial computed tomography images of the cervical spine without intravenous contrast. CTDI is 22.33 mGy and DLP is 444.16 mGy-cm. Automated exposure control was utilized for the study. A dose lowering technique was utilized adhering to the principles of ALARA. COMPARISON: No relevant prior studies available. FINDINGS: Vertebrae: Previous anterior plate and screw fusion of C3-C5 with hardware is intact. No acute fracture. Normal anatomic variant of incomplete fusion of the posterior arch of C1. Soft tissues: Unremarkable. DISCS/SPINAL CANAL/NEURAL FORAMINA: C2-C3: Mild degenerative disc disease. No stenosis. C3-C4: The disc is fused. No stenosis. C4-C5: The disc is fused. No stenosis. C5-C6: Mild degenerative disc disease. No stenosis. C6-C7: Mild degenerative disc disease. No stenosis. C7-T1: Unremarkable. No significant disc disease. No stenosis. IMPRESSION: Mild degenerative disc disease throughout the remainder of the cervical spine. No acute fracture or subluxation is seen. Electronically signed by: Antwan Lauren MD 03/09/24 22:[address] 03/09/24 20:14 Exam(s): CT CHEST With Contrast IV Amt: 90ml optiray 320 EXAM: CT Chest With Intravenous Contrast CLINICAL HISTORY: Reason for exam: Frequent falls, trauma. TECHNIQUE: Axial computed tomography images of the chest with intravenous contrast. CTDI is 19.57 mGy and DLP is 866.82 mGy-cm. Automated exposure control was utilized for the study. A dose lowering technique was utilized adhering to the principles of ALARA. CONTRAST: Patient received 90ml optiray 320 of IV contrast COMPARISON: No relevant prior studies available. FINDINGS: Lungs: Unremarkable. No mass. No consolidation. Pleural space: Unremarkable. No pneumothorax. No significant effusion. Heart: The heart is upper normal in size. There is a stent in the LAD. No pericardial effusion. Bones/joints: Mild multilevel degenerative changes throughout the spine. No acute fracture or destructive bone lesion is seen. No dislocation. Soft tissues: Unremarkable. 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 The remainder the thoracic aorta is nondilated. No dissection. Lymph nodes: Unremarkable. No enlarged lymph nodes. IMPRESSION: No acute traumatic findings are seen involving the thorax. 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 The remainder the thoracic aorta is nondilated. No dissection. Electronically signed by: Antwan Lauren MD 03/09/24 22:40 PM Medications Administered NSS Daptomycin 350mg ECG Additional Comments: NSR, low voltage QRS 82 bpm, SC 146, QRS 66, QT/QTc 370/432, PRT 54/36/54 Code Status & VTE Plan Code Status Full Supervising Physician Co-Signing Physician Notes Patient seen and examined, chart reviewed, case discussed with EDDIE Cohn and I agree with the assessment and plan as above. Patient with frequent falls, generalized weakness Nation in place - exchanged in ER - UA suggestive of infection Patient awake, alert to self and location, NAD Skin without rash HEENT- MMM, Neck supple, posterior scalp hematoma present Heart - +S1/S2, regular, no m/r/g Lungs - CTA Abd - soft, NT/ND Ext - no edema Labs and images reviewed Assessment/Plan Frequent falls, generalized weakness and UTI/Cystitis -Follow cultures -Nation exchanged -Continue Daptomycin -NSS -PT/OT appreciated -Will continue patient's ASA, Plavix, Finasteride, Gabapentin, Isosorbide, Memantine, Metoprolol, Mirtazapine, Protonix, Prazosin and Venlafaxine -Holding home diabetic agents as well as Atorvastatin while on Daptomycin -Remainder as above PG Care Time/CCT Total # of Minutes Spent Total Time Spent with Patient: Total time spent is greater than 50% in coordination of care (as documented) at patient's floor/unit and/or counseling patient: Coding Level of Care Code 42610 INT INP/OBS CARE 3/75MIN Diagnoses Urinary tract infection N39.0 Recurrent falls R29.6
[2024-03-10] MEDS: DAPTOmycin 350 MG in SYRINGE 0 ML IV STA (00:02)
--- NOTE | 2024-03-10 00:15 | Emergency Department Note ---
ED Visit Note I was consulted by the Advanced Practice Provider. I approved the management plan and take responsibility for the patient management. This includes the aspects of: -History/Physical -MDM -I independently interpreted the following studies:Studies and results .
[2024-03-10 00:25] LABS: Appearance Urine Turbid (Clear); Bacteria Urine Automated 4+ (None Seen); Bilirubin Urine Negative (Negative); Blood Urine 2+ (Negative); Color Urine Yellow; Epithelial Cell Urine Auto 0-2 /hpf (0-2); Glucose Urine UA 3+ (Negative); Ketones Urine 2+ (Negative); Leukocyte Esterase Urine 2+ (Negative); Nitrite Urine Positive (Negative); Protein Urine 1+ (Negative); Specific Gravity Urine > 1.045 (1.000-1.030); Urobilinogen Urine Negative (Negative); WBC Urine Automated >50 /hpf (0-5); pH Urine 5.5 (4.5-7.5)
[2024-03-10] MEDS ORDERED: GLUCAGON FOR INJ 1 MG VIAL SQ PRN (02:30)
[2024-03-10] MEDS ORDERED: DEXTROSE 50% 50 ML SYRINGE IV PRN (02:30)
[2024-03-10] MEDS ORDERED: CARBOHYDRATES FOR HYPOGLYCEMIA PO PRN (02:30)
[2024-03-10] MEDS ORDERED: GLUCOSE 40% GEL 15 GM TUBE PO PRN (02:30)
[2024-03-10] MEDS ORDERED: GLUCOSE 10 TAB/TUBE PO PRN (02:30)
[2024-03-10] MEDS: INSULIN ASPART PER UNIT CHARGE SC SCH (03:30)
[2024-03-10] MEDS: PANTOprazole 40 MG TAB PO SCH (05:25)
[2024-03-10] MEDS: ISOSORBIDE MONO EXTENDED REL 30 MG TABCR PO SCH (08:15)
[2024-03-10] MEDS: FINASTERIDE 5 MG TAB PO SCH (08:15)
[2024-03-10] MEDS: ASPIRIN 81 MG ECTAB PO SCH (08:15)
[2024-03-10] MEDS: CLOPIDOGREL BISULFATE 75 MG TAB PO SCH (08:15)
[2024-03-10] MEDS: VENLAFAXINE HCL XR 150 MG CAPXR PO SCH (08:15)
[2024-03-10] MEDS: GABAPENTIN 100 MG CAP PO SCH (08:15)
[2024-03-10] MEDS: MEMANTINE HCL 10 MG TAB PO SCH (08:16)
[2024-03-10] MEDS: METOPROLOL SUCC 25MG EXT REL TAB PO SCH (08:16)
[2024-03-10] MEDS: DOCUSATE SODIUM 100 MG CAP PO SCH (08:22)
[2024-03-10] MEDS: SITagliptin PHOSPHATE 25 MG TAB PO SCH (09:27)
[2024-03-10] MEDS: cefTRIAXone SODIUM 1,000 MG/50 ML BAG IV SCH (10:18)
--- NOTE | 2024-03-10 13:33 | Hospitalist Progress Note ---
Date of Service March 10, 2024 Assessment & Plan (1) Urinary tract infection: Plan: Co. present on admission. Nation catheter was placed in the ED. Rocephin added to daptomycin. Await urine culture and blood culture results and tailor antibiotics accordingly (2) Recurrent falls: Plan: OT and PT assessments requested. Supportive care (3) CAD (coronary artery disease), [place] coronary artery: Plan: Stable. Continue current medical management (4) Type 2 diabetes mellitus: Plan: ADA diet. Continue current medical management. Sliding scale coverage as needed Plan Anticipate discharge to previous living arrangements within the next 2 to 3 days Admission and Anticipated Discharge Date Admission Date: March 10, 2024 Subjective Alert and pleasant. Chronic indwelling Nation catheter was changed on admission in the emergency department. Urine cultures and blood cultures are pending. Rocephin added to daptomycin for complete coverage. Will tailor antibiotics according to culture results. Usual oral diabetic medications have been restarted. Continue sliding scale coverage as necessary. 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 Review of Systems 2 Review of Systems: Constitutionalno fever or chills ENTno blurred vision, no double vision, no epistaxis, no sore throat Respiratoryno cough, no wheezing, no shortness of breath Cardiacno palpitations, no chest pain, no syncope Kristina nausea, vomiting, diarrhea, melena, hematochezia GUFoley catheter in place. No gross hematuria seen Musculoskeletalno joint pain, no muscle tenderness Skinno bruising, no rashes, no pruritus Neurono isolated weakness, no paresthesia Psychno depression, no anxiety Physical Exam 2 Physical Exam: General-alert and oriented x3, no fever, no chills HEENT-head atraumatic and normocephalic, pupils equal and reactive to light, extraocular muscles intact Neck-no lymphadenopathy or thyromegaly, trachea midline Chest-clear to auscultation. No rales, wheezing or rhonchi Cardiac-regular rate and rhythm, normal S1 and S2 Abdomen-normal bowel sounds, no hepatosplenomegaly GUFoley catheter in place. No gross hematuria seen Extremities-no cyanosis, clubbing, or edema Neuro-cranial nerves II through XII intact, motor and sensory function within normal limits, strength symmetrical with generalized weakness, no focal deficits Psych-normal affect, normal mood Results & Data Results & Data Vital Signs (Past 12 Hours) Vital Signs Temp Pulse Pulse Pulse Resp BP BP 03/10/24 08:00 03/10/24 07:24 36.9 C 84 16 118/69 03/10/24 02:31 36.8 C 89 18 109/72 03/10/24 01:33 90 19 121/74 Pulse Ox O2 Del Method 03/10/24 08:00 Room Air 03/10/24 07:24 94 Room Air 03/10/24 02:31 97 Room Air 03/10/24 01:33 95 Laboratory Results 03/09/24 19:55 03/09/24 19:55 PG Care Time/CCT Total # of Minutes Spent Total Time Spent with Patient: Total time spent is greater than 50% in coordination of care (as documented) at patient's floor/unit and/or counseling patient: Coding Level of Care Code 93262 SUB INP/OBS CARE 3/50MIN Diagnoses Urinary tract infection N39.0 Recurrent falls R29.6 CAD (coronary artery disease), [place] coronary artery I25.10 Type 2 diabetes mellitus E11.9
[2024-03-10] MEDS: EMPAGLIFLOZIN 25 MG TAB PO SCH (17:06)
[2024-03-10] MEDS: PRAZOSIN HCL 1 MG CAP PO SCH (21:00)
[2024-03-10] MEDS: MIRTAZAPINE TAB 15 MG TAB PO SCH (21:00)
[2024-03-10] MEDS: DAPTOmycin 350 MG in SYRINGE 0 ML IV SCH (21:03)
[2024-03-11 07:15] LABS: Hematocrit (blood only) 41.8 % (42.0-52.0); Hemoglobin 13.7 g/dl (14.0-18.0); Mean Corpuscular Hemoglobin 28.6 pg (25.0-34.0); Mean Corpuscular Hgb Conc 32.8 g/dL (32.0-36.0); Mean Corpuscular Volume 87.3 fL (80.0-100.0); Mean Platelet Volume 9.7 fL (9.4-12.4); Platelet Count 229 K/uL (130-400); RDW Coefficient of Variation 13.9 % (11.5-14.5); RDW Standard Deviation 43.9 fL (36.4-46.3); Red Blood Count 4.79 M/uL (4.70-6.10); White Blood Count 8.73 K/ul (4.8-10.8)
[2024-03-11 07:31] LABS: BUN Creatinine Ratio 29.5 (10-20); Calcium 8.8 mg/dl (8.6-10.3); Creatinine Clr Calc Pharmacy 53.2 ml/min; Potassium 4.1 mmol/L (3.5-5.1)
[2024-03-11 07:40] LABS: Basophils # (auto) 0.08 K/uL (0.00-0.20); Basophils % (auto) 0.9 %; Eosinophils # (auto) 0.75 K/uL (0.00-0.50); Eosinophils % (auto) 8.6 %; Immature Granulocytes # (auto) 0.46 K/uL (0.01-0.20); Immature Granulocytes % (auto) 5.3 %; Lymphocytes # (auto) 2.24 K/uL (1.20-3.40); Lymphocytes % (auto) 25.7 %; Monocytes # (auto) 0.68 K/uL (0.11-0.59); Monocytes % (auto) 7.8 %; Neutrophils # (auto) 4.52 K/uL (1.40-6.50); Neutrophils % (auto) 51.7 %
--- NOTE | 2024-03-11 14:37 | Hospitalist Progress Note ---
Date of Service March 11, 2024 Assessment & Plan (1) Urinary tract infection: Plan: present on admission. Nation catheter was placed in the ED. E. coli isolated. Continue Rocephin. Daptomycin has been discontinued. Eventually home on an oral antibiotic (2) Recurrent falls: Plan: Continue OT and PT while hospitalized. Supportive care (3) CAD (coronary artery disease), [place] coronary artery: Plan: Stable. Continue current medical management (4) Type 2 diabetes mellitus: Plan: ADA diet. Continue current medical management. Sliding scale coverage as needed Plan Probable discharge back to home tomorrow, March 12, on an oral antibiotic Admission and Anticipated Discharge Date Admission Date: March 10, 2024 Subjective Alert and oriented. No new problems. E. coli isolated in the urine. Continue Rocephin, day 2. Daptomycin has been discontinued. Chronic indwelling Nation catheter was changed while he was in the emergency department on admission. Hopeful discharge to home tomorrow, March 12, on an oral antibiotic Review of Systems 2 Review of Systems: Constitutionalno fever or chills ENTno blurred vision, no double vision, no epistaxis, no sore throat Respiratoryno cough, no wheezing, no shortness of breath Cardiacno palpitations, no chest pain, no syncope Kristina nausea, vomiting, diarrhea, melena, hematochezia GUFoley catheter in place. No gross hematuria seen Musculoskeletalno joint pain, no muscle tenderness Skinno bruising, no rashes, no pruritus Neurono isolated weakness, no paresthesia Psychno depression, no anxiety Physical Exam 2 Physical Exam: General-alert and oriented x3, no fever, no chills HEENT-head atraumatic and normocephalic, pupils equal and reactive to light, extraocular muscles intact Neck-no lymphadenopathy or thyromegaly, trachea midline Chest-clear to auscultation. No rales, wheezing or rhonchi Cardiac-regular rate and rhythm, normal S1 and S2 Abdomen-normal bowel sounds, no hepatosplenomegaly GUFoley catheter in place. No gross hematuria seen Extremities-no cyanosis, clubbing, or edema Neuro-cranial nerves II through XII intact, motor and sensory function within normal limits, strength symmetrical with generalized weakness, no focal deficits Psych-normal affect, normal mood Results & Data Results & Data Vital Signs (Past 12 Hours) Vital Signs Temp Pulse Resp BP BP Pulse Ox O2 Del Method 03/11/24 14:24 76 16 97/62 L 99 Room Air 03/11/24 07:17 36.7 C 85 16 102/72 95 Room Air Laboratory Results 03/11/24 06:47 03/11/24 06:47 PG Care Time/CCT Total # of Minutes Spent Total Time Spent with Patient: Total time spent is greater than 50% in coordination of care (as documented) at patient's floor/unit and/or counseling patient: Coding Level of Care Code 42516 SUB INP/OBS CARE 2/35MIN Diagnoses Urinary tract infection N39.0 Recurrent falls R29.6 CAD (coronary artery disease), [place] coronary artery I25.10 Type 2 diabetes mellitus E11.9
--- NOTE | 2024-03-11 21:35 | Electrocardiogram Report ---
Test Reason : Blood Pressure : */* mmHG Vent. Rate : 82 BPM Atrial Rate : 82 BPM P-R Int : 146 ms QRS Dur : 66 ms QT Int : 370 ms P-R-T Axes : 54 36 54 degrees QTcB Int : 432 ms Normal sinus rhythm Low voltage QRS Cannot rule out Anterior infarct , age undetermined Nonspecific T wave abnormality Abnormal ECG When compared with ECG of 08-Mar-2022 04:04, Minimal criteria for Anterior infarct are now Present Nonspecific T wave abnormality now evident in Anterior leads Confirmed by Kayode Du ([id number]) on 03/11/2024 9:34:38 PM Referred By: REFERRED SELF Confirmed By: Kayode Du
[2024-03-12 06:12] LABS: Hematocrit (blood only) 38.3 % (42.0-52.0); Hemoglobin 12.9 g/dl (14.0-18.0); Mean Corpuscular Hemoglobin 28.8 pg (25.0-34.0); Mean Corpuscular Hgb Conc 33.7 g/dL (32.0-36.0); Mean Corpuscular Volume 85.5 fL (80.0-100.0); Mean Platelet Volume 9.8 fL (9.4-12.4); Platelet Count 213 K/uL (130-400); RDW Coefficient of Variation 13.8 % (11.5-14.5); RDW Standard Deviation 42.6 fL (36.4-46.3); Red Blood Count 4.48 M/uL (4.70-6.10); White Blood Count 7.46 K/ul (4.8-10.8)
[2024-03-12 06:24] LABS: BUN Creatinine Ratio 29.9 (10-20); Calcium 8.5 mg/dl (8.6-10.3); Creatinine Clr Calc Pharmacy 52.1 ml/min; Potassium 4.1 mmol/L (3.5-5.1)
[2024-03-12 06:34] LABS: Basophils # (auto) 0.08 K/uL (0.00-0.20); Basophils % (auto) 1.1 %; Eosinophils # (auto) 0.74 K/uL (0.00-0.50); Eosinophils % (auto) 9.9 %; Immature Granulocytes # (auto) 0.38 K/uL (0.01-0.20); Immature Granulocytes % (auto) 5.1 %; Lymphocytes # (auto) 1.86 K/uL (1.20-3.40); Lymphocytes % (auto) 24.9 %; Monocytes # (auto) 0.45 K/uL (0.11-0.59); Neutrophils # (auto) 3.95 K/uL (1.40-6.50)
[2024-03-12] MEDS: metFORMIN HCL 500 MG TAB PO SCH (08:17)
--- NOTE | 2024-03-12 13:55 | Hospitalist Progress Note ---
Date of Service March 12, 2024 Assessment & Plan (1) Urinary tract infection: Plan: (2) Recurrent falls: (3) Type 2 diabetes mellitus: (4) CAD (coronary artery disease), [place] coronary artery: Plan 78-year-old male PMHx CAD s/p LAD stent (2021), DDD, HTN, DM, depression, dementia presenting to ED for recurrent falls. Over the past 2 days prior to arrival, the patient has fallen approximately 3 times. Has hit his head during the falls, but CT head revealing no acute findings other than small scalp hematoma. Pt w/o symptoms prior to falls, no LOC, and no seizure like activities. Has been feeling slightly weak over the past week prior to admission. #UTI/Recurrent falls Chronic Nation for urinary retention, follows with urology, plan for outpatient cystoscopy and monthly nursing catheter exchanges until then. Catheter was changed in the ED. [place] CT scan in ED for multiple fallsmild wall thickening of the bladder consistent with cystitis. small posterior scalp hematoma. No acute abnormality seen intracranially or intra-abdominal bleed. CK 163 on admission Urine culture: E. coli with a few resistances. Blood cultures: negative at 48 hours Continue ceftriaxone (first dose 03/10) will be able to discharge on p.o. PT/OT - recommending rehab, patient and family agreeable. Case management following #DMT2 02/2022 A1c: 7.1 Home regimen Jardiance, sitagliptin, and metformin Metformin and Jardiance have been resumed. Continue with sliding scale insulin BSG ACHS have been acceptable #CAD/HTN- No current chest pain, WNL EKG and troponin 3.6; S/p LAD stent september of 2021; ASA, Plavix, metoprolol, atorvastatin; Isosorbide mononitrate, prazosin. #Dementia- Memantine; Ancillary therapy to prevent delirium- Increase familiarity of setting + promote good sleep (melatonin) #Depression- Venlafaxine, Mirtazapine #GERD- Pantoprazole Dispo: Continued inpatient stay DVT prophy: Lovenox added Admission and Anticipated Discharge Date Admission Date: March 10, 2024 Supervising Physician Co-Signing Physician Notes PA Supervision Note: I did not personally see or examine the patient today, but I verified all arriaga points of DALILA Rodríguez's assessment and plan with the following exceptions/additions: None Results & Data Results & Data Vital Signs (Past 12 Hours) Vital Signs Temp Pulse Resp BP Pulse Ox O2 Del Method 03/12/24 07:08 98.1 F 75 16 117/73 96 Room Air Laboratory Results CBC and chemistry reviewed Urine culture and blood cultures reviewed PG Care Time/CCT Total # of Minutes Spent Total Time Spent with Patient: Total time spent is greater than 50% in coordination of care (as documented) at patient's floor/unit and/or counseling patient: Coding Level of Care Code 63120 SUB INP/OBS CARE 3/50MIN Diagnoses Urinary tract infection N39.0 Recurrent falls R29.6 Type 2 diabetes mellitus E11.9 CAD (coronary artery disease), [place] coronary artery I25.10
[2024-03-12] MEDS: ENOXAPARIN INJ 40 MG/0.4 ML SYR SQ SCH (21:52)
--- NOTE | 2024-03-13 12:53 | Hospitalist Progress Note ---
Date of Service March 13, 2024 Assessment & Plan (1) Urinary tract infection: Plan: (2) Recurrent falls: (3) Type 2 diabetes mellitus: (4) CAD (coronary artery disease), [place] coronary artery: Plan 78-year-old male PMHx CAD s/p LAD stent (2021), DDD, HTN, DM, depression, dementia presenting to ED for recurrent falls. Over the past 2 days prior to arrival, the patient has fallen approximately 3 times. Has hit his head during the falls, but CT head revealing no acute findings other than small scalp hematoma. Pt w/o symptoms prior to falls, no LOC, and no seizure like activities. Has been feeling slightly weak over the past week prior to admission. #UTI/Recurrent falls Chronic Lezama for urinary retention, follows with urology, plan for outpatient cystoscopy and monthly nursing catheter exchanges until then. Catheter was changed in the ED. [place] CT scan in ED for multiple fallsmild wall thickening of the bladder consistent with cystitis. small posterior scalp hematoma. No acute abnormality seen intracranially or intra-abdominal bleed. CK 163 on admission Urine culture: E. coli with a few resistances. Blood cultures: negative at 48 hours Continue ceftriaxone (first dose 03/10) will be able to discharge on p.o. PT/OT - recommending rehab, patient and family agreeable. Case management following - awaiting auth #DMT2 02/2022 A1c: 7.1 Home regimen Jardiance, sitagliptin, and metformin Metformin and Jardiance have been resumed. Continue with sliding scale insulin BSG ACHS have been acceptable #CAD/HTN- No current chest pain, WNL EKG and troponin 3.6; S/p LAD stent september of 2021; ASA, Plavix, metoprolol, atorvastatin; Isosorbide mononitrate, prazosin. #Dementia- Memantine; Ancillary therapy to prevent delirium- Increase f amiliarity of setting + promote good sleep (melatonin) #Depression- Venlafaxine, Mirtazapine #GERD- Pantoprazole Dispo: Continued inpatient stay DVT prophy: Lovenox added Family updated at bedisde 03/13 Admission and Anticipated Discharge Date Admission Date: March 10, 2024 Supervising Physician Co-Signing Physician Notes PA Supervision Note: I did not personally see or examine the patient today, but I verified all arriaga points of DALILA Rodríguez's assessment and plan with the following exceptions/additions: None Subjective Patient seen sitting up in the chair - son and his signficant other at bedside. Patient has no concerns, no urinary pain. Lezama is draining clear light yellow urine. Tolerating diet. Awaiting insurance auth Review of Systems Review of Systems: All systems reviewed & are unremarkable except as noted in Subjective Physical Exam Physical Exam: General: NAD, VS as above, sitting up in the chair, appears well Resp: normal respiratory effort, lungs clear to auscultation CV: RRR, no murmur, Abd: normal bowel sounds, non tender, no hepatosplenomegaly : lezama draining clear yellow urine Extremities: Moves all extremities, no edema Neuro: A&O x3, Results & Data Results & Data Vital Signs (Past 12 Hours) Vital Signs Temp Pulse Resp BP Pulse Ox O2 Del Method 03/13/24 07:01 97.7 F 86 16 133/81 98 Room Air PG Care Time/CCT Total # of Minutes Spent Total Time Spent with Patient: Total time spent is greater than 50% in coordination of care (as documented) at patient's floor/unit and/or counseling patient: Coding Level of Care Code 68673 SUB INP/OBS CARE 03/24MIN Diagnoses Urinary tract infection N39.0 Recurrent falls R29.6 Type 2 diabetes mellitus E11.9 CAD (coronary artery disease), [place] coronary artery I25.10
--- NOTE | 2024-03-14 13:33 | Hospitalist Progress Note ---
Date of Service March 14, 2024 Assessment & Plan (1) Urinary tract infection: Plan: (2) Recurrent falls: (3) Type 2 diabetes mellitus: (4) CAD (coronary artery disease), [place] coronary artery: Plan 78-year-old male PMHx CAD s/p LAD stent (2021), DDD, HTN, DM, depression, dementia presenting to ED for recurrent falls. Over the past 2 days prior to arrival, the patient has fallen approximately 3 times. Has hit his head during the falls, but CT head revealing no acute findings other than small scalp hematoma. Pt w/o symptoms prior to falls, no LOC, and no seizure like activities. Has been feeling slightly weak over the past week prior to admission. #UTI/Recurrent falls/Catheter associated UTI Chronic Lezama for urinary retention, follows with urology, plan for outpatient cystoscopy and monthly nursing catheter exchanges until then. Catheter was changed in the ED. [place] CT scan in ED for multiple fallsmild wall thickening of the bladder consistent with cystitis. small posterior scalp hematoma. No acute abnormality seen intracranially or intra-abdominal bleed. CK 163 on admission Urine culture: E. coli with a few resistances. Blood cultures: negative at 48 hours Continue ceftriaxone (first dose 03/10) will be able to discharge on p.o. antibiotics PT/OT - recommending rehab, patient and family agreeable. Case management following - Peer to Peer denied for [facility] stating patient did not need rehab and recommended 5 day a week Home health which is not available in our area. Plan for trial for SNF auth #DMT2 02/2022 A1c: 7.1 Home regimen Jardiance, sitagliptin, and metformin Metformin and Jardiance have been resumed. Continue with sliding scale insulin BSG ACHS - elevated BSG this morning before lunch will not adjust regimen at this time #CAD/HTN- No current chest pain, WNL EKG and troponin 3.6; S/p LAD stent september of 2021; ASA, Plavix, metoprolol, atorvastatin; Isosorbide mononitrate, prazosin. #Dementia- Memantine; Ancillary therapy to prevent delirium- Increase familiarity of setting + promote good sleep (melatonin) #Depression- Venlafaxine, Mirtazapine #GERD- Pantoprazole Dispo: Continued inpatient stay determining safe discharge disposition and continuing antibiotics DVT prophy: Lovenox added Family updated at bedside 1/14 Admission and Anticipated Discharge Date Admission Date: March 10, 2024 Supervising Physician Co-Signing Physician Notes PA Supervision Note: I did not personally see or examine the patient today, but I verified all arriaga points of DALILA Rodríguez's assessment and plan with the following exc eptions/additions: None Subjective patient seen sitting up in the chair no urinary pain or abdominal pain has been needing a walker for ambulation, did not need prior to hospital stay. lives with son and his but they are not home all the time No acute concerns Review of Systems Review of Systems: All systems reviewed & are unremarkable except as noted in Subjective Physical Exam Physical Exam: General: NAD, VS as above, sitting up in the chair, appears well Resp: normal respiratory effort, lungs clear to auscultation CV: RRR, no murmur, Abd: normal bowel sounds, non tender, no hepatosplenomegaly : lezama draining clear yellow urine Extremities: Moves all extremities, no edema Neuro: A&O x3, Results & Data Results & Data Vital Signs (Past 12 Hours) Vital Signs Temp Pulse Resp BP Pulse Ox O2 Del Method 03/14/24 07:40 97.5 F L 74 18 119/81 98 Room Air Laboratory Results POC glucose reviewed PG Care Time/CCT Total # of Minutes Spent Total Time Spent with Patient: Total time spent is greater than 50% in coordination of care (as documented) at patient's floor/unit and/or counseling patient: Coding Level of Care Code 73537 SUB INP/OBS CARE 2/35MIN Diagnoses Urinary tract infection N39.0 Recurrent falls R29.6 Type 2 diabetes mellitus E11.9 CAD (coronary artery disease), [place] coronary artery I25.10
--- NOTE | 2024-03-15 15:48 | Hospitalist Progress Note ---
Date of Service March 15, 2024 Assessment & Plan (1) Urinary tract infection: Plan: (2) Recurrent falls: (3) Type 2 diabetes mellitus: (4) CAD (coronary artery disease), [place] coronary artery: Plan 78-year-old male PMHx CAD s/p LAD stent (2021), DDD, HTN, DM, depression, dementia presenting to ED for recurrent falls. Over the past 2 days prior to arrival, the patient has fallen approximately 3 times. Has hit his head during the falls, but CT head revealing no acute findings other than small scalp hematoma. Pt w/o symptoms prior to falls, no LOC, and no seizure like activities. Has been feeling slightly weak over the past week prior to admission. #UTI/Recurrent falls/Catheter associated UTI Chronic Lezama for urinary retention, follows with urology, plan for outpatient cystoscopy and monthly nursing catheter exchanges until then. Catheter was changed in the ED. [place] CT scan in ED for multiple fallsmild wall thickening of the bladder consistent with cystitis. small posterior scalp hematoma. No acute abnormality seen intracranially or intra-abdominal bleed. CK 163 on admission Urine culture: E. coli with a few resistances. Blood cultures: negative at 48 hours Continue ceftriaxone (first dose 03/10) will be able to discharge on p.o. antibiotics PT/OT - recommending rehab, patient and family agreeable. Case management following - Peer to Peer denied for [facility] stating patient did not need rehab and recommended 5 day a week Home health which is not available in our area. Plan for trial for SNF auth #DMT2 02/2022 A1c: 7.1 Home regimen Jardiance, sitagliptin, and metformin Metformin and Jardiance have been resumed. Continue with sliding scale insulin BSG ACHS - elevated BSG this morning before lunch again but low this morning - will not adjust #CAD/HTN- No current chest pain, WNL EKG and troponin 3.6; S/p LAD stent september of 2021; ASA, Plavix, metoprolol, atorvastatin; Isosorbide mononitrate, [place] in. #Dementia- Memantine; Ancillary therapy to prevent delirium- Increase familiarity of setting + promote good sleep (melatonin) #Depression- Venlafaxine, Mirtazapine #GERD- Pantoprazole Dispo: Continued inpatient stay determining safe discharge disposition and continuing antibiotics DVT prophy: Lovenox added Family updated at bedside 03/13 Admission and Anticipated Discharge Date Admission Date: March 10, 2024 Supervising Physician Co-Signing Physician Notes PA Supervision Note: I did not personally see or examine the patient today, but I verified all arriaga points of DALIAL Rodríguez's assessment and plan with the following exceptions/additions: None Subjective patient sitting up in the chair. No acute complaints. No bladder pain. Review of Systems Review of Systems: All systems reviewed & are unremarkable except as noted in Subjective Physical Exam Physical Exam: General: NAD, VS as above, sitting up in the chair, appears well Resp: normal respiratory effort, lungs clear to auscultation CV: RRR, no murmur, Abd: normal bowel sounds, non tender, no hepatosplenomegaly : lezama draining clear yellow urine Extremities: Moves all extremities, no edema Neuro: A&O x3, Results & Data Results & Data Vital Signs (Past 12 Hours) Vital Signs Temp Pulse Resp BP Pulse Ox O2 Del Method 03/15/24 07:34 97.9 F 73 18 110/72 96 Room Air Laboratory Results POC glucose reviewed PG Care Time/CCT Total # of Minutes Spent Total Time Spent with Patient: Total time spent is greater than 50% in coordination of care (as documented) at patient's floor/unit and/or counseling patient: Coding Level of Care Code 65338 SUB INP/OBS CARE 03/24MIN Diagnoses Urinary tract infection N39.0 Recurrent falls R29.6 Type 2 diabetes mellitus E11.9 CAD (coronary artery disease), [place] coronary artery I25.10
--- NOTE | 2024-03-16 15:23 | Hospitalist Progress Note ---
Date of Service March 16, 2024 Assessment & Plan (1) Urinary tract infection: Plan: (2) Recurrent falls: (3) Type 2 diabetes mellitus: (4) CAD (coronary artery disease), [place] coronary artery: Plan 78-year-old male PMHx CAD s/p LAD stent (2021), DDD, HTN, DM, depression, dementia presenting to ED for recurrent falls. Over the past 2 days prior to arrival, the patient has fallen approximately 3 times. Has hit his head during the falls, but CT head revealing no acute findings other than small scalp hematoma. Pt w/o symptoms prior to falls, no LOC, and no seizure like activities. Has been feeling slightly weak over the past week prior to admission. [place] scan in the CT for falls - no acute abnormalities besides bladder wall thickening consistent with cystitis and small post Patient has a chronic lezama for urinary retention, follows with urology with plan for outpatient cystoscopy. Lezama exchanged in the ED on 03/10. UC showed E.Coli, patient completed 7 day course of ceftriaxone. Blood cultures negative, finalized. Remains inpatient awaiting safe discharge disposition. #UTI/Recurrent falls/Catheter associated UTI Completed course of ceftriaxone. PT/OT - recommending rehab, CM following - Peer to Peer denied for [facility] stating patient did not need rehab and recommended 5 day a week Home health which is not available in our area. Awaiting SNF auth #DMT2 02/2022 A1c: 7.1 Home regimen Jardiance, sitagliptin, and metformin Metformin and Jardiance have been resumed. Continue with sliding scale insulin BSG ACHS - elevated BSG this morning before lunch again but low this morning - will not adjust #CAD/HTN- No current chest pain, WNL EKG and troponin 3.6; S/p LAD stent september of 2021; ASA, Plavix, metoprolol, atorvastatin; Isosorbide mononitrate, prazosin. #Dementia- Memantine; Ancillary therapy to prevent delirium- Increase familiarity of setting + promote good sleep (melatonin) #Depression- Venlafaxine, Mirtazapine #GERD- Pantoprazole Dispo: Continued inpatient stay determining safe discharge disposition DVT prophy: Lovenox added Family updated at bedside 03/13 Admission and Anticipated Discharge Date Admission Date: March 10, 2024 Supervising Physician Co-Signing Physician Notes PA Supervision Note: I did not personally see or examine the patient today, but I verified all arriaga points of DALILA Rodríguez's assessment and plan with the following exceptions/additions: None Subjective Patient seen sitting up in the chair. No acute complaints. no bladder pain. Anxious to be able to leave the hospital. Physical Exam Physical Exam: General: NAD, vitals as above, sitting on the side of bed Pulm: breathing unlabored CV: well perfused : lezama draining clear light yellow urine extremities: moves all extremities Results & Data Results & Data Vital Signs (Past 12 Hours) Vital Signs Temp Pulse Resp BP Pulse Ox O2 Del Method 03/16/24 14:01 97.7 F 85 16 95/58 L 99 Room Air 03/16/24 07:19 97.7 F 73 18 117/77 96 Room Air PG Care Time/CCT Total # of Minutes Spent Total Time Spent with Patient: Total time spent is greater than 50% in coordination of care (as documented) at patient's floor/unit and/or counseling patient: Coding Level of Care Code 75456 SUB INP/OBS CARE 03/24MIN Diagnoses Urinary tract infection N39.0 Recurrent falls R29.6 Type 2 diabetes mellitus E11.9 CAD (coronary artery disease), [place] coronary artery I25.10
[2024-03-17 07:33] VITALS: BP 129/76; PULSE 76; RESP 20; TEMP 97.7; O2SAT 93
--- NOTE | 2024-03-17 13:15 | Discharge Summary ---
Discharge Summary Date of Service March 17, 2024 Principal Dx & Hospital Course #1 = Principal Diagnosis (1) Urinary tract infection: (2) Recurrent falls: (3) Type 2 diabetes mellitus: (4) CAD (coronary artery disease), [place] coronary artery: Plan 78-year-old male PMHx CAD s/p LAD stent, DDD, HTN, DM, depression, dementia presenting to ED for recurrent falls. Over the past 2 days prior to arrival, the patient has fallen approximately 3 times. Has hit his head during the falls, but CT head revealing no acute findings other than small scalp hematoma. Pt w/o symptoms prior to falls, no LOC, and no seizure like activities. Has been feeling slightly weak over the past week prior to admission. [place] scan in the CT for falls - no acute abnormalities besides bladder wall thickening consistent with cystitis and small posterior scalp hematoma. Patient has a chronic lezama for urinary retention, follows with urology with plan for outpatient cystoscopy. Lezama exchanged in the ED on 03/10. UC showed E.Coli, patient completed 7 day course of ceftriaxone. Blood cultures negative, finalized. discharged to [facility] for SNF rehab. Will need outpatient follow-up with urology #UTI/Recurrent falls/Catheter associated UTI Completed course of ceftriaxone. needs outpatient urology follow-up PT/OT - recommending rehab - discharged with DO #DMT2 02/2022 A1c: 7.1 continue: Home regimen Jardiance, sitagliptin, and metformin #CAD/HTN- S/p LAD stent september of 2021; ASA, Plavix, metoprolol, atorvastatin; Isosorbide mononitrate, prazosin. #Dementia- Memantine #Depression- Venlafaxine, Mirtazapine #GERD- Pantoprazole Dispo: discharge to [facility] for rehab Notes For Next Care Provider question of still need for dual antiplatelet therapy for coronary artery stents? no medication adjustments made during inpatient stay Admission HPI Per Admitting Provider 78-year-old male w/ PMHx CAD s/p LAD stent (2021), DDD, HTN, DM, depression, dementia presenting to ED for recurrent falls. Over the past 2 days prior to arrival, the patient has fallen approximately 3 times. States that when he falls, he collapses to the ground but does not have symptoms prior to these event to include dizziness, chest pain, or SOB. Feels weak prior to the fall but nothing more. No LOC, but has hit his head on multiple occasions with the falls. CT head revealed a hematoma but no acute intracranial findings and cervical spine CT was unremarkable. Patient's DIL is present in room with 2 additional family members. She also states that the patient has not been sleeping well for approximately a week. Patient admits that he is feeling more weak lately and that he has had recent exposure to COVID-19, BioFire negative. Did have 2 episodes of loose stool within the past 24 hours and some nausea without v omiting. Otherwise, no chest pain, SOB, palpitations, abdominal pain, constipation, numbness/tingling, LUTS, headaches, or dizziness. Overall his workup is grossly unremarkable with no leukocytosis, no significant electrolyte abnormalities and normal imaging of the chest, head, and abdomen/pelvis. UA does reveal infection. Significant findings also include that his lactate was initially elevated at 3.1 when he arrived to the ER, but on repeat is 1.8 and this is s/p IVF resuscitation w/ NSS and a dose of daptomycin. Please see Dr. Lauren's attestation for adjustments/additions to treatment plan. Discharge Exam General: NAD, vitals as above, sitting on the side of bed Pulm: breathing unlabored CV: well perfused : Lezama draining clear yellow urine extremities: moves all extremities Discharge Plan Discharge Items Patient Disposition: Transfer Senior Living Fac Reason For Visit: FALLS, UTI Discharge Diagnosis: UTI Condition on Discharge: Good Activity: As commented below Activity Comment: work with therapy to get stronger Non-emergency contact: Primary Care Provider Call non-emergency contact if: you have any medication questions, your pain is not controlled and your temperature is above 101 Follow-up/Referrals: Natalie Mirza PA-C [Primary Care Provider] - (1 week after discharge from rehab) Clint Orr MD [Physician] - (cystoscopy ) Diet: Carb Consistent or DM2 Diet Texture: Easy to Chew Addtl Attending Provider Instructions: Mr. Honeycutt, You were hospitalized after having weakness and falls from your urinary tract infection. This was treated with antibiotics while you were in the hospital. You will be discharged to rehab to get stronger prior to returning home! No changes to your home medications, work with therapy to get stronger! Please follow up with urology to discuss lezama removal/bladder scope/next steps. Take care! Pending Studies at Discharge: No Stand-Alone Forms: My [facility] Skilled Items Patient informed of condition?: Yes DNR: No Discharge Level of Care: Skilled Communicable Disease: No Discharge Prognosis: Stable Lines: None Urinary Catheter: Yes Medications and DC Order Prescriptions: Continued memantine [Namenda] 10 mg tablet 10 mg PO BID Qty: 180 3RF docusate sodium 100 mg capsule 100 mg PO BID cholecalciferol (vitamin D3) 25 mcg (1,000 unit) capsule 25 mcg PO DAILY finasteride 5 mg tablet 5 mg PO DAILY metformin 1,000 mg tablet 1,000 mg PO BID mirtazapine 30 mg tablet 30 mg PO HS pantoprazole 40 mg tablet,delayed release (DR/EC) 40 mg PO DAILYBB prazosin 2 mg capsule 2 mg PO HS venlafaxine 75 mg capsule,extended release 24hr 150 mg PO DAILY atorvastatin 80 mg tablet 80 mg PO QAM aspirin 81 mg Tablet,Delayed Release (Dr/Ec) 81 mg PO QAM isosorbide mononitrate 60 mg Tablet Extended Release 24 Hr 30 mg PO QAM Rx Instructions: Take 1/2 tab po QAM (30 mg) gabapentin 100 mg Capsule 200 mg PO BID metoprolol succinate 25 mg Tablet Extended Release 24 Hr 25 mg PO DAILY empagliflozin 25 mg Tablet 25 mg PO QAM Nutritional Shake Liquid 1 ea PO BID clopidogrel [Plavix] 75 mg Tablet 75 mg DAILY sitagliptin 50 mg Tablet 50 mg PO DAILY Discharge Orders: Discharge Order (Routine); Ordered 03/17/24 Ordered By: Neema Rodríguez Admission Data Admit Date/Time: 03/10/24 00:07 Attending Provider: Maggie Howard Admit Provider: Angie Lauren Primary Care Provider: Natalie Mirza Other Providers: Angie Lauren; [facility]; [facility] Other Interventions: Discharge Summary Assessment (RN) Last Done: 03/17/24 13:50 Hospital Stay Data Consultations 03/09/24 22:57 ED Decision to Admit Stat Diagnostic Imagining Performed Chest X-Ray 03/09/24 20:09 Exam(s): XR CXR 1 VIEW EXAM: XR Chest, 1 View CLINICAL HISTORY: Reason for exam: weakness. TECHNIQUE: Frontal view of the chest. COMPARISON: March 07, 2022 FINDINGS: Lungs: Unremarkable. No consolidation. Pleural space: Unremarkable. No pneumothorax. Heart: Unremarkable. No cardiomegaly. Mediastinum: Unremarkable. Normal mediastinal contour. Bones/joints: Mild degenerative changes in the shoulders. No acute fracture. Upper abdomen: Unremarkable as visualized. No pneumoperitoneum under the diaphragm. IMPRESSION: No acute findings in the chest. Electronically signed by: Antwna Lauren MD 03/09/24 22:[address] 03/09/24 20:09 Exam(s): CT HEAD Without Contrast EXAM: CT Head Without Intravenous Contrast CLINICAL HISTORY: Reason for exam: Frequent falls, weakness. TECHNIQUE: Axial computed tomography images of the head/brain without intravenous contrast. CTDI is 38.43 mGy and DLP is 546.36 mGy-cm. Automated exposure control was utilized for the study. A dose lowering technique was utilized adhering to the principles of ALARA. COMPARISON: November 11, 2021 FINDINGS: Brain: Mild periventricular white matter low density consistent with chronic small vessel disease and/or senescent changes, similar to previous per the brain is otherwise unremarkable. No acute large vessel infarct or intracranial hemorrhage is seen. Ventricles: Unremarkable. No ventriculomegaly. Bones/joints: See below. Soft tissues: Small posterior scalp hematoma. No skull fracture. Sinuses: Unremarkable as visualized. No acute sinusitis. Mastoid air cells: Unremarkable as visualized. No mastoid effusion. IMPRESSION: 1. Small posterior scalp hematoma. No skull fracture. 2. Mild periventricular white matter low density consistent with chronic small vessel disease and/or senescent changes, similar to previous per the brain is otherwise unremarkable. No acute large vessel infarct or intracranial hemorrhage is seen. Electronically signed by: Antwan Lauren MD 03/09/24 22:33 PM Abdomen/Pelvis CT 03/09/24 20:10 Exam(s): CT ABDOMEN + PELVIS With Contrast IV Amt: 90ml optiray 320 EXAM: CT Abdomen and Pelvis With Intravenous Contrast CLINICAL HISTORY: Reason for exam: LLQ abd pain. TECHNIQUE: Axial computed tomography images of the abdomen and pelvis with intravenous contrast. CTDI is 19.57 mGy and DLP is 866.82 mGy-cm. Automated exposure control was utilized for the study. A dose lowering technique was utilized adhering to the principles of ALARA. CONTRAST: Patient received 90ml optiray 320 of IV contrast COMPARISON: No relevant prior studies available. FINDINGS: Lung bases: Unremarkable. No mass. No consolidation. Mediastinum: 2.5 cm hiatal hernia. ABDOMEN: Liver: Lobular 2.9 cm simple cyst in the liver. No follow-up is required. Gallbladder and bile ducts: Previous cholecystectomy. No biliary duct dilation is seen. Pancreas: Unremarkable. No mass. No ductal dilation. Spleen: Unremarkable. No splenomegaly. Adrenals: Unremarkable. No mass. Kidneys and ureters: Unremarkable. No solid mass. No hydronephrosis. Stomach and bowel: Unremarkable. No obstruction. No mucosal thickening. PELVIS: Appendix: There is an anastomotic staple line in the mid sigmoid colon. The appendix is normal. Bowel loops are nondilated. No acute inflammatory changes are seen involving the bowel. Bladder: Mild wall thickening involving the urinary bladder posterior wall. Consider cystitis. There is a Lezama catheter in the bladder. Reproductive: Unremarkable as visualized. ABDOMEN and PELVIS: Intraperitoneal space: Unremarkable. No free air. No significant fluid collection. Bones/joints: Moderate multilevel degenerative changes throughout the spine. No acute fracture or subluxation. Mild degenerative changes in the hips. No hip or pelvic fracture is identified. Soft tissues: Unremarkable. Vasculature: Unremarkable. No abdominal aortic aneurysm. Lymph nodes: Unremarkable. No enlarged lymph nodes. IMPRESSION: 1. Mild wall thickening involving the urinary bladder posterior wall. Consider cystitis. There is a Lezama catheter in the bladder. 2. There is an anastomotic staple line in the mid sigmoid colon. The appendix is normal. Bowel loops are nondilated. No acute inflammatory changes are seen involving the bowel. 3. No acute traumatic findings are identified. Electronically signed by: Antwan Lauren MD 03/09/24 22:[address] 03/09/24 20:14 Exam(s): CT C SPINE EXAM: CT Cervical Spine Without Intravenous Contrast CLINICAL HISTORY: Reason for exam: Frequent falls, trauma. TECHNIQUE: Axial computed tomography images of the cervical spine without intravenous contrast. CTDI is 22.33 mGy and DLP is 444.16 mGy-cm. Automated exposure control was utilized for the study. A dose lowering technique was utilized adhering to the principles of ALARA. COMPARISON: No relevant prior studies available. FINDINGS: Vertebrae: Previous anterior plate and screw fusion of C3-C5 with hardware is intact. No acute fracture. Normal anatomic variant of incomplete fusion of the posterior arch of C1. Soft tissues: Unremarkable. DISCS/SPINAL CANAL/NEURAL FORAMINA: C2-C3: Mild degenerative disc disease. No stenosis. C3-C4: The disc is fused. No stenosis. C4-C5: The disc is fused. No stenosis. C5-C6: Mild degenerative disc disease. No stenosis. C6-C7: Mild degenerative disc disease. No stenosis. C7-T1: Unremarkable. No significant disc disease. No stenosis. IMPRESSION: Mild degenerative disc disease throughout the remainder of the cervical spine. No acute fracture or subluxation is seen. Electronically signed by: Antwan Lauren MD 03/09/24 22:[address] 03/09/24 20:14 Exam(s): CT CHEST With Contrast IV Amt: 90ml optiray 320 EXAM: CT Chest With Intravenous Contrast CLINICAL HISTORY: Reason for exam: Frequent falls, trauma. TECHNIQUE: Axial computed tomography images of the chest with intravenous contrast. CTDI is 19.57 mGy and DLP is 866.82 mGy-cm. Automated exposure control was utilized for the study. A dose lowering technique was utilized adhering to the principles of ALARA. CONTRAST: Patient received 90ml optiray 320 of IV contrast COMPARISON: No relevant prior studies available. FINDINGS: Lungs: Unremarkable. No mass. No consolidation. Pleural space: Unremarkable. No pneumothorax. No significant effusion. Heart: The heart is upper normal in size. There is a stent in the LAD. No pericardial effusion. Bones/joints: Mild multilevel degenerative changes throughout the spine. No acute fracture or destructive bone lesion is seen. No dislocation. Soft tissues: Unremarkable. 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 The remainder the thoracic aorta is nondilated. No dissection. Lymph nodes: Unremarkable. No enlarged lymph nodes. IMPRESSION: No acute traumatic findings are seen involving the thorax. 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 The remainder the thoracic aorta is nondilated. No dissection. Electronically signed by: Antwan Lauren MD 03/09/24 22:40 PM Pending Results Patient Have Any Pending Studies at Discharge: No Discharge Instructions Given to Patient (Per Discharging Provider) Mr. Honeycutt, You were hospitalized after having weakness and falls from your urinary tract infection. This was treated with antibiotics while you were in the hospital. You will be discharged to rehab to get stronger prior to returning home! No changes to your home medications, work with therapy to get stronger! Please follow up with urology to discuss lezama removal/bladder scope/next steps. Take care! Supervising Physician Co-Signing Physician Notes DALILA Supervision Note: I did not personally see or examine the patient today, but I verified all arriaga points of DALILA Rodríguez's assessment and plan with the following exceptions/additions: None Total Time Total Time Spent Total Time Spent (In Minutes): Time spent day of discharge 20 minutes including direct patient care, medication reconciliation, documentation, review of labs and images, and coordination of care. Coding Level of Care Code 29082 IN/OBS DISCH 30 MIN/LESS Diagnoses Urinary tract infection N39.0 Recurrent falls R29.6 Type 2 diabetes mellitus E11.9 CAD (coronary artery disease), [place] coronary artery I25.10
--- NOTE | 2024-03-19 12:32 | Coding Query ---
To promote full compliance with coding requirements relating to patient care, provider participation is requested in all cases of inpatient coder uncertainty. Please assist us with the question(s) below: Coding Question(s): The diagnosis below was documented in the ER & H&P, then subsequently fell off all further documentation. Please indicate if it is still a possible diagnosis or ruled out. Physician's Response(s): HYPONATREMIA, MILD ( ) Diagnosed and POA ( ) Diagnosed and not POA ( x ) Ruled out ( ) Other (please specify) MTDD
== END 2024-03-17 14:19 | DRG 700 ==
LOC: ED 19:39 → 3E 03-10 00:07 → SUATTDRO 03-10 00:07 → 3E 03-10 01:44

== ENCOUNTER 2025-02-08 06:48 | Inpatient (IN) ==
[2025-02-08 07:40] LABS: Hematocrit (blood only) 36.5 % (42.0-52.0); Hemoglobin 12.0 g/dL (14.0-18.0); Mean Corpuscular Hemoglobin 27.1 pg (25.0-34.0); Mean Corpuscular Volume 82.4 fL (80.0-100.0); Platelet Count 146 K/uL (130-400); RDW Standard Deviation 41.1 fL (36.4-46.3); Red Blood Count 4.43 M/uL (4.70-6.10); White Blood Count 13.29 K/ul (4.8-10.8)
[2025-02-08 07:48] LABS: Appearance Urine Cloudy (Clear); Bacteria Urine Automated 4+ (None Seen); Epithelial Cell Urine Auto 0-2 /hpf (0-2); Glucose Urine UA 3+ (Negative); WBC Urine Automated >50 /hpf (0-5)
--- NOTE | 2025-02-08 08:06 | Emergency Department Note ---
Impression & Plan Upper respiratory infection, viral, UTI (urinary tract infection), Fever ED Provider Note NAME: REJI BAKER AGE: 79 SEX: M : 1945 ARRIVES VIA: Ambulance INFORMANT: Patient, ED PROVIDER(S): Berna Robison MD CHIEF COMPLAINT: Confusion, fever HPI: This is an 79-year-old male presenting for confusion/fever. Patient had EMS called by [id number]. Reportedly significantly weak unable to get out of bed/chair. Had a fever up to 102.7 as per EMS. Patient given Tylenol as well as fluids. Patient reportedly had a blood pressure of 80/40 as per EMS as well. Patient at this time appears well. He states he feels somewhat weak but otherwise his usual baseline. He noted a runny nose previously. Noted abdominal pain that has since resolved. He had his Nation catheter replaced yesterday. He is chronically Nation dependent. ROS: See above HPI for pertinent positives & negatives. A total of 10 systems reviewed and were otherwise negative. PAST MEDICAL HISTORY: See Below PAST SURGICAL HISTORY: See Below FAMILY HISTORY: See Below SOCIAL HISTORY: See Below HOME MEDICATIONS: See Below ALLERGIES: See Below VITALS: See Below PHYSICAL EXAMINATION: General: resting comfortably in no acute distress Head: Normocephalic and atraumatic Eyes: Normal inspection, extraocular muscles intact Ear, nose, throat: Normal external exam Neck: Normal range of motion Respiratory: lungs clear to auscultation bilaterally Cardiovascular: Regular rate/rhythm, no murmur GI: soft, nontender, no guarding or rebound Extremities: nontender, moves all extremities Neuro: The patient awake and alert, appropriately conversive, no focal deficits, symmetric faces Skin: Warm, dry, and intact MEDICAL DECISION MAKING: This is a 79-year-old male present for confusion/fever. Patient has blood pressure of 102/71. No significant fever here. No tachycardia. - Urinalysis feels either UTI versus examination for chronic Nation dependence. Will give ceftriaxone due to suspected infection/possible sepsis - Slight leukocytosis to 13.29. Lactic acid elevated 4.2. - Chest x-ray reveals mild vascular congestion -Patient is enterovirus positive -The patient having UTI, enterovirus, borderline hypotension, elevated lactic acid level, will admit to the hospital service -Care discussed with Dr. Simon Differential diagnosis: Sepsis, pneumonia, UTI, URI Independent History obtained from: Human Resources Specialist Diagnostics interpreted by me: ECG: ECG independently interpreted by me with normal sinus rhythm, rate of 94, normal VA, normal QRS, normal QTc, no ST segment elevations consistent with STEMI criteria Cardiac Monitoring: An order was placed for continuous cardiac monitoring. The monitor shows a rate of 105 with sinus rhythm. Past Med/Surg History Problem List (Updated 02/08/25 @ 15:31 by Berna Robison MD) Fever (Acute) UTI (urinary tract infection) (Acute) Upper respiratory infection, viral (Acute) Hypomagnesemia Metabolic encephalopathy Catheter-associated urinary tract infection Superior mesenteric artery stenosis Left-sided chest pain (Acute) Encounter for pre-operative examination Degenerative disc disease Recurrent falls while walking Chronic reflux esophagitis (Acute) Insomnia (Acute) Chest pain Medical History Type 2 diabetes mellitus CAD (coronary artery disease), [place] coronary artery LAD stent (~09/2021) AWAITING DETAILS WHO PATIENT'S VP AD SALES WEST IS/WHEN LAST SEEN Syncope 10/2021 s/p unremarkable [facility] admission workup (felt possibly related to medication reaction/hypoglycemia or Covid 19 contributing) AWAITING DETAILS IF FURTHER EPISODES SINCE ADMISSION COVID-19 11/12/21 ([facility]; [facility] ID Now) Dementia Gait abnormality Parkinsonism Depression Diabetes mellitus Hypertension Vertigo Surgical History S/P cholecystectomy Social History Smoking Status: Never smoker Second Hand Exposure: No; Do You Dip or Chew Tobacco: No; Hx Alcohol Use: No Hx Substance Use: No Preferred Language: Welsh Communication Ability: Effective Conflicts Analyst Required: No Beliefs That Will Affect Care: None marital status: / Current Living Situation: Family Current Living Situation Comment: lives with son Feels Safe at Home: Yes Assistive Devices: Glasses and Walker Allergies Allergies Allergy/AdvReac Type Severity Reaction Status Date / Time empagliflozin AdvReac Unknown Unverified 02/08/25 11:45 morphine AdvReac Unknown Unverified 02/08/25 11:45 Home Meds Home Medications Medication Instructions Recorded Confirmed cholecalciferol (vitamin D3) 25 25 mcg PO DAILY 10/01/19 02/08/25 mcg (1,000 unit) capsule docusate sodium 100 mg capsule 100 mg PO BID 10/01/19 02/08/25 metformin 1,000 mg tablet 1,000 mg PO BID 10/01/19 02/08/25 mirtazapine 30 mg tablet 30 mg PO HS 10/01/19 02/08/25 pantoprazole 40 mg tablet,delayed 40 mg PO DAILYBB 10/01/19 02/08/25 release prazosin 2 mg capsule 2 mg PO HS 10/01/19 02/08/25 venlafaxine 75 mg capsule,extended 150 mg PO DAILY 10/01/19 02/08/25 release 24 hr aspirin 81 mg tablet,delayed 81 mg PO QA 11/12/21 02/08/25 release atorvastatin 80 mg tablet 80 mg PO [facility] 11/12/21 02/08/25 food supplemt, lactose-reduced 1 ea PO BID 11/12/21 02/08/25 (Nutritional Shake oral liquid) gabapentin 100 mg capsule 200 mg PO BID 11/12/21 02/08/25 isosorbide mononitrate 60 mg 30 mg PO M 11/12/21 02/08/25 tablet,extended release 24 hr metoprolol succinate 25 mg 25 mg PO DAILY 11/12/21 02/08/25 tablet,extended release 24 hr clopidogrel 75 mg tablet (Plavix) 75 mg DAILY 03/10/24 02/08/25 sitagliptin 50 mg tablet 50 mg PO DAILY 03/10/24 02/08/25 acetaminophen 500 mg tablet 500 mg PO Q6H PRN Pain 02/08/25 02/08/25 ascorbic acid (vitamin C) 500 mg 500 mg PO Q OTHER DAY 02/08/25 02/08/25 tablet bisacodyl 10 mg rectal suppository 10 mg VA Q48H 02/08/25 02/08/25 carbamide peroxide 6.5 % ear drops 5 drp otic (ear) Q12H 02/08/25 02/08/25 cyanocobalamin (vitamin B-12) 1,000 mcg PO DAILY 02/08/25 02/08/25 1,000 mcg tablet ferrous sulfate 325 mg (65 mg 325 mg PO Q OTHER DAY 02/08/25 02/08/25 iron) tablet glipizide 5 mg tablet 5 mg PO DAILYBD 02/08/25 02/08/25 glucose 4 gram chewable tablet 4 g PO ONCE PRN LOW SUGAR 02/08/25 02/08/25 ketoconazole 2 % shampoo 1 ea topical 2XWK 02/08/25 02/08/25 magnesium oxide 420 mg tablet 420 mg PO DAILY 02/08/25 02/08/25 memantine 10 mg tablet 10 mg PO BID 02/08/25 02/08/25 mineral oil-iso myristat-water 1 applic topical DAILY PRN Dry Skin 02/08/25 02/08/25 lotion multivitamin with minerals 1 tab PO DAILY 02/08/25 02/08/25 polyethylene glycol 3350 17 gram 17 g PO DAILY 02/08/25 02/08/25 oral powder packet triamcinolone acetonide 0.1 % 1 applic topical BID 02/08/25 02/08/25 topical ointment Results & Data (ED) Vital Signs Vital Signs - 24 hr 02/08/25 07:01 02/08/25 07:01 02/08/25 07:01 Temperature 36.7 C 36.7 C Temperature Source Oral Oral Pulse Rate 95 H Pulse Rate [Apical] 95 H Pulse Rate from SpO2 Sensor Respiratory Rate 26 H 26 H Blood Pressure 102/71 Blood Pressure [Right Arm] 102/71 Blood Pressure Mean 81 Blood Pressure Mean [Right Arm] 81 Pulse Oximetry 98 98 98 Oxygen Delivery Method Room Air Room Air Room Air Sepsis Recent Fever Within 48 Hours Yes Sepsis New/Unexplained Change in Mental Status Yes Sepsis Action Taken by Nursing Physician Notified 02/08/25 07:01 02/08/25 07:39 02/08/25 07:41 Temperature Temperature Source Pulse Rate 95 H 93 H Pulse Rate [Apical] Pulse Rate from SpO2 Sensor 94 H Respiratory Rate 26 H 22 Blood Pressure 112/69 Blood Pressure [Right Arm] Blood Pressure Mean 74 Blood Pressure Mean [Right Arm] Pulse Oximetry 98 95 Oxygen Delivery Method Room Air Sepsis Recent Fever Within 48 Hours Sepsis New/Unexplained Change in Mental Status Sepsis Action Taken by Nursing 02/08/25 08:08 02/08/25 09:30 02/08/25 09:30 Temperature Temperature Source Pulse Rate 94 H Pulse Rate [Apical] 95 H Pulse Rate from SpO2 Sensor Respiratory Rate 28 H Blood Pressure 120/95 Blood Pressure [Right Arm] 120/95 Blood Pressure Mean 102 Blood Pressure Mean [Right Arm] 103 Pulse Oximetry 97 Oxygen Delivery Method Room Air Sepsis Recent Fever Within 48 Hours Sepsis New/Unexplained Change in Mental Status Sepsis Action Taken by Nursing 02/08/25 09:30 02/08/25 10:00 Temperature Temperature Source Pulse Rate 96 H 98 H Pulse Rate [Apical] Pulse Rate from SpO2 Sensor 97 H 102 H Respiratory Rate 22 22 Blood Pressure Blood Pressure [Right Arm] Blood Pressure Mean Blood Pressure Mean [Right Arm] Pulse Oximetry 95 97 Oxygen Delivery Method Sepsis Recent Fever Within 48 Hours Sepsis New/Unexplained Change in Mental Status Sepsis Action Taken by Nursing Laboratory Data 02/08/25 07:23 02/08/25 07:23 Lab Results 02/08/25 02/08/25 02/08/25 Range/Units 07:23 07:24 09:21 WBC 13.29 H (4.8-10.8) K/ul RBC 4.43 L (4.70-6.10) M/uL Hgb 12.0 L (14.0-18.0) g/dL Hct 36.5 L (42.0-52.0) % MCV 82.4 (80.0-100.0) fL MCH 27.1 (25.0-34.0) pg MCHC 32.9 (32.0-36.0) g/dL RDW Std Deviation 41.1 (36.4-46.3) fL RDW Coeff of Elpidio 13.9 (11.5-14.5) % Plt Count 146 (130-400) K/uL MPV 10.5 (9.4-12.4) fL Immature Gran % (Auto) 0.8 % Neut % (Auto) 90.5 % Lymph % (Auto) 4.2 % [place] % (Auto) 3.8 % Eos % (Auto) 0.5 % Baso % (Auto) 0.2 % Neut # (Auto) 12.03 H (1.40-6.50) K/uL Lymph # (Auto) 0.56 L (1.20-3.40) K/uL [place] # (Auto) 0.51 (0.11-0.59) K/uL Eos # (Auto) 0.06 (0.00-0.50) K/uL Baso # (Auto) 0.03 (0.00-0.20) K/uL Immature Gran # (Auto) 0.10 (0.01-0.20) K/uL Sodium 133 L (136-145) mmol/L Potassium 4.3 (3.5-5.1) mmol/L Chloride 103 (98-107) mmol/L Carbon Dioxide 21 (21-32) mmol/L Anion Gap 9 (3-11) BUN 20 (6-23) mg/dl Creatinine 1.10 (0.6-1.4) mg/dl Est Cr Clr Drug Dosing 54.4 ml/min eGFR 69.14 BUN/Creatinine Ratio 18.2 (10-20) Glucose 336 H* (70-99(Fasting)) mg/dl Lactate 4.2 H* 4.7 H* (0.4-2.0) mmol/L Calcium 8.2 L (8.6-10.3) mg/dl Magnesium 1.3 L (1.7-2.4) mg/dl Total Bilirubin 0.6 (0.2-1.0) mg/dl AST 13 (13-39) U/L ALT 11 (7-52) U/L Alkaline Phosphatase 75 (34-104) U/L Troponin I High Sens 4.6 (0-20) pg/ml Total Protein 6.3 (6.0-8.3) gm/dl Albumin 3.9 (3.4-5.0) gm/dl Globulin 2.4 L (2.5-4.0) gm/dl Albumin/Globulin Ratio 1.6 (0.9-2) TSH 1.327 (0.300-4.500) uIu/ml Urine Color Yellow Urine Appearance Cloudy A (Clear) Urine pH 6.5 (4.5-7.5) Ur Specific [place] 1.021 (1.000-1.030) Urine Protein 1+ H (Negative) Urine Glucose (UA) 3+ H (Negative) Urine Ketones Trace H (Negative) Urine Blood 2+ H (Negative) Urine Nitrite Positive A (Negative) Urine Bilirubin Negative (Negative) Urine Urobilinogen Negative (Negative) Ur Leukocyte Esterase 2+ H (Negative) Urine WBC (Auto) >50 H (0-5) /hpf Urine RBC (Auto) 11-20 H (0-2) /hpf U Hyaline Cast (Auto) 3-5 H (0-2) /lpf U Epithel Cells (Auto) 0-2 (0-2) /hpf Urine Bacteria (Auto) 4+ H (None Seen) Amorphous Sediment Present A (None Prsent) Urine Comment Adenovirus (PCR) Not Detected (NotDetected) B. pertussis DNA (PCR) Not Detected (NotDetected) B.parapertussis DNA PCR Not Detected (NotDetected) C. pneumoniae DNA (PCR) Not Detected (NotDetected) Coronavirus OC43 (PCR) Not Detected (NotDetected) Coronavirus HKU1 (PCR) Not Detected (NotDetected) Coronavirus 229E (PCR) Not Detected (NotDetected) SARS-CoV-2 (PCR) Not Detected (NotDetected) Coronavirus NL63 (PCR) Not Detected (NotDetected) Human Metapneumovir PCR Not Detected (NotDetected) Influenza Type A (PCR) Not Detected (NotDetected) Influenza Type B (PCR) Not Detected (NotDetected) M. pneumoniae (PCR) Not Detected (NotDetected) Parainfluenza 1 (PCR) Not Detected (NotDetected) Parainfluenza 2 (PCR) Not Detected (NotDetected) Parainfluenza 3 (PCR) Not Detected (NotDetected) Parainfluenza 4 (PCR) Not Detected (NotDetected) RSV (PCR) Not Detected (NotDetected) Entero/Rhino (PCR) DETECTED A (NotDetected) Administered Medications Discontinued Medications Sodium Chloride (Nss) 1,000 mls @ 999 mls/hr IV .Q1H1M ONE Stop: 02/08/25 08:45 Last Infusion: 02/08/25 09:28 Dose: Infused Documented By: MARY JO Admin: 02/08/25 08:22 Dose: 999 mls/hr Documented By: MARY JO Ceftriaxone Sodium (Rocephin) 2,000 mg in 50 mls @ 100 mls/hr IV NOW STA Stop: 02/08/25 08:34 Last Infusion: 02/08/25 08:56 Dose: Infused Documented By: MARY JO Admin: 02/08/25 08:22 Dose: 100 mls/hr Documented By: MARY JO Magnesium Sulfate/Dextrose (Magnesium Sulfate / D5w) 1 gm in 100 mls @ 50 mls/hr IV Q2H LETICIA Stop: 02/08/25 15:14 Last Infusion: 02/08/25 14:30 Dose: Infused Documented By: aleksandar Admin: 02/08/25 12:19 Dose: 50 mls/hr Documented By: aleksandar Infusion: 02/08/25 12:18 Dose: Infused Documented By: aleksandar Admin: 02/08/25 11:22 Dose: 50 mls/hr Documented By: trey Acetaminophen (Ofirmev) 1,000 mg in 100 mls @ 400 mls/hr IV NOW STA Stop: 02/08/25 11:29 Last Infusion: 02/08/25 12:04 Dose: Infused Documented By: aleksandar Admin: 02/08/25 11:22 Dose: 400 mls/hr Documented By: trey Ondansetron HCl (Ondansetron Inj 2 Mg/Ml 2 Ml Vial) 4 mg IV NOW STA Stop: 02/08/25 11:15 Last Admin: 02/08/25 11:22 Dose: 4 mg Documented By: trey Imaging Data Radiologist's Impression: Chest X-Ray 02/08/25 06:58 EXAM: XR chest 1V portable CLINICAL HISTORY: weakness TECHNIQUE: An X-ray image of the chest is obtained in AP projection. COMPARISON: compared to prior study at 03/09/2024 FINDINGS: Pulmonary Parenchyma: Prominent intersitial lung markings suggestive of mild vascular congestion. No evidence of consolidation, collapse, or focal opacities. No pulmonary nodules are identified. No evidence of pleural effusion or pleural thickening. Elevated right diaphragmatic coupla. Heart and Mediastinum: Heart size and shape are normal. No mediastinal widening or masses. No hilar or mediastinal lymphadenopathy. Bony Thorax: Bony thorax appears intact without fractures or deformities. Mild degenerative changes at both shoulder joints. Soft Tissues: Soft tissues overlying the chest wall are unremarkable. IMPRESSION: 1. Prominent intersitial lung markings suggestive of mild vascular congestion. 2. No acute cardiopulmonary process. 3. No interval changes Electronically signed by Ivan Palomo 02-08-2025 08:14 AM Discharge Plan Visit Data Chief Complaint: Weakness Stated Complaint: Weakness, AMS ED Provider: Berna Robison Discharge Problem: Upper respiratory infection, viral, UTI (urinary tract infection), Fever Patient Disposition: Admitted As Inpatient Condition: Fair Discharge Problem: UTI (urinary tract infection) Qualifiers: Urinary tract infection type: catheter-associated UTI Indwelling urinary catheter type: indwelling urethral catheter
[2025-02-08 08:07] LABS: Immature Granulocytes # (auto) 0.10 K/uL (0.01-0.20); Immature Granulocytes % (auto) 0.8 %
[2025-02-08 08:11] LABS: Alanine Aminotransferase 11.0 U/L (7-52); Albumin Globulin Ratio 1.6 (0.9-2); Albumin Level 3.9 gm/dl (3.4-5.0); Alkaline Phosphatase 75.0 U/L (34-104); Anion Gap 9.0 (3-11); Bilirubin,Total 0.6 mg/dl (0.2-1.0); Blood Urea Nitrogen 20.0 mg/dl (6-23); Calcium 8.2 mg/dl (8.6-10.3); Carbon Dioxide 21.0 mmol/L (21-32); Chloride 103.0 mmol/L (98-107); Creatinine Clr Calc Pharmacy 54.4 ml/min; Globulin 2.4 gm/dl (2.5-4.0); Glucose 336.0 mg/dl (70-99(Fasting)); Magnesium 1.3 mg/dl (1.7-2.4); Potassium 4.3 mmol/L (3.5-5.1); Sodium 133.0 mmol/L (136-145); Total Protein 6.3 gm/dl (6.0-8.3)
--- NOTE | 2025-02-08 08:14 | XRay Report ---
EXAM: XR chest 1V portable CLINICAL HISTORY: weakness TECHNIQUE: An X-ray image of the chest is obtained in AP projection. COMPARISON: compared to prior study at 03/09/2024 FINDINGS: Pulmonary Parenchyma: Prominent intersitial lung markings suggestive of mild vascular congestion. No evidence of consolidation, collapse, or focal opacities. No pulmonary nodules are identified. No evidence of pleural effusion or pleural thickening. Elevated right diaphragmatic coupla. Heart and Mediastinum: Heart size and shape are normal. No mediastinal widening or masses. No hilar or mediastinal lymphadenopathy. Bony Thorax: Bony thorax appears intact without fractures or deformities. Mild degenerative changes at both shoulder joints. Soft Tissues: Soft tissues overlying the chest wall are unremarkable. IMPRESSION: 1. Prominent intersitial lung markings suggestive of mild vascular congestion. 2. No acute cardiopulmonary process. 3. No interval changes Electronically signed by Ivan Palomo 02-08-2025 08:14 AM
[2025-02-08] MEDS: SODIUM CHLORIDE 0.9% 1,000 ML IV ONE (08:22)
[2025-02-08] MEDS: cefTRIAXone SODIUM 2,000 MG/50 ML BAG IV STA (08:22)
[2025-02-08 08:23] LABS: Thyroid Stimulating Hormone 1.327 uIu/ml (0.300-4.500)
[2025-02-08 08:43] LABS: Chlamydia pneumoniae PCR Not Detected (NotDetected); Coronavirus 229E PCR Not Detected (NotDetected); Coronavirus CoV-2 (COVID19)PCR Not Detected (NotDetected); Coronavirus HKU1 PCR Not Detected (NotDetected); Coronavirus NL63 PCR Not Detected (NotDetected); Coronavirus OC43PCR Not Detected (NotDetected); Human Metapneumovirus PCR Not Detected (NotDetected); Parainfluenza Virus 1 PCR Not Detected (NotDetected); Parainfluenza Virus 2 PCR Not Detected (NotDetected); Parainfluenza Virus 3 PCR Not Detected (NotDetected); Parainfluenza Virus 4 PCR Not Detected (NotDetected); Respiratory Syncytial VirusPCR Not Detected (NotDetected); Rhinovirus/Enterovirus PCR DETECTED (NotDetected)
--- NOTE | 2025-02-08 08:51 | Electrocardiogram Report ---
Test Reason : Blood Pressure : */* mmHG Vent. Rate : 94 BPM Atrial Rate : 94 BPM P-R Int : 162 ms QRS Dur : 70 ms QT Int : 362 ms P-R-T Axes : 41 -7 12 degrees QTcB Int : 452 ms Normal sinus rhythm Cannot rule out Anterior infarct (cited on or before 09-Mar-2024) Abnormal ECG When compared with ECG of 09-Mar-2024 19:51, No significant change Confirmed by Arvind Machuca ([id number]) on 02/08/2025 8:50:42 AM Referred By: REFERRED SELF Confirmed By: Arvind Machuca
--- NOTE | 2025-02-08 11:07 | History & Physical Report ---
Date of Service February 08, 2025 Assessment & Plan (1) Catheter-associated urinary tract infection: Plan: Continue Rocephin started in the ED. Await urine and blood culture results. Previous history of infection with Klebsiella and MSSA (2) Metabolic encephalopathy: Plan: Supportive care. Treat underlying UTI (3) Hypomagnesemia: Plan: Parenteral replacement. Serial labs (4) Hypertension: Plan: The patient was mildly hypotensive on admission which has normalized with IV fluids. Will follow (5) CAD (coronary artery disease), [place] coronary artery: Plan: Currently stable. Continue current medical management (6) Type 2 diabetes mellitus: Plan: ADA diet. Sliding scale coverage. Metformin and amp blood glucose and are on hold Plan To be determined. Will obtain OT and PT assessments when appropriate History of Present Illness Chief Complaint: Lethargy and confusion Primary Care Provider: Natalie Mirza PA-C 79-year-old white male with chronic indwelling [place] catheter who developed lethargy and confusion after Nation catheter was changed by home health services yesterday, February 07. He was brought to the ED today, February 08, by family members. There is evidence of recurrent UTI and he appears to have a metabolic encephalopathy. Previous urine cultures grew Klebsiella and MSSA. He has received a dose of Rocephin. IV magnesium has been ordered. The patient believes he is at [facility] and cannot tell me the date. Family is in attendance Allergies Allergy/AdvReac Type Severity Reaction Status Date / Time No Known Allergies Allergy Verified 03/07/22 01:01 Home Medications Medication Instructions Recorded Confirmed Type cholecalciferol (vitamin D3) 25 25 mcg PO DAILY 10/01/19 03/10/24 History mcg (1,000 unit) capsule docusate sodium 100 mg capsule 100 mg PO BID 10/01/19 03/10/24 History finasteride 5 mg tablet 5 mg PO DAILY 10/01/19 03/10/24 History metformin 1,000 mg tablet 1,000 mg PO BID 10/01/19 03/10/24 History mirtazapine 30 mg tablet 30 mg PO HS 10/01/19 03/10/24 History pantoprazole 40 mg tablet,delayed 40 mg PO DAILYBB 10/01/19 03/10/24 History release prazosin 2 mg capsule 2 mg PO HS 10/01/19 03/10/24 History venlafaxine 75 mg capsule,extended 150 mg PO DAILY 10/01/19 03/10/24 History release 24 hr memantine 10 mg tablet (Namenda) 10 mg PO BID #180 tabs 05/29/21 03/10/24 Rx aspirin 81 mg tablet,delayed 81 mg PO QAM 11/12/21 03/10/24 History release atorvastatin 80 mg tablet 80 mg PO QAM 11/12/21 03/10/24 History empagliflozin 25 mg tablet 25 mg PO QAM 11/12/21 03/10/24 History food supplemt, lactose-reduced 1 ea PO BID 11/12/21 03/07/22 History (Nutritional Shake oral liquid) gabapentin 100 mg capsule 200 mg PO BID 11/12/21 03/10/24 History isosorbide mononitrate 60 mg 30 mg PO QAM 11/12/21 03/10/24 History tablet,extended release 24 hr metoprolol succinate 25 mg 25 mg PO DAILY 11/12/21 03/10/24 History tablet,extended release 24 hr clopidogrel 75 mg tablet (Plavix) 75 mg DAILY 03/10/24 03/10/24 History sitagliptin 50 mg tablet 50 mg PO DAILY 03/10/24 03/10/24 History amoxicillin 875 mg-potassium 1 tab PO BID #14 tabs 10/13/24 Rx clavulanate 125 mg tablet Past Med/Surg History Problem List (Updated 02/08/25 @ 11:12 by Enrique Simon MD) Hypomagnesemia Metabolic encephalopathy Catheter-associated urinary tract infection [place] mesenteric artery stenosis Left-sided chest pain (Acute) Encounter for pre-operative examination Degenerative disc disease Recurrent falls while walking Chronic reflux esophagitis (Acute) Insomnia (Acute) Chest pain Medical History Type 2 diabetes mellitus CAD (coronary artery disease), [place] coronary artery LAD stent (~09/2021) AWAITING DETAILS WHO PATIENT'S ROUTE SPECIALIST IS/WHEN LAST SEEN Syncope 10/2021 s/p unremarkable [facility] admission workup (felt possibly related to medication reaction/hypoglycemia or Covid 19 contributing) AWAITING DETAILS IF FURTHER EPISODES SINCE ADMISSION COVID-19 11/12/21 ([facility]; Lynne ID Now) Dementia Gait abnormality Parkinsonism Depression Diabetes mellitus Hypertension Vertigo Surgical History S/P cholecystectomy Social History Smoking Status: Never smoker Second Hand Exposure: No; Do You Dip or Chew Tobacco: No; Hx Alcohol Use: No Hx Substance Use: No Preferred Language: Greek Communication Ability: Effective 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 No current fever HEENT-head atraumatic and normocephalic, pupils equal and reactive to light, extraocular muscles intact Neck-no lymphadenopathy or thyromegaly, trachea midline Chest-clear to auscultation. No rales, wheezing or rhonchi Cardiac-regular rate and rhythm, normal S1 and S2 Abdomen-normal bowel sounds, no hepatosplenomegaly Extremities-no cyanosis, clubbing, or edema Neuro-cranial nerves II through XII intact, motor and sensory function within normal limits, strength symmetrical with generalized weakness, no focal deficits Psych-lethargic. Confused. Cannot assess Results & Data Results & Data Vital Signs (Past 12 Hours) Vital Signs Temp Pulse Pulse Resp BP BP Pulse Ox 02/08/25 09:30 95 H 28 H 120/95 97 02/08/25 08:08 94 H 02/08/25 07:01 95 H 26 H 98 02/08/25 07:01 36.7 C 95 H 26 H 102/71 98 02/08/25 07:01 98 02/08/25 07:01 36.7 C 95 H 26 H 102/71 98 O2 Del Method 02/08/25 09:30 Room Air 02/08/25 08:08 02/08/25 07:01 Room Air 02/08/25 07:01 Room Air 02/08/25 07:01 Room Air 02/08/25 07:01 Room Air Laboratory Results 02/08/25 07:23 02/08/25 07:23 Code Status & VTE Plan Code Status Full code PG Care Time/CCT Total # of Minutes Spent Total Time Spent with Patient: Total time spent is greater than 50% in coordination of care (as documented) at patient's floor/unit and/or counseling patient: Coding Level of Care Code 32190 INT INP/OBS CARE 3/75MIN Diagnoses Catheter-associated urinary tract infection T83.511A; N39.0 Metabolic encephalopathy G93.41 Hypomagnesemia E83.42 Hypertension I10 CAD (coronary artery disease), [place] coronary artery I25.10 Type 2 diabetes mellitus E11.9
[2025-02-08] MEDS: ONDANSETRON INJ 2 MG/ML 2 ML VIAL IV STA (11:22)
[2025-02-08] MEDS: ACETAMINOPHEN 1,000 MG/100 ML VIAL IV STA (11:22)
[2025-02-08] MEDS: MAGNESIUM SULFATE / D5W 1 GM/100 ML BAG IV SCH (11:22)
[2025-02-08] MEDS ORDERED: GLUCOSE 10 TAB/TUBE PO PRN (17:11)
[2025-02-08] MEDS ORDERED: CARBOHYDRATES FOR HYPOGLYCEMIA PO PRN (17:11)
[2025-02-08] MEDS ORDERED: ONDANSETRON INJ 2 MG/ML 2 ML VIAL IV PRN (17:11)
[2025-02-08] MEDS ORDERED: GLUCOSE 40% GEL 15 GM TUBE PO PRN (17:11)
[2025-02-08] MEDS ORDERED: GLUCAGON FOR INJ 1 MG VIAL SQ PRN (17:11)
[2025-02-08] MEDS ORDERED: DEXTROSE 50% 50 ML SYRINGE IV PRN (17:11)
[2025-02-08] MEDS: SODIUM CHLORIDE 0.9% 1,000 ML IV SCH (19:45)
[2025-02-08] MEDS: INSULIN ASPART PER UNIT CHARGE SC SCH (19:51)
[2025-02-08] MEDS: MEMANTINE HCL 10 MG TAB PO SCH (21:03)
[2025-02-08] MEDS: PRAZOSIN HCL 1 MG CAP PO SCH (21:03)
[2025-02-08] MEDS: MIRTAZAPINE TAB 15 MG TAB PO SCH (21:03)
[2025-02-08] MEDS: GABAPENTIN 100 MG CAP PO SCH (21:03)
[2025-02-08] MEDS: DOCUSATE SODIUM 100 MG CAP PO SCH (21:03)
[2025-02-09] MEDS: ACETAMINOPHEN 325 MG TAB PO PRN (06:11)
[2025-02-09 06:22] LABS: Hematocrit (blood only) 35.3 % (42.0-52.0); Hemoglobin 11.7 g/dL (14.0-18.0); Immature Granulocytes # (auto) 0.07 K/uL (0.01-0.20); Immature Granulocytes % (auto) 1.3 %; Mean Corpuscular Hemoglobin 27.0 pg (25.0-34.0); Mean Corpuscular Volume 81.3 fL (80.0-100.0); Platelet Count 104 K/uL (130-400); RDW Standard Deviation 41.4 fL (36.4-46.3); Red Blood Count 4.34 M/uL (4.70-6.10); White Blood Count 5.48 K/ul (4.8-10.8)
[2025-02-09 06:44] LABS: Anion Gap 7.0 (3-11); Blood Urea Nitrogen 17.0 mg/dl (6-23); Calcium 7.8 mg/dl (8.6-10.3); Carbon Dioxide 21.0 mmol/L (21-32); Chloride 105.0 mmol/L (98-107); Creatinine Clr Calc Pharmacy 55.9 ml/min; Glucose 140.0 mg/dl (70-99(Fasting)); Magnesium 1.7 mg/dl (1.7-2.4); Potassium 3.7 mmol/L (3.5-5.1); Sodium 133.0 mmol/L (136-145)
[2025-02-09] MEDS: ACETAMINOPHEN 325 MG TAB PO ONE (07:24)
[2025-02-09] MEDS: ASPIRIN 81 MG ECTAB PO SCH (08:16)
[2025-02-09] MEDS: cefTRIAXone SODIUM 2,000 MG/50 ML BAG IV SCH (08:16)
[2025-02-09] MEDS: CHOLECALCIFEROL 25 MCG (1000 UNITS) TAB PO SCH (08:17)
[2025-02-09] MEDS: ATORVASTATIN 40 MG TAB PO SCH (08:17)
[2025-02-09] MEDS: ISOSORBIDE MONO EXTENDED REL 30 MG TABCR PO SCH (08:17)
[2025-02-09] MEDS: FINASTERIDE 5 MG TAB PO SCH (08:18)
[2025-02-09] MEDS: CLOPIDOGREL BISULFATE 75 MG TAB PO SCH (08:18)
[2025-02-09] MEDS: METOPROLOL SUCC 25MG EXT REL TAB PO SCH (08:18)
[2025-02-09] MEDS: VENLAFAXINE HCL XR 150 MG CAPXR PO SCH (08:19)
[2025-02-09] MEDS ORDERED: SITAGLIPTIN 50 MG PO SCH (09:00)
--- NOTE | 2025-02-09 11:35 | Hospitalist Progress Note ---
Date of Service February 09, 2025 Assessment & Plan (1) Catheter-associated urinary tract infection: Plan: Continue Rocephin, day 2. Urine culture results remain pending. Apparently the blood cultures were never drawn. Previous history of infection with Klebsiella and MSSA (2) Metabolic encephalopathy: Plan: Supportive care. Treat underlying UTI. Resolved (3) Hypomagnesemia: Plan: Corrected with parenteral replacement. Serial labs (4) Hypertension: Plan: The patient was mildly hypotensive on admission which has normalized with IV fluids. Oral intake is satisfactory and IV fluids have been discontinued today, February 09. Will follow (5) CAD (coronary artery disease), [place] coronary artery: Plan: Currently stable. Continue current medical management (6) Type 2 diabetes mellitus: Plan: ADA diet. Sliding scale coverage. Metformin and glipizide and are on hold Plan To be determined. OT and PT assessments have been requested Admission and Anticipated Discharge Date Admission Date: February 08, 2025 Subjective The patient is now awake and alert. He is clinically much improved. The metabolic encephalopathy appears to have resolved. Lactate level has normalized. White count is down to 5000 and magnesium corrected to 1.7. Urine culture results remain pending. Currently on Rocephin, day 2. Oral intake is adequate. IV fluids discontinued. OT and PT assessments requested Review of Systems 2 Review of Systems: Constitutionalno fever or chills ENTno blurred vision, no double vision, no epistaxis, no sore throat Respiratoryno cough, no wheezing, no shortness of breath Cardiacno palpitations, no chest pain, no syncope Kristina nausea, vomiting, diarrhea, melena, hematochezia GUno urinary retention, no urinary incontinence, no dysuria, no hematuria Musculoskeletalno joint pain, no muscle tenderness Skinno bruising, no rashes, no pruritus Neurono isolated weakness, no paresthesia, no weakness Psychno depression, no anxiety Physical Exam 2 Physical Exam: General-alert and oriented x3, no fever, no chills HEENT-head atraumatic and normocephalic, pupils equal and reactive to light, extraocular muscles intact Neck-no lymphadenopathy or thyromegaly, trachea midline Chest-clear to auscultation. No rales, wheezing or rhonchi Cardiac-regular rate and rhythm, normal S1 and S2 Abdomen-normal bowel sounds, no hepatosplenomegaly Extremities-no cyanosis, clubbing, or edema Neuro-cranial nerves II through XII intact, motor and sensory function within normal limits, strength symmetrical, no focal deficits Psych-normal affect, normal mood Results & Data Results & Data Vital Signs (Past 12 Hours) Vital Signs Temp Pulse Pulse Resp BP Pulse Ox O2 Del Method 02/09/25 11:02 36.4 C L 91 H 18 95/62 L 96 Nasal Cannula 02/09/25 09:52 36.6 C 02/09/25 08:09 37.8 C H 02/09/25 07:52 Nasal Cannula 02/09/25 07:40 37.1 C 98 H 18 145/75 H 96 Nasal Cannula 02/09/25 06:54 38.6 C H 02/09/25 06:46 39.1 C H 02/09/25 05:58 38.1 C H 02/09/25 03:53 36.9 C 107 H 20 133/73 95 Nasal Cannula O2 Flow Rate 02/09/25 11:02 1 02/09/25 09:52 02/09/25 08:09 02/09/25 07:52 1 02/09/25 07:40 1 02/09/25 06:54 02/09/25 06:46 02/09/25 05:58 02/09/25 03:53 2 Laboratory Results 02/09/25 05:53 02/09/25 05:53 PG Care Time/CCT Total # of Minutes Spent Total Time Spent with Patient: Total time spent is greater than 50% in coordination of care (as documented) at patient's floor/unit and/or counseling patient: Coding Level of Care Code 47949 SUB INP/OBS CARE 2/35MIN Diagnoses Catheter-associated urinary tract infection T83.511A; N39.0 Metabolic encephalopathy G93.41 Hypomagnesemia E83.42 Hypertension I10 CAD (coronary artery disease), [place] coronary artery I25.10 Type 2 diabetes mellitus E11.9
[2025-02-09] MEDS ORDERED: SODIUM CHLORIDE 0.9% INJ 100 ML BAG IV SCH (18:45)
[2025-02-09] MEDS: SODIUM CHLORIDE 0.9% 1,000 ML IV SCH (19:36)
[2025-02-10 05:51] LABS: Hematocrit (blood only) 31.6 % (42.0-52.0); Hemoglobin 10.6 g/dL (14.0-18.0); Immature Granulocytes # (auto) 0.07 K/uL (0.01-0.20); Immature Granulocytes % (auto) 1.5 %; Mean Corpuscular Hemoglobin 27.6 pg (25.0-34.0); Mean Corpuscular Volume 82.3 fL (80.0-100.0); Platelet Count 103 K/uL (130-400); RDW Standard Deviation 42.7 fL (36.4-46.3); Red Blood Count 3.84 M/uL (4.70-6.10); White Blood Count 4.77 K/ul (4.8-10.8)
[2025-02-10 06:04] LABS: Anion Gap 5.0 (3-11); Blood Urea Nitrogen 26.0 mg/dl (6-23); Calcium 7.5 mg/dl (8.6-10.3); Carbon Dioxide 21.0 mmol/L (21-32); Chloride 108.0 mmol/L (98-107); Creatinine Clr Calc Pharmacy 50.3 ml/min; Glucose 143.0 mg/dl (70-99(Fasting)); Magnesium 1.8 mg/dl (1.7-2.4); Potassium 3.7 mmol/L (3.5-5.1); Sodium 134.0 mmol/L (136-145)
--- NOTE | 2025-02-10 16:21 | Hospitalist Progress Note ---
Date of Service February 10, 2025 Assessment & Plan (1) Catheter-associated urinary tract infection: Plan: Continue Rocephin, day 3. Urine culture growing Serratia, pansensitive. Admission blood cultures were never drawn. (2) Metabolic encephalopathy: Plan: Supportive care. Treat underlying UTI. Resolved (3) Hypomagnesemia: Plan: Corrected with parenteral replacement. Serial labs (4) Hypertension: Plan: The patient was mildly hypotensive on admission which has normalized with IV fluids. He remains on intravenous fluids. Hopefully the IV fluids can be stopped soon. Will follow (5) CAD (coronary artery disease), [place] coronary artery: Plan: Currently stable. Continue current medical management (6) Type 2 diabetes mellitus: Plan: ADA diet. Sliding scale coverage. Metformin and glipizide and are on hold. Glucose 143 today, February 10 Plan To be determined. OT and PT assessments will determine eventual disposition Admission and Anticipated Discharge Date Admission Date: February 08, 2025 Subjective Alert and oriented. OT and PT have been ordered. Case management discharge planning requested. Serratia isolated in the urine. Unfortunately blood cultures were not obtained on admission. He remains on Rocephin, day 3. IV fluids were restarted yesterday, February 09, because of poor oral intake. Hopefully this can be discontinued soon. OT and PT evaluations will determine eventual disposition Review of Systems 2 Review of Systems: Constitutionalno fever or chills ENTno blurred vision, no double vision, no epistaxis, no sore throat Respiratoryno cough, no wheezing, no shortness of breath Cardiacno palpitations, no chest pain, no syncope Kristina nausea, vomiting, diarrhea, melena, hematochezia GUno urinary retention, no urinary incontinence, no dysuria, no hematuria Musculoskeletalno joint pain, no muscle tenderness Skinno bruising, no rashes, no pruritus Neurono isolated weakness, no paresthesia, no weakness Psychno depression, no anxiety Physical Exam 2 Physical Exam: General-alert and oriented x3, no fever, no chills HEENT-head atraumatic and normocephalic, pupils equal and reactive to light, extraocular muscles intact Neck-no lymphadenopathy or thyromegaly, trachea midline Chest-clear to auscultation. No rales, wheezing or rhonchi Cardiac-regular rate and rhythm, normal S1 and S2 Abdomen-normal bowel sounds, no hepatosplenomegaly Extremities-no cyanosis, clubbing, or edema Neuro-cranial nerves II through XII intact, motor and sensory function within normal limits, strength symmetrical, no focal deficits Psych-normal affect, normal mood Results & Data Results & Data Vital Signs (Past 12 Hours) Vital Signs Temp Pulse Pulse Resp BP Pulse Ox O2 Del Method 02/10/25 15:01 37.0 C 94 H 18 118/69 93 Room Air 02/10/25 11:05 36.7 C 97 H 18 106/57 L 93 Room Air 02/10/25 07:33 86 02/10/25 07:31 36.1 C L 92 H 18 144/81 H 99 CPAP Laboratory Results 02/10/25 05:27 02/10/25 05:27 PG Care Time/CCT Total # of Minutes Spent Total Time Spent with Patient: Total time spent is greater than 50% in coordination of care (as documented) at patient's floor/unit and/or counseling patient: Coding Level of Care Code 74934 SUB INP/OBS CARE 2/35MIN Diagnoses Catheter-associated urinary tract infection T83.511A; N39.0 Metabolic encephalopathy G93.41 Hypomagnesemia E83.42 Hypertension I10 CAD (coronary artery disease), [place] coronary artery I25.10 Type 2 diabetes mellitus E11.9
[2025-02-11 06:39] LABS: Hematocrit (blood only) 31.7 % (42.0-52.0); Hemoglobin 10.4 g/dL (14.0-18.0); Immature Granulocytes # (auto) 0.04 K/uL (0.01-0.20); Immature Granulocytes % (auto) 0.9 %; Mean Corpuscular Hemoglobin 27.0 pg (25.0-34.0); Mean Corpuscular Volume 82.3 fL (80.0-100.0); Platelet Count 110 K/uL (130-400); RDW Standard Deviation 44.0 fL (36.4-46.3); Red Blood Count 3.85 M/uL (4.70-6.10); White Blood Count 4.43 K/ul (4.8-10.8)
[2025-02-11 07:07] LABS: Anion Gap 6.0 (3-11); Blood Urea Nitrogen 19.0 mg/dl (6-23); Calcium 7.7 mg/dl (8.6-10.3); Carbon Dioxide 24.0 mmol/L (21-32); Chloride 110.0 mmol/L (98-107); Creatinine Clr Calc Pharmacy 53.4 ml/min; Glucose 159.0 mg/dl (70-99(Fasting)); Potassium 4.0 mmol/L (3.5-5.1); Sodium 140.0 mmol/L (136-145)
[2025-02-11 08:22] VITALS: PULSE 87; RESP 20; TEMP 98.2; O2SAT 94
[2025-02-11 10:20] VITALS: BP 112/66
[2025-02-11] MEDS ORDERED: POLYETHYLENE (MIRALAX) 17 GM PACK PO PRN (10:30)
--- NOTE | 2025-02-11 10:48 | Discharge Summary ---
Discharge Summary Date of Service February 11, 2025 Principal Dx & Hospital Course #1 = Principal Diagnosis (1) Catheter-associated urinary tract infection: Presented with confusion and UA concerning for CAUTI. Received Rocephin. Urine culture growing Serratia, pansensitive. Will discharge on Cefpodoxime 200mg BID for complication UTI for additional four days. Continue follow up with urology. Hold PPI while on abx. PT/OT rec home with HH. (2) Metabolic encephalopathy: Like related to rhinovirus and UTI - back to baseline mentation. (3) Hypomagnesemia: Corrected with parenteral replacement. Resolved. (4) Hypertension: Continue imdur and metoprolol, BPs improved. (5) CAD (coronary artery disease), [place] coronary artery: Currently stable. Continue home medications. (6) Type 2 diabetes mellitus: Continue home metformin and glipizide on discharge. Plan Discharge to home with HH today Admission HPI Per Admitting Provider 79-year-old white male with chronic indwelling Lezama catheter who developed lethargy and confusion after Lezama catheter was changed by home health services yesterday, February 07. He was brought to the ED today, February 08, by family members. There is evidence of recurrent UTI and he appears to have a metabolic encephalopathy. Previous urine cultures grew Klebsiella and MSSA. He has received a dose of Rocephin. IV magnesium has been ordered. The patient believes he is at [facility] and cannot tell me the date. Family is in attendance Discharge Exam General: NAD, VS as above Resp: normal respiratory effort, lungs clear to auscultation CV: RRR, no murmur, Abd: normal bowel sounds, mildly distended but non tender Extremities: Moves all extremities, no edema Neuro: A&O x3, : lezama in place, clear yellow urine Skin: intact, no lesions noted Discharge Plan Discharge Items Patient Disposition: Home - Home Health Services Reason For Visit: CAUTI, METABOLIC ENCEPHALOPATHY Discharge Diagnosis: CAUTI Condition on Discharge: Fair Activity: As commented below Activity Comment: work with therapy to get stronger Weightbearing: Full weightbearing Non-emergency contact: Primary Care Provider Call non-emergency contact if: you have any medication questions, your symptoms worsen and your temperature is above 101 Follow-up/Referrals: Natalie Mirza PA-C [Primary Care Provider] - (follow up within one week ) Diet: Carb Consistent or DM2 Addtl Attending Provider Instructions: Mr. Honeycutt, You were hospitalized after having confusion and weakness at home, this was found to be from a Urinary tract infection from your catheter. You were given IV antibiotics and had great improvement. You will be continued on oral antibiotics, cefpodoxime for 4 additional days, please take the first dose AM 12/15. This is a twice a day medication, please take the full course even if you feel well. You were also found to have rhino/enterovirus - the treatment for this is supportive care - fluids and tylenol until you are feeling better. It can make people weak and tired similar to a common cold. Thankfully, you are no longer requiring oxygen. You were also found to be dehydrated and given on IV fluids. This is also likely causing your constipation. Please continue to use miralax or over the counter stool softeners to ensure that you are having bowel movements most days. Make sure you are staying hydrated - aim for 8 glasses of water a day! Activity: You can do normal everyday activities as your body allows. Take rest breaks if you feel tired. Do not overexert. Stop activity if you have pain, shortness of breath or feel dizzy. Home Health therapy has been arranged to come into your home to help you get stronger. Follow-up appointments: Make an appointment with your primary care physician within one week of discharge. A copy of this summary will be sent to them. Every time you see your primary care physician, or any other doctor, bring your medication list, and a list of questions. CONTACT YOUR PRIMARY CARE PROVIDER if you experience any of the following: Shortness of breath or difficulty breathing Fevers or chills Feeling tired with normal activity or experiencing dizziness or fainting Difficulty following your treatment plan, or difficulty taking medications CALL 911 OR GO TO THE EMERGENCY DEPARTMENT if you experience any of the following: Severe abdominal pain or nausea/vomiting Severe chest pain, or chest pain that radiates (moves) to your jaw or arm Sudden, severe shortness of breath or difficulty breathing Thank you for allowing us to participate in your care. Pending Studies at Discharge: Yes (urine culture ) Stand-Alone Forms: My TYMR, Smoking Cessation Medications and DC Order Prescriptions: New cefpodoxime 200 mg tablet 200 mg PO BID Qty: 8 0RF Rx Instructions: must administer with a meal/food Continued docusate sodium 100 mg capsule 100 mg PO BID cholecalciferol (vitamin D3) 25 mcg (1,000 unit) capsule 25 mcg PO DAILY metformin 1,000 mg tablet 1,000 mg PO BID mirtazapine 30 mg tablet 30 mg PO HS prazosin 2 mg capsule 2 mg PO HS venlafaxine 75 mg capsule,extended release 24hr 150 mg PO DAILY atorvastatin 80 mg tablet 80 mg PO QAM aspirin 81 mg Tablet,Delayed Release (Dr/Ec) 81 mg PO QAM isosorbide mononitrate 60 mg Tablet Extended Release 24 Hr 30 mg PO QAM Rx Instructions: Take 1/2 tab po QAM (30 mg) gabapentin 100 mg Capsule 200 mg PO BID metoprolol succinate 25 mg Tablet Extended Release 24 Hr 25 mg PO DAILY Nutritional Shake Liquid 1 ea PO BID magnesium oxide 420 mg Tablet 420 mg PO DAILY ketoconazole 2 % Shampoo 1 ea TOPICAL 2XWK polyethylene glycol 3350 17 gram Powder In Packet 17 g PO DAILY cyanocobalamin (vitamin B-12) 1,000 mcg Tablet 1,000 mcg PO DAILY acetaminophen 500 mg Tablet 500 mg PO Q6H PRN (Reason: Pain) ascorbic acid (vitamin C) 500 mg Tablet 500 mg PO Q OTHER DAY Rx Instructions: WITH IRON bisacodyl 10 mg Suppository 10 mg IL Q48H ferrous sulfate 325 mg (65 mg iron) Tablet 325 mg PO Q OTHER DAY Rx Instructions: WITH VITAMIN C triamcinolone acetonide 0.1 % Ointment 1 applic TOPICAL BID glucose 4 gram Tablet,Chewable 4 g PO ONCE PRN (Reason: LOW SUGAR) carbamide peroxide 6.5 % Drops 5 drp OTIC (EAR) Q12H Rx Instructions: LEFT EAR FOR UP TO 4 DAYS multivitamin with minerals Tablet 1 tab PO DAILY glipizide 5 mg Tablet 5 mg PO DAILYBD Eucerin Lotion 1 applic TOPICAL DAILY PRN (Reason: Dry Skin) memantine 10 mg Tablet 10 mg PO BID clopidogrel [Plavix] 75 mg Tablet 75 mg DAILY sitagliptin 50 mg Tablet 50 mg PO DAILY Held pantoprazole 40 mg tablet,delayed release (DR/EC) 40 mg PO DAILYBB Hold Instructions: Provider's Order - hold while taking antibiotics Discharge Orders: Discharge Order (Routine); Ordered 02/11/25 Ordered By: Neema Rodríguez Admission Data Admit Date/Time: 02/08/25 10:01 Attending Provider: Richard Dobson Admit Provider: Enirque Simon Primary Care Provider: Natalie Mirza Other Providers: Enrique Simon; [facility] Hospital Stay Data Consultations 02/08/25 09:36 ED Decision to Admit Stat Diagnostic Imagining Performed Chest X-Ray 02/08/25 06:58 EXAM: XR chest 1V portable CLINICAL HISTORY: weakness TECHNIQUE: An X-ray image of the chest is obtained in AP projection. COMPARISON: compared to prior study at 03/09/2024 FINDINGS: Pulmonary Parenchyma: Prominent intersitial lung markings suggestive of mild vascular congestion. No evidence of consolidation, collapse, or focal opacities. No pulmonary nodules are identified. No evidence of pleural effusion or pleural thickening. Elevated right diaphragmatic coupla. Heart and Mediastinum: Heart size and shape are normal. No mediastinal widening or masses. No hilar or mediastinal lymphadenopathy. Bony Thorax: Bony thorax appears intact without fractures or deformities. Mild degenerative changes at both shoulder joints. Soft Tissues: Soft tissues overlying the chest wall are unremarkable. IMPRESSION: 1. Prominent intersitial lung markings suggestive of mild vascular congestion. 2. No acute cardiopulmonary process. 3. No interval changes Electronically signed by Ivan Palomo 02-08-2025 08:14 AM Pending Results Patient Have Any Pending Studies at Discharge: Yes (urine culture ) Discharge Instructions Given to Patient (Per Discharging Provider) Mr. Honeycutt, You were hospitalized after having confusion and weakness at home, this was found to be from a Urinary tract infection from your catheter. You were given IV antibiotics and had great improvement. You will be continued on oral antibiotics, cefpodoxime for 4 additional days, please take the first dose AM 12. This is a twice a day medication, please take the full course even if you feel well. You were also found to have rhino/enterovirus - the treatment for this is supportive care - fluids and tylenol until you are feeling better. It can make people weak and tired similar to a common cold. Thankfully, you are no longer requiring oxygen. You were also found to be dehydrated and given on IV fluids. This is also likely causing your constipation. Please continue to use miralax or over the counter stool softeners to ensure that you are having bowel movements most days. Make sure you are staying hydrated - aim for 8 glasses of water a day! Activity: You can do normal everyday activities as your body allows. Take rest breaks if you feel tired. Do not overexert. Stop activity if you have pain, shortness of breath or feel dizzy. Home Health therapy has been arranged to come into your home to help you get stronger. Follow-up appointments: Make an appointment with your primary care physician within one week of discharge. A copy of this summary will be sent to them. Every time you see your primary care physician, or any other doctor, bring your medication list, and a list of questions. CONTACT YOUR PRIMARY CARE PROVIDER if you experience any of the following: Shortness of breath or difficulty breathing Fevers or chills Feeling tired with normal activity or experiencing dizziness or fainting Difficulty following your treatment plan, or difficulty taking medications CALL 911 OR GO TO THE EMERGENCY DEPARTMENT if you experience any of the following: Severe abdominal pain or nausea/vomiting Severe chest pain, or chest pain that radiates (moves) to your jaw or arm Sudden, severe shortness of breath or difficulty breathing Thank you for allowing us to participate in your care. Total Time Total Time Spent Total Time Spent (In Minutes): Time spent day of discharge 33 minutes including direct patient care, medication reconciliation, documentation, review of labs and images, and coordination of care. Coding Level of Care Code 26020 INP/OBS DISCH >30 MIN Diagnoses Catheter-associated urinary tract infection T83.511A; N39.0 Metabolic encephalopathy G93.41 Hypomagnesemia E83.42 Hypertension I10 CAD (coronary artery disease), [place] coronary artery I25.10 Type 2 diabetes mellitus E11.9
== END 2025-02-11 12:56 | disposition home health service (06) | DRG 698 ==
LOC: SUATTDRO → ED 06:48 → EDINP 10:01 → SUATTDRO 10:01 → 2N 17:36